=== PATIENT | female | born 1935 | race Caucasian/White ===

== ENCOUNTER 2017-03-24 10:20 | Emergency (ER) | payer OTHER ==
[2017-03-24 10:27] VITALS: BMI 23.7
--- NOTE | 2017-03-24 11:45 | PDOC ---
History of Present Illness - General Chief Complaint: Pain Stated Complaint: PAIN/SOB Time Seen by Provider: 03/24/17 11:06 History Source: Patient Exam Limitations: No Limitations - History of Present Illness Initial Comments: 82 yo F presents with R rib pain. She states she bent over to pick something up 2 days ago, developed sudden pain to the R lower rib margin. She has had difficulty taking a deep breath due to pain ever since. Denies cough, fever. Denies abd pain, N/V. Pain does not worsen with eating meals. No prior similar symptoms. Past History - Past Medical History Allergies/Adverse Reactions: Allergies Allergy/AdvReac Type Severity Reaction Status Date / Time No Known Allergies Allergy Verified 03/24/17 10:28 Home Medications: Ambulatory Orders Alprazolam [Xanax] 0.5 mg PO DAILY 02/12/17 Atorvastatin Calcium 10 mg PO DAILY 02/12/17 Diltiazem Cd [Cardizem Cd -] 300 mg PO DAILY 02/12/17 Losartan/Hydrochlorothiazide [Losartan-Hctz 100-25 mg Tab] 100 mg PO DAILY 02/12 Ranitidine [Zantac -] 300 mg PO ONCE 02/12/17 Warfarin Sodium [Coumadin] 2 mg PO DAILY 02/12/17 Albuterol Sulfate Inhaler - [Ventolin HFA Inhaler -] 1 - 2 inh PO QID #1 inhaler 03/24/17 Tramadol HCl 1 - 2 tab PO Q6H PRN #24 tablet MDD 8 tabs 03/24/17 Asthma: Yes COPD: No HTN: Yes - Suicide/Smoking/Psychosocial Hx Smoking History: Never smoked Hx Alcohol Use: No Drug/Substance Use Hx: No Substance Use Type: None Review of Systems - Review of Systems Able to Perform ROS?: Yes Comments:: GENERAL/CONSTITUTIONAL: No fever or chills. No weakness. HEAD, EYES, EARS, NOSE AND THROAT: No change in vision. No ear pain or discharge. No sore throat. CARDIOVASCULAR: No chest pain or shortness of breath. +R lower rib pain. RESPIRATORY: No cough, wheezing, or hemoptysis. GASTROINTESTINAL: No nausea, vomiting, diarrhea or constipation. GENITOURINARY: No dysuria, frequency, or change in urination. MUSCULOSKELETAL: No joint or muscle swelling or pain. No neck or back pain. SKIN: No rash NEUROLOGIC: No headache, vertigo, loss of consciousness, or change in strength/ sensation. ENDOCRINE: No increased thirst. No abnormal weight change. HEMATOLOGIC/LYMPHATIC: No anemia, easy bleeding, or history of blood clots. ALLERGIC/IMMUNOLOGIC: No hives or skin allergy. *Physical Exam - Vital Signs Last Vital Signs Temp Pulse Resp BP Pulse Ox 97.6 F 115 H 20 164/88 97 03/24/17 10:23 03/24/17 10:23 03/24/17 10:23 03/24/17 10:23 03/24/17 10:23 - Physical Exam Comments: GENERAL: Awake, alert, and fully oriented, in no acute distress HEAD: No signs of trauma EYES: PERRLA, EOMI, sclera anicteric, conjunctiva clear ENT: Auricles normal inspection, hearing grossly normal, nares patent, oropharynx clear without exudates. Moist mucosa NECK: Normal ROM, supple, no lymphadenopathy, JVD, or masses LUNGS: Breath sounds equal, clear to auscultation bilaterally. No wheezes, and no crackles. +Splinting. +R anterior inferior rib margin tenderness. HEART: Regular rate and rhythm, normal S1 and S2, no murmurs, rubs or gallops ABDOMEN: Soft, nontender, normoactive bowel sounds. No guarding, no rebound. No masses EXTREMITIES: Normal range of motion, no edema. No clubbing or cyanosis. No cords, erythema, or tenderness NEUROLOGICAL: Cranial nerves II through XII grossly intact. Normal speech, normal gait SKIN: Warm, Dry, normal turgor, no rashes or lesions noted. Medical Decision Making - Medical Decision Making XR read as negative, however, there appears to be a fracture on one of the views. Will treat for pain, DC home with outpatient f/u. *DC/Admit/Observation/Transfer Diagnosis at time of Disposition: Rib fracture Qualifiers: Encounter type: initial encounter Rib fracture type: single rib Fracture type: closed Laterality: right Qualified Code(s): S22.31XA - Fracture of one rib, right side, initial encounter for closed fracture - Discharge Dispostion Disposition: HOME Condition at time of disposition: Stable Admit: No - Prescriptions Prescriptions: Albuterol Sulfate Inhaler - [Ventolin HFA Inhaler -] 1 - 2 inh PO QID #1 inhaler Tramadol HCl 1 - 2 tab PO Q6H PRN #24 tablet MDD 8 tabs PRN Reason: Severe Pain - Referrals Referrals: Mehul Inman MD [Staff Physician] - - Patient Instructions Printed Discharge Instructions: DI for Rib Fracture Additional Instructions: Follow up in the internal medicine clinic for management of the coumadin. - Post Discharge Activity
[2017-03-24] MEDS ORDERED: traMADol HCL 50 MG TABLET PO ONE (11:50)
[2017-03-24] MEDS ORDERED: traMADol HCL 50 MG TABLET ONE (12:07)
[2017-03-24 12:54] LABS: INR 1.65 (0.82-1.09); PROTHROMBIN TIME (PATIENT) 18.7 SEC (9.98-11.88)
[2017-03-24 12:56] LABS: ACTIVATED PTT 41.6 SECONDS (26.9-34.4)
[2017-03-24] MEDS: ALBUTEROL SO4 2.5/IPRATROPIUM 0.5 INH SOL 3 ML VIAL.NEB. NEB SCH ×3 (13:15→13:45)
[2017-03-24 14:22] VITALS: BP 128/70; PULSE 68; TEMP 97.8
--- NOTE | 2017-03-29 13:54 | EKG ---
Test Reason : Blood Pressure : / mmHG Vent. Rate : 074 BPM Atrial Rate : 074 BPM P-R Int : 152 ms QRS Dur : 076 ms QT Int : 372 ms P-R-T Axes : 064 045 020 degrees QTc Int : 412 ms NORMAL SINUS RHYTHM NONSPECIFIC T WAVE ABNORMALITY ABNORMAL ECG Confirmed by ISRRAEL TORRES MD ([id number]) on 03/29/2017 1:53:41 PM Referred By: Confirmed By:ISRRAEL TORRES MD
== END 2017-03-24 14:22 | disposition home or self-care (01) ==
LOC: JER 10:20
DX: S22.31XA Fracture of one rib, right side, initial encounter for closed fracture (principal); X50.0XXA Overexertion from strenuous movement or load, initial encounter; Y93.89 Activity, other specified; Y92.89 Other specified places as the place of occurrence of the external cause; Y99.8 Other external cause status
CPT/HCPCS: 36415; 71020-TC; 71101-TC-RT; 85610; 85730; 93005; 93010; 99282-25

== ENCOUNTER 2017-08-24 10:17 | Emergency (ER) | payer OTHER ==
[2017-08-24 10:24] VITALS: BMI 24.7
--- NOTE | 2017-08-24 11:25 | PDOC ---
History of Present Illness <Epi Sarah - Last Filed: 08/24/17 18:23> - History of Present Illness Initial Comments: Patient is a 82F, with PMHx of asthma, HTN, HLD, GERD, asthma, Afib (on coumadin), who presents today for rib pain s/p unwitnessed slip and fall 3 days ago. Patient states 3 days ago she fell backwards, landing on her bottom. She initially felt some left shoulder left pain but otherwise was fine. Last night she began feeling left rib pain. It is worse when she is moving/twisting and improves with rest. Took Tylenol very early this morning with some improvement. She also notes some pain in her left foot and back. She also reports falling 1 week ago in her kitchen but is unable to recall why. She also reports broken rib a few months ago after a fall. She does not have a primary care doctor since she just returned from [place] a couple of months ago. She denies hitting her head, loc. She denies fever, diarrhea, hematochezia, dysuria, abdominal pain. She denies chest pain, dizziness, or headache before fall. Denies neck pain. 08/24/17 18:41 <Latisha Hammer - Last Filed: 08/24/17 18:47> - General Chief Complaint: Injury Stated Complaint: FELL CHEST PAIN Time Seen by Provider: 08/24/17 10:50 Past History - Past Medical History Asthma: Yes COPD: No HTN: Yes - Suicide/Smoking/Psychosocial Hx Smoking History: Never smoked Hx Alcohol Use: No Drug/Substance Use Hx: No Substance Use Type: None <Epi Sarah - Last Filed: 08/24/17 18:23> <Latisha Hammer - Last Filed: 08/24/17 18:47> - Past Medical History Allergies/Adverse Reactions: Allergies Allergy/AdvReac Type Severity Reaction Status Date / Time No Known Allergies Allergy Verified 08/24/17 10:22 Home Medications: Ambulatory Orders Alprazolam [Xanax] 0.5 mg PO DAILY 02/12/17 Atorvastatin Calcium 10 mg PO DAILY 02/12/17 Diltiazem Cd [Cardizem Cd -] 300 mg PO DAILY 02/12/17 Losartan/Hydrochlorothiazide [Losartan-Hctz 100-25 mg Tab] 100 mg PO DAILY 02/12 Ranitidine [Zantac -] 300 mg PO ONCE 02/12/17 Warfarin Sodium [Coumadin] 2 mg PO DAILY 02/12/17 Albuterol Sulfate Inhaler - [Ventolin HFA Inhaler -] 1 - 2 inh PO QID #1 inhaler 03/24/17 Tramadol HCl 1 - 2 tab PO Q6H PRN #24 tablet MDD 8 tabs 03/24/17 Nitrofurantoin Monohyd/M-Cryst [Macrobid -] 100 mg PO BID #14 capsule 08/24/17 Review of Systems - Review of Systems Comments:: 08/24/17 18:43 CONSTITUTIONAL: No reported: Fever, Chills, Diaphoresis, Generalized Weakness, Malaise, Loss of Appetite HEENT: No reported: Rhinorrhea, Nasal Congestion, Throat Pain, Throat Swelling, Difficulty Swallowing, Mouth Swelling, Ear Pain, Eye Pain, Visual Changes CARDIOVASCULAR: No reported: Chest Pain, Syncope, Palpitations, Irregular Heart Rate, Lightheadedness, Peripheral Edema RESPIRATORY: No reported: Cough, Shortness of Breath, SOB with Exertion, Orthopnea, Wheezing , Stridor, Hemoptysis GASTROINTESTINAL: No reported: Abdominal pain, Abdominal Distension, Nausea, Vomiting, Diarrhea, Constipation, Melena, Hematochezia GENITOURINARY: No reported: Dysuria, Frequency, Urgency, Hesitancy, Flank Pain, Genital Pain MUSCULOSKELETAL: Reported: left rib, shoulder, foot, and back pain. No reported: Neck Pain SKIN: Reported: left shoulder pain No reported: Rash, Itching, Pallor HEMATOLOGIC/IMMUNOLOGIC: No reported: Easy Bleeding, Easy Bruising, Lymphadenopathy, Frequent infections ENDOCRINE: No reported: Unexplained Weight Gain, Unexplained Weight Loss, Heat Intolerance , Cold Intolerance NEUROLOGIC: No reported: Headache, Focal Weakness, Paresthesias, Vertigo, Lightheadedness, Unsteady Gait, Seizure, Mental Status Changes, Incontinence PSYCHIATRIC: No reported: Anxiety, Depression " <Latisha Hammer - Last Filed: 08/24/17 18:47> *Physical Exam - Vital Signs Last Vital Signs Temp Pulse Resp BP Pulse Ox 98 F 73 18 170/75 98 08/24/17 10:18 08/24/17 10:18 08/24/17 10:18 08/24/17 10:18 08/24/17 10:18 <Tyrel,Epi - Last Filed: 08/24/17 18:23> - Vital Signs Last Vital Signs Temp Pulse Resp BP Pulse Ox 98 F 73 18 170/75 98 08/24/17 10:18 08/24/17 10:18 08/24/17 10:18 08/24/17 10:18 08/24/17 10:18 - Physical Exam Comments: 08/24/17 18:44 GENERAL: The patient is awake, alert, and fully oriented, Nontoxic - in no acute distress. HEAD: Normocephalic, atraumatic. EYES: Extraocular movements intact, Sclera anicteric, Conjunctiva clear. ENT: Normal voice, Moist mucous membranes. NECK: Normal range of motion, supple LUNGS: Breath sounds equal, clear to auscultation bilaterally. No wheezes, no rhonchi, no rales. HEART: Regular rate and rhythm, without murmur, rub or gallop. mild tenderness at the L chest wall, CHEST: Left lateral chest wall, reproduces her pain exactly. ABDOMEN: Soft, nontender, No guarding, no rebound.No CVA tenderness EXTREMITIES: Ecchymosis in the proximal L humerus, Normal range of motion of B/ L UE and LE at all joints. NEUROLOGICAL: No facial assymetry, Normal speech. PSYCH: Normal mood, normal affect. SKIN: Warm, Dry, normal turgor <Latisha Hammer - Last Filed: 08/24/17 18:47> Heart Score/ECG Review - ECG Impressions Comment:: 08/24/17 18:23 Twelve-lead EKG was performed and reviewed by me. There is normal sinus rhythm with a normal rate. Rate of 67 The axis is normal. The intervals are normal. There is normal R wave progression There are no ST or T wave abnormalities. Impression: Normal twelve-lead EKG <Epi Sarah - Last Filed: 08/24/17 18:23> - ECG Intrepretation Comment:: 08/24/17 11:57 Taken 11:51:04 Sinus rhythm with marked sinus arrhythmia Vent rate 67 bpm <Latisha Hammer - Last Filed: 08/24/17 18:47> ED Treatment Course - LABORATORY CBC & Chemistry Diagram: 08/24/17 11:45 08/24/17 11:45 - RADIOLOGY Radiology Studies Ordered: Category Date Time Status CHEST PA & LAT [RAD] Stat Radiology 08/24/17 11:21 Ordered FOOT-LEFT [RAD] Stat Radiology 08/24/17 11:21 Ordered HUMERUS-LEFT [RAD] Stat Radiology 08/24/17 11:21 Ordered RIBS-LEFT SIDE [RAD] Stat Radiology 08/24/17 11:21 Ordered <Epi Sarah - Last Filed: 08/24/17 18:23> - LABORATORY CBC & Chemistry Diagram: 08/24/17 11:45 08/24/17 11:45 - ADDITIONAL ORDERS Additional order review: 08/24/17 11:45 RBC 3.91 MCV 91.3 MCHC 34.1 RDW 14.1 MPV 8.0 Neutrophils % 53.3 Lymphocytes % 34.5 Monocytes % 9.5 Eosinophils % 2.1 Basophils % 0.6 <Latisha Hammer - Last Filed: 08/24/17 18:47> Medical Decision Making - Medical Decision Making 08/24/17 11:26 82y F hx of asthma, hypertension, hyperlipidemia, A. fib on Coumadin, GERD presenting with complaint of fall 3 days ago, patient states his mechanical fall she thinks she slipped coming in the bathroom landed on her behind and then on her back. Denies any LOC, head injury, states she felt well for the past few days until last night when she started having pain in her left back that is worse when movement and with coughing and deep breaths. The patient endorses mild pain in her left shoulder however is able to range it fully. The patient also endorsed following 1-2 weeks ago with pain in her 08/24/17 16:02 labs reviewed unremarkable xry neg for fx ua +nitrite positive will dc with pmd fu will start abx for uti I discussed the physical exam findings, ancillary test results and final diagnoses with the patient. I answered all of the patient's questions. The patient was satisfied with the care received and felt comfortable with the discharge plan and treatment plan. The patient will call their primary care physician within 24 hours to arrange follow-up and will return to the Emergency Department with any new, persistent or worsening symptoms. <Epi Sarah - Last Filed: 08/24/17 18:23> *DC/Admit/Observation/Transfer - Discharge Dispostion Decision to Admit order: No <Epi Sarah - Last Filed: 08/24/17 18:23> - Attestations Scribe Attestion: 08/24/17 18:47 Documentation prepared by Latisha Hammer, acting as medical research associate for Epi Sarah MD,. <Latisha Hammer - Last Filed: 08/24/17 18:47> Diagnosis at time of Disposition: Muscular chest pain UTI (urinary tract infection) Qualifiers: Urinary tract infection type: site unspecified Hematuria presence: without hematuria Qualified Code(s): N39.0 - Urinary tract infection, site not specified - Discharge Dispostion Disposition: HOME Condition at time of disposition: Improved - Prescriptions Prescriptions: Nitrofurantoin Monohyd/M-Cryst [Macrobid -] 100 mg PO BID #14 capsule - Referrals Referrals: Mehul Inman MD [Staff Physician] - - Patient Instructions Printed Discharge Instructions: DI for Urinary Tract Infection (UTI), How to Prevent Falls Additional Instructions: Return to the emergency department immediately with ANY new, persistent or worsening symptoms. Take the antibiotics as prescribed take tylenolf or your pain, it will get better over a few days. You MUST call and follow up with your doctor in 3-4 days for further evaluation of your symptoms. Results were discussed with you. Please make sure your doctor reviews the results of your emergency evaluation. Print Language: MALTESE
[2017-08-24 11:52] LABS: BASO % 0.6 % (0-2.0); EOS % 2.1 % (0-4.5); HEMATOCRIT 35.7 % (32.4-45.2); HEMOGLOBIN 12.2 GM/dL (10.7-15.3); LYMPH % 34.5 % (8-40); MCH 31.1 pg (25.7-33.7); MCHC 34.1 g/dl (32.0-36.0); MEAN CELL VOLUME 91.3 fl (80-96); MONO % 9.5 % (3.8-10.2); NEUT % 53.3 % (42.8-82.8); PLATELET COUNT 229 K/MM3 (134-434); RBC 3.91 M/mm3 (3.60-5.2); RDW 14.1 % (11.6-15.6)
[2017-08-24 12:05] LABS: INR 2.45 (0.82-1.09); PROTHROMBIN TIME (PATIENT) 27.7 SEC (9.7-13.0)
[2017-08-24] MEDS ORDERED: ACETAMINOPHEN 325 MG TABLET (FP) PO ONE (12:09)
[2017-08-24 12:16] LABS: ANION GAP 5 (8-16); BILIRUBIN,TOTAL 0.6 mg/dL (0.2-1.0); BLOOD UREA NITROGEN 19 mg/dL (7-18); CHLORIDE 102 mmol/L (98-107); CO2 31 mmol/L (21-32); CREATININE 0.9 mg/dL (0.55-1.02); GLUCOSE,RANDOM 82 mg/dL (74-106); POTASSIUM 4.1 mmol/L (3.5-5.1); SGOT/AST 19 U/L (15-37); SGPT/ALT 24 U/L (12-78); SODIUM 138 mmol/L (136-145); TOT PROT 6.9 g/dl (6.4-8.2)
[2017-08-24 12:17] LABS: ALK PHOS 100 U/L (45-117)
[2017-08-24] MEDS ORDERED: ACETAMINOPHEN 325 MG TABLET (FP) ONE (12:24)
[2017-08-24 14:23] LABS: URINE APPEARANCE CLEAR; URINE BILIRUBIN NEGATIVE (<2.0 mg/dL); URINE COLOR LTYELLOW; URINE GLUCOSE (UA) NEGATIVE (NEGATIVE); URINE KETONE NEGATIVE (NEGATIVE); URINE LEUK ESTERASE NEGATIVE (NEGATIVE); URINE NITRITE POSITIVE (NEGATIVE); URINE PROTEIN NEGATIVE (NEGATIVE); URINE UROBILINOGEN NEGATIVE mg/dL (0.2-1.0)
[2017-08-24 14:48] LABS: EPI CELLS RARE /HPF (FEW); URINE BACTERIA RARE /hpf (NONE SEEN)
[2017-08-24 16:24] VITALS: BP 142/79; PULSE 68; TEMP 98.5
--- NOTE | 2017-08-27 00:32 | EKG ---
Test Reason : Blood Pressure : / mmHG Vent. Rate : 067 BPM Atrial Rate : 067 BPM P-R Int : 156 ms QRS Dur : 070 ms QT Int : 392 ms P-R-T Axes : 053 046 029 degrees QTc Int : 414 ms SINUS RHYTHM WITH MARKED SINUS ARRHYTHMIA OTHERWISE NORMAL ECG WHEN COMPARED WITH ECG OF 24-MAR-2017 11:26, NO SIGNIFICANT CHANGE WAS FOUND Confirmed by ESTELITA CONNER MD ([id number]) on 08/27/2017 12:32:00 AM Referred By: Confirmed By:ESTELITA CONNER MD
== END 2017-08-24 16:15 | disposition home or self-care (01) ==
LOC: JER 10:17
DX: R07.89 Other chest pain (principal); N39.0 Urinary tract infection, site not specified; W01.0XXA Fall on same level from slipping, tripping and stumbling without subsequent striking against object, initial encounter; Z91.81 History of falling; Y93.89 Activity, other specified; Y92.030 Kitchen in apartment as the place of occurrence of the external cause; Y99.8 Other external cause status; I10 Essential (primary) hypertension; E78.5 Hyperlipidemia, unspecified; E78.00 Pure hypercholesterolemia, unspecified; K21.9 Gastro-esophageal reflux disease without esophagitis; Z87.09 Personal history of other diseases of the respiratory system; I48.91 Unspecified atrial fibrillation; Z79.01 Long term (current) use of anticoagulants
CPT/HCPCS: 36415; 71046-TC-FY; 71101-TC-FY; 73060-TC-LT-FY; 73630-TC-LT; 80053; 81003; 81015; 82550; 84484; 85025; 85610; 93005; 93010; 99283-25

== ENCOUNTER 2017-12-13 13:41 | Inpatient (IN) | payer OTHER ==
[2017-12-13] MEDS ORDERED: ACETAMINOPHEN 1000 MG/100 ML VIAL (NON FORMULARY) IVPB ONE (14:30)
[2017-12-13] MEDS ORDERED: ACETAMINOPHEN INJECTION 100 ML IVPB ONE (14:34)
--- NOTE | 2017-12-13 14:55 | PDOC ---
Attending Attestation - Resident Resident Name: Abner Blake - ED Attending Attestation I have performed the following: I have examined & evaluated the patient, The case was reviewed & discussed with the resident, I agree w/resident's findings & plan, Exceptions are as noted - HPI HPI: 12/13/17 14:51 82-year-old female with past medical history of asthma, hypertension, GERD, atrial fibrillation on Coumadin presents with mechanical fall. The patient had slipped and fell and landed on her right hip. She actually denies head trauma or head injury. No loss of consciousness. Patient reports significant amount of pain around the greater trochanter site. No numbness or weakness. Patient is unable to ambulate secondary to pain. - Physicial Exam PE: 12/13/17 14:55 GENERAL: Awake, alert, and fully oriented, in no acute distress HEAD: No signs of trauma EYES: PERRLA, EOMI, sclera anicteric, conjunctiva clear ENT: Auricles normal inspection, hearing grossly normal, nares patent, oropharynx clear without exudates. Moist mucosa NECK: Normal ROM, supple, ABDOMEN: Soft, mildly tender to palpation suprapubic. EXTREMITIES: Normal range of motion, no edema. No clubbing or cyanosis. No cords, erythema, or tenderness RLE: 2+ DP pulse. No obvious gross abnormalities. pelvis stable, however, TTP right lateral hip around greater trochanter. NEUROLOGICAL: Cranial nerves II through XII grossly intact. Normal speech SKIN: Warm, Dry, normal turgor, no rashes or lesions noted. - Medical Decision Making 12/13/17 15:00 Vital Signs Temp Pulse Resp BP Pulse Ox 97.9 F 82 17 150/76 99 12/13/17 13:51 12/13/17 13:51 12/13/17 13:51 12/13/17 13:51 12/13/17 13:51 82 year old female p/w R hip pain s/p mechanical fall. Pt absolutely denies head trauma. Will defer on head imaging. Pelvis and R hip xray to r/o fracture. If xray equivocal, pursue with CT pelvis with noncontrast Pain control. Pt also noted incidentally with suprapubic discomfort. R/o UTI. Pt denies trauma to the abdomen. 12/13/17 16:12 CBC, BMP 12/13/17 14:45 Urine Test Results Urine Color Ltyellow 12/13/17 15:00 Urine Appearance Clear 12/13/17 15:00 Urine pH 6.0 (5.0-8.0) 12/13/17 15:00 Ur Specific Revere 1.010 (1.001-1.035) 12/13/17 15:00 Urine Protein 1+ (NEGATIVE) H 12/13/17 15:00 Urine Glucose (UA) Negative (NEGATIVE) 12/13/17 15:00 Urine Ketones Negative (NEGATIVE) 12/13/17 15:00 Urine Blood 1+ (NEGATIVE) H 12/13/17 15:00 Urine Nitrite Positive (NEGATIVE) 12/13/17 15:00 Urine Bilirubin Negative (<2.0 mg/dL) 12/13/17 15:00 Ur Leukocyte Esterase Negative (NEGATIVE) 12/13/17 15:00 Ur Epithelial Cells Rare /HPF (FEW) 12/13/17 15:00 Urine Bacteria Rare /hpf (NONE SEEN) 12/13/17 15:00 Urine Mucus Rare 12/13/17 15:00 12/13/17 16:20 Ceftriaxone ordered for UTI. Given lower abd pain and WBC 20.7, will order CT abdomen and pelvis to r/o other acute abdominal pathology. Admit 12/13/17 16:23 Pelvis xray reviewed by me, pending official radiology read. Superior and inferior pubic rami fracture. 12/13/17 16:24 Consult ortho <Ananda Camarena - Last Filed: 12/13/17 16:24> - Medical Decision Making 12/13/17 19:29 discussed the case with DIANA who accepts the pt to admission <Stephanie Urbina - Last Filed: 12/13/17 19:29> Heart Score/ECG Review #1 ECG reviewed & interpreted by me at: 15:35 12/13/17 15:44 NSR 79, no std/gaby, normal axis, T wave flat aVL, III, avF, V3-V6 <Ananda Camarena - Last Filed: 12/13/17 16:24>
[2017-12-13 15:47] LABS: HEMATOCRIT 34.7 % (32.4-45.2); HEMOGLOBIN 11.7 GM/dL (10.7-15.3); MCH 30.9 pg (25.7-33.7); MCHC 33.7 g/dl (32.0-36.0); MEAN CELL VOLUME 91.5 fl (80-96); MEAN PLT VOLUME 8.7 fl (7.5-11.1); PLATELET COUNT 268 K/MM3 (134-434); RDW 14.2 % (11.6-15.6); WHITE BLOOD COUNT 20.7 K/mm3 (4.0-10.0)
[2017-12-13 15:59] LABS: URINE APPEARANCE CLEAR; URINE BILIRUBIN NEGATIVE (<2.0 mg/dL); URINE COLOR LTYELLOW; URINE GLUCOSE (UA) NEGATIVE (NEGATIVE); URINE KETONE NEGATIVE (NEGATIVE); URINE LEUK ESTERASE NEGATIVE (NEGATIVE); URINE NITRITE POSITIVE (NEGATIVE); URINE UROBILINOGEN NEGATIVE mg/dL (0.2-1.0)
[2017-12-13 16:02] LABS: INR 3.1 (0.83-1.09)
--- NOTE | 2017-12-13 16:03 | PDOC ---
History of Present Illness - General Chief Complaint: Injury Stated Complaint: FALL Time Seen by Provider: 12/13/17 13:51 - History of Present Illness Initial Comments: 12/13/17 16:43 Pt is an 83 y/o pleasant lady with a significant past medical history of asthma HTN, AFIB, GERD, and multiple falls presents to [facility] s/p falling on her right side at approximately noon today. Pt states she uses a walker for ambulation and was walking toward the library in her apartment building when she fell opening the door and landed on her right hip. Pt could not help herself up and needed her neighbor for assistance. Pt broke a rib on her right side in March (2016) and also fractured her right ankle 5 years ago. 12/13/17 16:52 Past History - Past Medical History Allergies/Adverse Reactions: Allergies Allergy/AdvReac Type Severity Reaction Status Date / Time No Known Allergies Allergy Verified 12/13/17 13:51 Home Medications: Ambulatory Orders Diltiazem Cd [Cardizem Cd -] 300 mg PO DAILY 02/12/17 Losartan/Hydrochlorothiazide [Losartan-Hctz 100-25 mg Tab] 100 mg PO DAILY 02/12 Ranitidine [Zantac -] 300 mg PO ONCE 02/12/17 Warfarin Sodium [Coumadin] 2 mg PO DAILY 02/12/17 Acetaminophen [Tylenol .Regular Strength -] 650 mg PO Q6H PRN tablet 12/16/17 Albuterol 2.5/Ipratropium 0.5 [Duoneb -] 1 amp NEB RQID amp 12/16/17 Alprazolam [Xanax] 0.25 mg PO Q8H PRN tablet MDD 3 12/16/17 Cefuroxime Axetil [Ceftin -] 500 mg PO BID tablet 12/16/17 Polyethylene Glycol 3350 [Miralax 119 gm Btl -] 17 gm PO PRN bottle 12/16/17 Warfarin Na [Coumadin -] 2 mg PO DAILY@1800 tablet 12/16/17 Asthma: Yes Cardiac Disorders: Yes (A-FIB) COPD: No HTN: Yes - Immunization History Immunization Up to Date: Yes - Suicide/Smoking/Psychosocial Hx Smoking History: Never smoked Have you smoked in the past 12 months: No Information on smoking cessation initiated: No Hx Alcohol Use: No Drug/Substance Use Hx: No Substance Use Type: None Review of Systems - Review of Systems Able to Perform ROS?: Yes Musculoskeletal: Yes: Joint Pain (Tenderness on R lateral hip around greater trochanter.) *Physical Exam - Vital Signs Last Vital Signs Temp Pulse Resp BP Pulse Ox 97.9 F 82 17 150/76 99 12/13/17 13:51 12/13/17 13:51 12/13/17 13:51 12/13/17 13:51 12/13/17 13:51 ED Treatment Course - LABORATORY CBC & Chemistry Diagram: 12/16/17 07:54 12/16/17 07:54 - ADDITIONAL ORDERS Additional order review: 12/13/17 14:45 RBC 3.80 MCV 91.5 MCHC 33.7 RDW 14.2 MPV 8.7 - RADIOLOGY Radiology Studies Ordered: Category Date Time Status CHEST X-RAY PORTABLE* [RAD] Stat Radiology 12/13/17 14:38 Taken FEMUR-RIGHT [RAD] Stat Radiology 12/13/17 14:33 Taken HIP & PELVIS-RIGHT [RAD] Stat Radiology 12/13/17 14:32 Taken - Medications Given in the ED: ED Medications Discontinued Medications Generic Name Dose Route Start Last Admin Trade Name Freq PRN Reason Stop Dose Admin Acetaminophen 1,000 mg 12/13/17 14:30 12/13/17 14:40 Ofirmev Injection - IVPB 12/13/17 14:31 1,000 mg ONCE ONE Administration Medical Decision Making - Medical Decision Making ER course was notable for: (1)CT head - no acute intracranial bleeding (2)CT abd/pelvis - airspace opacities in the left lower lobe and to a lesser extent right lower lobe suggestive of pneumonic infiltrates. 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 Comminuted fracture of the right superior pubic ramus, medially with mild displacement and a nondisplaced fracture of the inferior pubic ramus. There is significant stranding/edema in the right lower pelvis, seen along superior and inferior margin of the superior pubic ramus consistent with a hematoma. There is also asymmetric enlargement of the right obturator internus and externus suggestive of a hematoma. (3)WBC - 20.7; PT with INR 35; INR 3.10 (4)UA - Nitrite +, WBC 4, RBC 1 -pt admitted, ortho consulted. *DC/Admit/Observation/Transfer Diagnosis at time of Disposition: UTI (urinary tract infection) - Discharge Dispostion Condition at time of disposition: Stable - Referrals - Patient Instructions - Post Discharge Activity
[2017-12-13 16:05] LABS: URINE PROTEIN 1+ (NEGATIVE)
[2017-12-13 16:10] LABS: EPI CELLS RARE /HPF (FEW); URINE BACTERIA RARE /hpf (NONE SEEN); URINE MUCUS RARE
[2017-12-13 16:11] LABS: ANION GAP 13 MMOL/L (8-16); BLOOD UREA NITROGEN 22 mg/dL (7-18); CALCIUM 9.3 mg/dL (8.5-10.1); CHLORIDE 102 mmol/L (98-107); CO2 23 mmol/L (21-32); CREATININE 0.7 mg/dL (0.55-1.02); GLUCOSE,RANDOM 105 mg/dL (74-106); SGPT/ALT 34 U/L (12-78); SODIUM 138 mmol/L (136-145)
[2017-12-13] MEDS ORDERED: CEFTRIAXONE 1,000 MG in DEXTROSE 5%-WATER - 50 ML IVPB ONE (16:12)
[2017-12-13 16:13] LABS: ALBUMIN 3.9 g/dl (3.4-5.0); ALK PHOS 94 U/L (45-117); BILIRUBIN,TOTAL 0.5 mg/dL (0.2-1.0); TOT PROT 7.5 g/dl (6.4-8.2)
[2017-12-13 16:15] LABS: POTASSIUM 4.1 mmol/L (3.5-5.1); SGOT/AST 34 U/L (15-37)
[2017-12-13] MEDS ORDERED: CEFTRIAXONE 1 GM/50 ML BAG ONE (16:43)
[2017-12-13] MEDS ORDERED: SODIUM PHOSPHATE/NA BIPHOS 133 ML ENEMA PR ONE (17:35)
[2017-12-13] MEDS ORDERED: ALPRAZolam 0.25 MG TABLET ONE (17:41)
[2017-12-13] MEDS: ALPRAZolam 0.25 MG TABLET PO PRN (17:42)
[2017-12-13] MEDS ORDERED: POLYETHYLENE GLYCOL 3350 119 GM BTL PO SCH (17:45)
[2017-12-13] MEDS ORDERED: AZITHROMYCIN IVPB 500 MG in DEXTROSE 5%-WATER - 250 ML IVPB ONE (19:38)
[2017-12-13] MEDS ORDERED: AZITHROMYCIN IVPB 250 ML IVPB ONE (20:10)
--- NOTE | 2017-12-13 20:50 | HP ---
CHIEF COMPLAINT:right hip pain s/p fall PCP: HISTORY OF PRESENT ILLNESS: Patient is an 82 year old female with past medical history of asthma, HTN, Atrial fibrillation, GERD and multiple falls, was BIBA due to fall on her right hip at noon today. Patient normally uses a walker for ambulation. She was walking in her apartment building when she slipped and feel while opening the door and landed on her right hip. Patient could not help herself up and needed assistance from a neighbor to stand. She denied any loss of consciousness, confusion or head trauma. Patient just complains of pain of her right hip and right upper thigh, relieved by Tylenol IV given at the ED. Patient also reports urgency that started when she arrived at the ED but denies dysuria, frequency, nocturia. Patient lives with her who has dementia. ER course was notable for: (1)CT head - no acute intracranial bleeding (2)CT abd/pelvis - airspace opacities in the left lower lobe and to a lesser extent right lower lobe suggestive of pneumonic infiltrates. 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 Comminuted fracture of the right superior pubic ramus, medially with mild displacement and a nondisplaced fracture of the inferior pubic ramus. There is significant stranding/edema in the right lower pelvis, seen along superior and inferior margin of the superior pubic ramus consistent with a hematoma. There is also asymmetric enlargement of the right obturator internus and externus suggestive of a hematoma. (3)WBC - 20.7; PT with INR 35; INR 3.10 (4)UA - Nitrite +, WBC 4, RBC 1 Recent Travel:denies any recent travel PAST MEDICAL HISTORY: Asthma HTN Atrial Fibrillation GERD PAST SURGICAL HISTORY: Repair of fractured ankle (5 years ago) Social History: Smoking:nonsmoker Alcohol:denies EtOH use Drugs: denies illicit drug use Family History: Allergies No Known Allergies Allergy (Verified 12/13/17 13:51) HOME MEDICATIONS: Home Medications Medication Instructions Recorded Alprazolam [Xanax] 0.5 mg PO DAILY 02/12/17 Diltiazem Cd [Cardizem Cd -] 300 mg PO DAILY 02/12/17 Losartan/Hydrochlorothiazide 100 mg PO DAILY 02/12/17 [Losartan-Hctz 100-25 mg Tab] Ranitidine [Zantac -] 300 mg PO ONCE 02/12/17 Warfarin Sodium [Coumadin] 2 mg PO DAILY 02/12/17 REVIEW OF SYSTEMS CONSTITUTIONAL: Absent: fever, chills, diaphoresis, generalized weakness, malaise, loss of appetite, weight change HEENT: Absent: rhinorrhea, nasal congestion, throat pain, throat swelling, difficulty swallowing, mouth swelling, ear pain, eye pain, visual changes CARDIOVASCULAR: Absent: chest pain, syncope, palpitations, irregular heart rate, lightheadedness , peripheral edema RESPIRATORY: Absent: cough, shortness of breath, dyspnea with exertion, orthopnea, wheezing, stridor, hemoptysis GASTROINTESTINAL: Absent: abdominal pain, abdominal distension, nausea, vomiting, diarrhea, constipation, melena, hematochezia GENITOURINARY: urgency Absent: dysuria, frequency, hesitancy, hematuria, flank pain, genital pain MUSCULOSKELETAL: right hip pain Absent: myalgia, arthralgia, joint swelling, back pain, neck pain SKIN: Absent: rash, itching, pallor HEMATOLOGIC/IMMUNOLOGIC: Absent: easy bleeding, easy bruising, lymphadenopathy, frequent infections ENDOCRINE: Absent: unexplained weight gain, unexplained weight loss, heat intolerance, cold intolerance NEUROLOGIC: Absent: headache, focal weakness or paresthesias, dizziness, unsteady gait, seizure, mental status changes, bladder or bowel incontinence PSYCHIATRIC: Absent: anxiety, depression, suicidal or homicidal ideation, hallucinations. PHYSICAL EXAMINATION Vital Signs - 24 hr 12/13/17 12/13/17 12/13/17 13:51 17:16 19:10 Temperature 97.9 F 98.1 F Pulse Rate 82 Pulse Rate [ 69 76 Left] Respiratory 17 17 18 Rate Blood Pressure 150/76 Blood Pressure 154/69 150/73 [Left Arm] O2 Sat by Pulse 99 99 95 Oximetry (%) GENERAL: Awake, alert, and fully oriented, in no acute distress. HEAD: Normal with no signs of trauma. EYES: PERRLA, EOMI, sclera anicteric, conjunctiva clear. EARS, NOSE, THROAT: Ears normal, nares patent, oropharynx clear without exudates. Moist mucous membranes. NECK: Normal range of motion, supple without lymphadenopathy, JVD, or masses. LUNGS: Breath sounds equal, clear to auscultation bilaterally. HEART: Regular rate and rhythm, normal S1 and S2 without murmur, rub or gallop. ABDOMEN: Soft, nontender, not distended, normoactive bowel sounds. MUSCULOSKELETAL: Normal range of motion at all joints. No bony deformities or tenderness. No CVA tenderness. UPPER EXTREMITIES: 2+ pulses, warm, well-perfused. No cyanosis. No clubbing. No peripheral edema. LOWER EXTREMITIES: 2+ DP pulse. No obvious gross abnormalities. Tenderness on R lateral hip around greater trochanter. NEUROLOGICAL: Cranial nerves II-XII intact. Normal speech. Gait not observed. PSYCHIATRIC: Cooperative. Good eye contact. Appropriate mood and affect. SKIN: Warm, dry, normal turgor, no rashes or lesions noted. Laboratory Results - last 24 hr 12/13/17 12/13/17 12/13/17 14:45 14:45 14:45 WBC 20.7 H RBC 3.80 Hgb 11.7 Hct 34.7 MCV 91.5 MCH 30.9 MCHC 33.7 RDW 14.2 Plt Count 268 MPV 8.7 PT with INR 35.00 H INR 3.10 H Sodium 138 Potassium 4.1 Chloride 102 Carbon Dioxide 23 Anion Gap 13 BUN 22 H Creatinine 0.7 Creat Clearance w eGFR > 60 Random Glucose 105 Calcium 9.3 Total Bilirubin 0.5 AST 34 ALT 34 Alkaline Phosphatase 94 Total Protein 7.5 Albumin 3.9 Urine Color Urine Appearance Urine pH Ur Specific Wayne Urine Protein Urine Glucose (UA) Urine Ketones Urine Blood Urine Nitrite Urine Bilirubin Urine Urobilinogen Ur Leukocyte Esterase Urine WBC (Auto) Urine RBC (Auto) Ur Epithelial Cells Urine Bacteria Urine Mucus 12/13/17 15:00 WBC RBC Hgb Hct MCV MCH MCHC RDW Plt Count MPV PT with INR INR Sodium Potassium Chloride Carbon Dioxide Anion Gap BUN Creatinine Creat Clearance w eGFR Random Glucose Calcium Total Bilirubin AST ALT Alkaline Phosphatase Total Protein Albumin Urine Color Ltyellow Urine Appearance Clear Urine pH 6.0 Ur Specific Wayne 1.010 Urine Protein 1+ H Urine Glucose (UA) Negative Urine Ketones Negative Urine Blood 1+ H Urine Nitrite Positive Urine Bilirubin Negative Urine Urobilinogen Negative Ur Leukocyte Esterase Negative Urine WBC (Auto) 4 Urine RBC (Auto) 1 Ur Epithelial Cells Rare Urine Bacteria Rare Urine Mucus Rare Imaging CT head - no acute intracranial bleeding Xray of Right Femur - mid and distal right femur no fracture; blastic and lytic changes CT abd/pelvis - airspace opacities in the left lower lobe and to a lesser extent right lower lobe suggestive of pneumonic infiltrates. 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 Comminuted fracture of the right superior pubic ramus, medially with mild displacement and a nondisplaced fracture of the inferior pubic ramus. There is significant stranding/edema in the right lower pelvis, seen along superior and inferior margin of the superior pubic ramus consistent with a hematoma. There is also asymmetric enlargement of the right obturator internus and externus suggestive of a hematoma. ASSESSMENT/PLAN: Patient is an 82 year old female with past medical history of asthma, HTN, Atrial fibrillation, GERD and multiple falls, was BIBA due to fall on her right hip at noon today. #Right hip pain 2/2 to mechanical fall -CT abd/pelvis - Comminuted fracture of the right superior pubic ramus, medially with mild displacement and a nondisplaced fracture of the inferior pubic ramus. There is significant stranding/edema in the right lower pelvis, seen along superior and inferior margin of the superior pubic ramus consistent with a hematoma. There is also asymmetric enlargement of the right obturator internus and externus suggestive of a hematoma. -Hgb 11.7, Hct 34.7 -Serial CBC q4h x3 -Type and screen stat. -Ortho consulted. -Morphine Sr 15mg PO given once -Tylenol 650mg q6h PRN for pain #Atrial Fibrillation on coumadin -PT with INR 35; INR 3.10 -Patient on 2mg coumadin at home daily -Will hold coumadin for now -Cardio consulted. #Leukocytosis -WBC 20.7 -UA - Nitrite +, WBC 4, RBC 1 -likely 2/2 to UTI vs pneumonia vs reactive -CT abd/pelvis - airspace opacities in the left lower lobe and to a lesser extent right lower lobe suggestive of pneumonic infiltrates. -CT of chest ordered. -Ceftriaxone 1gm daily x 3 days. #Hypertension -Continue Cardizem 300mg for now -Losartan/HCTZ held -Switch to Losartan 100mg daily #Asthma -continue Albuterol inhaler PRN #GERD -continue Ranitidine 300mg #FEN -IV NS (0.9%) at 75 ml/hr -electrolytes wnl, routine bmp monitoring -sodium controlled diet #Prophylaxis -hold coumadin for now -SCDs, TEDs on both legs #Disposition -admit to tele -Patient lives alone with her who has advanced dementia. Concern that no one will take care of if she's going to be discharged to the residential for rehab. Visit type - Emergency Visit Emergency Visit: Yes ED Registration Date: 12/13/17 Care time: The patient presented to the Emergency Department on the above date and was hospitalized for further evaluation of their emergent condition. - New Patient This patient is new to me today: Yes Date on this admission: 12/14/17 - Critical Care Critical Care patient: No Hospitalist Screening - Colonoscopy Questionnaire Colonoscopy Questionnaire: Colonoscopy Questionnaire - Patient: 50 - 75 years old and never had a screening colonoscopy: Unknown History of colon or rectal polyps, or CA: Unknown History of IBD, Crohn's disease or UC: Unknown History of abdominal radiation therapy as a child: Unknown - Relative: 1 with colon or rectal CA, or polyps at age 60 or younger: Unknown Colon or rectal CA diagnosed at age 45 or younger: Unknown Multiple relatives with colon or rectal CA: Unknown - Outcome: Screening Result: Negative Screen
[2017-12-13] MEDS ORDERED: SODIUM CHLORIDE 1,000 ML IV SCH (21:30)
[2017-12-13] MEDS: RANITIDINE HCL 150 MG TABLET (FP) PO SCH (21:30)
[2017-12-13] MEDS ORDERED: morphine SO4 SUSTAINED ACTING 15 MG TABLET.SA PO ONE (21:44)
[2017-12-13] MEDS ORDERED: RANITIDINE HCL 150 MG TABLET (FP) ONE (22:01)
[2017-12-13] MEDS ORDERED: morphine SO4 SUSTAINED ACTING 15 MG TABLET.SA ONE (22:01)
[2017-12-13 23:52] LABS: BASO % 0.5 % (0-2.0); EOS % 0.4 % (0-4.5); HEMATOCRIT 32.4 % (32.4-45.2); HEMOGLOBIN 11.1 GM/dL (10.7-15.3); LYMPH % 12.8 % (8-40); MCH 30.9 pg (25.7-33.7); MCHC 34.3 g/dl (32.0-36.0); MEAN CELL VOLUME 90.2 fl (80-96); MEAN PLT VOLUME 7.5 fl (7.5-11.1); MONO % 5.8 % (3.8-10.2); NEUT % 80.5 % (42.8-82.8); PLATELET COUNT 240 K/MM3 (134-434); RDW 14.1 % (11.6-15.6); WHITE BLOOD COUNT 13.6 K/mm3 (4.0-10.0)
--- NOTE | 2017-12-14 05:09 | PN ---
Teaching Attending Note Name of Resident: Lalita Bermudez ATTENDING PHYSICIAN STATEMENT I saw and evaluated the patient. I reviewed the resident's note and discussed the case with the resident. I agree with the resident's findings and plan as documented. SUBJECTIVE: OBJECTIVE: ASSESSMENT AND PLAN: patient is admitted for hip fracture s/p fall will d/c HCTZ trend the hb for the hematoma c/w cardizem consult cardiology patient requires social services director for a home health aide
[2017-12-14 07:33] VITALS: BMI 26.6
--- NOTE | 2017-12-14 08:07 | CON.CARD ---
Cardiology Consult (text) - Consultation Consultation Note: Cardiology Consult for [facility] Dictated IMP: Fall, pubic ramus fractures PNA on CT UTI PAF on warfarin with supratherapeutic INR REC: 1. Rx UTI and possible PNA as per PMD 2. Hold coumadin today- goal would be 2-3 for PAF. Resume coumadin when INR b/t 2-3 if H/H stable and no surgery planned. If surgery is planned, will need to hold and allow INR to drift below 1.5 There are currently no absolute cardiac contraindications to surgery if deemed necessary, when INR allows. Will follow
[2017-12-14 08:18] LABS: ANION GAP 9 MMOL/L (8-16); BLOOD UREA NITROGEN 20 mg/dL (7-18); CALCIUM 8.4 mg/dL (8.5-10.1); CHLORIDE 103 mmol/L (98-107); CO2 26 mmol/L (21-32); CREATININE 0.6 mg/dL (0.55-1.02); GLUCOSE,RANDOM 114 mg/dL (74-106); MAGNESIUM 1.6 mg/dL (1.8-2.4); PHOSPHOROUS 3.2 mg/dL (2.5-4.9); POTASSIUM 3.5 mmol/L (3.5-5.1); SODIUM 138 mmol/L (136-145)
--- NOTE | 2017-12-14 09:14 | CONS ---
DATE OF CONSULTATION: 12/14/[address] Anglin. REQUESTING PHYSICIAN: Shamika Melgar MD REASON FOR CONSULTATION: Paroxysmal atrial fibrillation. HISTORY OF PRESENT ILLNESS: This is an 82-year-old female with past medical history of paroxysmal atrial fibrillation on Coumadin, asthma, hypertension, GERD, who sustained a mechanical fall in [facility] resulting in a pubic ramus fracture. She denied antecedent chest pain, shortness of breath, palpitations, or loss of consciousness. Hip and pelvis x-rays upon admission demonstrated an acute right superior and inferior pubic ramus fracture. In addition, she underwent a CT scan of the abdomen and the pelvis, which showed airspace opacities in the left lower lobe, left and right renal artery aneurysm, small calcified splenic artery aneurysm; comminuted fracture of the right superior ramus and a nondisplaced fracture of the inferior pubic ramus. Stranding and edema in the right lower pelvis seen along the superior and inferior margin of the superior pubic ramus consistent with hematoma; asymmetric enlargement of the right obturator internus and externus suggestive of a hematoma. PAST MEDICAL HISTORY: Includes paroxysmal atrial fibrillation on warfarin, GERD/gastritis, chronic hypertension, and anxiety. ALLERGIES: She has no known drug allergies. MEDICATIONS: Her home medications include Coumadin 2 mg p.o. daily, ranitidine 300 mg daily, Hyzaar 100/25 mg daily, Cardizem CD 300 mg daily, and Xanax 0.5 mg p.o. p.r.n. FAMILY HISTORY: Noncontributory. SOCIAL HISTORY: is ill with dementia. She denies smoking, alcohol, or drugs. PHYSICAL EXAMINATION: Vital signs: Afebrile, temperature 99.1, blood pressure 142/74, O2 saturation 97 on room air. HEENT: Anicteric. Neck: No bruits. Heart: S1, S2, regular, no murmurs. There is no murmur of aortic stenosis. Chest: Clear bilaterally. Abdomen: Soft. Extremities: No pitting edema. DIAGNOSTIC DATA: Her ECG showed normal sinus rhythm at 79 beats per minute with baseline artifact. LABORATORY DATA: White count 13.6, hematocrit 32.4, platelets 240, INR 3.1. Sodium 138, potassium 4.1, BUN 22, creatinine 0.7. LFTs were normal. Her urinalysis was remarkable for 1+ blood, positive nitrites, 4 white cells. IMPRESSION: 1. Fall, mechanical, resulting in pubic ramus fracture. 2. Pneumonia on CT scan. 3. Possible urinary tract infection. 4. Paroxysmal atrial fibrillation, on warfarin with supratherapeutic international normalized ratio. RECOMMENDATIONS: 1. Treatment of UTI and possible pneumonia as per PMD. 2. Hold Coumadin today - Goal would be 2-3 for paroxysmal atrial fibrillation. Resume Coumadin when the INR is between 2 and 3 if the hemoglobin and hematocrit are stable and no surgeries planned. If surgery is planned, will need to hold Coumadin and allow the INR to drift to below 1.5 or to a level deemed appropriate by orthopedics. Currently, there are no absolute cardiac contraindications to surgery if deemed necessary when the INR allows. She is euvolemic with no signs or symptoms of acute coronary syndrome, no history of aortic stenosis. Will follow. Dr. Torres dictating for Dr. Anglin. ISRRAEL TORRES M.D. [id number]
[2017-12-14 09:30] LABS: HEMATOCRIT 29.3 % (32.4-45.2); MCHC 34.2 g/dl (32.0-36.0); MEAN CELL VOLUME 90.8 fl (80-96); MEAN PLT VOLUME 8.1 fl (7.5-11.1); PLATELET COUNT 215 K/MM3 (134-434); RBC 3.23 M/mm3 (3.60-5.2); RDW 13.9 % (11.6-15.6); WHITE BLOOD COUNT 11.2 K/mm3 (4.0-10.0)
--- NOTE | 2017-12-14 10:04 | PN ---
Progress Note, Physician History of Present Illness: Patient is an 82 year old female with past medical history of asthma, HTN, Atrial fibrillation, GERD and multiple falls, was BIBA due to fall on her right hip - Current Medication List Current Medications: Active Medications Acetaminophen (Tylenol -) 650 mg PO Q6H PRN PRN Reason: PAIN LEVEL 1 - 3 Alprazolam (Xanax -) 0.25 mg PO Q8H PRN PRN Reason: ANXIETY Last Admin: 12/13/17 17:42 Dose: 0.25 mg Alprazolam (Xanax -) 0.5 mg PO DAILY [facility] Diltiazem HCl (Cardizem Cd -) 300 mg PO DAILY [facility] Ceftriaxone Sodium 1 gm/ (Dextrose) 50 mls @ 100 mls/hr IVPB DAILY [facility] Stop: 12/17/17 09:59 Sodium Chloride (Normal Saline -) 1,000 mls @ 75 mls/hr IV ASDIR [facility] Last Admin: 12/13/17 21:35 Dose: 75 mls/hr Losartan Potassium (Cozaar -) 100 mg PO DAILY [facility] Polyethylene Glycol (Miralax (For Daily Use) -) 17 gm PO PRN [facility] Ranitidine HCl (Zantac -) 300 mg PO ONCE [facility] Last Admin: 12/13/17 21:30 Dose: 300 mg - Objective Vital Signs: Vital Signs Temperature 98.1 F 12/14/17 09:59 Pulse Rate 81 12/14/17 09:59 Respiratory Rate 20 12/14/17 09:59 Blood Pressure 152/61 12/14/17 09:59 O2 Sat by Pulse Oximetry (%) 97 12/14/17 07:37 Cardiovascular: Yes: S1, S2 Respiratory: Yes: Regular, CTA Bilaterally Gastrointestinal: Yes: Normal Bowel Sounds, Soft Edema: No Labs: CBC, BMP 12/14/17 07:30 12/14/17 07:30 INR, PTT INR 3.10 (0.83-1.09) H 12/13/17 14:45 Problem List - Problems (1) Pelvic fracture Assessment/Plan: Xray of Right Femur - mid and distal right femur no fracture; blastic and lytic changes -CT abd/pelvis - Comminuted fracture of the right superior pubic ramus, medially with mild displacement and a nondisplaced fracture of the inferior pubic ramus. There is significant stranding/edema in the right lower pelvis, seen along superior and inferior margin of the superior pubic ramus consistent with a hematoma. There is also asymmetric enlargement of the right obturator internus and externus suggestive of a hematoma. -Hgb 11.7, Hct 34.7 -Serial CBC -Type and screen stat. -Ortho consulted. -Morphine Sr 15mg PO given once -Tylenol 650mg q6h PRN for pain Code(s): S32.9XXA - FRACTURE OF UNSP PARTS OF LUMBOSACRAL SPINE AND PELVIS, INIT (2) Pneumonia Assessment/Plan: airspace opacities in the left lower lobe and to a lesser extent right lower lobe suggestive of pneumonic infiltrates. 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 -CT of chest ordered. -Ceftriaxone 1gm daily Code(s): D72.829 - ELEVATED WHITE BLOOD CELL COUNT, UNSPECIFIED (4) Fall Assessment/Plan: CT head - no acute intracranial bleeding Code(s): W19.XXXA - UNSPECIFIED FALL, INITIAL ENCOUNTER (5) Atrial fibrillation Assessment/Plan: -PT with INR 35; INR 3.10 -Patient on 2mg coumadin at home daily -Will hold coumadin for now -Cardio consulted. Code(s): I48.91 - UNSPECIFIED ATRIAL FIBRILLATION (6) HTN (hypertension) Assessment/Plan: -Continue Cardizem 300mg for now -Losartan/HCTZ held -Switch to Losartan 100mg daily -dc IV NS (0.9%) at 75 ml/hr -electrolytes wnl, routine bmp monitoring -sodium controlled diet Code(s): I10 - ESSENTIAL (PRIMARY) HYPERTENSION
[2017-12-14] MEDS ORDERED: PT OWN MED DRAWER 7, Y5N ONE (10:09)
[2017-12-14] MEDS: LOSARTAN POTASSIUM 50 MG TABLET (FP) PO SCH (10:13)
[2017-12-14] MEDS: ALPRAZolam 0.25 MG TABLET PO SCH (10:14)
[2017-12-14] MEDS ORDERED: cefTRIAXone SODIUM 1 GM VIAL ONE (10:28)
[2017-12-14] MEDS ORDERED: DEXTROSE 5%-WATER - 50 ML IVPB ONE (10:28)
[2017-12-14] MEDS: CEFTRIAXONE 1 GM in DEXTROSE 5%-WATER - 50 ML IVPB SCH (10:32)
--- NOTE | 2017-12-14 17:15 | CON.ORTH ---
Consult Reason for Consultation:: pelvic fx - Alcohol/Substance Use Hx Alcohol Use: No - Smoking History Smoking history: Never smoked Have you smoked in the past 12 months: No Home Medications - Allergies Allergies/Adverse Reactions: Allergies Allergy/AdvReac Type Severity Reaction Status Date / Time No Known Allergies Allergy Verified 12/13/17 13:51 - Home Medications Home Medications: Ambulatory Orders Alprazolam [Xanax] 0.5 mg PO DAILY 02/12/17 Diltiazem Cd [Cardizem Cd -] 300 mg PO DAILY 02/12/17 Losartan/Hydrochlorothiazide [Losartan-Hctz 100-25 mg Tab] 100 mg PO DAILY 02/12 Ranitidine [Zantac -] 300 mg PO ONCE 02/12/17 Warfarin Sodium [Coumadin] 2 mg PO DAILY 02/12/17 Physical Exam for Ortho Vital Signs: Vital Signs Temperature 97.9 F 12/14/17 14:00 Pulse Rate 83 12/14/17 14:00 Respiratory Rate 18 12/14/17 14:00 Blood Pressure 139/65 12/14/17 14:00 O2 Sat by Pulse Oximetry (%) 97 12/14/17 07:37 Labs: CBC, BMP 12/14/17 07:30 12/14/17 07:30 INR, PTT INR 3.10 (0.83-1.09) H 12/13/17 14:45 - Lower Extremity Hip: Yes: Right, Decreased ROM, Pain, Swelling, Other (nvi) Imaging - Results X-ray: Report Reviewed, Image Reviewed Cat Scan: Report Reviewed, Image Reviewed Assessment/Plan 82 year old female with past medical history of asthma, HTN, Atrial fibrillation , GERD and multiple falls, was BIBA due to fall on her right hip at noon today. Patient normally uses a walker for ambulation. She was walking in her apartment building when she slipped and feel while opening the door and landed on her right hip. Patient could not help herself up and needed assistance from a neighbor to stand. a/p right superior and inferior pubic rami fx PT eval wbat pain control dvt ppx ok to d/c from ortho pov d/w Dr. Barahona
[2017-12-14] MEDS: ACETAMINOPHEN 325 MG TABLET (FP) PO PRN (19:48)
[2017-12-14] MEDS ORDERED: ALBUTEROL SO4 0.083% IH SOL 2.5 MG/3 ML VIAL.NEB. NEB ONE (20:12)
[2017-12-14] MEDS: RANITIDINE HCL 150 MG TABLET (FP) PO SCH (22:31)
[2017-12-15 08:00] LABS: BASO % 0.7 % (0-2.0); EOS % 1.4 % (0-4.5); HEMATOCRIT 29.9 % (32.4-45.2); LYMPH % 19.3 % (8-40); MCH 30.5 pg (25.7-33.7); MCHC 33.5 g/dl (32.0-36.0); MEAN PLT VOLUME 7.5 fl (7.5-11.1); MONO % 9.7 % (3.8-10.2); NEUT % 68.9 % (42.8-82.8); PLATELET COUNT 199 K/MM3 (134-434); RBC 3.28 M/mm3 (3.60-5.2)
[2017-12-15 08:41] LABS: ALBUMIN 3.2 g/dl (3.4-5.0); ALK PHOS 70 U/L (45-117); ANION GAP 10 MMOL/L (8-16); BILIRUBIN,TOTAL 0.7 mg/dL (0.2-1.0); BLOOD UREA NITROGEN 16 mg/dL (7-18); CALCIUM 8.6 mg/dL (8.5-10.1); CHLORIDE 103 mmol/L (98-107); CO2 25 mmol/L (21-32); CREATININE 0.6 mg/dL (0.55-1.02); GLUCOSE,RANDOM 102 mg/dL (74-106); POTASSIUM 3.9 mmol/L (3.5-5.1); SGOT/AST 20 U/L (15-37); SGPT/ALT 21 U/L (12-78); SODIUM 138 mmol/L (136-145); TOT PROT 6.2 g/dl (6.4-8.2)
[2017-12-15] MEDS: ACETAMINOPHEN 325 MG TABLET (FP) PO PRN ×3 (08:45→22:42)
[2017-12-15 09:03] LABS: INR 2.3 (0.83-1.09)
[2017-12-15] MEDS ORDERED: PT OWN MED DRAWER 7, Y5N ONE (09:21)
[2017-12-15] MEDS ORDERED: DEXTROSE 5%-WATER - 50 ML IVPB ONE (09:22)
[2017-12-15] MEDS ORDERED: cefTRIAXone SODIUM 1 GM VIAL ONE (09:22)
[2017-12-15] MEDS: LOSARTAN POTASSIUM 50 MG TABLET (FP) PO SCH (09:30)
[2017-12-15] MEDS: ALPRAZolam 0.25 MG TABLET PO SCH (09:31)
[2017-12-15] MEDS: CEFTRIAXONE 1 GM in DEXTROSE 5%-WATER - 50 ML IVPB SCH (09:32)
--- NOTE | 2017-12-15 10:28 | PN ---
Progress Note, Physician Chief Complaint: no new complaints Ortho note reviewed No surgery required. - Current Medication List Current Medications: Active Medications Acetaminophen (Tylenol -) 650 mg PO Q6H PRN PRN Reason: PAIN LEVEL 1 - 3 Last Admin: 12/15/17 08:45 Dose: 650 mg Alprazolam (Xanax -) 0.25 mg PO Q8H PRN PRN Reason: ANXIETY Last Admin: 12/13/17 17:42 Dose: 0.25 mg Alprazolam (Xanax -) 0.5 mg PO DAILY [facility] Last Admin: 12/15/17 09:31 Dose: 0.5 mg Diltiazem HCl (Cardizem Cd -) 300 mg PO DAILY [facility] Last Admin: 12/15/17 09:33 Dose: 300 mg Ceftriaxone Sodium 1 gm/ (Dextrose) 50 mls @ 100 mls/hr IVPB DAILY [facility] Stop: 12/17/17 09:59 Last Admin: 12/15/17 09:32 Dose: 100 mls/hr Losartan Potassium (Cozaar -) 100 mg PO DAILY [facility] Last Admin: 12/15/17 09:30 Dose: 100 mg Polyethylene Glycol (Miralax (For Daily Use) -) 17 gm PO PRN [facility] Last Admin: 12/15/17 06:45 Dose: 17 gm Ranitidine HCl (Zantac -) 300 mg PO ONCE [facility] Last Admin: 12/14/17 22:31 Dose: 300 mg - Objective Vital Signs: Vital Signs Temperature 98.9 F 12/15/17 05:55 Pulse Rate 85 12/15/17 05:55 Respiratory Rate 18 12/15/17 05:55 Blood Pressure 122/58 12/15/17 05:55 O2 Sat by Pulse Oximetry (%) 90 L 12/14/17 21:00 Constitutional: Yes: Calm Cardiovascular: Yes: Pulse Irregular Respiratory: Yes: Rhonchi Gastrointestinal: Yes: Soft Edema: No Neurological: Yes: Alert Labs: CBC, BMP 12/15/17 06:10 12/15/17 06:10 INR, PTT INR 2.30 (0.83-1.09) H 12/15/17 08:18 Assessment/Plan IMP: Fall, pubic ramus fractures PNA on CT UTI PAF on warfarin with supratherapeutic INR REC: 1. Rx UTI and possible PNA as per PMD 2. Resume Coumadin for goal INR 2-3
--- NOTE | 2017-12-15 14:45 | PN ---
Progress Note, Physician - Current Medication List Current Medications: Active Medications Acetaminophen (Tylenol -) 650 mg PO Q6H PRN PRN Reason: PAIN LEVEL 1 - 3 Last Admin: 12/15/17 08:45 Dose: 650 mg Alprazolam (Xanax -) 0.25 mg PO Q8H PRN PRN Reason: ANXIETY Last Admin: 12/13/17 17:42 Dose: 0.25 mg Alprazolam (Xanax -) 0.5 mg PO DAILY [facility] Last Admin: 12/15/17 09:31 Dose: 0.5 mg Diltiazem HCl (Cardizem Cd -) 300 mg PO DAILY [facility] Last Admin: 12/15/17 09:33 Dose: 300 mg Ceftriaxone Sodium 1 gm/ (Dextrose) 50 mls @ 100 mls/hr IVPB DAILY [facility] Stop: 12/17/17 09:59 Last Admin: 12/15/17 09:32 Dose: 100 mls/hr Losartan Potassium (Cozaar -) 100 mg PO DAILY [facility] Last Admin: 12/15/17 09:30 Dose: 100 mg Polyethylene Glycol (Miralax (For Daily Use) -) 17 gm PO PRN [facility] Last Admin: 12/15/17 06:45 Dose: 17 gm Ranitidine HCl (Zantac -) 300 mg PO ONCE [facility] Last Admin: 12/14/17 22:31 Dose: 300 mg Warfarin Sodium (Coumadin -) 2 mg PO DAILY@1800 [facility] - Objective Vital Signs: Vital Signs Temperature 98.8 F 12/15/17 10:00 Pulse Rate 87 12/15/17 10:00 Respiratory Rate 18 12/15/17 10:00 Blood Pressure 134/65 12/15/17 10:00 O2 Sat by Pulse Oximetry (%) 95 12/15/17 09:00 Cardiovascular: Yes: Pulse Irregular, S1, S2 Respiratory: Yes: Rhonchi, Wheezes Gastrointestinal: Yes: Normal Bowel Sounds, Soft Labs: CBC, BMP 12/15/17 06:10 12/15/17 06:10 INR, PTT INR 2.30 (0.83-1.09) H 12/15/17 08:18 Problem List - Problems (1) Pelvic fracture Assessment/Plan: Xray of Right Femur - mid and distal right femur no fracture; blastic and lytic changes -CT abd/pelvis - Comminuted fracture of the right superior pubic ramus, medially with mild displacement and a nondisplaced fracture of the inferior pubic ramus. There is significant stranding/edema in the right lower pelvis, seen along superior and inferior margin of the superior pubic ramus consistent with a hematoma. There is also asymmetric enlargement of the right obturator internus and externus suggestive of a hematoma. -Hgb 11.7, Hct 34.7 -Serial CBC -Type and screen stat. -Ortho consulted. -Morphine Sr 15mg PO given once -Tylenol 650mg q6h PRN for pain Code(s): S32.9XXA - FRACTURE OF UNSP PARTS OF LUMBOSACRAL SPINE AND PELVIS, INIT (2) Pneumonia Assessment/Plan: airspace opacities in the left lower lobe and to a lesser extent right lower lobe suggestive of pneumonic infiltrates. 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 -CT of chest ordered. -Ceftriaxone 1gm daily Code(s): D72.829 - ELEVATED WHITE BLOOD CELL COUNT, UNSPECIFIED (4) Fall Assessment/Plan: CT head - no acute intracranial bleeding Code(s): W19.XXXA - UNSPECIFIED FALL, INITIAL ENCOUNTER (5) Atrial fibrillation Assessment/Plan: -PT with INR 35; INR 3.10 -Patient on 2mg coumadin at home daily -Will hold coumadin for now -Cardio consulted. Code(s): I48.91 - UNSPECIFIED ATRIAL FIBRILLATION (6) HTN (hypertension) Assessment/Plan: -Continue Cardizem 300mg for now -Losartan/HCTZ held -Switch to Losartan 100mg daily -dc IV NS (0.9%) at 75 ml/hr -electrolytes wnl, routine bmp monitoring -sodium controlled diet Code(s): I10 - ESSENTIAL (PRIMARY) HYPERTENSION (7) UTI (urinary tract infection) Assessment/Plan: Microbiology 12/13/17 15:00 Urine Culture - Preliminary Urine - Urine Clean Catch Non Lactose Fermenting Gnb IV ABX ID Code(s): N39.0 - URINARY TRACT INFECTION, SITE NOT SPECIFIED
[2017-12-15] MEDS: ALBUTEROL SO4 2.5/IPRATROPIUM 0.5 INH SOL 3 ML VIAL.NEB. NEB SCH ×2 (15:36→20:06)
[2017-12-15] MEDS: WARFARIN NA 2 MG TABLET (UD) PO SCH (18:01)
[2017-12-15] MEDS: ALPRAZolam 0.25 MG TABLET PO PRN (21:27)
[2017-12-16] MEDS: ALBUTEROL SO4 2.5/IPRATROPIUM 0.5 INH SOL 3 ML VIAL.NEB. NEB SCH ×4 (07:25→21:21)
[2017-12-16] MEDS: ACETAMINOPHEN 325 MG TABLET (FP) PO PRN ×2 (07:55→14:02)
[2017-12-16 08:39] LABS: BASO % 0.4 % (0-2.0); EOS % 2.7 % (0-4.5); HEMATOCRIT 29.3 % (32.4-45.2); HEMOGLOBIN 9.7 GM/dL (10.7-15.3); LYMPH % 32.7 % (8-40); MCH 30.4 pg (25.7-33.7); MCHC 33.2 g/dl (32.0-36.0); MEAN CELL VOLUME 91.4 fl (80-96); MEAN PLT VOLUME 7.8 fl (7.5-11.1); MONO % 9.5 % (3.8-10.2); NEUT % 54.7 % (42.8-82.8); PLATELET COUNT 222 K/MM3 (134-434); RDW 13.9 % (11.6-15.6); WHITE BLOOD COUNT 15.1 K/mm3 (4.0-10.0)
[2017-12-16 08:58] LABS: INR 1.94 (0.83-1.09); PROTHROMBIN TIME (PATIENT) 21.9 SEC (9.7-13.0)
[2017-12-16 09:04] LABS: ALBUMIN 3.2 g/dl (3.4-5.0); ANION GAP 10 MMOL/L (8-16); BILIRUBIN,TOTAL 0.7 mg/dL (0.2-1.0); BLOOD UREA NITROGEN 16 mg/dL (7-18); CALCIUM 8.3 mg/dL (8.5-10.1); CHLORIDE 99 mmol/L (98-107); CO2 28 mmol/L (21-32); CREATININE 0.8 mg/dL (0.55-1.02); GLUCOSE,RANDOM 100 mg/dL (74-106); POTASSIUM 3.2 mmol/L (3.5-5.1); SGOT/AST 19 U/L (15-37); SGPT/ALT 20 U/L (12-78); SODIUM 137 mmol/L (136-145); TOT PROT 6.6 g/dl (6.4-8.2)
[2017-12-16 09:05] LABS: ALK PHOS 78 U/L (45-117)
--- NOTE | 2017-12-16 09:08 | PN ---
Progress Note, Physician History of Present Illness: Pt is an 83 y/o pleasant lady with a significant past medical history of asthma HTN, AFIB, GERD, and multiple falls presents to [facility] s/p falling on her right side at approximately noon today. Pt states she uses a walker for ambulation and was walking toward the library in her apartment building when she fell opening the door and landed on her right hip. Pt could not help herself up and needed her neighbor for assistance. Pt broke a rib on her right side in March (2016) and also fractured her right ankle 5 years ago. - Current Medication List Current Medications: Active Medications Acetaminophen (Tylenol -) 650 mg PO Q6H PRN PRN Reason: PAIN LEVEL 1 - 3 Last Admin: 12/16/17 07:55 Dose: 650 mg Albuterol/Ipratropium (Duoneb -) 1 amp NEB RQID [facility] Last Admin: 12/16/17 07:25 Dose: 1 amp Alprazolam (Xanax -) 0.25 mg PO Q8H PRN PRN Reason: ANXIETY Last Admin: 12/15/17 21:27 Dose: 0.25 mg Alprazolam (Xanax -) 0.5 mg PO DAILY [facility] Last Admin: 12/15/17 09:31 Dose: 0.5 mg Diltiazem HCl (Cardizem Cd -) 300 mg PO DAILY [facility] Last Admin: 12/15/17 09:33 Dose: 300 mg Ceftriaxone Sodium 1 gm/ (Dextrose) 50 mls @ 100 mls/hr IVPB DAILY [facility] Stop: 12/17/17 09:59 Last Admin: 12/15/17 09:32 Dose: 100 mls/hr Losartan Potassium (Cozaar -) 100 mg PO DAILY [facility] Last Admin: 12/15/17 09:30 Dose: 100 mg Polyethylene Glycol (Miralax (For Daily Use) -) 17 gm PO PRN [facility] Last Admin: 12/15/17 06:45 Dose: 17 gm Warfarin Sodium (Coumadin -) 2 mg PO DAILY@1800 [facility] Last Admin: 12/15/17 18:01 Dose: 2 mg - Objective Vital Signs: Vital Signs Temperature 98.0 F 12/16/17 08:40 Pulse Rate 101 H 12/16/17 08:40 Respiratory Rate 20 12/16/17 08:40 Blood Pressure 152/74 12/16/17 08:40 O2 Sat by Pulse Oximetry (%) 95 12/15/17 20:00 Eyes: Yes: WNL, Conjunctiva Clear, EOM Intact HENT: Yes: WNL, Atraumatic, Normocephalic Neck: Yes: WNL, Supple, Trachea Midline Cardiovascular: Yes: Pulse Irregular, S1, S2 Respiratory: Yes: WNL, Regular, CTA Bilaterally Gastrointestinal: Yes: WNL, Normal Bowel Sounds Genitourinary: Yes: WNL Musculoskeletal: Yes: WNL Extremities: Yes: WNL Edema: No Integumentary: Yes: WNL Neurological: Yes: WNL, Alert, Oriented ...Motor Strength: WNL Psychiatric: Yes: WNL Labs: CBC, BMP 12/16/17 07:54 INR, PTT INR 1.94 (0.83-1.09) H 12/16/17 07:54 Assessment/Plan IMP: Fall, pubic ramus fractures PNA on CT UTI PAF on warfarin with supratherapeutic INR REC: 1. Rx UTI and possible PNA as per PMD 2. Resume Coumadin for goal INR 2-3
[2017-12-16] MEDS ORDERED: DEXTROSE 5%-WATER - 50 ML IVPB ONE (09:19)
[2017-12-16] MEDS ORDERED: cefTRIAXone SODIUM 1 GM VIAL ONE (09:19)
[2017-12-16] MEDS: CEFTRIAXONE 1 GM in DEXTROSE 5%-WATER - 50 ML IVPB SCH (09:56)
[2017-12-16] MEDS: ALPRAZolam 0.25 MG TABLET PO SCH (09:57)
[2017-12-16] MEDS: LOSARTAN POTASSIUM 50 MG TABLET (FP) PO SCH (09:57)
--- NOTE | 2017-12-16 10:28 | PN ---
Progress Note (short form) - Note Progress Note: ID consult dictated imp/reccd 82 year old female admitted with pelvic fracture s/p fall no fevers no cough found to have LLL infiltrate on ct scan no recent hospitalizations no recent antiibotics agree with ceftriaxone for CAP day #4 ceftriaxone check urinary antigens s/p pelvic fracture with pelvic hematoma afib per pmd/cardiology Problem List - Problems (1) Pelvic fracture Code(s): S32.9XXA - FRACTURE OF UNSP PARTS OF LUMBOSACRAL SPINE AND PELVIS, INIT (2) Pneumonia Code(s): J18.9 - PNEUMONIA, UNSPECIFIED ORGANISM (3) Atrial fibrillation Code(s): I48.91 - UNSPECIFIED ATRIAL FIBRILLATION
--- NOTE | 2017-12-16 11:10 | PN ---
Progress Note (short form) - Note Progress Note: Ortho Pt seen and examined s/p pelvic fx Selected Entries 12/16/17 08:40 Temperature 98.0 F Pulse Rate 101 H Respiratory 20 Rate Blood Pressure 152/74 decr pain, incr rom nvi a/p PT wbat pain control dvt ppx d/c planning d/w Dr. Barahona
--- NOTE | 2017-12-16 11:14 | EKG ---
Test Reason : Blood Pressure : / mmHG Vent. Rate : 079 BPM Atrial Rate : 079 BPM P-R Int : 166 ms QRS Dur : 066 ms QT Int : 482 ms P-R-T Axes : 060 029 023 degrees QTc Int : 552 ms NORMAL SINUS RHYTHM WHEN COMPARED WITH ECG OF 24-AUG-2017 11:51, T WAVE VARIATION Confirmed by ESTELITA CONNER MD ([id number]) on 12/16/2017 11:14:36 AM Referred By: Confirmed By:ESTELITA CONNER MD
--- NOTE | 2017-12-16 12:02 | CON.PULM ---
Consult Consult Specialty:: PULMONARY Referred by:: Dr. Bear Reason for Consultation:: pneumonia - History of Present Illness Chief Complaint: s/p fall History of Present Illness: 82yo female with h/o HTN, asthma, atrial fibrillation, GERD who was admitted s/ p fall found to have a pubic ramus fracture. Also on imaging noted to have left lower lobe infiltrate, started on antibiotics for pneumonia. She denies shortness of breath, cough or wheezing. She has had asthma since childhood, has been hospitalized previously. States she always wheezes on exam even when feeling well. She is a never smoker. - History Source History Provided By: Patient, Medical Record Limitations to Obtaining History: No Limitations - Past Medical History Cardio/Vascular: Yes: AFIB, HTN Pulmonary: Yes: Asthma - Alcohol/Substance Use Hx Alcohol Use: No - Smoking History Smoking history: Never smoked Have you smoked in the past 12 months: No Home Medications - Allergies Allergies/Adverse Reactions: Allergies Allergy/AdvReac Type Severity Reaction Status Date / Time No Known Allergies Allergy Verified 12/13/17 13:51 - Home Medications Home Medications: Ambulatory Orders Alprazolam [Xanax] 0.5 mg PO DAILY 02/12/17 Diltiazem Cd [Cardizem Cd -] 300 mg PO DAILY 02/12/17 Losartan/Hydrochlorothiazide [Losartan-Hctz 100-25 mg Tab] 100 mg PO DAILY 02/12 Ranitidine [Zantac -] 300 mg PO ONCE 02/12/17 Warfarin Sodium [Coumadin] 2 mg PO DAILY 02/12/17 Review of Systems - Review of Systems Constitutional: denies: Chills, Fever Eyes: denies: Recent Change in Vision HENT: denies: Nasal Congestion, Throat Pain Neck: denies: Stiffness, Tenderness Cardiovascular: denies: Chest Pain, Edema, Shortness of Breath Respiratory: denies: Cough, Hemoptysis, SOB, Wheezing Gastrointestinal: denies: Abdominal Pain, Nausea, Vomiting Genitourinary: denies: Dysuria, Hematuria Musculoskeletal: reports: Extremity Pain Neurological: denies: Dizziness, Headache Endocrine: denies: Unexplained Weight Loss Physical Exam Vital Sings: Vital Signs Temperature 98.0 F 12/16/17 08:40 Pulse Rate 101 H 12/16/17 08:40 Respiratory Rate 20 12/16/17 08:40 Blood Pressure 152/74 12/16/17 08:40 O2 Sat by Pulse Oximetry (%) 95 12/16/17 09:00 Constitutional: Yes: Calm Eyes: Yes: Conjunctiva Clear, EOM Intact HENT: Yes: Atraumatic, Normocephalic Neck: Yes: Supple, Trachea Midline Cardiovascular: Yes: Pulse Irregular Respiratory: Yes: Wheezes (scattered) ...Clubbing: No Gastrointestinal: Yes: Normal Bowel Sounds, Soft. No: Tenderness Edema: No Neurological: Yes: Alert, Oriented Labs: CBC, BMP 12/16/17 07:54 12/16/17 07:54 Imaging - Results Chest X-ray: Report Reviewed, Image Reviewed Cat Scan: Report Reviewed, Image Reviewed (LLL infiltrate) Problem List - Problems (1) Fall Code(s): W19.XXXA - UNSPECIFIED FALL, INITIAL ENCOUNTER (2) Pelvic fracture Code(s): S32.9XXA - FRACTURE OF UNSP PARTS OF LUMBOSACRAL SPINE AND PELVIS, INIT (3) Asthma Code(s): J45.909 - UNSPECIFIED ASTHMA, UNCOMPLICATED (4) Pneumonia Code(s): J18.9 - PNEUMONIA, UNSPECIFIED ORGANISM (5) Atrial fibrillation Code(s): I48.91 - UNSPECIFIED ATRIAL FIBRILLATION Assessment/Plan s/p Fall Pubic Ramus Fracture Asthma Pneumonia Atrial Fibrillation GERD - complete antibiotics - inhaled bronchodilators - will start symbicort - rate control - continue anticoagulation - outpt PFTs Thank you for this consult Jani Recinos MD
--- NOTE | 2017-12-16 12:08 | DS ---
Physical Examination Vital Signs: Vital Signs Temperature 98.0 F 12/16/17 08:40 Pulse Rate 101 H 12/16/17 08:40 Respiratory Rate 20 12/16/17 08:40 Blood Pressure 152/74 12/16/17 08:40 O2 Sat by Pulse Oximetry (%) 95 12/16/17 09:00 Findings/Remarks: Patient is an 82 year old female with past medical history of asthma, HTN, Atrial fibrillation, GERD and multiple falls, was BIBA due to fall on her right hip at noon today. Patient normally uses a walker for ambulation. She was walking in her apartment building when she slipped and feel while opening the door and landed on her right hip. Patient could not help herself up and needed assistance from a neighbor to stand. She denied any loss of consciousness, confusion or head trauma. Patient just complains of pain of her right hip and right upper thigh, relieved by Tylenol IV given at the ED. Patient also reports urgency that started when she arrived at the ED but denies dysuria, frequency, nocturia. Patient lives with her who has dementia. ER course was notable for: (1)CT head - no acute intracranial bleeding (2)CT abd/pelvis - airspace opacities in the left lower lobe and to a lesser extent right lower lobe suggestive of pneumonic infiltrates. 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 Comminuted fracture of the right superior pubic ramus, medially with mild displacement and a nondisplaced fracture of the inferior pubic ramus. There is significant stranding/edema in the right lower pelvis, seen along superior and inferior margin of the superior pubic ramus consistent with a hematoma. There is also asymmetric enlargement of the right obturator internus and externus suggestive of a hematoma. (3)WBC - 20.7; PT with INR 35; INR 3.10 (4)UA - Nitrite +, WBC 4, RBC 1 Constitutional: Yes: Well Nourished, No Distress, Calm Cardiovascular: Yes: Pulse Irregular Respiratory: Yes: Regular Gastrointestinal: Yes: Normal Bowel Sounds, Soft Musculoskeletal: Yes: Muscle Weakness Neurological: Yes: Alert, Pre-Existing Deficit Psychiatric: Yes: Alert Labs: CBC, BMP 12/16/17 07:54 12/16/17 07:54 Discharge Summary Reason For Visit: UTI, FRACTURE OF PUBIC RAMUS Current Active Problems Atrial fibrillation (Acute) Fall (Acute) HTN (hypertension) (Acute) Leukocytosis (Acute) Pelvic fracture (Acute) Pneumonia (Acute) UTI (urinary tract infection) (Acute) Hospital Course: Microbiology 12/13/17 15:00 Urine - Urine Clean Catch Urine Culture - Final Escherichia Coli Condition: Stable - Instructions Diet, Activity, Other Instructions: Ceftin 500 mg po BID x 7 days Acetaminophen 650 mg po Q6H PRN for pain 1-5 Tramadol 50 mg po Q6H PRN for pain 6-10 Monitor weekly INR, therapeutic goal 2-3 Referrals: Robbin Noel MD [Primary Care Provider] - Disposition: RESIDENTIAL FACILITY - Home Medications Comprehensive Discharge Medication List: Ambulatory Orders Diltiazem Cd [Cardizem Cd -] 300 mg PO DAILY 02/12/17 Losartan/Hydrochlorothiazide [Losartan-Hctz 100-25 mg Tab] 100 mg PO DAILY 02/12 Ranitidine [Zantac -] 300 mg PO ONCE 02/12/17 Warfarin Sodium [Coumadin] 2 mg PO DAILY 02/12/17 Acetaminophen [Tylenol .Regular Strength -] 650 mg PO Q6H PRN tablet 12/16/17 Albuterol 2.5/Ipratropium 0.5 [Duoneb -] 1 amp NEB RQID amp 12/16/17 Alprazolam [Xanax] 0.25 mg PO Q8H PRN tablet MDD 3 12/16/17 Cefuroxime Axetil [Ceftin -] 500 mg PO BID tablet 12/16/17 Polyethylene Glycol 3350 [Miralax 119 gm Btl -] 17 gm PO PRN bottle 12/16/17 Warfarin Na [Coumadin -] 2 mg PO DAILY@1800 tablet 12/16/17
--- NOTE | 2017-12-16 12:28 | CONS ---
DATE OF CONSULTATION: DATE OF DICTATION: 12/16/2017 INFECTIOUS DISEASE CONSULTATION REQUESTED BY: Mihaela Baca MD This is an 82-year-old woman. She tripped at home when she was opening the door her walker got in the way. She fell on her right side. She fractured her pelvis. In the emergency room, she had a CAT scan of her abdomen and pelvis done that showed a right superior and inferior pubic ramus fracture with hematoma. She was noted to have a left lower lobe infiltrate for which a dedicated CT of the chest was recommended. She had that which revealed a left lower lobe infiltrate and left lingular infiltrate. She is now on day 4 of ceftriaxone, and I am asked to see her. She denies any cough. She says she has chronic asthma and always has a mild cough. She has no fevers or chills. No recent antibiotics. No recent hospital admission. Her has suffered from dementia, and she takes care of him at home. She ambulates with a walker. There is no history of any loss of consciousness or syncope at the time of the fall. PAST MEDICAL HISTORY: Notable for history of hypertension, asthma, atrial fibrillation, GERD. She has had a prior right rib fracture, and she has had a prior right ankle fracture. FAMILY HISTORY: Noncontributory. SOCIAL HISTORY: She is originally from [place]. She has been hospitalized there multiple times for asthma. She is a nonsmoker. There is no history of alcohol or illicit drug use. She lives with her who suffers from dementia. She ambulates with a walker. ALLERGIES: She has no known drug allergies. MEDICATIONS: At home include Xanax, Cardizem, losartan, Zantac, and warfarin. REVIEW OF SYSTEMS: She has not had any nausea or vomiting. She has had no fever. She has had no diarrhea or dysuria. She has had no chills or cough. PHYSICAL EXAMINATION: General: She is an elderly woman in no acute distress. Vital Signs: Temperature is 98, pulse of 101, blood pressure 152/74, respiratory rate is 20. She is saturating 95% on room air. HEENT: She is normocephalic. Her eyes are anicteric. Her neck is supple. Lungs: Diminished breath sounds at the bases. Heart: Regular rate and rhythm. Abdomen: Soft, nontender. Extremities: Without edema. LABORATORY: Notable for a white count of 15, hemoglobin 9.7, platelets are 222. INR on admission was 3.1, today is 1.94. BUN 16 and creatinine 0.8. Normal LFTs. Urinalysis has 4 white cells with negative leukocytes. A urine culture was sent which grew E. coli. IMAGING STUDIES: Are as previously reported. IN SUMMARY: This is an 82-year-old woman admitted for pelvic fracture status post fall. She was incidentally noted to have a leukocytosis, and a left lower lobe infiltrate. Thirdly, she has a history of atrial fibrillation, and lastly, she has asymptomatic bacteriuria with a negative UA. No urinary complaints. RECOMMENDATIONS: I would suggest we continue the ceftriaxone. I think a component of her leukocytosis may be due to the acute pelvic fracture and hematoma. She clinically appears well. If she continues to improve, could consider switching to orals in the morning. Would check a legionella and pneumococcal urinary antigen for completeness. Do not think there is a point in blood cultures at this time as she is on day 4 of antibiotics. Further recommendations to follow. Sly [id number]
--- NOTE | 2017-12-16 18:46 | PN ---
Progress Note, Physician Chief Complaint: S/P fall Pubis ramus fracture History of Present Illness: NAD is worried about taking care of her with dementia at home, no social support, has niece who needs to work and is unable to provide care. - Current Medication List Current Medications: Active Medications Acetaminophen (Tylenol -) 650 mg PO Q6H PRN PRN Reason: PAIN LEVEL 1 - 3 Last Admin: 12/16/17 14:02 Dose: 650 mg Albuterol/Ipratropium (Duoneb -) 1 amp NEB RQID [facility] Last Admin: 12/16/17 16:07 Dose: 1 amp Alprazolam (Xanax -) 0.25 mg PO Q8H PRN PRN Reason: ANXIETY Last Admin: 12/15/17 21:27 Dose: 0.25 mg Alprazolam (Xanax -) 0.5 mg PO DAILY [facility] Last Admin: 12/16/17 09:57 Dose: 0.5 mg Cefuroxime Axetil (Ceftin -) 500 mg PO BID [facility] Diltiazem HCl (Cardizem Cd -) 300 mg PO DAILY [facility] Last Admin: 12/16/17 09:57 Dose: 300 mg Losartan Potassium (Cozaar -) 100 mg PO DAILY [facility] Last Admin: 12/16/17 09:57 Dose: 100 mg Polyethylene Glycol (Miralax (For Daily Use) -) 17 gm PO PRN [facility] Last Admin: 12/15/17 06:45 Dose: 17 gm Warfarin Sodium (Coumadin -) 2 mg PO DAILY@1800 [facility] Last Admin: 12/15/17 18:01 Dose: 2 mg - Objective Vital Signs: Vital Signs Temperature 98.0 F 12/16/17 08:40 Pulse Rate 101 H 12/16/17 08:40 Respiratory Rate 20 12/16/17 08:40 Blood Pressure 152/74 12/16/17 08:40 O2 Sat by Pulse Oximetry (%) 95 12/16/17 09:00 Constitutional: Yes: Well Nourished, No Distress, Calm Cardiovascular: Yes: Regular Rate and Rhythm Respiratory: Yes: Regular Gastrointestinal: Yes: Normal Bowel Sounds, Soft Musculoskeletal: Yes: Other (Right sided hip pain) Edema: No Peripheral Pulses WNL: Yes Neurological: Yes: Alert, Oriented Psychiatric: Yes: Alert, Oriented Labs: CBC, BMP 12/16/17 07:54 12/16/17 07:54 INR, PTT INR 1.94 (0.83-1.09) H 12/16/17 07:54 Problem List - Problems (1) Pubic ramus fracture Assessment/Plan: -Seen by orthopedic -No surgical intervention indicated -Physical therapy -Pain management -SNF Code(s): S32.599A - OTH FRACTURE OF UNSP PUBIS, INIT ENCNTR FOR CLOSED FRACTURE (2) Atrial fibrillation Assessment/Plan: -warfarin restarted yesterday -INR therapeutic -INR goal 2-3 Code(s): I48.91 - UNSPECIFIED ATRIAL FIBRILLATION (3) Fall Assessment/Plan: -Physical therapy -SNF Code(s): W19.XXXA - UNSPECIFIED FALL, INITIAL ENCOUNTER (4) HTN (hypertension) Assessment/Plan: -On cozaar -BP slightly elevated likely 2/2 to pain Code(s): I10 - ESSENTIAL (PRIMARY) HYPERTENSION (5) UTI (urinary tract infection) Assessment/Plan: Microbiology 12/13/17 15:00 Urine Culture - Final Urine - Urine Clean Catch Escherichia Coli -On Ceftin 500 mg po BID x 7 days Code(s): N39.0 - URINARY TRACT INFECTION, SITE NOT SPECIFIED Assessment/Plan see problem list
[2017-12-16] MEDS: WARFARIN NA 2 MG TABLET (UD) PO SCH (18:49)
[2017-12-16] MEDS ORDERED: MORPHINE SULFATE 2 MG/ML VIAL IVPUSH PRN (18:57)
[2017-12-16] MEDS ORDERED: LIDOCAINE 5% TOPICAL PATCH TP SCH (19:15)
[2017-12-16] MEDS ORDERED: PT OWN MED DRAWER 7, Y5N ONE (20:55)
[2017-12-16] MEDS: ALPRAZolam 0.25 MG TABLET PO PRN (21:08)
[2017-12-16] MEDS: ACETAMINOPHEN 1000 MG/100 ML VIAL (NON FORMULARY) IVPB PRN (21:08)
[2017-12-16] MEDS: LIDOCAINE 5% TOPICAL PATCH TP SCH (21:37)
[2017-12-16] MEDS: CEFUROXIME AXETIL 500 MG TABLET PO SCH (21:37)
[2017-12-17 07:25] LABS: BASO % 0.5 % (0-2.0); EOS % 5.8 % (0-4.5); HEMATOCRIT 27.9 % (32.4-45.2); HEMOGLOBIN 9.3 GM/dL (10.7-15.3); LYMPH % 19.4 % (8-40); MCH 30.4 pg (25.7-33.7); MCHC 33.3 g/dl (32.0-36.0); MEAN CELL VOLUME 91.4 fl (80-96); MEAN PLT VOLUME 7.8 fl (7.5-11.1); MONO % 11.4 % (3.8-10.2); NEUT % 62.9 % (42.8-82.8); PLATELET COUNT 224 K/MM3 (134-434); RBC 3.06 M/mm3 (3.60-5.2); RDW 14.1 % (11.6-15.6); WHITE BLOOD COUNT 9.6 K/mm3 (4.0-10.0)
[2017-12-17 07:39] LABS: INR 2.09 (0.83-1.09); PROTHROMBIN TIME (PATIENT) 23.6 SEC (9.7-13.0)
[2017-12-17 07:54] LABS: CHLORIDE 103 mmol/L (98-107); POTASSIUM 4.1 mmol/L (3.5-5.1); SODIUM 140 mmol/L (136-145)
[2017-12-17 08:10] LABS: ALBUMIN 2.9 g/dl (3.4-5.0); ALK PHOS 71 U/L (45-117); ANION GAP 9 MMOL/L (8-16); BILIRUBIN,TOTAL 0.6 mg/dL (0.2-1.0); BLOOD UREA NITROGEN 13 mg/dL (7-18); CALCIUM 8.6 mg/dL (8.5-10.1); CO2 28 mmol/L (21-32); CREATININE 0.6 mg/dL (0.55-1.02); GLUCOSE,RANDOM 91 mg/dL (74-106); SGOT/AST 14 U/L (15-37); SGPT/ALT 20 U/L (12-78); TOT PROT 5.8 g/dl (6.4-8.2)
[2017-12-17] MEDS: ALPRAZolam 0.25 MG TABLET PO SCH (08:59)
[2017-12-17] MEDS: LOSARTAN POTASSIUM 50 MG TABLET (FP) PO SCH (08:59)
[2017-12-17] MEDS: CEFUROXIME AXETIL 500 MG TABLET PO SCH ×2 (09:00→21:46)
[2017-12-17] MEDS: LIDOCAINE PATCH REMOVAL MC SCH (09:01)
[2017-12-17] MEDS: ACETAMINOPHEN 1000 MG/100 ML VIAL (NON FORMULARY) IVPB PRN ×2 (09:03→17:17)
[2017-12-17] MEDS: ALBUTEROL SO4 2.5/IPRATROPIUM 0.5 INH SOL 3 ML VIAL.NEB. NEB SCH ×4 (09:30→21:38)
--- NOTE | 2017-12-17 10:35 | PN ---
Progress Note, Physician Chief Complaint: S/P fall Pubis ramus fracture History of Present Illness: NAD is worried about taking care of her with dementia at home, no social support, has niece who needs to work and is unable to provide care. - Current Medication List Current Medications: Active Medications Acetaminophen (Ofirmev Injection -) 1,000 mg IVPB Q6H PRN PRN Reason: PAIN LEVEL 4 - 6 Last Admin: 12/17/17 09:03 Dose: 1,000 mg Albuterol/Ipratropium (Duoneb -) 1 amp NEB RQID [facility] Last Admin: 12/17/17 09:30 Dose: 1 amp Alprazolam (Xanax -) 0.25 mg PO Q8H PRN PRN Reason: ANXIETY Last Admin: 12/16/17 21:08 Dose: 0.25 mg Alprazolam (Xanax -) 0.5 mg PO DAILY [facility] Last Admin: 12/17/17 08:59 Dose: 0.5 mg Cefuroxime Axetil (Ceftin -) 500 mg PO BID [facility] Last Admin: 12/17/17 09:00 Dose: 500 mg Diltiazem HCl (Cardizem Cd -) 300 mg PO DAILY [facility] Last Admin: 12/17/17 09:00 Dose: 300 mg Lidocaine (Lidoderm Patch -) 1 patch TP HS [facility] Last Admin: 12/16/17 21:37 Dose: 1 patch Losartan Potassium (Cozaar -) 100 mg PO DAILY [facility] Last Admin: 12/17/17 08:59 Dose: 100 mg Miscellaneous (Lidoderm Patch Removal) 1 each MC DAILY@1000 [facility] Last Admin: 12/17/17 09:01 Dose: 1 each Morphine Sulfate (Morphine Sulfate) 0.5 mg IVPUSH Q6H PRN PRN Reason: PAIN LEVEL 7 - 10 Polyethylene Glycol (Miralax (For Daily Use) -) 17 gm PO PRN [facility] Last Admin: 12/15/17 06:45 Dose: 17 gm Warfarin Sodium (Coumadin -) 2 mg PO DAILY@1800 [facility] Last Admin: 12/16/17 18:49 Dose: 2 mg - Objective Vital Signs: Vital Signs Temperature 97.8 F 12/17/17 06:00 Pulse Rate 84 12/17/17 06:00 Respiratory Rate 20 12/17/17 06:00 Blood Pressure 146/66 12/17/17 06:00 O2 Sat by Pulse Oximetry (%) 95 12/16/17 21:00 Constitutional: Yes: Well Nourished, No Distress, Calm Cardiovascular: Yes: Regular Rate and Rhythm Respiratory: Yes: Regular Gastrointestinal: Yes: Normal Bowel Sounds, Soft Musculoskeletal: Yes: Muscle Weakness, Other (Right hip pain) Edema: No Peripheral Pulses WNL: Yes Neurological: Yes: Alert, Oriented Psychiatric: Yes: Alert, Oriented Labs: CBC, BMP 12/17/17 07:00 12/17/17 07:00 INR, PTT INR 2.09 (0.83-1.09) H 12/17/17 07:00 Problem List - Problems (1) Pubic ramus fracture Assessment/Plan: -Seen by orthopedic -No surgical intervention indicated -Physical therapy -Pain management -SNF Code(s): S32.599A - OTH FRACTURE OF UNSP PUBIS, INIT ENCNTR FOR CLOSED FRACTURE (2) Atrial fibrillation Assessment/Plan: -warfarin restarted yesterday -INR therapeutic -INR goal 2-3 Code(s): I48.91 - UNSPECIFIED ATRIAL FIBRILLATION (3) Fall Assessment/Plan: -Physical therapy -SNF Code(s): W19.XXXA - UNSPECIFIED FALL, INITIAL ENCOUNTER (4) HTN (hypertension) Assessment/Plan: -On cozaar -BP slightly elevated likely 2/2 to pain Code(s): I10 - ESSENTIAL (PRIMARY) HYPERTENSION (5) UTI (urinary tract infection) Assessment/Plan: Microbiology 12/13/17 15:00 Urine Culture - Final Urine - Urine Clean Catch Escherichia Coli -On Ceftin 500 mg po BID x 7 days Code(s): N39.0 - URINARY TRACT INFECTION, SITE NOT SPECIFIED Assessment/Plan see problem list
--- NOTE | 2017-12-17 11:37 | PN ---
Progress Note (short form) - Note Progress Note: PULMONARY Denies shortness of breath, cough or wheezing. Pain better today. No fevers or chills. Vital Signs Period Temp Pulse Resp BP Sys/Boss Pulse Ox Last 24 Hr 97.8 F-98.4 F 80-84 20-20 146-148/66-70 95 Gen: NAD at rest Heart: RRR Lung: decreased breath sounds at the bases Abd: soft, nontender Ext: no edema CBC, BMP 12/17/17 07:00 12/17/17 07:00 Active Medications Acetaminophen (Ofirmev Injection -) 1,000 mg IVPB Q6H PRN PRN Reason: PAIN LEVEL 4 - 6 Last Admin: 12/17/17 09:03 Dose: 1,000 mg Albuterol/Ipratropium (Duoneb -) 1 amp NEB RQID [facility] Last Admin: 12/17/17 09:30 Dose: 1 amp Alprazolam (Xanax -) 0.25 mg PO Q8H PRN PRN Reason: ANXIETY Last Admin: 12/16/17 21:08 Dose: 0.25 mg Alprazolam (Xanax -) 0.5 mg PO DAILY [facility] Last Admin: 12/17/17 08:59 Dose: 0.5 mg Cefuroxime Axetil (Ceftin -) 500 mg PO BID [facility] Last Admin: 12/17/17 09:00 Dose: 500 mg Diltiazem HCl (Cardizem Cd -) 300 mg PO DAILY [facility] Last Admin: 12/17/17 09:00 Dose: 300 mg Lidocaine (Lidoderm Patch -) 1 patch TP HS [facility] Last Admin: 12/16/17 21:37 Dose: 1 patch Losartan Potassium (Cozaar -) 100 mg PO DAILY [facility] Last Admin: 12/17/17 08:59 Dose: 100 mg Miscellaneous (Lidoderm Patch Removal) 1 each MC DAILY@1000 [facility] Last Admin: 12/17/17 09:01 Dose: 1 each Morphine Sulfate (Morphine Sulfate) 0.5 mg IVPUSH Q6H PRN PRN Reason: PAIN LEVEL 7 - 10 Polyethylene Glycol (Miralax (For Daily Use) -) 17 gm PO PRN [facility] Last Admin: 12/15/17 06:45 Dose: 17 gm Warfarin Sodium (Coumadin -) 2 mg PO DAILY@1800 [facility] Last Admin: 12/16/17 18:49 Dose: 2 mg A/P s/p Fall Pubic Ramus Fracture Asthma Pneumonia Atrial Fibrillation GERD - complete antibiotics - inhaled bronchodilators - rate control - continue anticoagulation - outpt PFTs - rehab/PT Problem List - Problems (1) Fall Code(s): W19.XXXA - UNSPECIFIED FALL, INITIAL ENCOUNTER (2) Pelvic fracture Code(s): S32.9XXA - FRACTURE OF UNSP PARTS OF LUMBOSACRAL SPINE AND PELVIS, INIT (3) Asthma Code(s): J45.909 - UNSPECIFIED ASTHMA, UNCOMPLICATED (4) Pneumonia Code(s): J18.9 - PNEUMONIA, UNSPECIFIED ORGANISM (5) Atrial fibrillation Code(s): I48.91 - UNSPECIFIED ATRIAL FIBRILLATION
--- NOTE | 2017-12-17 12:32 | PN ---
Progress Note (short form) - Note Progress Note: Ortho Pt seen and examined s/p pelvic fx Selected Entries 12/17/17 06:00 Temperature 97.8 F Pulse Rate 84 Respiratory 20 Rate Blood Pressure 146/66 decr pain, incr rom nvi a/p PT wbat pain control dvt ppx d/c planning d/w Dr. Barahona
[2017-12-17] MEDS: ARTIFICIAL TEARS (POLYVINYL ALCOHOL) OPTH DROPS OU SCH ×3 (15:15→21:46)
[2017-12-17] MEDS: WARFARIN NA 2 MG TABLET (UD) PO SCH (17:18)
--- NOTE | 2017-12-17 18:34 | PN ---
Progress Note, Physician Chief Complaint: Pt alert; no chest pain or dyspnea.; c/o right leg pain "below the hip to the knee". History of Present Illness: 82-year-old female with past medical history of asthma, hypertension, GERD, atrial fibrillation on Coumadin presents with mechanical fall. The patient had slipped and fell and landed on her right hip. She denies head trauma. No loss of consciousness. Patient reports significant amount of pain around the greater trochanter site. No numbness or weakness. Patient is unable to ambulate secondary to pain. - Current Medication List Current Medications: Active Medications Acetaminophen (Ofirmev Injection -) 1,000 mg IVPB Q6H PRN PRN Reason: PAIN LEVEL 4 - 6 Last Admin: 12/17/17 17:17 Dose: 1,000 mg Albuterol/Ipratropium (Duoneb -) 1 amp NEB RQID [facility] Last Admin: 12/17/17 15:51 Dose: 1 amp Alprazolam (Xanax -) 0.25 mg PO Q8H PRN PRN Reason: ANXIETY Last Admin: 12/16/17 21:08 Dose: 0.25 mg Alprazolam (Xanax -) 0.5 mg PO DAILY [facility] Last Admin: 12/17/17 08:59 Dose: 0.5 mg Artificial Tears (Artificial Tears) 1 drop OU QID [facility] Last Admin: 12/17/17 17:18 Dose: 1 drop Cefuroxime Axetil (Ceftin -) 500 mg PO BID [facility] Last Admin: 12/17/17 09:00 Dose: 500 mg Diltiazem HCl (Cardizem Cd -) 300 mg PO DAILY [facility] Last Admin: 12/17/17 09:00 Dose: 300 mg Lidocaine (Lidoderm Patch -) 1 patch TP HS [facility] Last Admin: 12/16/17 21:37 Dose: 1 patch Losartan Potassium (Cozaar -) 100 mg PO DAILY [facility] Last Admin: 12/17/17 08:59 Dose: 100 mg Miscellaneous (Lidoderm Patch Removal) 1 each MC DAILY@1000 [facility] Last Admin: 12/17/17 09:01 Dose: 1 each Morphine Sulfate (Morphine Sulfate) 0.5 mg IVPUSH Q6H PRN PRN Reason: PAIN LEVEL 7 - 10 Polyethylene Glycol (Miralax (For Daily Use) -) 17 gm PO PRN [facility] Last Admin: 12/15/17 06:45 Dose: 17 gm Warfarin Sodium (Coumadin -) 2 mg PO DAILY@1800 [facility] Last Admin: 12/17/17 17:18 Dose: 2 mg - Objective Vital Signs: Vital Signs Temperature 98.9 F 12/17/17 14:25 Pulse Rate 91 H 12/17/17 14:25 Respiratory Rate 20 12/17/17 09:00 Blood Pressure 132/51 12/17/17 14:25 O2 Sat by Pulse Oximetry (%) 95 12/17/17 09:00 Constitutional: Yes: Anxious Labs: CBC, BMP 12/17/17 07:00 12/17/17 07:00 INR, PTT INR 2.09 (0.83-1.09) H 12/17/17 07:00 Problem List - Problems (1) Asthma Code(s): J45.909 - UNSPECIFIED ASTHMA, UNCOMPLICATED (2) Atrial fibrillation Assessment/Plan: On diltiazem CD for HR control. On warfarin ; keep INR 2-3 (presently 2.09). Code(s): I48.91 - UNSPECIFIED ATRIAL FIBRILLATION (3) Fall Assessment/Plan: mechanical fall--> right hip fracture; no surgery planned. Pain management. Code(s): W19.XXXA - UNSPECIFIED FALL, INITIAL ENCOUNTER (4) HTN (hypertension) Code(s): I10 - ESSENTIAL (PRIMARY) HYPERTENSION (5) Pubic ramus fracture Assessment/Plan: Pain management (on IV tylenol; wants an ice pack; refuses opiates "because my son of an overdose; also, my husban is demented, and I have to stay alert for him" ( is at bedside). Code(s): S32.599A - OTH FRACTURE OF UNSP PUBIS, INIT ENCNTR FOR CLOSED FRACTURE (6) Bronchitis Code(s): J40 - BRONCHITIS, NOT SPECIFIED ACUTE OR CHRONIC (7) UTI (urinary tract infection) Code(s): N39.0 - URINARY TRACT INFECTION, SITE NOT SPECIFIED Qualifiers: Urinary tract infection type: site unspecified Hematuria presence: without hematuria Qualified Code(s): N39.0 - Urinary tract infection, site not specified (8) Hypokalemia Assessment/Plan: repleted K; f/u all electrolytes (Mg was low earlier). Code(s): E87.6 - HYPOKALEMIA
[2017-12-17 21:01] LABS: MAGNESIUM 1.7 mg/dL (1.8-2.4)
[2017-12-17] MEDS ORDERED: PT OWN MED DRAWER 7, Y5N ONE (21:33)
[2017-12-17] MEDS: RANITIDINE HCL 150 MG TABLET (FP) PO SCH (21:45)
[2017-12-17] MEDS: LIDOCAINE 5% TOPICAL PATCH TP SCH (21:46)
[2017-12-18] MEDS: ALBUTEROL SO4 2.5/IPRATROPIUM 0.5 INH SOL 3 ML VIAL.NEB. NEB SCH ×4 (07:52→21:52)
[2017-12-18] MEDS: ARTIFICIAL TEARS (POLYVINYL ALCOHOL) OPTH DROPS OU SCH ×4 (09:43→21:53)
[2017-12-18] MEDS: ALPRAZolam 0.25 MG TABLET PO SCH (09:44)
[2017-12-18] MEDS: RANITIDINE HCL 150 MG TABLET (FP) PO SCH ×2 (09:44→21:53)
[2017-12-18] MEDS: LOSARTAN POTASSIUM 50 MG TABLET (FP) PO SCH (09:44)
[2017-12-18] MEDS: LIDOCAINE PATCH REMOVAL MC SCH (09:45)
[2017-12-18] MEDS: CEFUROXIME AXETIL 500 MG TABLET PO SCH ×2 (09:45→21:54)
[2017-12-18] MEDS: ACETAMINOPHEN 1000 MG/100 ML VIAL (NON FORMULARY) IVPB PRN (09:56)
--- NOTE | 2017-12-18 13:18 | PN ---
Progress Note, Physician History of Present Illness: Pt is an 83 y/o pleasant lady with a significant past medical history of asthma HTN, AFIB, GERD, and multiple falls presents to [facility] s/p falling on her right side at approximately noon today. Pt states she uses a walker for ambulation and was walking toward the library in her apartment building when she fell opening the door and landed on her right hip. Pt could not help herself up and needed her neighbor for assistance. Pt broke a rib on her right side in March (2016) and also fractured her right ankle 5 years ago. - Current Medication List Current Medications: Active Medications Albuterol/Ipratropium (Duoneb -) 1 amp NEB RQID [facility] Last Admin: 12/18/17 07:52 Dose: 1 amp Alprazolam (Xanax -) 0.25 mg PO Q8H PRN PRN Reason: ANXIETY Last Admin: 12/16/17 21:08 Dose: 0.25 mg Alprazolam (Xanax -) 0.5 mg PO DAILY [facility] Last Admin: 12/18/17 09:44 Dose: 0.5 mg Artificial Tears (Artificial Tears) 1 drop OU QID [facility] Last Admin: 12/18/17 13:17 Dose: 1 drop Cefuroxime Axetil (Ceftin -) 500 mg PO BID [facility] Last Admin: 12/18/17 09:45 Dose: 500 mg Diltiazem HCl (Cardizem Cd -) 300 mg PO DAILY [facility] Last Admin: 12/18/17 09:45 Dose: 300 mg Lidocaine (Lidoderm Patch -) 1 patch TP HS [facility] Last Admin: 12/17/17 21:46 Dose: 1 patch Losartan Potassium (Cozaar -) 100 mg PO DAILY [facility] Last Admin: 12/18/17 09:44 Dose: 100 mg Miscellaneous (Lidoderm Patch Removal) 1 each MC DAILY@1000 [facility] Last Admin: 12/18/17 09:45 Dose: 1 each Morphine Sulfate (Morphine Sulfate) 0.5 mg IVPUSH Q6H PRN PRN Reason: PAIN LEVEL 7 - 10 Polyethylene Glycol (Miralax (For Daily Use) -) 17 gm PO PRN [facility] Last Admin: 12/15/17 06:45 Dose: 17 gm Ranitidine HCl (Zantac -) 150 mg PO BID [facility] Last Admin: 12/18/17 09:44 Dose: 150 mg Warfarin Sodium (Coumadin -) 2 mg PO DAILY@1800 [facility] Last Admin: 12/17/17 17:18 Dose: 2 mg - Objective Vital Signs: Vital Signs Temperature 98.0 F 12/18/17 10:00 Pulse Rate 108 H 12/18/17 10:00 Respiratory Rate 12/18/17 10:00 Blood Pressure 129/65 12/18/17 10:00 O2 Sat by Pulse Oximetry (%) 94 L 12/18/17 09:00 Eyes: Yes: WNL, Conjunctiva Clear, EOM Intact HENT: Yes: WNL, Atraumatic, Normocephalic Neck: Yes: WNL, Supple, Trachea Midline Cardiovascular: Yes: WNL, Regular Rate and Rhythm Respiratory: Yes: WNL, Regular, CTA Bilaterally Gastrointestinal: Yes: WNL, Normal Bowel Sounds Genitourinary: Yes: WNL Musculoskeletal: Yes: WNL Extremities: Yes: WNL Edema: No Integumentary: Yes: WNL Neurological: Yes: WNL, Alert, Oriented ...Motor Strength: WNL Psychiatric: Yes: WNL Labs: CBC, BMP 12/17/17 07:00 12/17/17 07:00 INR, PTT INR 2.09 (0.83-1.09) H 12/17/17 07:00 Assessment/Plan - Problems (1) Asthma Code(s): J45.909 - UNSPECIFIED ASTHMA, UNCOMPLICATED (2) Atrial fibrillation Assessment/Plan: On diltiazem CD for HR control. On warfarin ; keep INR 2-3 (presently 2.09). Code(s): I48.91 - UNSPECIFIED ATRIAL FIBRILLATION (3) Fall Assessment/Plan: mechanical fall--> right hip fracture; no surgery planned. Pain management. Code(s): W19.XXXA - UNSPECIFIED FALL, INITIAL ENCOUNTER (4) HTN (hypertension) Code(s): I10 - ESSENTIAL (PRIMARY) HYPERTENSION (5) Pubic ramus fracture Assessment/Plan: Pain management (on IV tylenol; wants an ice pack; refuses opiates "because my son of an overdose; also, my husban is demented, and I have to stay alert for him" ( is at bedside). Code(s): S32.599A - OTH FRACTURE OF UNSP PUBIS, INIT ENCNTR FOR CLOSED FRACTURE (6) Bronchitis Code(s): J40 - BRONCHITIS, NOT SPECIFIED ACUTE OR CHRONIC (7) UTI (urinary tract infection) Code(s): N39.0 - URINARY TRACT INFECTION, SITE NOT SPECIFIED Qualifiers: Urinary tract infection type: site unspecified Hematuria presence: without hematuria Qualified Code(s): N39.0 - Urinary tract infection, site not specified (8) Hypokalemia Assessment/Plan: repleted K; f/u all electrolytes (Mg was low earlier). Code(s): E87.6 - HYPOKALEMIA
--- NOTE | 2017-12-18 14:13 | PN ---
Progress Note, Physician Chief Complaint: S/P fall Pubis ramus fracture History of Present Illness: NAD is worried about taking care of her with dementia at home, no social support, has niece who needs to work and is unable to provide care. - Current Medication List Current Medications: Active Medications Albuterol/Ipratropium (Duoneb -) 1 amp NEB RQID [facility] Last Admin: 12/18/17 07:52 Dose: 1 amp Alprazolam (Xanax -) 0.25 mg PO Q8H PRN PRN Reason: ANXIETY Last Admin: 12/16/17 21:08 Dose: 0.25 mg Alprazolam (Xanax -) 0.5 mg PO DAILY [facility] Last Admin: 12/18/17 09:44 Dose: 0.5 mg Artificial Tears (Artificial Tears) 1 drop OU QID [facility] Last Admin: 12/18/17 13:17 Dose: 1 drop Cefuroxime Axetil (Ceftin -) 500 mg PO BID [facility] Last Admin: 12/18/17 09:45 Dose: 500 mg Diltiazem HCl (Cardizem Cd -) 300 mg PO DAILY [facility] Last Admin: 12/18/17 09:45 Dose: 300 mg Lidocaine (Lidoderm Patch -) 1 patch TP HS [facility] Last Admin: 12/17/17 21:46 Dose: 1 patch Losartan Potassium (Cozaar -) 100 mg PO DAILY [facility] Last Admin: 12/18/17 09:44 Dose: 100 mg Miscellaneous (Lidoderm Patch Removal) 1 each MC DAILY@1000 [facility] Last Admin: 12/18/17 09:45 Dose: 1 each Morphine Sulfate (Morphine Sulfate) 0.5 mg IVPUSH Q6H PRN PRN Reason: PAIN LEVEL 7 - 10 Oxycodone HCl (Roxicodone -) 5 mg PO Q6H PRN PRN Reason: PAIN LEVEL 6-10 Polyethylene Glycol (Miralax (For Daily Use) -) 17 gm PO PRN [facility] Last Admin: 12/15/17 06:45 Dose: 17 gm Ranitidine HCl (Zantac -) 150 mg PO BID [facility] Last Admin: 12/18/17 09:44 Dose: 150 mg Warfarin Sodium (Coumadin -) 2 mg PO DAILY@1800 [facility] Last Admin: 12/17/17 17:18 Dose: 2 mg - Objective Vital Signs: Vital Signs Temperature 98.0 F 12/18/17 10:00 Pulse Rate 108 H 12/18/17 10:00 Respiratory Rate 18 12/18/17 10:00 Blood Pressure 129/65 12/18/17 10:00 O2 Sat by Pulse Oximetry (%) 94 L 12/18/17 09:00 Constitutional: Yes: Well Nourished, No Distress, Calm Cardiovascular: Yes: Regular Rate and Rhythm Respiratory: Yes: Regular Gastrointestinal: Yes: Normal Bowel Sounds, Soft Musculoskeletal: Yes: Muscle Pain (right hip) Neurological: Yes: Alert, Oriented Psychiatric: Yes: Alert, Oriented Labs: CBC, BMP 12/17/17 07:00 12/17/17 07:00 INR, PTT INR 2.09 (0.83-1.09) H 12/17/17 07:00 Problem List - Problems (1) Pubic ramus fracture Assessment/Plan: -Seen by orthopedic -No surgical intervention indicated -Physical therapy -Pain management -SNF Code(s): S32.599A - OTH FRACTURE OF UNSP PUBIS, INIT ENCNTR FOR CLOSED FRACTURE (2) Atrial fibrillation Assessment/Plan: -warfarin restarted yesterday -INR therapeutic -INR goal 2-3 Code(s): I48.91 - UNSPECIFIED ATRIAL FIBRILLATION (3) Fall Assessment/Plan: -Physical therapy -SNF Code(s): W19.XXXA - UNSPECIFIED FALL, INITIAL ENCOUNTER (4) HTN (hypertension) Assessment/Plan: -On cozaar -BP slightly elevated likely 2/2 to pain Code(s): I10 - ESSENTIAL (PRIMARY) HYPERTENSION (5) UTI (urinary tract infection) Assessment/Plan: Microbiology 12/13/17 15:00 Urine Culture - Final Urine - Urine Clean Catch Escherichia Coli -On Ceftin 500 mg po BID x 7 days Code(s): N39.0 - URINARY TRACT INFECTION, SITE NOT SPECIFIED Assessment/Plan see problem list Awaiting discharge to SNF
--- NOTE | 2017-12-18 14:44 | ECHO ---
Name: MELISSA TO Exam:Adult Echocardiogram Study Date: 12/18/2017 10:29 AM Age: 82 yrs Reason For Study: ATRIAL FIBRILLATION Height: 64 in Weight: 140 lb BSA: 1.7 m2 MMode/2D Measurements & Calculations IVSd: 0.74 cm Ao root diam: 2.2 cm LVIDd: 4.4 cm LA dimension: 3.6 cm LVIDs: 2.8 cm LVPWd: 0.90 cm EDV(Teich): 89.3 ml TAPSE: 2.0 cm ESV(Teich): 29.5 ml RV S Shari: 12.3 cm/sec Doppler Measurements & Calculations MV E max shari: 50.0 cm/sec Ao V2 max: 173.7 cm/sec MV A max shari: 82.7 cm/sec Ao max P.1 mmHg MV E/A: 0.60 LV V1 max P.8 mmHg MR max shari: 404.8 cm/sec LV V1 max: 120.3 cm/sec MR max P.6 mmHg TR max shari: 260.3 cm/sec Med Peak E' Shari: 6.9 cm/sec TR max P.2 mmHg Med E/e': 7.3 Lat Peak E' Shari: 6.9 cm/sec Lat E/e': 7.3 Procedure A two-dimensional transthoracic echocardiogram with color flow and Doppler was performed. Left Ventricle The left ventricular size, thickness and function are normal. The left ventricular ejection fraction is normal. E/A reversal consistent with but not diagnostic of poor LV compliance. The left ventricular w all motion is normal. Right Ventricle The right ventricle is normal in size and function. Atria Normal left and right atrial size and function. Mitral Valve There is mild mitral valve thickening. There is no mitral valve stenosis. There is trace to mild mitr al regurgitation. Tricuspid Valve There is mild tricuspid valve thickening. There is no tricuspid stenosis. There is moderate tricuspid regurgitation. Right ventricular systolic pressure is elevated at 40-50mmHg. Aortic Valve The aortic valve is not well visualized. No hemodynamically significant valvular aortic stenosis. No aortic regurgitation is present. Pulmonic Valve The pulmonic valve is not well visualized. Great Vessels The aortic root is normal size. Pericardium/Pleura There is no pericardial effusion. Interpretation Summary The left ventricular size, thickness and function are normal The left ventricular ejection fraction is normal. The left ventricular wall motion is normal. Right ventricular systolic pressure is elevated at 40-50mmHg. There is moderate tricuspid regurgitation. E/A reversal consistent with but not diagnostic of poor LV compliance There is trace to mild mitral regurgitation. MD Regulo Squires 12/18/2017 02:43 PM
[2017-12-18 16:29] LABS: BASO % 0.3 % (0-2.0); EOS % 3.9 % (0-4.5); HEMATOCRIT 26.6 % (32.4-45.2); LYMPH % 24.8 % (8-40); MCH 30.9 pg (25.7-33.7); MCHC 33.7 g/dl (32.0-36.0); MEAN CELL VOLUME 91.7 fl (80-96); MEAN PLT VOLUME 7.7 fl (7.5-11.1); PLATELET COUNT 305 K/MM3 (134-434); RDW 14.2 % (11.6-15.6); WHITE BLOOD COUNT 13.5 K/mm3 (4.0-10.0)
[2017-12-18 16:45] LABS: INR 1.96 (0.83-1.09); PROTHROMBIN TIME (PATIENT) 22.1 SEC (9.7-13.0)
[2017-12-18 17:10] LABS: ALBUMIN 3.1 g/dl (3.4-5.0); ALK PHOS 86 U/L (45-117); ANION GAP 8 MMOL/L (8-16); BILIRUBIN,TOTAL 0.6 mg/dL (0.2-1.0); BLOOD UREA NITROGEN 17 mg/dL (7-18); CALCIUM 8.6 mg/dL (8.5-10.1); CHLORIDE 102 mmol/L (98-107); CO2 27 mmol/L (21-32); CREATININE 0.7 mg/dL (0.55-1.02); GLUCOSE,RANDOM 119 mg/dL (74-106); POTASSIUM 4.4 mmol/L (3.5-5.1); SGOT/AST 21 U/L (15-37); SGPT/ALT 22 U/L (12-78); SODIUM 137 mmol/L (136-145); TOT PROT 6.3 g/dl (6.4-8.2)
[2017-12-18] MEDS: oxyCODONE HCL 5 MG TABLET PO PRN (17:46)
[2017-12-18] MEDS: WARFARIN NA 2 MG TABLET (UD) PO SCH (17:47)
[2017-12-18] MEDS ORDERED: PT OWN MED DRAWER 7, Y5N ONE (21:01)
[2017-12-18] MEDS: LIDOCAINE 5% TOPICAL PATCH TP SCH (21:54)
[2017-12-19] MEDS: ALBUTEROL SO4 2.5/IPRATROPIUM 0.5 INH SOL 3 ML VIAL.NEB. NEB SCH ×3 (08:17→15:50)
[2017-12-19] MEDS: ALPRAZolam 0.25 MG TABLET PO SCH (09:46)
[2017-12-19] MEDS: LOSARTAN POTASSIUM 50 MG TABLET (FP) PO SCH (09:46)
[2017-12-19] MEDS: oxyCODONE HCL 5 MG TABLET PO PRN (09:46)
[2017-12-19] MEDS: RANITIDINE HCL 150 MG TABLET (FP) PO SCH (09:46)
[2017-12-19] MEDS: CEFUROXIME AXETIL 500 MG TABLET PO SCH (09:47)
[2017-12-19] MEDS: ARTIFICIAL TEARS (POLYVINYL ALCOHOL) OPTH DROPS OU SCH ×3 (09:48→17:18)
[2017-12-19] MEDS: LIDOCAINE PATCH REMOVAL MC SCH (09:49)
--- NOTE | 2017-12-19 09:54 | PN ---
Progress Note (short form) - Note Progress Note: Ortho Pt seen and examined s/p pelvic fx- feeling better Selected Entries 12/18/17 12/19/17 23:39 05:30 Temperature 98.9 F Pulse Rate 97 H Respiratory 19 Rate Blood Pressure 142/51 decr pain, incr rom nvi a/p PT wbat pain control dvt ppx d/c to snf d/w Dr. Barahona
[2017-12-19] MEDS ORDERED: ACETAMINOPHEN 325 MG TABLET (FP) PO PRN (10:38)
[2017-12-19] MEDS ORDERED: traMADol HCL 50 MG TABLET PO PRN (10:38)
--- NOTE | 2017-12-19 10:42 | PN ---
Progress Note, Physician Chief Complaint: S/P fall Pubis ramus fracture History of Present Illness: NAD is worried about taking care of her with dementia at home, no social support, has niece who needs to work and is unable to provide care. awaiting discharge to SNF - Current Medication List Current Medications: Active Medications Acetaminophen (Tylenol -) 650 mg PO Q4H PRN PRN Reason: PAIN LEVEL 1-5 Albuterol/Ipratropium (Duoneb -) 1 amp NEB RQID [facility] Last Admin: 12/19/17 08:17 Dose: 1 amp Alprazolam (Xanax -) 0.25 mg PO Q8H PRN PRN Reason: ANXIETY Last Admin: 12/16/17 21:08 Dose: 0.25 mg Alprazolam (Xanax -) 0.5 mg PO DAILY [facility] Last Admin: 12/19/17 09:46 Dose: 0.5 mg Artificial Tears (Artificial Tears) 1 drop OU QID [facility] Last Admin: 12/19/17 09:48 Dose: 1 drop Cefuroxime Axetil (Ceftin -) 500 mg PO BID [facility] Last Admin: 12/19/17 09:47 Dose: 500 mg Diltiazem HCl (Cardizem Cd -) 300 mg PO DAILY [facility] Last Admin: 12/19/17 09:45 Dose: 300 mg Lidocaine (Lidoderm Patch -) 1 patch TP HS [facility] Last Admin: 12/18/17 21:54 Dose: 1 patch Losartan Potassium (Cozaar -) 100 mg PO DAILY [facility] Last Admin: 12/19/17 09:46 Dose: 100 mg Miscellaneous (Lidoderm Patch Removal) 1 each MC DAILY@1000 [facility] Last Admin: 12/19/17 09:49 Dose: 1 each Polyethylene Glycol (Miralax (For Daily Use) -) 17 gm PO PRN [facility] Last Admin: 12/15/17 06:45 Dose: 17 gm Ranitidine HCl (Zantac -) 150 mg PO BID [facility] Last Admin: 12/19/17 09:46 Dose: 150 mg Tramadol HCl (Ultram -) 50 mg PO Q6H PRN PRN Reason: PAIN LEVEL 6-10 Warfarin Sodium (Coumadin -) 2 mg PO DAILY@1800 [facility] Last Admin: 12/18/17 17:47 Dose: 2 mg - Objective Vital Signs: Vital Signs Temperature 98.9 F 12/19/17 05:30 Pulse Rate 97 H 12/19/17 05:30 Respiratory Rate 19 12/18/17 23:39 Blood Pressure 142/51 12/19/17 05:30 O2 Sat by Pulse Oximetry (%) 94 L 12/18/17 21:00 Constitutional: Yes: Well Nourished, No Distress, Calm Cardiovascular: Yes: Regular Rate and Rhythm Respiratory: Yes: Regular Musculoskeletal: Yes: Other (right hip pain) Neurological: Yes: Alert, Oriented Psychiatric: Yes: Alert, Oriented Labs: CBC, BMP 12/18/17 15:40 12/18/17 15:40 INR, PTT INR 1.96 (0.83-1.09) H 12/18/17 15:40 Problem List - Problems (1) Pubic ramus fracture Assessment/Plan: -Seen by orthopedic -No surgical intervention indicated -Physical therapy -Pain management -SNF Code(s): S32.599A - OTH FRACTURE OF UNSP PUBIS, INIT ENCNTR FOR CLOSED FRACTURE (2) Atrial fibrillation Assessment/Plan: -warfarin -INR sub therapeutic, give warfarin 4 mg today -INR goal 2-3 Code(s): I48.91 - UNSPECIFIED ATRIAL FIBRILLATION (3) Fall Assessment/Plan: -Physical therapy -SNF Code(s): W19.XXXA - UNSPECIFIED FALL, INITIAL ENCOUNTER (4) HTN (hypertension) Assessment/Plan: -On cozaar -BP slightly elevated likely 2/2 to pain Code(s): I10 - ESSENTIAL (PRIMARY) HYPERTENSION (5) UTI (urinary tract infection) Assessment/Plan: Microbiology 12/13/17 15:00 Urine Culture - Final Urine - Urine Clean Catch Escherichia Coli -On Ceftin 500 mg po BID x 7 days Code(s): N39.0 - URINARY TRACT INFECTION, SITE NOT SPECIFIED Assessment/Plan see problem list Awaiting discharge to SNF
--- NOTE | 2017-12-19 10:52 | PN ---
Progress Note, Physician Chief Complaint: Pt alert and oriented; walked "4 steps"; has little pain in the right leg at night, after pain med, but more in the day. History of Present Illness: 82-year-old female with past medical history of asthma, hypertension, GERD, atrial fibrillation on Coumadin presents with mechanical fall. The patient had slipped and fell and landed on her right hip. She denies head trauma. No loss of consciousness. Patient reports significant amount of pain around the greater trochanter site. No numbness or weakness. Patient is unable to ambulate secondary to pain. - Current Medication List Current Medications: Active Medications Acetaminophen (Tylenol -) 650 mg PO Q4H PRN PRN Reason: PAIN LEVEL 1-5 Albuterol/Ipratropium (Duoneb -) 1 amp NEB RQID [facility] Last Admin: 12/19/17 08:17 Dose: 1 amp Alprazolam (Xanax -) 0.25 mg PO Q8H PRN PRN Reason: ANXIETY Last Admin: 12/16/17 21:08 Dose: 0.25 mg Alprazolam (Xanax -) 0.5 mg PO DAILY [facility] Last Admin: 12/19/17 09:46 Dose: 0.5 mg Artificial Tears (Artificial Tears) 1 drop OU QID [facility] Last Admin: 12/19/17 09:48 Dose: 1 drop Cefuroxime Axetil (Ceftin -) 500 mg PO BID [facility] Last Admin: 12/19/17 09:47 Dose: 500 mg Diltiazem HCl (Cardizem Cd -) 300 mg PO DAILY [facility] Last Admin: 12/19/17 09:45 Dose: 300 mg Lidocaine (Lidoderm Patch -) 1 patch TP HS [facility] Last Admin: 12/18/17 21:54 Dose: 1 patch Losartan Potassium (Cozaar -) 100 mg PO DAILY [facility] Last Admin: 12/19/17 09:46 Dose: 100 mg Miscellaneous (Lidoderm Patch Removal) 1 each MC DAILY@1000 [facility] Last Admin: 12/19/17 09:49 Dose: 1 each Polyethylene Glycol (Miralax (For Daily Use) -) 17 gm PO PRN [facility] Last Admin: 12/15/17 06:45 Dose: 17 gm Ranitidine HCl (Zantac -) 150 mg PO BID [facility] Last Admin: 12/19/17 09:46 Dose: 150 mg Tramadol HCl (Ultram -) 50 mg PO Q6H PRN PRN Reason: PAIN LEVEL 6-10 Warfarin Sodium (Coumadin -) 4 mg PO DAILY@1800 [facility] Warfarin Sodium (Coumadin -) 2 mg PO DAILY@1800 [facility] - Objective Vital Signs: Vital Signs Temperature 98.9 F 12/19/17 05:30 Pulse Rate 97 H 12/19/17 05:30 Respiratory Rate 19 12/18/17 23:39 Blood Pressure 142/51 12/19/17 05:30 O2 Sat by Pulse Oximetry (%) 94 L 12/18/17 21:00 Labs: CBC, BMP 12/18/17 15:40 12/18/17 15:40 INR, PTT INR 1.96 (0.83-1.09) H 12/18/17 15:40 Problem List - Problems (1) Asthma Code(s): J45.909 - UNSPECIFIED ASTHMA, UNCOMPLICATED (2) Atrial fibrillation Assessment/Plan: On diltiazem CD for HR control. On warfarin ; keep INR 2-3 (presently 2.09-->1.96). Code(s): I48.91 - UNSPECIFIED ATRIAL FIBRILLATION (3) Fall Assessment/Plan: mechanical fall--> right hip fracture; no surgery planned. Pain management. Physical rehabilitation. Code(s): W19.XXXA - UNSPECIFIED FALL, INITIAL ENCOUNTER (4) HTN (hypertension) Code(s): I10 - ESSENTIAL (PRIMARY) HYPERTENSION (5) Pubic ramus fracture Assessment/Plan: Pain management (on IV tylenol; wants an ice pack; refuses opiates "because my son of an overdose; also, my husban is demented, and I have to stay alert for him" ( is at bedside). Code(s): S32.599A - OTH FRACTURE OF UNSP PUBIS, INIT ENCNTR FOR CLOSED FRACTURE (6) Bronchitis Code(s): J40 - BRONCHITIS, NOT SPECIFIED ACUTE OR CHRONIC (7) UTI (urinary tract infection) Code(s): N39.0 - URINARY TRACT INFECTION, SITE NOT SPECIFIED Qualifiers: Urinary tract infection type: site unspecified Hematuria presence: without hematuria Qualified Code(s): N39.0 - Urinary tract infection, site not specified (8) Hypokalemia Assessment/Plan: repleted K; f/u all electrolytes (Mg was low earlier). F/u Mg level (was low 2 days ago). Code(s): E87.6 - HYPOKALEMIA
--- NOTE | 2017-12-19 11:26 | PN ---
Progress Note (short form) - Note Progress Note: PULMONARY Denies shortness of breath, cough or wheezing. Pain better today. Vital Signs Period Temp Pulse Resp BP Sys/Boss Pulse Ox Last 24 Hr 98.7 F-98.9 F 87-100 18-19 106-160/51-78 94 Gen: NAD at rest Heart: RRR Lung: decreased breath sounds at the bases Abd: soft, nontender Ext: no edema CBC, BMP 12/18/17 15:40 12/18/17 15:40 Active Medications Acetaminophen (Tylenol -) 650 mg PO Q4H PRN PRN Reason: PAIN LEVEL 1-5 Albuterol/Ipratropium (Duoneb -) 1 amp NEB RQID [facility] Last Admin: 12/19/17 08:17 Dose: 1 amp Alprazolam (Xanax -) 0.25 mg PO Q8H PRN PRN Reason: ANXIETY Last Admin: 12/16/17 21:08 Dose: 0.25 mg Alprazolam (Xanax -) 0.5 mg PO DAILY [facility] Last Admin: 12/19/17 09:46 Dose: 0.5 mg Artificial Tears (Artificial Tears) 1 drop OU QID [facility] Last Admin: 12/19/17 09:48 Dose: 1 drop Cefuroxime Axetil (Ceftin -) 500 mg PO BID [facility] Last Admin: 12/19/17 09:47 Dose: 500 mg Diltiazem HCl (Cardizem Cd -) 300 mg PO DAILY [facility] Last Admin: 12/19/17 09:45 Dose: 300 mg Lidocaine (Lidoderm Patch -) 1 patch TP HS [facility] Last Admin: 12/18/17 21:54 Dose: 1 patch Losartan Potassium (Cozaar -) 100 mg PO DAILY [facility] Last Admin: 12/19/17 09:46 Dose: 100 mg Miscellaneous (Lidoderm Patch Removal) 1 each MC DAILY@1000 [facility] Last Admin: 12/19/17 09:49 Dose: 1 each Polyethylene Glycol (Miralax (For Daily Use) -) 17 gm PO PRN [facility] Last Admin: 12/15/17 06:45 Dose: 17 gm Ranitidine HCl (Zantac -) 150 mg PO BID [facility] Last Admin: 12/19/17 09:46 Dose: 150 mg Tramadol HCl (Ultram -) 50 mg PO Q6H PRN PRN Reason: PAIN LEVEL 6-10 Warfarin Sodium (Coumadin -) 4 mg PO We@1800 [facility] Warfarin Sodium (Coumadin -) 2 mg PO [id number] [facility] A/P s/p Fall Pubic Ramus Fracture Asthma Pneumonia Atrial Fibrillation GERD - complete antibiotics - inhaled bronchodilators - rate control - continue anticoagulation - outpt PFTs - rehab/PT - d/c planning Problem List - Problems (1) Fall Code(s): W19.XXXA - UNSPECIFIED FALL, INITIAL ENCOUNTER (2) Pelvic fracture Code(s): S32.9XXA - FRACTURE OF UNSP PARTS OF LUMBOSACRAL SPINE AND PELVIS, INIT (3) Asthma Code(s): J45.909 - UNSPECIFIED ASTHMA, UNCOMPLICATED (4) Pneumonia Code(s): J18.9 - PNEUMONIA, UNSPECIFIED ORGANISM (5) Atrial fibrillation Code(s): I48.91 - UNSPECIFIED ATRIAL FIBRILLATION
[2017-12-19] MEDS ORDERED: WARFARIN NA 2 MG TABLET (UD) PO SCH (18:00)
[2017-12-19 20:03] VITALS: BP 161/75; PULSE 101; TEMP 99.3
[2017-12-25] MEDS ORDERED: WARFARIN NA 2 MG TABLET (UD) PO SCH (18:00)
== END 2017-12-19 19:54 | DRG 535 ==
LOC: JER 13:41 → JERBED 19:26 → J6S 12-14 06:13
PROVIDERS: ADMIT Internal Medicine; ATTEND Family Medicine
DX: S32.511A Fracture of superior rim of right pubis, initial encounter for closed fracture (principal); J18.9 Pneumonia, unspecified organism; N39.0 Urinary tract infection, site not specified; J45.909 Unspecified asthma, uncomplicated; I10 Essential (primary) hypertension; K21.9 Gastro-esophageal reflux disease without esophagitis; I48.91 Unspecified atrial fibrillation; D72.829 Elevated white blood cell count, unspecified; S30.0XXA Contusion of lower back and pelvis, initial encounter; I72.2 Aneurysm of renal artery; I72.8 Aneurysm of other specified arteries; E87.6 Hypokalemia; B96.20 Unspecified Escherichia coli [E. coli] as the cause of diseases classified elsewhere; J40 Bronchitis, not specified as acute or chronic; W01.0XXA Fall on same level from slipping, tripping and stumbling without subsequent striking against object, initial encounter; Y92.098 Other place in other non-institutional residence as the place of occurrence of the external cause; Z79.01 Long term (current) use of anticoagulants
CPT/HCPCS: 36415; 71045-TC-FY; 71250-TC; 73523-TC-FY; 73552-TC-RT-FY; 74176-TC; 80048; 80053; 81003; 81015; 83735; 84100; 84443; 85025; 85027; 85610; 86850; 86900; 86901; 87086; 87186; 87899; 93005; 93010; 93306-TC; 94640; 97116-GP; 97162-GP; 99285-25; J0131; J7030; J7620

== ENCOUNTER 2018-07-09 03:56 | Inpatient (IN) | payer OTHER ==
--- NOTE | 2018-07-09 04:28 | PDOC ---
Attending Attestation - HPI HPI: 07/09/18 04:58 The patient is a 83 year old female, with a significant past medical history of asthma, HTN, AFIB, GERD, and multiple falls, who presents to the emergency department with, 7 days of diffuse body aches, cough, fever (Tmax 103F), and abdominal pain. Patient is up to date on influenza and pneumococcal vaccinations. She denies recent dysuria, frequency, urgency or hematuria. She denies recent chest pain or shortness of breath. Allergies: NKDA Primary Care Physician: Dr. Noel - Physicial Exam PE: 07/09/18 04:58 Agree with resident exam. <Price Hernandez - Last Filed: 07/09/18 04:58> - Resident Resident Name: Duane Adams - ED Attending Attestation I have performed the following: I have examined & evaluated the patient, The case was reviewed & discussed with the resident, I agree w/resident's findings & plan - Medical Decision Making 07/09/18 06:05 83-year-old female with cough abdominal pain and fever for evaluation Chest x-ray shows no focal infiltrate Labs are significant for elevated white blood cell count, viral swabs are negative On exam patient has point tenderness to the lower abdomen Plan for CT scan of the abdomen and pelvis to rule out diverticulitis versus colitis Case signed out to day shift pending results <Shonda Oliva - Last Filed: 07/09/18 06:06> Attestations - Attestations 07/09/18 04:58 Documentation prepared by Price Hernandez, acting as medical coding specialist for Shonda Oliva DO. <Price Hernandez - Last Filed: 07/09/18 04:58>
--- NOTE | 2018-07-09 04:30 | PDOC ---
History of Present Illness - General Chief Complaint: Nausea/Vomiting Stated Complaint: N/V/D Time Seen by Provider: 07/09/18 04:26 - History of Present Illness Initial Comments: 07/09/18 04:30 82 year old female with past medical history of asthma, HTN, Atrial fibrillation, GERD and multiple falls, who presents to the emergency department with, 7 days of diffuse body aches, cough, fever (Tmax 103F), and abdominal pain. Patient is up to date on influenza and pneumococcal vaccinations. She denies recent dysuria, frequency, urgency or hematuria. She denies recent chest pain or shortness of breath. Allergies: [facility] Primary Care Physician: Dr. Noel Past History - Past Medical History Allergies/Adverse Reactions: Allergies Allergy/AdvReac Type Severity Reaction Status Date / Time No Known Allergies Allergy Verified 07/09/18 04:34 Home Medications: Ambulatory Orders Diltiazem Cd [Cardizem Cd -] 300 mg PO DAILY 02/12/17 Losartan/Hydrochlorothiazide [Losartan-Hctz 100-25 mg Tab] 100 mg PO DAILY 02/12 Ranitidine [Zantac -] 300 mg PO ONCE 02/12/17 Warfarin Sodium [Coumadin] 2 mg PO DAILY 02/12/17 Acetaminophen [Tylenol .Regular Strength -] 650 mg PO Q6H PRN tablet 12/16/17 Albuterol 2.5/Ipratropium 0.5 [Duoneb -] 1 amp NEB RQID amp 12/16/17 Alprazolam [Xanax] 0.25 mg PO Q8H PRN tablet MDD 3 12/16/17 Cefuroxime Axetil [Ceftin -] 500 mg PO BID tablet 12/16/17 Polyethylene Glycol 3350 [Miralax 119 gm Btl -] 17 gm PO PRN bottle 12/16/17 Warfarin Na [Coumadin -] 2 mg PO DAILY@1800 tablet 12/16/17 Asthma: Yes Cardiac Disorders: Yes (A-FIB) COPD: No HTN: Yes - Immunization History Immunization Up to Date: Yes - Suicide/Smoking/Psychosocial Hx Smoking History: Never smoked Have you smoked in the past 12 months: No Hx Alcohol Use: No Drug/Substance Use Hx: No Substance Use Type: None Review of Systems - Review of Systems Able to Perform ROS?: Yes Is the patient limited Kinyarwanda proficient: No Constitutional: Yes: Fever HEENTM: No: Symptoms Reported Respiratory: Yes: Cough Cardiac (ROS): No: Symptoms Reported ABD/GI: Yes: See HPI : No: Symptoms Reported Musculoskeletal: No: Symptoms Reported Integumentary: No: Symptoms Reported All Other Systems: Reviewed and Negative *Physical Exam - Vital Signs Last Vital Signs Temp Pulse Resp BP Pulse Ox 102.3 F H 91 H 18 143/60 92 L 07/09/18 04:28 07/09/18 04:28 07/09/18 04:28 07/09/18 04:28 07/09/18 04:28 - Physical Exam General Appearance: Yes: Nourished, Appropriately Dressed, Mild Distress. No: Apparent Distress HEENT: positive: EOMI, DAFNE, Normal ENT Inspection Respiratory/Chest: positive: Decreased Breath Sounds, Rales. negative: Chest Tender Cardiovascular: positive: Regular Rhythm, Regular Rate, S1, S2 Gastrointestinal/Abdominal: positive: Normal Bowel Sounds, Tender (LRQ) Extremity: positive: Normal Capillary Refill, Normal Inspection, Normal Range of Motion Integumentary: positive: Normal Color, Dry, Warm ED Treatment Course - LABORATORY CBC & Chemistry Diagram: 07/09/18 04:50 07/09/18 04:50 Medical Decision Making - Medical Decision Making 07/09/18 06:11 83f with cough abdominal pain and fever for evaluation Chest x-ray shows no focal infiltrate Elevated WBC, Flu and strep swabs are negative On exam patient has point tenderness to the lower abdomen Plan for CT scan of the abdomen and pelvis to rule out diverticulitis versus colitis Case signed out to day shift pending results Admission to hospitalist 07/09/18 07:03 Patient signed out to Dr. Ballesteros *DC/Admit/Observation/Transfer Diagnosis at time of Disposition: Fever - Discharge Dispostion Condition at time of disposition: Fair - Referrals Referrals: Robbin Noel MD [Primary Care Provider] - - Patient Instructions - Post Discharge Activity
[2018-07-09] MEDS ORDERED: ACETAMINOPHEN 1000 MG/100 ML VIAL (NON FORMULARY) IVPB ONE (04:36)
[2018-07-09] MEDS ORDERED: ACETAMINOPHEN INJECTION 100 ML IVPB ONE (04:38)
[2018-07-09 05:05] LABS: VENOUS PC02 41.9 mmHg (41-51); VENOUS PH 7.43 (7.31-7.41)
[2018-07-09 05:09] LABS: BASO % 0.3 % (0-2.0); HEMATOCRIT 37.1 % (32.4-45.2); HEMOGLOBIN 12.9 GM/dL (10.7-15.3); LYMPH % 5.6 % (8-40); MCH 31.6 pg (25.7-33.7); MCHC 34.8 g/dl (32.0-36.0); MEAN CELL VOLUME 90.6 fl (80-96); MEAN PLT VOLUME 8.1 fl (7.5-11.1); NEUT % 84.1 % (42.8-82.8); PLATELET COUNT 171 K/MM3 (134-434); RBC 4.09 M/mm3 (3.60-5.2); RDW 12.7 % (11.6-15.6); WHITE BLOOD COUNT 7.5 K/mm3 (4.0-10.0)
[2018-07-09 05:30] LABS: ALBUMIN 3.6 g/dl (3.4-5.0); ALK PHOS 84 U/L (45-117); ANION GAP 9 MMOL/L (8-16); BILIRUBIN,TOTAL 0.3 mg/dL (0.2-1); BLOOD UREA NITROGEN 21 mg/dL (7-18); CALCIUM 8.7 mg/dL (8.5-10.1); CHLORIDE 93 mmol/L (98-107); CO2 28 mmol/L (21-32); CREATININE 0.9 mg/dL (0.55-1.3); GLUCOSE,RANDOM 152 mg/dL (74-106); SGOT/AST 34 U/L (15-37); SGPT/ALT 31 U/L (13-61); SODIUM 130 mmol/L (136-145); TOT PROT 6.8 g/dl (6.4-8.2)
[2018-07-09 05:45] LABS: INR 0.98 (0.83-1.09); PROTHROMBIN TIME (PATIENT) 11.6 SEC (9.7-13.0)
[2018-07-09 05:47] LABS: ACTIVATED PTT 32.8 SECONDS (25.2-36.5)
[2018-07-09] MEDS ORDERED: SODIUM CHLORIDE 500 ML IV STA (05:48)
[2018-07-09] MEDS: KCL 10 MEQ IVPB 10 MEQ/100 ML INFUS.BAG IVPB SCH ×2 (06:30→07:49)
--- NOTE | 2018-07-09 07:05 | PDOC ---
*Physical Exam - Vital Signs Last Vital Signs Temp Pulse Resp BP Pulse Ox 100.2 F H 86 18 143/60 97 07/09/18 06:45 07/09/18 06:45 07/09/18 04:28 07/09/18 04:28 07/09/18 04:39 - Physical Exam General Appearance: No: Apparent Distress HEENT: positive: Normal Voice Neck: positive: Supple Respiratory/Chest: positive: Other (Wet sounding cough). negative: Respiratory Distress, Accessory Muscle Use Cardiovascular: positive: Irregularly Irregular Gastrointestinal/Abdominal: positive: Tender (Diffuse tenderness without rebound or guarding.), Flat, Soft Musculoskeletal: negative: CVA Tenderness (R), CVA Tenderness (L) Integumentary: positive: Normal Color, Dry ED Treatment Course - LABORATORY CBC & Chemistry Diagram: 07/09/18 04:50 07/09/18 04:50 - ADDITIONAL ORDERS Additional order review: Laboratory Results 07/09/18 07/09/18 07/09/18 04:50 04:50 04:50 PT with INR 11.60 INR 0.98 PTT (Actin FS) 32.8 VBG pH 7.43 H POC VBG pCO2 41.9 POC VBG pO2 33.0 VBG HCO3 27.5 VBG O2 Sat (Bigg) 59.7 L VBG Base Excess 3.4 H Sodium Potassium Chloride Carbon Dioxide Anion Gap BUN Creatinine Creat Clearance w eGFR Random Glucose Lactic Acid 1.4 Calcium Total Bilirubin AST ALT Alkaline Phosphatase Troponin I Total Protein Albumin 07/09/18 07/09/18 04:50 04:50 PT with INR INR PTT (Actin FS) VBG pH POC VBG pCO2 POC VBG pO2 VBG HCO3 VBG O2 Sat (Bigg) VBG Base Excess Sodium 130 L Potassium 3.0 L Chloride 93 L Carbon Dioxide 28 Anion Gap 9 BUN 21 H Creatinine 0.9 Creat Clearance w eGFR 59.51 Random Glucose 152 H Lactic Acid Calcium 8.7 Total Bilirubin 0.3 AST 34 ALT 31 Alkaline Phosphatase 84 Troponin I 0.03 Total Protein 6.8 Albumin 3.6 07/09/18 04:50 RBC 4.09 MCV 90.6 MCHC 34.8 RDW 12.7 D MPV 8.1 Neutrophils % 84.1 H D Lymphocytes % 5.6 L D Monocytes % 10.0 Eosinophils % 0.0 D Basophils % 0.3 - RADIOLOGY Radiograph Interpretation: Non-Con Abdominal/Pelvis CT: Emanuel Nava MD wrote on Jul 09, 2018 at 07:26 AM: Referring Physician: LOREE JOHANSEN Patient Name: MELISSA TO THIS IS A PRELIMINARY REPORT FROM IMAGING RESIDENT PHYSICIAN DATE OF SERVICE: 2018-07-09 06:50:01 IMAGES: [id number] EXAM: CT abdomen and pelvis without contrast HISTORY: Abdominal pain COMPARISON: None. FINDINGS: No bowel obstruction or inflammation. Scattered colon diverticula. Negative for diverticulitis or colitis No urinary tract obstruction. Tiny nonobstructing left renal stone. 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 Normal liver. No obvious gallbladder abnormalities. Normal spleen. Normal pancreas. Normal adrenal glands. No peritoneal air or free fluid. 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 Scoliosis. Trace left pleural effusion. Very mild infiltrate left lung base. Impression: No acute intra-abdominal abnormalities. Multiple chronic changes as noted above. Trace left pleural effusion. Very mild infiltrate left lung base. One or more of the following dose reduction techniques were used: automated exposure control, adjustment of the mA and/or kV according to patient size, use of iterative reconstructive technique. THIS DOCUMENT HAS BEEN ELECTRONICALLY SIGNED Emanuel Nava MD 07/09/2018 07:26 EST - Medications Given in the ED: ED Medications Discontinued Medications Generic Name Dose Route Start Last Admin Trade Name Antonioq PRN Reason Stop Dose Admin Acetaminophen 1,000 mg 07/09/18 04:36 07/09/18 05:05 Ofirmev Injection - IVPB 07/09/18 04:37 1,000 mg ONCE ONE Administration Sodium Chloride 500 mls @ 500 mls/hr 07/09/18 05:48 07/09/18 06:05 Normal Saline - IV 07/09/18 06:47 500 mls/hr ASDIR STA Administration Medical Decision Making - Medical Decision Making 07/09/18 07:04 Received sign out from resident Dr. Adams. In short, pt is a 83 y /o female presenting with fever, cough, and diffuse abdominal pain. Will f/u of CT scan. Anticipate admission. UA results likely contaminated with large number of epithelial cells. Ordered straight cath with repeat UA and culture. Ordered Kdor and Magnesium to replenish. CT of abdomen and pelvis remarkable for left lower lobe pneumonia. No acute intra abdominal process. Ordered Ceftriaxone and Azithromycin for CAP. 07/09/18 08:[address] Baca. Verbally appraised of the pts HPI, ED course, and current plan of management. Requested Dr. Ramirez be consulted. Will admit the pt to med/surg on inpatient status. Page sent to Dr. Ramirez. Awaiting call back. *DC/Admit/Observation/Transfer Diagnosis at time of Disposition: Hyponatremia, Hypokalemia, Hypomagnesemia, Subtherapeutic international normalized ratio (INR) Fever Qualifiers: Fever type: unspecified Qualified Code(s): R50.9 - Fever, unspecified Left lower lobe pneumonia Qualifiers: Pneumonia type: due to unspecified organism Qualified Code(s): J18.1 - Lobar pneumonia, unspecified organism - Discharge Dispostion Condition at time of disposition: Fair Decision to Admit order: Yes - Referrals - Patient Instructions - Post Discharge Activity
[2018-07-09] MEDS ORDERED: POTASSIUM CHLORIDE TABS 20 MEQ TABLET.ER (FP) PO ONE ×2 (07:33→07:48)
[2018-07-09 07:41] LABS: PH,URINE 6.5 (5.0-8.0); URINE APPEARANCE Clear; URINE BILIRUBIN Negative (NEGATIVE); URINE COLOR Yellow; URINE GLUCOSE (UA) Negative (NEGATIVE); URINE KETONE Negative (NEGATIVE); URINE LEUK ESTERASE Trace (NEGATIVE); URINE NITRITE Negative (NEGATIVE); URINE PROTEIN 3+ (NEGATIVE); URINE UROBILINOGEN 0.2 mg/dL (0.2-1.0)
[2018-07-09 07:43] LABS: EPI CELLS 12.8 /HPF (0-5); URINE BACTERIA 7301.8 /hpf (NEGATIVE); URINE CASTS 15 /hpf (0-8); URINE RBC 4 /hpf (0-4); URINE WBC 13 /hpf (0-5)
[2018-07-09] MEDS ORDERED: KCL 10 MEQ IVPB 10 MEQ/100 ML INFUS.BAG IVPB ONE (07:48)
[2018-07-09 07:49] LABS: MAGNESIUM 1.5 mg/dL (1.8-2.4); PHOSPHOROUS 2.8 mg/dL (2.5-4.9)
[2018-07-09] MEDS ORDERED: MAGNESIUM SULF 50% (8.12 MEQ/2 ML-1 GM VIAL) IVPB ONE ×2 (07:51→07:53)
[2018-07-09] MEDS ORDERED: CEFTRIAXONE 1 GM in DEXTROSE 5%-WATER - 100 ML IVPB ONE (08:02)
[2018-07-09] MEDS ORDERED: AZITHROMYCIN IVPB 500 MG in DEXTROSE 5%-WATER - 250 ML IVPB ONE (08:03)
[2018-07-09] MEDS ORDERED: WARFARIN NA 2 MG TABLET (UD) PO ONE (08:14)
[2018-07-09] MEDS ORDERED: ENOXAPARIN NA (PORCINE) 60 MG/0.6 ML DISP.SYRIN SQ SCH (08:15)
[2018-07-09] MEDS ORDERED: ENOXAPARIN NA (PORCINE) 60 MG/0.6 ML DISP.SYRIN SQ ONE (08:19)
[2018-07-09] MEDS ORDERED: AZITHROMYCIN IVPB 500 MG/250 ML BAG IVPB ONE (08:20)
[2018-07-09] MEDS ORDERED: CEFTRIAXONE 1 GM/50 ML BAG ONE (08:20)
[2018-07-09] MEDS ORDERED: RIVAROXABAN 15 MG TABLET PO ONE (08:33)
[2018-07-09 08:37] LABS: EPI CELLS 1.2 /HPF (0-5); URINE APPEARANCE CLEAR; URINE BACTERIA 5677.6 /hpf (NEGATIVE); URINE BILIRUBIN NEGATIVE (NEGATIVE); URINE CASTS 5 /hpf (0-8); URINE COLOR YELLOW; URINE GLUCOSE (UA) NEGATIVE (NEGATIVE); URINE KETONE NEGATIVE (NEGATIVE); URINE LEUK ESTERASE NEGATIVE (NEGATIVE); URINE NITRITE NEGATIVE (NEGATIVE); URINE PROTEIN 3+ (NEGATIVE); URINE RBC 1 /hpf (0-4); URINE UROBILINOGEN 0.2 mg/dL (0.2-1.0); URINE WBC 1 /hpf (0-5)
[2018-07-09] MEDS ORDERED: ACETAMINOPHEN 1000 MG/100 ML VIAL (NON FORMULARY) IVPB PRN (10:07)
[2018-07-09] MEDS ORDERED: ONDANSETRON *ODT* 4 MG TABLET SL PRN (10:07)
--- NOTE | 2018-07-09 10:09 | HP ---
Admitting History and Physical - Primary Care Physician PCP: Mihaela Baca - Admission Chief Complaint: SEPSIS/ABD PAIN/COUGH/FEVER History of Present Illness: 82 year old female with past medical history of asthma, HTN, Atrial fibrillation , GERD and multiple falls, who presents to the emergency department with, 7 days of diffuse body aches, cough, fever (Tmax 103F), and abdominal pain. Patient is up to date on influenza and pneumococcal vaccinations. She denies recent dysuria, frequency, urgency or hematuria. She denies recent chest pain or shortness of breath. History Source: Medical Record Limitations to Obtaining History: Poor Historian - Past Medical History Cardiovascular: Yes: AFIB, HTN Pulmonary: Yes: Asthma - Smoking History Smoking history: Never smoked Have you smoked in the past 12 months: No - Alcohol/Substance Use Hx Alcohol Use: No Home Medications - Allergies Allergies/Adverse Reactions: Allergies Allergy/AdvReac Type Severity Reaction Status Date / Time No Known Allergies Allergy Verified 07/09/18 08:33 - Home Medications Home Medications: Ambulatory Orders Alprazolam 0.25 mg PO DAILY 07/09/18 Diltiazem Cd [Cardizem Cd -] 300 mg PO DAILY 07/09/18 Losartan/Hydrochlorothiazide [Losartan-Hctz 100-25 mg Tab] 1 each PO DAILY 07/09 Ranitidine HCl 300 mg PO DAILY 07/09/18 Rivaroxaban [Xarelto] 15 mg PO DAILY 07/09/18 Review of Systems - Review of Systems Constitutional: reports: Fever, Weakness Eyes: reports: No Symptoms HENT: reports: No Symptoms Neck: reports: No Symptoms Cardiovascular: reports: Other Respiratory: reports: Cough Gastrointestinal: reports: Abdominal Pain Genitourinary: reports: No Symptoms Musculoskeletal: reports: Muscle Pain Integumentary: reports: No Symptoms Neurological: reports: No Symptoms Endocrine: reports: No Symptoms Hematology/Lymphatic: reports: No Symptoms Psychiatric: reports: No Symptoms Physical Examination Vital Signs: Vital Signs Temperature 98.2 F 07/09/18 08:49 Pulse Rate 78 07/09/18 08:49 Respiratory Rate 20 07/09/18 08:49 Blood Pressure 132/61 07/09/18 08:49 O2 Sat by Pulse Oximetry (%) 94 L 07/09/18 08:49 Constitutional: Yes: Mild Distress Eyes: Yes: WNL HENT: Yes: WNL Neck: Yes: WNL Cardiovascular: Yes: Pulse Irregular Respiratory: Yes: Cough, On Nasal O2 Gastrointestinal: Yes: Soft, Tenderness Renal/: Yes: WNL Musculoskeletal: Yes: Muscle Weakness Extremities: Yes: WNL Edema: No Integumentary: Yes: WNL Wound/Incision: Yes: Clean/Dry Neurological: Yes: Other Psychiatric: Yes: Other Labs: CBC, BMP 07/09/18 04:50 07/09/18 04:50 Imaging - Results Cat Scan: Pending Problem List - Problems (1) Fever Code(s): R50.9 - FEVER, UNSPECIFIED Qualifiers: Fever type: unspecified Qualified Code(s): R50.9 - Fever, unspecified (2) Hypokalemia Code(s): E87.6 - HYPOKALEMIA (3) Hypomagnesemia Code(s): E83.42 - HYPOMAGNESEMIA (4) Hyponatremia Code(s): E87.1 - HYPO-OSMOLALITY AND HYPONATREMIA (5) Left lower lobe pneumonia Code(s): J18.1 - LOBAR PNEUMONIA, UNSPECIFIED ORGANISM Qualifiers: Pneumonia type: due to unspecified organism Qualified Code(s): J18.1 - Lobar pneumonia, unspecified organism (6) Asthma Code(s): J45.909 - UNSPECIFIED ASTHMA, UNCOMPLICATED (7) Atrial fibrillation Code(s): I48.91 - UNSPECIFIED ATRIAL FIBRILLATION Assessment/Plan INFECTIOUS DISEASE CONSULT AND WORKUP CHECK BLOOD AND URINE CULTURES CORRECT ELECTROLYTE IMBALANCE WITH IV POTASSIUM/MAGNESIUM/NORMAL SALINE START CLEAR DIET FOR NOW PULMONARY EVAL CT CHEST PENDING. IV ABX NEBS 02 SUPPORT OOB TO CHAIR WITH ASSIST PT EVAL HOLD XARELTO UNTIL BLEED RULED OUT
[2018-07-09] MEDS: SODIUM CHLORIDE 1,000 ML IV SCH (10:44)
--- NOTE | 2018-07-09 10:47 | CON.ID ---
Consult Consult Specialty:: infectious diseases Referred by:: Reason for Consultation:: pneumonia,weakness,sob,fever - History of Present Illness Chief Complaint: sob,fever,nausea,vomiting,dirrhoea History of Present Illness: 83 year old female, with a significant past medical history of asthma, HTN, AFIB , GERD, and multiple falls, who is admited with, 7 days of diffuse body aches , cough, fever (Tmax 103F), and abdominal pain. Patient is up to date on influenza and pneumococcal vaccinations. She denies recent dysuria, frequency, urgency or hematuria. She denies recent chest pain or shortness of breath. according tot he patient she has not beein improving at all and is becoming more weaker she also mentions that she has been having breathing difficulty - History Source History Provided By: Patient Limitations to Obtaining History: No Limitations - Past Medical History Cardio/Vascular: Yes: AFIB, HTN Pulmonary: Yes: Asthma - Alcohol/Substance Use Hx Alcohol Use: No - Smoking History Smoking history: Never smoked Have you smoked in the past 12 months: No Home Medications - Allergies Allergies/Adverse Reactions: Allergies Allergy/AdvReac Type Severity Reaction Status Date / Time No Known Allergies Allergy Verified 07/09/18 08:33 - Home Medications Home Medications: Ambulatory Orders Diltiazem Cd [Cardizem Cd -] 300 mg PO DAILY 07/09/18 Losartan/Hydrochlorothiazide [Losartan-Hctz 100-25 mg Tab] 1 each PO DAILY 07/09 RX: Alprazolam 0.25 mg PO DAILY 07/09/18 RX: Ranitidine HCl 300 mg PO DAILY 07/09/18 Rivaroxaban [Xarelto] 15 mg PO DAILY 07/09/18 Levothyroxine [Synthroid -] 50 mcg PO DAILY 28 Days #30 tablet 07/11/18 Sulfamethoxazole/Trimethoprim [Bactrim Ds -] 1 tab PO BID #10 tablet 07/11/18 Review of Systems - Review of Systems Constitutional: reports: Fever, Weakness. denies: Chills Eyes: reports: No Symptoms HENT: reports: No Symptoms Neck: reports: No Symptoms Cardiovascular: reports: No Symptoms Respiratory: reports: Cough, SOB, SOB on Exertion, Wheezing Gastrointestinal: reports: No Symptoms Genitourinary: reports: No Symptoms Musculoskeletal: reports: No Symptoms Integumentary: reports: No Symptoms Neurological: reports: No Symptoms Endocrine: reports: No Symptoms Hematology/Lymphatic: reports: No Symptoms Psychiatric: reports: No Symptoms Physical Exam Vital Signs: Vital Signs Temperature 98.2 F 07/09/18 08:49 Pulse Rate 78 07/09/18 08:49 Respiratory Rate 20 07/09/18 08:49 Blood Pressure 132/61 07/09/18 08:49 O2 Sat by Pulse Oximetry (%) 94 L 07/09/18 08:49 Constitutional: Yes: Calm, Anxious, Mild Distress Eyes: Yes: Conjunctiva Clear HENT: Yes: Atraumatic, Normocephalic Neck: Yes: Supple, Trachea Midline Cardiovascular: Yes: Regular Rate and Rhythm Respiratory: Yes: Cough, On Nasal O2, Poor Air Entry (bases), Rhonchi, SOB on Exertion Gastrointestinal: Yes: Normal Bowel Sounds, Soft Musculoskeletal: Yes: WNL Extremities: Yes: WNL Neurological: Yes: Alert, Oriented Psychiatric: Yes: Alert, Oriented Labs: CBC, BMP 07/09/18 04:50 07/09/18 04:50 Imaging - Results Chest X-ray: Report Reviewed, Image Reviewed Cat Scan: Report Reviewed, Image Reviewed Assessment/Plan Problem List - Problems (1) Fever Code(s): R50.9 - FEVER, UNSPECIFIED Qualifiers: Fever type: unspecified Qualified Code(s): R50.9 - Fever, unspecified (2) Hypokalemia Code(s): E87.6 - HYPOKALEMIA (3) Hypomagnesemia Code(s): E83.42 - HYPOMAGNESEMIA (4) Hyponatremia Code(s): E87.1 - HYPO-OSMOLALITY AND HYPONATREMIA (5) Left lower lobe pneumonia Code(s): J18.1 - LOBAR PNEUMONIA, UNSPECIFIED ORGANISM Qualifiers: Pneumonia type: due to unspecified organism Qualified Code(s): J18.1 - Lobar pneumonia, unspecified organism (6) Asthma Code(s): J45.909 - UNSPECIFIED ASTHMA, UNCOMPLICATED (7) Atrial fibrillation Code(s): I48.91 - UNSPECIFIED ATRIAL FIBRILLATION plan will start patient on zosyn await for all cx report incentive roxy rest as per the team
[2018-07-09] MEDS: PANTOPRAZOLE SODIUM 40 MG VIAL IVPUSH SCH (10:59)
[2018-07-09 12:44] VITALS: BMI 24.5
--- NOTE | 2018-07-09 15:10 | PN ---
Progress Note (short form) - Note Progress Note: PULMONARY CONSULTATION DICTATED 07/09/18 IMP FEVER ? VIRAL SYNDROME R/O PNEUMONIA ? BRONCHITIS ASTHMA/BRONCHITIS HYPONATREMIA HYPOKALEMIA AFIB ABD PAIN,N/V HTN GERD PLAN ABX PER ID CULTURES MEDROL X 24H INHALED BRONCHODILATORS CHEST CT IVF INFLUENZA SCREEN MONITOR KIYA MURCIA Problem List - Problems (1) Fever Code(s): R50.9 - FEVER, UNSPECIFIED Qualifiers: Fever type: unspecified Qualified Code(s): R50.9 - Fever, unspecified (2) Hypokalemia Code(s): E87.6 - HYPOKALEMIA (3) Hypomagnesemia Code(s): E83.42 - HYPOMAGNESEMIA (4) Hyponatremia Code(s): E87.1 - HYPO-OSMOLALITY AND HYPONATREMIA (5) Asthma Code(s): J45.909 - UNSPECIFIED ASTHMA, UNCOMPLICATED (6) Atrial fibrillation Code(s): I48.91 - UNSPECIFIED ATRIAL FIBRILLATION (7) Bronchitis Code(s): J40 - BRONCHITIS, NOT SPECIFIED ACUTE OR CHRONIC (8) HTN (hypertension) Code(s): I10 - ESSENTIAL (PRIMARY) HYPERTENSION
--- NOTE | 2018-07-09 15:16 | EKG ---
Test Reason : Blood Pressure : / mmHG Vent. Rate : 106 BPM Atrial Rate : 119 BPM P-R Int : 000 ms QRS Dur : 066 ms QT Int : 324 ms P-R-T Axes : 000 057 236 degrees QTc Int : 430 ms ABNORMAL ECG WHEN COMPARED WITH ECG OF 13-DEC-2017 15:33, ATRIAL FIBRILLATION HAS REPLACED SINUS RHYTHM INVERTED T WAVES HAVE REPLACED NONSPECIFIC T WAVE ABNORMALITY IN INFERIOR LEADS INVERTED T WAVES HAVE REPLACED NONSPECIFIC T WAVE ABNORMALITY IN ANTEROLATERAL LEADS QT HAS SHORTENED Confirmed by SUZE THORNTON, TANYA ([id number]) on 07/09/2018 3:15:53 PM Referred By: Confirmed By:TANYA ARCINIEGA MD
[2018-07-09] MEDS ORDERED: ALBUTEROL SO4 0.083% IH SOL 2.5 MG/3 ML VIAL.NEB. NEB PRN (15:22)
--- NOTE | 2018-07-09 15:54 | CONS ---
DATE OF CONSULTATION: 07/09/2018 PULMONARY CONSULTATION REFERRING PHYSICIAN: Mihaela Baca MD Patient is an 83-year-old female with a past medical history of chronic asthma of approximately 40 years, hypertension, atrial fibrillation, GERD, history of multiple falls admitted to [facility] with complaint of a 7- day history of generalized weakness, cough, chest congestion, fever to 103, abdominal pain, nausea, and vomiting. Patient denied any hemoptysis, denied any chest pains, or palpitations. She presented to the emergency room with the above. In the ER , she underwent a CT of the abdomen and pelvis that revealed no evidence of acute intraabdominal pathology, revealed chronic changes at the bases, small bilateral pleural effusions. She was admitted to the floor and started on IV fluids and antibiotic therapy. Of note, is the sodium was 130. She was noted to be hyponatremic, hypomagnesemic, as well as hypokalemic. Patient was started on iv fluid. Lactate level upon admission was within normal limits. Patient denies any recent travel. She denies any history of pneumonia respiratory failure in the past requiring ventilatory support. She did have a flu shot this year. PAST MEDICAL HISTORY: Again includes atrial fibrillation, hypertension, GERD, asthma. REVIEW OF SYSTEMS: Positive for cough. Positive for chest congestion. Positive sputum. No hemoptysis. No shortness of breath. Positive bronchospasm. Positive wheezing. No chest pain. No palpitation. Positive abdominal discomfort. Positive nausea and vomiting. Positive fever. CURRENT MEDICATIONS: Include Zofran, OFIRMEV, normal saline, and Protonix. PHYSICAL EXAMINATION: General: Patient is an elderly female, well-developed, well-nourished, awake, alert, mildly ill-appearing, in no acute distress. Vital Signs: She is currently afebrile. T-max is 102.4, blood pressure 131/68, respiratory rate is 18, and O2 saturation is 93% on 2 L nasal cannula. HEENT: Exam is normocephalic, atraumatic. Neck: Supple. Heart: Regular, S1, S2. Chest: Bilateral rhonchi and wheezes. Abdomen: Soft. Bowel sounds positive. Extremities: No cyanosis. Edema. LABORATORIES: Serum sodium is 130, potassium 3.0, BUN 21, creatinine 0.9. CRP is 0.5. WBC is 7.5, hemoglobin 12.9, hematocrit 37.1, with a platelet count 171, 000, there are 81 polys and 5 lymphs and 10 monos. ESR is 47. Venous blood gas 7.43 , PCO2 of 41, PO2 of 33, and a saturation of 59. IMPRESSION: 1. Fever, cough, chest congestion, nausea, and vomiting; viral syndrome; possible influenza. 2. Possible pneumonia versus acute bronchitis. 3. History of asthma/bronchitis. 4. Hyponatremia. 5. Hypokalemia. 6. Atrial fibrillation. 7. Abdominal pain with nausea and vomiting. 8. Subtherapeutic INR. 9. Hypertension. 10. Gastroesophageal reflux disease. PLAN: Antibiotics. Obtain cultures. Inhaled bronchodilators. Obtain chest x- ray. IV fluids. Influenza screen. Replete electrolytes. Monitor electrolytes. Antitussives. If no improvement, short-course of Medrol x24 hours. BREANA MURCIA M.D. [id number] MTDD
[2018-07-09] MEDS: methylPREDNISolone NA SUCC 40 MG/1 ML VIAL IVPUSH SCH ×2 (16:54→18:57)
[2018-07-09] MEDS: ALBUTEROL SO4 2.5/IPRATROPIUM 0.5 INH SOL 3 ML VIAL.NEB. NEB SCH (20:50)
[2018-07-10] MEDS: methylPREDNISolone NA SUCC 40 MG/1 ML VIAL IVPUSH SCH ×3 (02:35→17:20)
[2018-07-10] MEDS: SODIUM CHLORIDE 1,000 ML IV SCH ×2 (02:38→14:23)
[2018-07-10 07:21] LABS: HEMATOCRIT 39.5 % (32.4-45.2); HEMOGLOBIN 13.6 GM/dL (10.7-15.3); MCH 31.4 pg (25.7-33.7); MCHC 34.4 g/dl (32.0-36.0); MEAN CELL VOLUME 91.5 fl (80-96); MEAN PLT VOLUME 8.6 fl (7.5-11.1); PLATELET COUNT 183 K/MM3 (134-434); RBC 4.32 M/mm3 (3.60-5.2); RDW 13.1 % (11.6-15.6); WHITE BLOOD COUNT 9.9 K/mm3 (4.0-10.0)
[2018-07-10] MEDS: ALBUTEROL SO4 2.5/IPRATROPIUM 0.5 INH SOL 3 ML VIAL.NEB. NEB SCH ×3 (07:35→19:25)
[2018-07-10 07:49] LABS: ALBUMIN 3.2 g/dl (3.4-5.0); ALK PHOS 80 U/L (45-117); ANION GAP 10 MMOL/L (8-16); BILIRUBIN,TOTAL 0.3 mg/dL (0.2-1); BLOOD UREA NITROGEN 12 mg/dL (7-18); CALCIUM 8.6 mg/dL (8.5-10.1); CHLORIDE 98 mmol/L (98-107); CHOLESTEROL 194 mg/dL (50-200); CO2 25 mmol/L (21-32); CREATININE 0.8 mg/dL (0.55-1.3); GLUCOSE,RANDOM 145 mg/dL (74-106); HDL CHOLESTEROL 71 mg/dL (40-60); POTASSIUM 3.6 mmol/L (3.5-5.1); SGOT/AST 27 U/L (15-37); SGPT/ALT 28 U/L (13-61); SODIUM 133 mmol/L (136-145); TOT PROT 6.6 g/dl (6.4-8.2); TRIGLYCERIDES 133 mg/dL (0-150)
--- NOTE | 2018-07-10 09:34 | PN ---
Progress Note, Physician Chief Complaint: Hyponatremia Pneumonia History of Present Illness: Previous notes and events reviewed awake and alert NAD complain of diarrhea sts experiencing SOB with exertion denies chest pain - Current Medication List Current Medications: Active Medications Acetaminophen (Ofirmev Injection -) 1,000 mg IVPB Q6H PRN PRN Reason: FEVER Last Admin: 07/09/18 16:53 Dose: 1,000 mg Albuterol Sulfate (Ventolin 0.083% Nebulizer Soln -) 1 amp NEB Q4H PRN PRN Reason: SHORT OF BREATH/WHEEZING Albuterol/Ipratropium (Duoneb -) 1 amp NEB RTID [facility] Last Admin: 07/09/18 20:50 Dose: 1 amp Diltiazem HCl (Cardizem Cd -) 360 mg PO DAILY ON LICENSE OF [facility] Sodium Chloride (Normal Saline -) 1,000 mls @ 83 mls/hr IV ASDIR ON LICENSE OF [facility] Last Admin: 07/10/18 02:38 Dose: 83 mls/hr Ceftriaxone Sodium 1 gm/ (Dextrose) 50 mls @ 100 mls/hr IVPB DAILY ON LICENSE OF [facility]; Protocol Losartan Potassium (Cozaar -) 50 mg PO DAILY ON LICENSE OF [facility] Methylprednisolone Sodium Succinate (Solu-Medrol -) 40 mg IVPUSH Q8H-IV ON LICENSE OF [facility] Last Admin: 07/10/18 02:35 Dose: 40 mg Ondansetron HCl (Zofran Odt -) 4 mg SL Q6H PRN PRN Reason: NAUSEA AND/OR VOMITING Last Admin: 07/09/18 21:54 Dose: 4 mg Pantoprazole Sodium (Protonix Iv) 40 mg IVPUSH DAILY ON LICENSE OF [facility] Last Admin: 07/09/18 10:59 Dose: 40 mg Rivaroxaban (Xarelto) 15 mg PO DAILY@1800 ON LICENSE OF [facility] - Objective Vital Signs: Vital Signs Temperature 97.9 F 07/10/18 06:00 Pulse Rate 79 07/10/18 06:00 Respiratory Rate 20 07/10/18 06:00 Blood Pressure 157/81 07/10/18 06:00 O2 Sat by Pulse Oximetry (%) 96 07/09/18 21:00 Constitutional: Yes: No Distress, Calm Eyes: Yes: Conjunctiva Clear HENT: Yes: Atraumatic Neck: Yes: Supple Cardiovascular: Yes: Regular Rate and Rhythm Respiratory: Yes: On Nasal O2, Rhonchi, Wheezes Gastrointestinal: Yes: Normal Bowel Sounds, Soft Genitourinary: Yes: Incontinence Musculoskeletal: Yes: Muscle Weakness Extremities: Yes: WNL Neurological: Yes: Alert Psychiatric: Yes: Alert Labs: CBC, BMP 07/10/18 06:00 07/10/18 06:00 INR, PTT INR 0.98 (0.83-1.09) 07/09/18 04:50 Microbiology 07/09/18 08:09 Urine - Urine - Catheterized Urine Culture - Preliminary Non Lactose Fermenting Gnb 07/09/18 06:10 Urine - Urine - Catheterized Urine Culture - Preliminary Non Lactose Fermenting Gnb Lactose Fermenting Neg Bacilli 07/09/18 04:38 Blood - Peripheral Venous Blood Culture - Preliminary NO GROWTH OBTAINED AFTER 24 HOURS, INCUBATION TO CONTINUE FOR 4 DAYS. 07/09/18 04:50 Blood - Peripheral Venous Blood Culture - Preliminary NO GROWTH OBTAINED AFTER 24 HOURS, INCUBATION TO CONTINUE FOR 4 DAYS. 07/09/18 12:30 Stool Clostridioides difficile Antigen - Final 07/09/18 12:30 Stool Clostridioides difficile Toxin Assay - Final - ....Imaging Chest X-ray: Report Reviewed Cat Scan: Report Reviewed Problem List - Problems (1) Fever Assessment/Plan: -afebrile -tylenol PRN for temp >100F Code(s): R50.9 - FEVER, UNSPECIFIED Qualifiers: Fever type: unspecified Qualified Code(s): R50.9 - Fever, unspecified (2) Hypokalemia Assessment/Plan: -K 3.6 -monitor electrolytes daily -repelete as needed Code(s): E87.6 - HYPOKALEMIA (3) Hyponatremia Assessment/Plan: -improving -Na 133 -monitor electrolytes daily Code(s): E87.1 - HYPO-OSMOLALITY AND HYPONATREMIA (4) Left lower lobe pneumonia Assessment/Plan: -pulm on board -O2 via NC -keep SpO2 >90% -bronchodillators -methylprednisone IV -IV ceftriaxone -Abd/Pelvic CT scan shows trace bilateral pleural effusion and chronic lung changes Code(s): J18.1 - LOBAR PNEUMONIA, UNSPECIFIED ORGANISM Qualifiers: Pneumonia type: due to unspecified organism Qualified Code(s): J18.1 - Lobar pneumonia, unspecified organism (5) Atrial fibrillation Assessment/Plan: -continue with xarelto and cardizem Code(s): I48.91 - UNSPECIFIED ATRIAL FIBRILLATION (6) HTN (hypertension) Assessment/Plan: -continue with losartan Code(s): I10 - ESSENTIAL (PRIMARY) HYPERTENSION (7) UTI (urinary tract infection) Assessment/Plan: -UC positive for lactose fermenting neg bacilli -UA 3+ protein, 1+ blood -continue ceftriaxone IV -ID on board Code(s): N39.0 - URINARY TRACT INFECTION, SITE NOT SPECIFIED Qualifiers: Urinary tract infection type: site unspecified Hematuria presence: without hematuria Qualified Code(s): N39.0 - Urinary tract infection, site not specified (8) Diarrhea Assessment/Plan: -c-diff negative -clear liquid diet -stool culture ordered Code(s): R19.7 - DIARRHEA, UNSPECIFIED Assessment/Plan see problem list dvt ppx
--- NOTE | 2018-07-10 09:37 | PN ---
Progress Note (short form) - Note Progress Note: Awake and alert. NAD on NC O2. Still with congested cough. No hemoptysis. Intake & Output 07/07/18 07/08/18 07/09/18 07/10/18 23:59 23:59 23:59 23:59 Intake Total 1296 581 Balance 1296 581 Weight 134 lb 3 oz Last Vital Signs Temp Pulse Resp BP Pulse Ox 97.9 F 79 20 157/81 96 07/10/18 06:00 07/10/18 06:00 07/10/18 06:00 07/10/18 06:00 07/09/18 21:00 Active Medications Acetaminophen (Ofirmev Injection -) 1,000 mg IVPB Q6H PRN PRN Reason: FEVER Last Admin: 07/09/18 16:53 Dose: 1,000 mg Albuterol Sulfate (Ventolin 0.083% Nebulizer Soln -) 1 amp NEB Q4H PRN PRN Reason: SHORT OF BREATH/WHEEZING Albuterol/Ipratropium (Duoneb -) 1 amp NEB RTID [facility] Last Admin: 07/09/18 20:50 Dose: 1 amp Diltiazem HCl (Cardizem Cd -) 360 mg PO DAILY [facility] Sodium Chloride (Normal Saline -) 1,000 mls @ 83 mls/hr IV ASDIR [facility] Last Admin: 07/10/18 02:38 Dose: 83 mls/hr Ceftriaxone Sodium 1 gm/ (Dextrose) 50 mls @ 100 mls/hr IVPB DAILY [facility]; Protocol Losartan Potassium (Cozaar -) 50 mg PO DAILY [facility] Methylprednisolone Sodium Succinate (Solu-Medrol -) 40 mg IVPUSH Q8H-IV [facility] Last Admin: 07/10/18 02:35 Dose: 40 mg Ondansetron HCl (Zofran Odt -) 4 mg SL Q6H PRN PRN Reason: NAUSEA AND/OR VOMITING Last Admin: 07/09/18 21:54 Dose: 4 mg Pantoprazole Sodium (Protonix Iv) 40 mg IVPUSH DAILY [facility] Last Admin: 07/09/18 10:59 Dose: 40 mg Rivaroxaban (Xarelto) 15 mg PO DAILY@1800 [facility] Constitutional: Yes: Awake and alert, No Distress Eyes: Yes: Conjunctiva Clear HENT: Yes: Atraumatic Neck: Yes: Supple Cardiovascular: Yes: Regular Rate and Rhythm Respiratory: Yes: On Nasal O2, Bilateral Rhonchi and expiratory Wheezes Gastrointestinal: Yes: Normal Bowel Sounds, Soft Genitourinary: Yes: Incontinence Musculoskeletal: Yes: Muscle Weakness Extremities: Yes: WNL Neurological: Yes: Alert Psychiatric: Yes: Alert Labs: Laboratory Results - last 24 hr 07/09/18 07/09/18 07/09/18 04:50 04:50 10:02 WBC RBC Hgb Hct MCV MCH MCHC RDW Plt Count MPV ESR Sodium 130 L Potassium 3.0 L Chloride 93 L Carbon Dioxide 28 Anion Gap 9 BUN 21 H Creatinine 0.9 Creat Clearance w eGFR 59.51 Random Glucose 152 H Hemoglobin A1c % 5.5 Lactic Acid 1.2 Calcium 8.7 Phosphorus 2.8 Magnesium 1.5 L Total Bilirubin 0.3 AST 34 ALT 31 Alkaline Phosphatase 84 C-Reactive Protein 0.5 H Total Protein 6.8 Albumin 3.6 Triglycerides Cholesterol Total LDL Cholesterol HDL Cholesterol Influenza A (Rapid) Influenza B (Rapid) 07/09/18 07/09/18 07/10/18 10:25 17:00 06:00 WBC 9.9 RBC 4.32 Hgb 13.6 Hct 39.5 MCV 91.5 MCH 31.4 MCHC 34.4 RDW 13.1 Plt Count 183 MPV 8.6 ESR 47 H Sodium Potassium Chloride Carbon Dioxide Anion Gap BUN Creatinine Creat Clearance w eGFR Random Glucose Hemoglobin A1c % Lactic Acid Calcium Phosphorus Magnesium Total Bilirubin AST ALT Alkaline Phosphatase C-Reactive Protein Total Protein Albumin Triglycerides Cholesterol Total LDL Cholesterol HDL Cholesterol Influenza A (Rapid) Negative Influenza B (Rapid) Negative 07/10/18 06:00 WBC RBC Hgb Hct MCV MCH MCHC RDW Plt Count MPV ESR Sodium 133 L Potassium 3.6 Chloride 98 Carbon Dioxide 25 Anion Gap 10 BUN 12 Creatinine 0.8 Creat Clearance w eGFR 68.17 Random Glucose 145 H Hemoglobin A1c % Lactic Acid Calcium 8.6 Phosphorus Magnesium Total Bilirubin 0.3 AST 27 ALT 28 Alkaline Phosphatase 80 C-Reactive Protein Total Protein 6.6 Albumin 3.2 L Triglycerides 133 Cholesterol 194 Total LDL Cholesterol 94 HDL Cholesterol 71 H Influenza A (Rapid) Influenza B (Rapid) Problem List - Problems (1) Fever Code(s): R50.9 - FEVER, UNSPECIFIED Qualifiers: Fever type: unspecified Qualified Code(s): R50.9 - Fever, unspecified (2) Hypokalemia Code(s): E87.6 - HYPOKALEMIA (3) Hypomagnesemia Code(s): E83.42 - HYPOMAGNESEMIA (4) Hyponatremia Code(s): E87.1 - HYPO-OSMOLALITY AND HYPONATREMIA (5) Asthma Code(s): J45.909 - UNSPECIFIED ASTHMA, UNCOMPLICATED (6) Atrial fibrillation Code(s): I48.91 - UNSPECIFIED ATRIAL FIBRILLATION (7) Bronchitis Code(s): J40 - BRONCHITIS, NOT SPECIFIED ACUTE OR CHRONIC (8) HTN (hypertension) Code(s): I10 - ESSENTIAL (PRIMARY) HYPERTENSION IMP FEVER ? VIRAL SYNDROME R/O PNEUMONIA ? BRONCHITIS ASTHMA/BRONCHITIS HYPONATREMIA HYPOKALEMIA AFIB ABD PAIN,N/V HTN GERD PLAN ABX PER ID CULTURES SHORT COURSE OF MEDROL INHALED BRONCHODILATORS CHEST CT O2 NEEDED TO MAINTAIN SATURATION DR CASTRO
[2018-07-10] MEDS ORDERED: DEXTROSE 5%-WATER - 50 ML IVPB ONE (09:56)
[2018-07-10] MEDS ORDERED: cefTRIAXone SODIUM 1 GM VIAL ONE (09:56)
[2018-07-10] MEDS: LOSARTAN POTASSIUM 50 MG TABLET (FP) PO SCH (10:02)
[2018-07-10] MEDS: PANTOPRAZOLE SODIUM 40 MG VIAL IVPUSH SCH (10:03)
[2018-07-10] MEDS: CEFTRIAXONE 1 GM in DEXTROSE 5%-WATER - 50 ML IVPB SCH (10:03)
--- NOTE | 2018-07-10 15:53 | PN ---
Progress Note, Physician History of Present Illness: patient starting to feel better looks comfortable still with resp issues patients cx results noted - Current Medication List Current Medications: Active Medications Acetaminophen (Ofirmev Injection -) 1,000 mg IVPB Q6H PRN PRN Reason: FEVER Last Admin: 07/09/18 16:53 Dose: 1,000 mg Albuterol Sulfate (Ventolin 0.083% Nebulizer Soln -) 1 amp NEB Q4H PRN PRN Reason: SHORT OF BREATH/WHEEZING Albuterol/Ipratropium (Duoneb -) 1 amp NEB RTID [facility] Last Admin: 07/10/18 14:10 Dose: 1 amp Diltiazem HCl (Cardizem Cd -) 360 mg PO DAILY [facility] Last Admin: 07/10/18 10:02 Dose: 360 mg Sodium Chloride (Normal Saline -) 1,000 mls @ 83 mls/hr IV ASDIR [facility] Last Admin: 07/10/18 14:23 Dose: 83 mls/hr Ceftriaxone Sodium 1 gm/ (Dextrose) 50 mls @ 100 mls/hr IVPB DAILY [facility]; Protocol Last Admin: 07/10/18 10:03 Dose: 100 mls/hr Losartan Potassium (Cozaar -) 50 mg PO DAILY [facility] Last Admin: 07/10/18 10:02 Dose: 50 mg Methylprednisolone Sodium Succinate (Solu-Medrol -) 40 mg IVPUSH Q8H-IV [facility] Last Admin: 07/10/18 10:03 Dose: 40 mg Ondansetron HCl (Zofran Odt -) 4 mg SL Q6H PRN PRN Reason: NAUSEA AND/OR VOMITING Last Admin: 07/09/18 21:54 Dose: 4 mg Pantoprazole Sodium (Protonix Iv) 40 mg IVPUSH DAILY [facility] Last Admin: 07/10/18 10:03 Dose: 40 mg Rivaroxaban (Xarelto) 15 mg PO DAILY@1800 [facility] - Objective Vital Signs: Vital Signs Temperature 97.5 F L 07/10/18 15:16 Pulse Rate 94 H 07/10/18 15:16 Respiratory Rate 18 07/10/18 15:16 Blood Pressure 143/90 07/10/18 15:16 O2 Sat by Pulse Oximetry (%) 94 L 07/10/18 09:00 Constitutional: Yes: No Distress, Calm Cardiovascular: Yes: Regular Rate and Rhythm Respiratory: Yes: Regular, On Nasal O2, Poor Air Entry Gastrointestinal: Yes: Normal Bowel Sounds, Soft Musculoskeletal: Yes: WNL Extremities: Yes: WNL Neurological: Yes: Alert, Oriented Psychiatric: Yes: Alert, Oriented Labs: CBC, BMP 07/10/18 06:00 07/10/18 06:00 INR, PTT INR 0.98 (0.83-1.09) 07/09/18 04:50 Assessment/Plan Problem List - Problems (1) Fever Code(s): R50.9 - FEVER, UNSPECIFIED Qualifiers: Fever type: unspecified Qualified Code(s): R50.9 - Fever, unspecified (2) Hypokalemia Code(s): E87.6 - HYPOKALEMIA (3) Hypomagnesemia Code(s): E83.42 - HYPOMAGNESEMIA (4) Hyponatremia Code(s): E87.1 - HYPO-OSMOLALITY AND HYPONATREMIA (5) Left lower lobe pneumonia Code(s): J18.1 - LOBAR PNEUMONIA, UNSPECIFIED ORGANISM Qualifiers: Pneumonia type: due to unspecified organism Qualified Code(s): J18.1 - Lobar pneumonia, unspecified organism (6) Asthma Code(s): J45.909 - UNSPECIFIED ASTHMA, UNCOMPLICATED (7) Atrial fibrillation Code(s): I48.91 - UNSPECIFIED ATRIAL FIBRILLATION all cx results noted awaiting identification of the organism plan will continue ceftriaxone for now once we have final identification might have to change patient stable no new issue
[2018-07-10] MEDS: RIVAROXABAN 15 MG TABLET PO SCH (17:21)
[2018-07-11] MEDS ORDERED: ALPRAZolam 0.25 MG TABLET PO ONE (00:12)
[2018-07-11] MEDS: methylPREDNISolone NA SUCC 40 MG/1 ML VIAL IVPUSH SCH ×3 (02:04→22:24)
[2018-07-11] MEDS: ALBUTEROL SO4 2.5/IPRATROPIUM 0.5 INH SOL 3 ML VIAL.NEB. NEB SCH ×3 (07:35→20:00)
[2018-07-11 08:09] LABS: HEMATOCRIT 35.2 % (32.4-45.2); HEMOGLOBIN 11.9 GM/dL (10.7-15.3); MCH 30.7 pg (25.7-33.7); MCHC 33.8 g/dl (32.0-36.0); MEAN PLT VOLUME 8.8 fl (7.5-11.1); PLATELET COUNT 174 K/MM3 (134-434); RBC 3.87 M/mm3 (3.60-5.2); RDW 12.9 % (11.6-15.6)
[2018-07-11 08:16] LABS: ALBUMIN 2.9 g/dl (3.4-5.0); ALK PHOS 66 U/L (45-117); ANION GAP 6 MMOL/L (8-16); BILIRUBIN,TOTAL 0.1 mg/dL (0.2-1); BLOOD UREA NITROGEN 11 mg/dL (7-18); CALCIUM 8.3 mg/dL (8.5-10.1); CHLORIDE 102 mmol/L (98-107); CO2 28 mmol/L (21-32); CREATININE 0.6 mg/dL (0.55-1.3); GLUCOSE,RANDOM 138 mg/dL (74-106); SGOT/AST 22 U/L (15-37); SGPT/ALT 23 U/L (13-61); SODIUM 136 mmol/L (136-145); TOT PROT 5.8 g/dl (6.4-8.2)
[2018-07-11] MEDS ORDERED: DEXTROSE 5%-WATER - 50 ML IVPB ONE (10:31)
[2018-07-11] MEDS ORDERED: cefTRIAXone SODIUM 1 GM VIAL ONE (10:31)
[2018-07-11] MEDS: CEFTRIAXONE 1 GM in DEXTROSE 5%-WATER - 50 ML IVPB SCH (10:36)
[2018-07-11] MEDS: PANTOPRAZOLE SODIUM 40 MG VIAL IVPUSH SCH (10:37)
[2018-07-11] MEDS: LOSARTAN POTASSIUM 50 MG TABLET (FP) PO SCH (10:38)
[2018-07-11] MEDS: SODIUM CHLORIDE 1,000 ML IV SCH ×2 (10:38→18:21)
--- NOTE | 2018-07-11 11:56 | DS ---
Physical Examination Vital Signs: Vital Signs Temperature 98 F 07/11/18 10:00 Pulse Rate 77 07/11/18 10:00 Respiratory Rate 18 07/11/18 10:00 Blood Pressure 146/73 07/11/18 10:00 O2 Sat by Pulse Oximetry (%) 98 07/11/18 09:00 Constitutional: Yes: Calm Cardiovascular: Yes: Regular Rate and Rhythm, S1, S2 Respiratory: Yes: CTA Bilaterally Gastrointestinal: Yes: Normal Bowel Sounds, Soft Neurological: Yes: Alert, Oriented Labs: CBC, BMP 07/11/18 06:30 07/11/18 06:30 Discharge Summary Reason For Visit: SUB INR HPONATREMIA PNEMONIA LEFT LOWER Current Active Problems Diarrhea (Acute) Fever (Acute) Hypokalemia (Acute) Hypomagnesemia (Acute) Hyponatremia (Acute) Left lower lobe pneumonia (Acute) Subtherapeutic international normalized ratio (INR) (Acute) Hospital Course: Primary Care Physician PCP: Mihaela Baca - Admission Chief Complaint: SEPSIS/ABD PAIN/COUGH/FEVER History of Present Illness: 82 year old female with past medical history of asthma, HTN, Atrial fibrillation , GERD and multiple falls, who presents to the emergency department with, 7 days of diffuse body aches, cough, fever (Tmax 103F), and abdominal pain. Patient is up to date on influenza and pneumococcal vaccinations. She denies recent dysuria, frequency, urgency or hematuria. She denies recent chest pain or shortness of breath. patient admitted to the hospital for vrial bronchitis/pna medrol, iv abx now has urine cultures Microbiology 07/09/18 08:09 Urine - Urine - Catheterized Urine Culture - Final Morganella Morganii 07/09/18 06:10 Urine - Urine - Catheterized Urine Culture - Preliminary Morganella Morganii Lactose Fermenting Neg Bacilli ct scan of the abdomen and pelvis done no acute pathology in abdomen and pelvis. Condition: Fair - Instructions Referrals: Robbin Noel MD [Primary Care Provider] - Disposition: HOME - Home Medications Comprehensive Discharge Medication List: Ambulatory Orders Alprazolam 0.25 mg PO DAILY 07/09/18 Diltiazem Cd [Cardizem Cd -] 300 mg PO DAILY 07/09/18 Losartan/Hydrochlorothiazide [Losartan-Hctz 100-25 mg Tab] 1 each PO DAILY 07/09 Ranitidine HCl 300 mg PO DAILY 07/09/18 Rivaroxaban [Xarelto] 15 mg PO DAILY 07/09/18
--- NOTE | 2018-07-11 14:18 | PN ---
Progress Note, Physician History of Present Illness: patient doing well stable still on o2 no complaints - Current Medication List Current Medications: Active Medications Acetaminophen (Ofirmev Injection -) 1,000 mg IVPB Q6H PRN PRN Reason: FEVER Last Admin: 07/09/18 16:53 Dose: 1,000 mg Albuterol Sulfate (Ventolin 0.083% Nebulizer Soln -) 1 amp NEB Q4H PRN PRN Reason: SHORT OF BREATH/WHEEZING Albuterol/Ipratropium (Duoneb -) 1 amp NEB RTID [facility] Last Admin: 07/11/18 07:35 Dose: Not Given Alprazolam (Xanax -) 0.25 mg PO HS PRN PRN Reason: ANXIETY Diltiazem HCl (Cardizem Cd -) 360 mg PO DAILY [facility] Last Admin: 07/11/18 10:37 Dose: 360 mg Sodium Chloride (Normal Saline -) 1,000 mls @ 83 mls/hr IV ASDIR [facility] Last Admin: 07/11/18 10:38 Dose: Not Given Ceftriaxone Sodium 1 gm/ (Dextrose) 50 mls @ 100 mls/hr IVPB DAILY [facility]; Protocol Last Admin: 07/11/18 10:36 Dose: 100 mls/hr Losartan Potassium (Cozaar -) 50 mg PO DAILY [facility] Last Admin: 07/11/18 10:38 Dose: 50 mg Methylprednisolone Sodium Succinate (Solu-Medrol -) 40 mg IVPUSH BID [facility] Ondansetron HCl (Zofran Odt -) 4 mg SL Q6H PRN PRN Reason: NAUSEA AND/OR VOMITING Last Admin: 07/09/18 21:54 Dose: 4 mg Pantoprazole Sodium (Protonix Iv) 40 mg IVPUSH DAILY [facility] Last Admin: 07/11/18 10:37 Dose: 40 mg Rivaroxaban (Xarelto) 15 mg PO DAILY@1800 [facility] Last Admin: 07/10/18 17:21 Dose: 15 mg - Objective Vital Signs: Vital Signs Temperature 98 F 07/11/18 10:00 Pulse Rate 77 07/11/18 10:00 Respiratory Rate 18 07/11/18 10:00 Blood Pressure 146/73 07/11/18 10:00 O2 Sat by Pulse Oximetry (%) 98 07/11/18 09:00 Constitutional: Yes: No Distress, Calm Cardiovascular: Yes: Regular Rate and Rhythm Respiratory: Yes: Regular, CTA Bilaterally Gastrointestinal: Yes: Normal Bowel Sounds, Soft Musculoskeletal: Yes: WNL Extremities: Yes: WNL Neurological: Yes: Alert, Oriented Labs: CBC, BMP 07/11/18 06:30 07/11/18 06:30 INR, PTT INR 0.98 (0.83-1.09) 07/09/18 04:50 Assessment/Plan Problem List - Problems (1) Fever Code(s): R50.9 - FEVER, UNSPECIFIED Qualifiers: Fever type: unspecified Qualified Code(s): R50.9 - Fever, unspecified (2) Hypokalemia Code(s): E87.6 - HYPOKALEMIA (3) Hypomagnesemia Code(s): E83.42 - HYPOMAGNESEMIA (4) Hyponatremia Code(s): E87.1 - HYPO-OSMOLALITY AND HYPONATREMIA (5) Left lower lobe pneumonia Code(s): J18.1 - LOBAR PNEUMONIA, UNSPECIFIED ORGANISM Qualifiers: Pneumonia type: due to unspecified organism Qualified Code(s): J18.1 - Lobar pneumonia, unspecified organism (6) Asthma Code(s): J45.909 - UNSPECIFIED ASTHMA, UNCOMPLICATED (7) Atrial fibrillation Code(s): I48.91 - UNSPECIFIED ATRIAL FIBRILLATION uti plan patient if going home can be send on bactrim ds po bid for another 5 days watch for any issues rest as per the team
--- NOTE | 2018-07-11 15:12 | PN ---
Progress Note, Physician History of Present Illness: PULMONARY ALERT,LESS CONGESTED,+ COUGH - Current Medication List Current Medications: Active Medications Acetaminophen (Ofirmev Injection -) 1,000 mg IVPB Q6H PRN PRN Reason: FEVER Last Admin: 07/09/18 16:53 Dose: 1,000 mg Albuterol Sulfate (Ventolin 0.083% Nebulizer Soln -) 1 amp NEB Q4H PRN PRN Reason: SHORT OF BREATH/WHEEZING Albuterol/Ipratropium (Duoneb -) 1 amp NEB RTID [facility] Last Admin: 07/11/18 11:55 Dose: 1 amp Alprazolam (Xanax -) 0.25 mg PO HS PRN PRN Reason: ANXIETY Diltiazem HCl (Cardizem Cd -) 360 mg PO DAILY [facility] Last Admin: 07/11/18 10:37 Dose: 360 mg Sodium Chloride (Normal Saline -) 1,000 mls @ 83 mls/hr IV ASDIR [facility] Last Admin: 07/11/18 10:38 Dose: Not Given Ceftriaxone Sodium 1 gm/ (Dextrose) 50 mls @ 100 mls/hr IVPB DAILY [facility]; Protocol Last Admin: 07/11/18 10:36 Dose: 100 mls/hr Losartan Potassium (Cozaar -) 50 mg PO DAILY [facility] Last Admin: 07/11/18 10:38 Dose: 50 mg Methylprednisolone Sodium Succinate (Solu-Medrol -) 40 mg IVPUSH BID [facility] Ondansetron HCl (Zofran Odt -) 4 mg SL Q6H PRN PRN Reason: NAUSEA AND/OR VOMITING Last Admin: 07/09/18 21:54 Dose: 4 mg Pantoprazole Sodium (Protonix Iv) 40 mg IVPUSH DAILY [facility] Last Admin: 07/11/18 10:37 Dose: 40 mg Rivaroxaban (Xarelto) 15 mg PO DAILY@1800 [facility] Last Admin: 07/10/18 17:21 Dose: 15 mg - Objective Vital Signs: Vital Signs Temperature 98.4 F 07/11/18 15:00 Pulse Rate 76 07/11/18 15:00 Respiratory Rate 18 07/11/18 15:00 Blood Pressure 140/66 07/11/18 15:00 O2 Sat by Pulse Oximetry (%) 98 07/11/18 09:00 Constitutional: Yes: Well Nourished, Calm Eyes: Yes: WNL HENT: Yes: WNL Neck: Yes: WNL Cardiovascular: Yes: Regular Rate and Rhythm, S1, S2 Respiratory: Yes: Rhonchi (SCATTERED MAURILIO RHONCHI) Gastrointestinal: Yes: Normal Bowel Sounds, Soft Extremities: Yes: WNL Edema: No Labs: CBC, BMP 07/11/18 06:30 07/11/18 06:30 INR, PTT INR 0.98 (0.83-1.09) 07/09/18 04:50 Problem List - Problems (1) Fever Code(s): R50.9 - FEVER, UNSPECIFIED Qualifiers: Fever type: unspecified Qualified Code(s): R50.9 - Fever, unspecified (2) Hypokalemia Code(s): E87.6 - HYPOKALEMIA (3) Hypomagnesemia Code(s): E83.42 - HYPOMAGNESEMIA (4) Hyponatremia Code(s): E87.1 - HYPO-OSMOLALITY AND HYPONATREMIA (5) Asthma Code(s): J45.909 - UNSPECIFIED ASTHMA, UNCOMPLICATED (6) Atrial fibrillation Code(s): I48.91 - UNSPECIFIED ATRIAL FIBRILLATION (7) Bronchitis Code(s): J40 - BRONCHITIS, NOT SPECIFIED ACUTE OR CHRONIC (8) HTN (hypertension) Code(s): I10 - ESSENTIAL (PRIMARY) HYPERTENSION Assessment/Plan IMP FEVER ? VIRAL SYNDROME RESOLVED R/O PNEUMONIA ? BRONCHITIS IMPROVING ASTHMA/BRONCHITIS HYPONATREMIA HYPOKALEMIA AFIB ABD PAIN,N/V RESOLVED HTN GERD PLAN ABX PER ID MEDROL INHALED BRONCHODILATORS CHEST CT MONITOR KIYA MURCIA Problem List - Problems (1) Fever Code(s): R50.9 - FEVER, UNSPECIFIED Qualifiers: Fever type: unspecified Qualified Code(s): R50.9 - Fever, unspecified (2) Hypokalemia Code(s): E87.6 - HYPOKALEMIA (3) Hypomagnesemia Code(s): E83.42 - HYPOMAGNESEMIA (4) Hyponatremia Code(s): E87.1 - HYPO-OSMOLALITY AND HYPONATREMIA (5) Asthma Code(s): J45.909 - UNSPECIFIED ASTHMA, UNCOMPLICATED (6) Atrial fibrillation Code(s): I48.91 - UNSPECIFIED ATRIAL FIBRILLATION (7) Bronchitis Code(s): J40 - BRONCHITIS, NOT SPECIFIED ACUTE OR CHRONIC (8) HTN (hypertension) Code(s): I10 - ESSENTIAL (PRIMARY) HYPERTENSION
[2018-07-11] MEDS ORDERED: PT OWN MED DRAWER 7, Y5N ONE (17:46)
[2018-07-11] MEDS: RIVAROXABAN 15 MG TABLET PO SCH (18:19)
[2018-07-11] MEDS: ALPRAZolam 0.25 MG TABLET PO PRN (22:24)
[2018-07-12] MEDS: ALBUTEROL SO4 2.5/IPRATROPIUM 0.5 INH SOL 3 ML VIAL.NEB. NEB SCH ×2 (08:50→19:27)
[2018-07-12] MEDS ORDERED: DEXTROSE 5%-WATER - 50 ML IVPB ONE (10:12)
[2018-07-12] MEDS ORDERED: cefTRIAXone SODIUM 1 GM VIAL ONE (10:12)
[2018-07-12] MEDS: PANTOPRAZOLE SODIUM 40 MG VIAL IVPUSH SCH (10:25)
[2018-07-12] MEDS: methylPREDNISolone NA SUCC 40 MG/1 ML VIAL IVPUSH SCH ×2 (10:27→22:31)
[2018-07-12] MEDS: CEFTRIAXONE 1 GM in DEXTROSE 5%-WATER - 50 ML IVPB SCH (10:29)
[2018-07-12] MEDS: SODIUM CHLORIDE 1,000 ML IV SCH ×2 (10:30→20:12)
[2018-07-12] MEDS: LOSARTAN POTASSIUM 50 MG TABLET (FP) PO SCH (10:31)
--- NOTE | 2018-07-12 12:34 | PN ---
Progress Note, Physician History of Present Illness: doing well still with bronchial breathing but better eating well - Current Medication List Current Medications: Active Medications Acetaminophen (Ofirmev Injection -) 1,000 mg IVPB Q6H PRN PRN Reason: FEVER Last Admin: 07/09/18 16:53 Dose: 1,000 mg Albuterol Sulfate (Ventolin 0.083% Nebulizer Soln -) 1 amp NEB Q4H PRN PRN Reason: SHORT OF BREATH/WHEEZING Albuterol/Ipratropium (Duoneb -) 1 amp NEB RTID [facility] Last Admin: 07/12/18 08:50 Dose: 1 amp Alprazolam (Xanax -) 0.25 mg PO HS PRN PRN Reason: ANXIETY Last Admin: 07/11/18 22:24 Dose: 0.25 mg Diltiazem HCl (Cardizem Cd -) 360 mg PO DAILY [facility] Last Admin: 07/12/18 10:24 Dose: 360 mg Sodium Chloride (Normal Saline -) 1,000 mls @ 83 mls/hr IV ASDIR [facility] Last Admin: 07/12/18 10:30 Dose: Not Given Ceftriaxone Sodium 1 gm/ (Dextrose) 50 mls @ 100 mls/hr IVPB DAILY [facility]; Protocol Last Admin: 07/12/18 10:29 Dose: 100 mls/hr Losartan Potassium (Cozaar -) 50 mg PO DAILY [facility] Last Admin: 07/12/18 10:31 Dose: 50 mg Methylprednisolone Sodium Succinate (Solu-Medrol -) 40 mg IVPUSH BID [facility] Last Admin: 07/12/18 10:27 Dose: 40 mg Ondansetron HCl (Zofran Odt -) 4 mg SL Q6H PRN PRN Reason: NAUSEA AND/OR VOMITING Last Admin: 07/09/18 21:54 Dose: 4 mg Pantoprazole Sodium (Protonix Iv) 40 mg IVPUSH DAILY [facility] Last Admin: 07/12/18 10:25 Dose: 40 mg Rivaroxaban (Xarelto) 15 mg PO DAILY@1800 [facility] Last Admin: 07/11/18 18:19 Dose: 15 mg - Objective Vital Signs: Vital Signs Temperature 98.5 F 07/12/18 05:55 Pulse Rate 74 07/12/18 05:55 Respiratory Rate 18 07/12/18 05:55 Blood Pressure 141/86 07/12/18 05:55 O2 Sat by Pulse Oximetry (%) 97 07/11/18 21:00 Constitutional: Yes: No Distress, Calm Cardiovascular: Yes: Regular Rate and Rhythm Respiratory: Yes: Regular, Rhonchi, Other Gastrointestinal: Yes: Normal Bowel Sounds, Soft Musculoskeletal: Yes: WNL Extremities: Yes: WNL Neurological: Yes: Alert, Oriented Psychiatric: Yes: Alert, Oriented Labs: CBC, BMP 07/11/18 06:30 07/11/18 06:30 INR, PTT INR 0.98 (0.83-1.09) 07/09/18 04:50 Assessment/Plan Problem List - Problems (1) Fever Code(s): R50.9 - FEVER, UNSPECIFIED Qualifiers: Fever type: unspecified Qualified Code(s): R50.9 - Fever, unspecified (2) Hypokalemia Code(s): E87.6 - HYPOKALEMIA (3) Hypomagnesemia Code(s): E83.42 - HYPOMAGNESEMIA (4) Hyponatremia Code(s): E87.1 - HYPO-OSMOLALITY AND HYPONATREMIA (5) Left lower lobe pneumonia Code(s): J18.1 - LOBAR PNEUMONIA, UNSPECIFIED ORGANISM Qualifiers: Pneumonia type: due to unspecified organism Qualified Code(s): J18.1 - Lobar pneumonia, unspecified organism (6) Asthma Code(s): J45.909 - UNSPECIFIED ASTHMA, UNCOMPLICATED (7) Atrial fibrillation Code(s): I48.91 - UNSPECIFIED ATRIAL FIBRILLATION plan continue iv abx if patient going home can be switched to oral as discussed with the primary team yesterday incentive roxy rest as per the team
--- NOTE | 2018-07-12 14:34 | PN ---
Progress Note, Physician - Current Medication List Current Medications: Active Medications Acetaminophen (Ofirmev Injection -) 1,000 mg IVPB Q6H PRN PRN Reason: FEVER Last Admin: 07/09/18 16:53 Dose: 1,000 mg Albuterol Sulfate (Ventolin 0.083% Nebulizer Soln -) 1 amp NEB Q4H PRN PRN Reason: SHORT OF BREATH/WHEEZING Albuterol/Ipratropium (Duoneb -) 1 amp NEB RTID [facility] Last Admin: 07/12/18 08:50 Dose: 1 amp Alprazolam (Xanax -) 0.25 mg PO HS PRN PRN Reason: ANXIETY Last Admin: 07/11/18 22:24 Dose: 0.25 mg Diltiazem HCl (Cardizem Cd -) 360 mg PO DAILY [facility] Last Admin: 07/12/18 10:24 Dose: 360 mg Sodium Chloride (Normal Saline -) 1,000 mls @ 83 mls/hr IV ASDIR [facility] Last Admin: 07/12/18 10:30 Dose: Not Given Ceftriaxone Sodium 1 gm/ (Dextrose) 50 mls @ 100 mls/hr IVPB DAILY [facility]; Protocol Last Admin: 07/12/18 10:29 Dose: 100 mls/hr Losartan Potassium (Cozaar -) 50 mg PO DAILY [facility] Last Admin: 07/12/18 10:31 Dose: 50 mg Methylprednisolone Sodium Succinate (Solu-Medrol -) 40 mg IVPUSH BID [facility] Last Admin: 07/12/18 10:27 Dose: 40 mg Ondansetron HCl (Zofran Odt -) 4 mg SL Q6H PRN PRN Reason: NAUSEA AND/OR VOMITING Last Admin: 07/09/18 21:54 Dose: 4 mg Pantoprazole Sodium (Protonix Iv) 40 mg IVPUSH DAILY [facility] Last Admin: 07/12/18 10:25 Dose: 40 mg Rivaroxaban (Xarelto) 15 mg PO DAILY@1800 [facility] Last Admin: 07/11/18 18:19 Dose: 15 mg - Objective Vital Signs: Vital Signs Temperature 98.3 F 07/12/18 10:00 Pulse Rate 80 07/12/18 10:00 Respiratory Rate 22 H 07/12/18 10:00 Blood Pressure 177/65 H 07/12/18 10:00 O2 Sat by Pulse Oximetry (%) 93 L 04/06/19 09:00 Cardiovascular: Yes: S1, S2 Respiratory: Yes: Rhonchi Gastrointestinal: Yes: Normal Bowel Sounds, Soft Labs: CBC, BMP 07/11/18 06:30 07/11/18 06:30 INR, PTT INR 0.98 (0.83-1.09) 07/09/18 04:50 Problem List - Problems (1) UTI (urinary tract infection) Assessment/Plan: -afebrile -tylenol PRN for temp >100F -UC positive for lactose fermenting neg bacilli Microbiology 07/09/18 06:10 Urine - Urine - Catheterized Urine Culture - Final Morganella Morganii Klebsiella Pneumoniae 07/09/18 04:38 Blood - Peripheral Venous Blood Culture - Preliminary NO GROWTH OBTAINED AFTER 72 HOURS, INCUBATION TO CONTINUE FOR 2 DAYS. 07/09/18 04:50 Blood - Peripheral Venous Blood Culture - Preliminary NO GROWTH OBTAINED AFTER 72 HOURS, INCUBATION TO CONTINUE FOR 2 DAYS. 07/09/18 05:50 Throat Throat Culture - Final 07/09/18 08:09 Urine - Urine - Catheterized Urine Culture - Final Morganella Morganii 07/09/18 12:30 Stool Clostridioides difficile Antigen - Final 07/09/18 12:30 Stool Clostridioides difficile Toxin Assay - Final -UA 3+ protein, 1+ blood -continue ceftriaxone IV -ID on board Code(s): N39.0 - URINARY TRACT INFECTION, SITE NOT SPECIFIED Qualifiers: Urinary tract infection type: site unspecified Hematuria presence: without hematuria Qualified Code(s): N39.0 - Urinary tract infection, site not specified (2) HTN (hypertension) Assessment/Plan: -continue with losartan Code(s): I10 - ESSENTIAL (PRIMARY) HYPERTENSION (3) Pneumonia Assessment/Plan: -pulm on board -O2 via NC -keep SpO2 >90% -bronchodillators -methylprednisone IV -IV ceftriaxone -Abd/Pelvic CT scan shows trace bilateral pleural effusion and chronic lung changes -ct chest Code(s): J18.9 - PNEUMONIA, UNSPECIFIED ORGANISM (4) Weakness Assessment/Plan: pt Code(s): R53.1 - WEAKNESS (5) Diarrhea Assessment/Plan: -c-diff negative -Tolerating diet Code(s): R19.7 - DIARRHEA, UNSPECIFIED (6) Atrial fibrillation Assessment/Plan: -continue with xarelto and cardizem Code(s): I48.91 - UNSPECIFIED ATRIAL FIBRILLATION
--- NOTE | 2018-07-12 14:45 | PN ---
Progress Note, Physician History of Present Illness: PULMONARY ALERT,STILL CONGESTED,+ COUGH - Current Medication List Current Medications: Active Medications Acetaminophen (Ofirmev Injection -) 1,000 mg IVPB Q6H PRN PRN Reason: FEVER Last Admin: 07/09/18 16:53 Dose: 1,000 mg Albuterol Sulfate (Ventolin 0.083% Nebulizer Soln -) 1 amp NEB Q4H PRN PRN Reason: SHORT OF BREATH/WHEEZING Albuterol/Ipratropium (Duoneb -) 1 amp NEB RTID [facility] Last Admin: 07/12/18 08:50 Dose: 1 amp Alprazolam (Xanax -) 0.25 mg PO HS PRN PRN Reason: ANXIETY Last Admin: 07/11/18 22:24 Dose: 0.25 mg Diltiazem HCl (Cardizem Cd -) 360 mg PO DAILY [facility] Last Admin: 07/12/18 10:24 Dose: 360 mg Sodium Chloride (Normal Saline -) 1,000 mls @ 83 mls/hr IV ASDIR [facility] Last Admin: 07/12/18 10:30 Dose: Not Given Ceftriaxone Sodium 1 gm/ (Dextrose) 50 mls @ 100 mls/hr IVPB DAILY [facility]; Protocol Last Admin: 07/12/18 10:29 Dose: 100 mls/hr Losartan Potassium (Cozaar -) 50 mg PO DAILY [facility] Last Admin: 07/12/18 10:31 Dose: 50 mg Methylprednisolone Sodium Succinate (Solu-Medrol -) 40 mg IVPUSH BID [facility] Last Admin: 07/12/18 10:27 Dose: 40 mg Ondansetron HCl (Zofran Odt -) 4 mg SL Q6H PRN PRN Reason: NAUSEA AND/OR VOMITING Last Admin: 07/09/18 21:54 Dose: 4 mg Pantoprazole Sodium (Protonix Iv) 40 mg IVPUSH DAILY [facility] Last Admin: 07/12/18 10:25 Dose: 40 mg Rivaroxaban (Xarelto) 15 mg PO DAILY@1800 [facility] Last Admin: 07/11/18 18:19 Dose: 15 mg - Objective Vital Signs: Vital Signs Temperature 98.3 F 07/12/18 10:00 Pulse Rate 80 07/12/18 10:00 Respiratory Rate 22 H 07/12/18 10:00 Blood Pressure 177/65 H 07/12/18 10:00 O2 Sat by Pulse Oximetry (%) 93 L 07/12/18 09:00 Constitutional: Yes: Well Nourished, Calm Eyes: Yes: WNL HENT: Yes: WNL Neck: Yes: WNL Cardiovascular: Yes: Pulse Irregular, S1, S2 Respiratory: Yes: Rhonchi (BILATERAL RHONCHI) Gastrointestinal: Yes: Normal Bowel Sounds, Soft Extremities: Yes: WNL Edema: Yes Labs: CBC, BMP Problem List - Problems (1) Fever Code(s): R50.9 - FEVER, UNSPECIFIED Qualifiers: Fever type: unspecified Qualified Code(s): R50.9 - Fever, unspecified (2) Hypokalemia Code(s): E87.6 - HYPOKALEMIA (3) Hypomagnesemia Code(s): E83.42 - HYPOMAGNESEMIA (4) Hyponatremia Code(s): E87.1 - HYPO-OSMOLALITY AND HYPONATREMIA (5) Asthma Code(s): J45.909 - UNSPECIFIED ASTHMA, UNCOMPLICATED (6) Atrial fibrillation Code(s): I48.91 - UNSPECIFIED ATRIAL FIBRILLATION (7) Bronchitis Code(s): J40 - BRONCHITIS, NOT SPECIFIED ACUTE OR CHRONIC (8) HTN (hypertension) Code(s): I10 - ESSENTIAL (PRIMARY) HYPERTENSION Assessment/Plan IMP FEVER ? VIRAL SYNDROME RESOLVED R/O PNEUMONIA ? BRONCHITIS IMPROVING ASTHMA/BRONCHITIS HYPONATREMIA HYPOKALEMIA AFIB ABD PAIN,N/V RESOLVED HTN GERD PLAN ABX PER ID MEDROL SAME DOSE INHALED BRONCHODILATORS MONITOR KIYA MURCIA Problem List - Problems (1) Fever Code(s): R50.9 - FEVER, UNSPECIFIED Qualifiers: Fever type: unspecified Qualified Code(s): R50.9 - Fever, unspecified (2) Hypokalemia Code(s): E87.6 - HYPOKALEMIA (3) Hypomagnesemia Code(s): E83.42 - HYPOMAGNESEMIA (4) Hyponatremia Code(s): E87.1 - HYPO-OSMOLALITY AND HYPONATREMIA (5) Asthma Code(s): J45.909 - UNSPECIFIED ASTHMA, UNCOMPLICATED (6) Atrial fibrillation Code(s): I48.91 - UNSPECIFIED ATRIAL FIBRILLATION (7) Bronchitis Code(s): J40 - BRONCHITIS, NOT SPECIFIED ACUTE OR CHRONIC (8) HTN (hypertension) Code(s): I10 - ESSENTIAL (PRIMARY) HYPERTENSION
[2018-07-12] MEDS: RIVAROXABAN 15 MG TABLET PO SCH (17:04)
[2018-07-12] MEDS: ALPRAZolam 0.25 MG TABLET PO PRN (22:32)
[2018-07-13] MEDS: ALBUTEROL SO4 2.5/IPRATROPIUM 0.5 INH SOL 3 ML VIAL.NEB. NEB SCH ×3 (07:38→19:56)
[2018-07-13 08:08] LABS: BASO % 0.1 % (0-2.0); HEMATOCRIT 34.1 % (32.4-45.2); HEMOGLOBIN 11.7 GM/dL (10.7-15.3); LYMPH % 8.1 % (8-40); MCH 31.1 pg (25.7-33.7); MCHC 34.4 g/dl (32.0-36.0); MEAN CELL VOLUME 90.5 fl (80-96); MEAN PLT VOLUME 8.4 fl (7.5-11.1); MONO % 3.7 % (3.8-10.2); NEUT % 88.1 % (42.8-82.8); PLATELET COUNT 239 K/MM3 (134-434); RBC 3.77 M/mm3 (3.60-5.2); RDW 13.1 % (11.6-15.6); WHITE BLOOD COUNT 10.6 K/mm3 (4.0-10.0)
[2018-07-13 08:31] LABS: ALBUMIN 2.7 g/dl (3.4-5.0); ALK PHOS 67 U/L (45-117); ANION GAP 9 MMOL/L (8-16); BILIRUBIN,TOTAL 0.6 mg/dL (0.2-1); BLOOD UREA NITROGEN 17 mg/dL (7-18); CALCIUM 8.2 mg/dL (8.5-10.1); CHLORIDE 104 mmol/L (98-107); CO2 24 mmol/L (21-32); CREATININE 0.7 mg/dL (0.55-1.3); GLUCOSE,RANDOM 144 mg/dL (74-106); POTASSIUM 3.8 mmol/L (3.5-5.1); SGOT/AST 15 U/L (15-37); SGPT/ALT 25 U/L (13-61); SODIUM 137 mmol/L (136-145); TOT PROT 5.6 g/dl (6.4-8.2)
[2018-07-13] MEDS ORDERED: DEXTROSE 5%-WATER - 50 ML IVPB ONE (09:00)
[2018-07-13] MEDS ORDERED: cefTRIAXone SODIUM 1 GM VIAL ONE (09:00)
[2018-07-13] MEDS: PANTOPRAZOLE SODIUM 40 MG VIAL IVPUSH SCH (09:34)
[2018-07-13] MEDS: methylPREDNISolone NA SUCC 40 MG/1 ML VIAL IVPUSH SCH ×2 (09:34→21:32)
[2018-07-13] MEDS: CEFTRIAXONE 1 GM in DEXTROSE 5%-WATER - 50 ML IVPB SCH (09:34)
[2018-07-13] MEDS: LOSARTAN POTASSIUM 50 MG TABLET (FP) PO SCH (09:34)
[2018-07-13 10:57] LABS: ANISOCYTOSIS 0; HELMET CELLS 0; HOWELL-JOLLY BODIES 0; MACROCYTOSIS 0; OVALOCYTE 0; PLATELET ESTIMATE NORMAL; ROULEAU 0; SICKELED CELLS 0; TARGET CELLS 0; TEAR DROP CELLS 0; TOXIC GRANULATION 0
--- NOTE | 2018-07-13 12:24 | PN ---
Progress Note, Physician Chief Complaint: AWAKE ALERT EATING LUNCH STILL WITH DYSPNEA ON 02NC - Current Medication List Current Medications: Active Medications Acetaminophen (Ofirmev Injection -) 1,000 mg IVPB Q6H PRN PRN Reason: FEVER Last Admin: 07/09/18 16:53 Dose: 1,000 mg Albuterol Sulfate (Ventolin 0.083% Nebulizer Soln -) 1 amp NEB Q4H PRN PRN Reason: SHORT OF BREATH/WHEEZING Albuterol/Ipratropium (Duoneb -) 1 amp NEB RTID [facility] Last Admin: 07/13/18 07:38 Dose: 1 amp Alprazolam (Xanax -) 0.25 mg PO HS PRN PRN Reason: ANXIETY Last Admin: 07/12/18 22:32 Dose: 0.25 mg Diltiazem HCl (Cardizem Cd -) 360 mg PO DAILY [facility] Last Admin: 07/13/18 09:34 Dose: 360 mg Sodium Chloride (Normal Saline -) 1,000 mls @ 83 mls/hr IV ASDIR [facility] Last Admin: 07/12/18 20:12 Dose: 83 mls/hr Ceftriaxone Sodium 1 gm/ (Dextrose) 50 mls @ 100 mls/hr IVPB DAILY [facility]; Protocol Last Admin: 07/13/18 09:34 Dose: 100 mls/hr Losartan Potassium (Cozaar -) 50 mg PO DAILY [facility] Last Admin: 07/13/18 09:34 Dose: 50 mg Methylprednisolone Sodium Succinate (Solu-Medrol -) 40 mg IVPUSH BID [facility] Last Admin: 07/13/18 09:34 Dose: 40 mg Ondansetron HCl (Zofran Odt -) 4 mg SL Q6H PRN PRN Reason: NAUSEA AND/OR VOMITING Last Admin: 07/09/18 21:54 Dose: 4 mg Pantoprazole Sodium (Protonix Iv) 40 mg IVPUSH DAILY [facility] Last Admin: 07/13/18 09:34 Dose: 40 mg Rivaroxaban (Xarelto) 15 mg PO DAILY@1800 [facility] Last Admin: 07/12/18 17:04 Dose: 15 mg - Objective Vital Signs: Vital Signs Temperature 97.8 F 07/13/18 09:30 Pulse Rate 96 H 07/13/18 09:30 Respiratory Rate 20 07/13/18 09:30 Blood Pressure 150/63 07/13/18 09:30 O2 Sat by Pulse Oximetry (%) 96 07/13/18 09:00 Constitutional: Yes: Mild Distress Eyes: Yes: WNL HENT: Yes: WNL Neck: Yes: WNL Cardiovascular: Yes: Regular Rate and Rhythm Respiratory: Yes: Cough, On Nasal O2 Gastrointestinal: Yes: WNL Genitourinary: Yes: WNL Musculoskeletal: Yes: Muscle Weakness Extremities: Yes: WNL Edema: No Peripheral Pulses WNL: Yes Integumentary: Yes: WNL Wound/Incision: Yes: Steri Strips Neurological: Yes: WNL ...Motor Strength: WNL Psychiatric: Yes: WNL Labs: CBC, BMP 07/13/18 06:10 07/13/18 06:10 INR, PTT INR 0.98 (0.83-1.09) 07/09/18 04:50 Problem List - Problems (1) Fever Code(s): R50.9 - FEVER, UNSPECIFIED Qualifiers: Fever type: unspecified Qualified Code(s): R50.9 - Fever, unspecified (2) Hypokalemia Code(s): E87.6 - HYPOKALEMIA (3) Hypomagnesemia Code(s): E83.42 - HYPOMAGNESEMIA (4) Hyponatremia Code(s): E87.1 - HYPO-OSMOLALITY AND HYPONATREMIA (5) Left lower lobe pneumonia Code(s): J18.1 - LOBAR PNEUMONIA, UNSPECIFIED ORGANISM Qualifiers: Pneumonia type: due to unspecified organism Qualified Code(s): J18.1 - Lobar pneumonia, unspecified organism (6) Asthma Code(s): J45.909 - UNSPECIFIED ASTHMA, UNCOMPLICATED (7) Atrial fibrillation Code(s): I48.91 - UNSPECIFIED ATRIAL FIBRILLATION Assessment/Plan INFECTIOUS DISEASE CONSULT AND WORKUP CHECK BLOOD AND URINE CULTURES CORRECT ELECTROLYTE IMBALANCE WITH IV POTASSIUM/MAGNESIUM/NORMAL SALINE TOLERATING DIET PO PULMONARY EVAL CT CHEST REVIEWED PNA IV ABX NEBS 02 SUPPORT STEROID TAPER INCENTIVE SPIROMETER OOB TO CHAIR WITH ASSIST PT EVAL
--- NOTE | 2018-07-13 12:34 | PN ---
Progress Note, Physician History of Present Illness: doing well breathing better - Current Medication List Current Medications: Active Medications Acetaminophen (Ofirmev Injection -) 1,000 mg IVPB Q6H PRN PRN Reason: FEVER Last Admin: 07/09/18 16:53 Dose: 1,000 mg Albuterol Sulfate (Ventolin 0.083% Nebulizer Soln -) 1 amp NEB Q4H PRN PRN Reason: SHORT OF BREATH/WHEEZING Albuterol/Ipratropium (Duoneb -) 1 amp NEB RTID [facility] Last Admin: 07/13/18 07:38 Dose: 1 amp Alprazolam (Xanax -) 0.25 mg PO HS PRN PRN Reason: ANXIETY Last Admin: 07/12/18 22:32 Dose: 0.25 mg Diltiazem HCl (Cardizem Cd -) 360 mg PO DAILY [facility] Last Admin: 07/13/18 09:34 Dose: 360 mg Sodium Chloride (Normal Saline -) 1,000 mls @ 83 mls/hr IV ASDIR [facility] Last Admin: 07/12/18 20:12 Dose: 83 mls/hr Ceftriaxone Sodium 1 gm/ (Dextrose) 50 mls @ 100 mls/hr IVPB DAILY [facility]; Protocol Last Admin: 07/13/18 09:34 Dose: 100 mls/hr Losartan Potassium (Cozaar -) 50 mg PO DAILY [facility] Last Admin: 07/13/18 09:34 Dose: 50 mg Methylprednisolone Sodium Succinate (Solu-Medrol -) 40 mg IVPUSH BID [facility] Last Admin: 07/13/18 09:34 Dose: 40 mg Ondansetron HCl (Zofran Odt -) 4 mg SL Q6H PRN PRN Reason: NAUSEA AND/OR VOMITING Last Admin: 07/09/18 21:54 Dose: 4 mg Pantoprazole Sodium (Protonix Iv) 40 mg IVPUSH DAILY [facility] Last Admin: 07/13/18 09:34 Dose: 40 mg Rivaroxaban (Xarelto) 15 mg PO DAILY@1800 [facility] Last Admin: 07/12/18 17:04 Dose: 15 mg - Objective Vital Signs: Vital Signs Temperature 97.8 F 07/13/18 09:30 Pulse Rate 96 H 07/13/18 09:30 Respiratory Rate 20 07/13/18 09:30 Blood Pressure 150/63 07/13/18 09:30 O2 Sat by Pulse Oximetry (%) 96 07/13/18 09:00 Constitutional: Yes: No Distress, Calm Cardiovascular: Yes: Regular Rate and Rhythm Respiratory: Yes: Regular, Poor Air Entry (bases) Gastrointestinal: Yes: Normal Bowel Sounds, Soft Musculoskeletal: Yes: WNL Extremities: Yes: WNL Neurological: Yes: Alert, Oriented Labs: CBC, BMP 07/13/18 06:10 07/13/18 06:10 INR, PTT INR 0.98 (0.83-1.09) 07/09/18 04:50 Assessment/Plan Problem List - Problems (1) Fever Code(s): R50.9 - FEVER, UNSPECIFIED Qualifiers: Fever type: unspecified Qualified Code(s): R50.9 - Fever, unspecified (2) Hypokalemia Code(s): E87.6 - HYPOKALEMIA (3) Hypomagnesemia Code(s): E83.42 - HYPOMAGNESEMIA (4) Hyponatremia Code(s): E87.1 - HYPO-OSMOLALITY AND HYPONATREMIA (5) Left lower lobe pneumonia Code(s): J18.1 - LOBAR PNEUMONIA, UNSPECIFIED ORGANISM Qualifiers: Pneumonia type: due to unspecified organism Qualified Code(s): J18.1 - Lobar pneumonia, unspecified organism (6) Asthma Code(s): J45.909 - UNSPECIFIED ASTHMA, UNCOMPLICATED (7) Atrial fibrillation Code(s): I48.91 - UNSPECIFIED ATRIAL FIBRILLATION plan continue iv abx incentive roxy rest as per the team patient doing well
--- NOTE | 2018-07-13 14:06 | PN ---
Progress Note, Physician History of Present Illness: pulmonary alert,less congested +cough - Current Medication List Current Medications: Active Medications Acetaminophen (Ofirmev Injection -) 1,000 mg IVPB Q6H PRN PRN Reason: FEVER Last Admin: 07/09/18 16:53 Dose: 1,000 mg Albuterol Sulfate (Ventolin 0.083% Nebulizer Soln -) 1 amp NEB Q4H PRN PRN Reason: SHORT OF BREATH/WHEEZING Albuterol/Ipratropium (Duoneb -) 1 amp NEB RTID [facility] Last Admin: 07/13/18 07:38 Dose: 1 amp Alprazolam (Xanax -) 0.25 mg PO HS PRN PRN Reason: ANXIETY Last Admin: 07/12/18 22:32 Dose: 0.25 mg Diltiazem HCl (Cardizem Cd -) 360 mg PO DAILY [facility] Last Admin: 07/13/18 09:34 Dose: 360 mg Sodium Chloride (Normal Saline -) 1,000 mls @ 83 mls/hr IV ASDIR [facility] Last Admin: 07/12/18 20:12 Dose: 83 mls/hr Ceftriaxone Sodium 1 gm/ (Dextrose) 50 mls @ 100 mls/hr IVPB DAILY [facility]; Protocol Last Admin: 07/13/18 09:34 Dose: 100 mls/hr Losartan Potassium (Cozaar -) 50 mg PO DAILY [facility] Last Admin: 07/13/18 09:34 Dose: 50 mg Methylprednisolone Sodium Succinate (Solu-Medrol -) 40 mg IVPUSH BID [facility] Last Admin: 07/13/18 09:34 Dose: 40 mg Ondansetron HCl (Zofran Odt -) 4 mg SL Q6H PRN PRN Reason: NAUSEA AND/OR VOMITING Last Admin: 07/09/18 21:54 Dose: 4 mg Pantoprazole Sodium (Protonix Iv) 40 mg IVPUSH DAILY [facility] Last Admin: 07/13/18 09:34 Dose: 40 mg Rivaroxaban (Xarelto) 15 mg PO DAILY@1800 [facility] Last Admin: 07/12/18 17:04 Dose: 15 mg - Objective Vital Signs: Vital Signs Temperature 98.2 F 07/13/18 13:44 Pulse Rate 103 H 07/13/18 13:44 Respiratory Rate 20 07/13/18 13:44 Blood Pressure 159/68 07/13/18 13:44 O2 Sat by Pulse Oximetry (%) 96 07/13/18 09:00 Constitutional: Yes: Well Nourished, Calm Eyes: Yes: WNL HENT: Yes: WNL Neck: Yes: WNL Cardiovascular: Yes: Pulse Irregular, S1, S2 Respiratory: Yes: Rhonchi (scattered niurka wheezes and rhonchi), Wheezes Gastrointestinal: Yes: Normal Bowel Sounds, Soft Extremities: Yes: WNL Edema: No Labs: CBC, BMP 07/13/18 06:10 07/13/18 06:10 INR, PTT INR 0.98 (0.83-1.09) 07/09/18 04:50 Problem List - Problems (1) Fever Code(s): R50.9 - FEVER, UNSPECIFIED Qualifiers: Fever type: unspecified Qualified Code(s): R50.9 - Fever, unspecified (2) Hypokalemia Code(s): E87.6 - HYPOKALEMIA (3) Hypomagnesemia Code(s): E83.42 - HYPOMAGNESEMIA (4) Hyponatremia Code(s): E87.1 - HYPO-OSMOLALITY AND HYPONATREMIA (5) Asthma Code(s): J45.909 - UNSPECIFIED ASTHMA, UNCOMPLICATED (6) Atrial fibrillation Code(s): I48.91 - UNSPECIFIED ATRIAL FIBRILLATION (7) Bronchitis Code(s): J40 - BRONCHITIS, NOT SPECIFIED ACUTE OR CHRONIC (8) HTN (hypertension) Code(s): I10 - ESSENTIAL (PRIMARY) HYPERTENSION Assessment/Plan IMP FEVER ? VIRAL SYNDROME RESOLVED R/O PNEUMONIA ? BRONCHITIS IMPROVING ASTHMA/BRONCHITIS slowly improving HYPONATREMIA HYPOKALEMIA AFIB ABD PAIN,N/V RESOLVED HTN GERD PLAN ABX PER ID MEDROL same dose INHALED BRONCHODILATORS MONITOR KIYA MURCIA Problem List - Problems (1) Fever Code(s): R50.9 - FEVER, UNSPECIFIED Qualifiers: Fever type: unspecified Qualified Code(s): R50.9 - Fever, unspecified (2) Hypokalemia Code(s): E87.6 - HYPOKALEMIA (3) Hypomagnesemia Code(s): E83.42 - HYPOMAGNESEMIA (4) Hyponatremia Code(s): E87.1 - HYPO-OSMOLALITY AND HYPONATREMIA (5) Asthma Code(s): J45.909 - UNSPECIFIED ASTHMA, UNCOMPLICATED (6) Atrial fibrillation Code(s): I48.91 - UNSPECIFIED ATRIAL FIBRILLATION (7) Bronchitis Code(s): J40 - BRONCHITIS, NOT SPECIFIED ACUTE OR CHRONIC (8) HTN (hypertension) Code(s): I10 - ESSENTIAL (PRIMARY) HYPERTENSION
[2018-07-13] MEDS: RIVAROXABAN 15 MG TABLET PO SCH (17:12)
[2018-07-13] MEDS: SODIUM CHLORIDE 1,000 ML IV SCH (17:13)
[2018-07-13] MEDS: ALPRAZolam 0.25 MG TABLET PO PRN (21:32)
[2018-07-14] MEDS: ALBUTEROL SO4 2.5/IPRATROPIUM 0.5 INH SOL 3 ML VIAL.NEB. NEB SCH ×3 (08:07→21:06)
[2018-07-14] MEDS ORDERED: DEXTROSE 5%-WATER - 50 ML IVPB ONE (09:00)
[2018-07-14] MEDS ORDERED: cefTRIAXone SODIUM 1 GM VIAL ONE (09:00)
[2018-07-14] MEDS: LOSARTAN POTASSIUM 50 MG TABLET (FP) PO SCH (09:30)
[2018-07-14] MEDS: methylPREDNISolone NA SUCC 40 MG/1 ML VIAL IVPUSH SCH ×2 (09:30→21:44)
[2018-07-14] MEDS: PANTOPRAZOLE SODIUM 40 MG VIAL IVPUSH SCH (09:31)
[2018-07-14] MEDS: CEFTRIAXONE 1 GM in DEXTROSE 5%-WATER - 50 ML IVPB SCH (09:32)
--- NOTE | 2018-07-14 10:51 | PN ---
Progress Note (short form) - Note Progress Note: PULMONARY States breathing is improving. +nonproductive cough and chronic wheezing. No fevers. Vital Signs Period Temp Pulse Resp BP Sys/Boss Pulse Ox Last 24 Hr 97.7 F-98.2 F 77-104 18-20 150-159/68-91 93 Gen: NAD in chair Heart: RRR Lung: scattered rhonchi, wheezes Abd: soft, nontender Ext: no edema CBC, BMP 07/13/18 06:10 07/13/18 06:10 Active Medications Acetaminophen (Ofirmev Injection -) 1,000 mg IVPB Q6H PRN PRN Reason: FEVER Last Admin: 07/09/18 16:53 Dose: 1,000 mg Albuterol Sulfate (Ventolin 0.083% Nebulizer Soln -) 1 amp NEB Q4H PRN PRN Reason: SHORT OF BREATH/WHEEZING Albuterol/Ipratropium (Duoneb -) 1 amp NEB RTID [facility] Last Admin: 07/14/18 08:07 Dose: 1 amp Alprazolam (Xanax -) 0.25 mg PO HS PRN PRN Reason: ANXIETY Last Admin: 07/13/18 21:32 Dose: 0.25 mg Diltiazem HCl (Cardizem Cd -) 360 mg PO DAILY [facility] Last Admin: 07/14/18 09:31 Dose: 360 mg Sodium Chloride (Normal Saline -) 1,000 mls @ 83 mls/hr IV ASDIR [facility] Last Admin: 07/13/18 17:13 Dose: Not Given Ceftriaxone Sodium 1 gm/ (Dextrose) 50 mls @ 100 mls/hr IVPB DAILY [facility]; Protocol Last Admin: 07/14/18 09:32 Dose: 100 mls/hr Losartan Potassium (Cozaar -) 50 mg PO DAILY [facility] Last Admin: 07/14/18 09:30 Dose: 50 mg Methylprednisolone Sodium Succinate (Solu-Medrol -) 40 mg IVPUSH BID [facility] Last Admin: 07/14/18 09:30 Dose: 40 mg Ondansetron HCl (Zofran Odt -) 4 mg SL Q6H PRN PRN Reason: NAUSEA AND/OR VOMITING Last Admin: 07/09/18 21:54 Dose: 4 mg Pantoprazole Sodium (Protonix Iv) 40 mg IVPUSH DAILY [facility] Last Admin: 07/14/18 09:31 Dose: 40 mg Rivaroxaban (Xarelto) 15 mg PO DAILY@1800 [facility] Last Admin: 07/13/18 17:12 Dose: 15 mg A/P Acute Asthma Exacerbation Acute Bronchitis r/o Pneumonia Atrial Fibrillation HTN GERD - continue medrol - can likely change steroids to PO prednisone 40mg daily in AM if continues to improve - inhaled bronchodilators - ambulate - rate control - continue anticoagulation
--- NOTE | 2018-07-14 12:18 | PN ---
Progress Note, Physician History of Present Illness: doing well no complaints no cough breathing well - Current Medication List Current Medications: Active Medications Acetaminophen (Ofirmev Injection -) 1,000 mg IVPB Q6H PRN PRN Reason: FEVER Last Admin: 07/09/18 16:53 Dose: 1,000 mg Albuterol Sulfate (Ventolin 0.083% Nebulizer Soln -) 1 amp NEB Q4H PRN PRN Reason: SHORT OF BREATH/WHEEZING Albuterol/Ipratropium (Duoneb -) 1 amp NEB RTID [facility] Last Admin: 07/14/18 08:07 Dose: 1 amp Alprazolam (Xanax -) 0.25 mg PO HS PRN PRN Reason: ANXIETY Last Admin: 07/13/18 21:32 Dose: 0.25 mg Diltiazem HCl (Cardizem Cd -) 360 mg PO DAILY [facility] Last Admin: 07/14/18 09:31 Dose: 360 mg Sodium Chloride (Normal Saline -) 1,000 mls @ 83 mls/hr IV ASDIR [facility] Last Admin: 07/13/18 17:13 Dose: Not Given Ceftriaxone Sodium 1 gm/ (Dextrose) 50 mls @ 100 mls/hr IVPB DAILY [facility]; Protocol Last Admin: 07/14/18 09:32 Dose: 100 mls/hr Losartan Potassium (Cozaar -) 50 mg PO DAILY [facility] Last Admin: 07/14/18 09:30 Dose: 50 mg Methylprednisolone Sodium Succinate (Solu-Medrol -) 40 mg IVPUSH BID [facility] Last Admin: 07/14/18 09:30 Dose: 40 mg Ondansetron HCl (Zofran Odt -) 4 mg SL Q6H PRN PRN Reason: NAUSEA AND/OR VOMITING Last Admin: 07/09/18 21:54 Dose: 4 mg Pantoprazole Sodium (Protonix Iv) 40 mg IVPUSH DAILY [facility] Last Admin: 07/14/18 09:31 Dose: 40 mg Rivaroxaban (Xarelto) 15 mg PO DAILY@1800 [facility] Last Admin: 07/13/18 17:12 Dose: 15 mg - Objective Vital Signs: Vital Signs Temperature 97.8 F 07/14/18 10:00 Pulse Rate 83 07/14/18 10:00 Respiratory Rate 20 07/14/18 10:00 Blood Pressure 157/89 07/14/18 10:00 O2 Sat by Pulse Oximetry (%) 94 L 07/14/18 09:00 Constitutional: Yes: No Distress, Calm Cardiovascular: Yes: Regular Rate and Rhythm Respiratory: Yes: Regular, On Nasal O2, Poor Air Entry Gastrointestinal: Yes: Normal Bowel Sounds, Soft Musculoskeletal: Yes: WNL Extremities: Yes: WNL Neurological: Yes: Alert, Oriented Psychiatric: Yes: Alert, Oriented Labs: CBC, BMP 07/13/18 06:10 07/13/18 06:10 INR, PTT INR 0.98 (0.83-1.09) 07/09/18 04:50 Assessment/Plan Problem List - Problems (1) Fever Code(s): R50.9 - FEVER, UNSPECIFIED Qualifiers: Fever type: unspecified Qualified Code(s): R50.9 - Fever, unspecified (2) Hypokalemia Code(s): E87.6 - HYPOKALEMIA (3) Hypomagnesemia Code(s): E83.42 - HYPOMAGNESEMIA (4) Hyponatremia Code(s): E87.1 - HYPO-OSMOLALITY AND HYPONATREMIA (5) Left lower lobe pneumonia Code(s): J18.1 - LOBAR PNEUMONIA, UNSPECIFIED ORGANISM Qualifiers: Pneumonia type: due to unspecified organism Qualified Code(s): J18.1 - Lobar pneumonia, unspecified organism (6) Asthma Code(s): J45.909 - UNSPECIFIED ASTHMA, UNCOMPLICATED (7) Atrial fibrillation Code(s): I48.91 - UNSPECIFIED ATRIAL FIBRILLATION plan continue iv abx incentive roxy rest as per the team patient doing well abx can be stopped after tomorrows afternoon dose
--- NOTE | 2018-07-14 13:11 | PN ---
Progress Note, Physician Chief Complaint: patient seen and examined sitting in chair feeling better - Current Medication List Current Medications: Active Medications Acetaminophen (Ofirmev Injection -) 1,000 mg IVPB Q6H PRN PRN Reason: FEVER Last Admin: 07/09/18 16:53 Dose: 1,000 mg Albuterol Sulfate (Ventolin 0.083% Nebulizer Soln -) 1 amp NEB Q4H PRN PRN Reason: SHORT OF BREATH/WHEEZING Albuterol/Ipratropium (Duoneb -) 1 amp NEB RTID [facility] Last Admin: 07/14/18 08:07 Dose: 1 amp Alprazolam (Xanax -) 0.25 mg PO HS PRN PRN Reason: ANXIETY Last Admin: 07/13/18 21:32 Dose: 0.25 mg Diltiazem HCl (Cardizem Cd -) 360 mg PO DAILY [facility] Last Admin: 07/14/18 09:31 Dose: 360 mg Sodium Chloride (Normal Saline -) 1,000 mls @ 83 mls/hr IV ASDIR [facility] Last Admin: 07/13/18 17:13 Dose: Not Given Ceftriaxone Sodium 1 gm/ (Dextrose) 50 mls @ 100 mls/hr IVPB DAILY [facility]; Protocol Last Admin: 07/14/18 09:32 Dose: 100 mls/hr Losartan Potassium (Cozaar -) 50 mg PO DAILY [facility] Last Admin: 07/14/18 09:30 Dose: 50 mg Methylprednisolone Sodium Succinate (Solu-Medrol -) 40 mg IVPUSH BID [facility] Last Admin: 07/14/18 09:30 Dose: 40 mg Ondansetron HCl (Zofran Odt -) 4 mg SL Q6H PRN PRN Reason: NAUSEA AND/OR VOMITING Last Admin: 07/09/18 21:54 Dose: 4 mg Pantoprazole Sodium (Protonix Iv) 40 mg IVPUSH DAILY [facility] Last Admin: 07/14/18 09:31 Dose: 40 mg Rivaroxaban (Xarelto) 15 mg PO DAILY@1800 [facility] Last Admin: 07/13/18 17:12 Dose: 15 mg - Objective Vital Signs: Vital Signs Temperature 97.8 F 07/14/18 10:00 Pulse Rate 83 07/14/18 10:00 Respiratory Rate 20 07/14/18 10:00 Blood Pressure 157/89 07/14/18 10:00 O2 Sat by Pulse Oximetry (%) 94 L 07/14/18 09:00 Constitutional: Yes: Calm Cardiovascular: Yes: Regular Rate and Rhythm, S1, S2 Respiratory: Yes: CTA Bilaterally, Diminished (at bases), On Nasal O2 Gastrointestinal: Yes: Normal Bowel Sounds, Soft Edema: No Neurological: Yes: Alert Labs: CBC, BMP 07/13/18 06:10 07/13/18 06:10 INR, PTT INR 0.98 (0.83-1.09) 07/09/18 04:50 Problem List - Problems (1) Hyponatremia Assessment/Plan: resolved Code(s): E87.1 - HYPO-OSMOLALITY AND HYPONATREMIA (2) Left lower lobe pneumonia Assessment/Plan: rocephin Code(s): J18.1 - LOBAR PNEUMONIA, UNSPECIFIED ORGANISM Qualifiers: Pneumonia type: due to unspecified organism Qualified Code(s): J18.1 - Lobar pneumonia, unspecified organism (3) Asthma Assessment/Plan: prednisone in AM Code(s): J45.909 - UNSPECIFIED ASTHMA, UNCOMPLICATED (4) Atrial fibrillation Assessment/Plan: cardizem and xarelto Code(s): I48.91 - UNSPECIFIED ATRIAL FIBRILLATION
[2018-07-14] MEDS: SODIUM CHLORIDE 1,000 ML IV SCH (13:46)
[2018-07-14 15:03] LABS: BASO % 0.3 % (0-2.0); HEMOGLOBIN 12.4 GM/dL (10.7-15.3); LYMPH % 6.3 % (8-40); MCH 30.4 pg (25.7-33.7); MCHC 33.5 g/dl (32.0-36.0); MEAN CELL VOLUME 90.9 fl (80-96); MEAN PLT VOLUME 8.1 fl (7.5-11.1); MONO % 4.5 % (3.8-10.2); NEUT % 88.9 % (42.8-82.8); PLATELET COUNT 327 K/MM3 (134-434); RBC 4.07 M/mm3 (3.60-5.2); WHITE BLOOD COUNT 16.1 K/mm3 (4.0-10.0)
[2018-07-14 15:28] LABS: ALBUMIN 2.8 g/dl (3.4-5.0); ALK PHOS 76 U/L (45-117); ANION GAP 10 MMOL/L (8-16); BILIRUBIN,TOTAL 0.3 mg/dL (0.2-1); BLOOD UREA NITROGEN 16 mg/dL (7-18); CALCIUM 8.2 mg/dL (8.5-10.1); CHLORIDE 102 mmol/L (98-107); CO2 25 mmol/L (21-32); CREATININE 0.7 mg/dL (0.55-1.3); GLUCOSE,RANDOM 180 mg/dL (74-106); POTASSIUM 3.4 mmol/L (3.5-5.1); SGOT/AST 20 U/L (15-37); SGPT/ALT 32 U/L (13-61); SODIUM 137 mmol/L (136-145); TOT PROT 5.7 g/dl (6.4-8.2)
[2018-07-14 15:43] LABS: ANISOCYTOSIS 0; HELMET CELLS 0; HOWELL-JOLLY BODIES 0; MACROCYTOSIS 0; OVALOCYTE 0; PLATELET ESTIMATE NORMAL; ROULEAU 0; SICKELED CELLS 0; TARGET CELLS 0; TEAR DROP CELLS 0; TOXIC GRANULATION 0
[2018-07-14] MEDS ORDERED: POTASSIUM CHLORIDE TABS 20 MEQ TABLET.ER (FP) PO ONE (16:26)
[2018-07-14 17:00] LABS: MAGNESIUM 1.6 mg/dL (1.8-2.4)
[2018-07-14] MEDS: RIVAROXABAN 15 MG TABLET PO SCH (17:00)
[2018-07-14] MEDS: ALPRAZolam 0.25 MG TABLET PO PRN (21:44)
[2018-07-15 07:27] LABS: BASO % 0.4 % (0-2.0); HEMATOCRIT 34.7 % (32.4-45.2); HEMOGLOBIN 11.9 GM/dL (10.7-15.3); LYMPH % 8.5 % (8-40); MCHC 34.2 g/dl (32.0-36.0); MEAN CELL VOLUME 90.6 fl (80-96); MEAN PLT VOLUME 8.3 fl (7.5-11.1); MONO % 2.9 % (3.8-10.2); NEUT % 88.2 % (42.8-82.8); PLATELET COUNT 307 K/MM3 (134-434); RBC 3.83 M/mm3 (3.60-5.2); WHITE BLOOD COUNT 14.4 K/mm3 (4.0-10.0)
[2018-07-15 07:57] LABS: ALBUMIN 2.5 g/dl (3.4-5.0); ALK PHOS 65 U/L (45-117); ANION GAP 6 MMOL/L (8-16); BILIRUBIN,TOTAL 0.2 mg/dL (0.2-1); BLOOD UREA NITROGEN 17 mg/dL (7-18); CALCIUM 8.1 mg/dL (8.5-10.1); CHLORIDE 103 mmol/L (98-107); CO2 27 mmol/L (21-32); CREATININE 0.7 mg/dL (0.55-1.3); GLUCOSE,RANDOM 164 mg/dL (74-106); MAGNESIUM 1.5 mg/dL (1.8-2.4); POTASSIUM 3.9 mmol/L (3.5-5.1); SGOT/AST 11 U/L (15-37); SGPT/ALT 28 U/L (13-61); SODIUM 136 mmol/L (136-145); TOT PROT 5.2 g/dl (6.4-8.2)
[2018-07-15] MEDS: ALBUTEROL SO4 2.5/IPRATROPIUM 0.5 INH SOL 3 ML VIAL.NEB. NEB SCH ×2 (08:25→14:55)
[2018-07-15] MEDS ORDERED: DEXTROSE 5%-WATER - 50 ML IVPB ONE (08:57)
[2018-07-15] MEDS ORDERED: cefTRIAXone SODIUM 1 GM VIAL ONE (08:57)
[2018-07-15] MEDS: PANTOPRAZOLE SODIUM 40 MG VIAL IVPUSH SCH (09:50)
[2018-07-15] MEDS: LOSARTAN POTASSIUM 50 MG TABLET (FP) PO SCH (09:52)
[2018-07-15] MEDS: methylPREDNISolone NA SUCC 40 MG/1 ML VIAL IVPUSH SCH (09:52)
[2018-07-15] MEDS: CEFTRIAXONE 1 GM in DEXTROSE 5%-WATER - 50 ML IVPB SCH (09:53)
--- NOTE | 2018-07-15 10:20 | PN ---
Progress Note (short form) - Note Progress Note: PULMONARY States breathing continues to improve. Has been ambulating in hallways without difficulty. +nonproductive cough and chronic wheezing. No fevers. Vital Signs Period Temp Pulse Resp BP Sys/Boss Pulse Ox Last 24 Hr 97.9 F-98.3 F 73-96 18-20 129-162/65-84 96 Gen: NAD in chair Heart: RRR Lung: scattered wheezes Abd: soft, nontender Ext: no edema CBC, BMP 07/15/18 07:01 07/15/18 07:01 Active Medications Acetaminophen (Ofirmev Injection -) 1,000 mg IVPB Q6H PRN PRN Reason: FEVER Last Admin: 07/09/18 16:53 Dose: 1,000 mg Albuterol Sulfate (Ventolin 0.083% Nebulizer Soln -) 1 amp NEB Q4H PRN PRN Reason: SHORT OF BREATH/WHEEZING Albuterol/Ipratropium (Duoneb -) 1 amp NEB RTID [facility] Last Admin: 07/15/18 08:25 Dose: 1 amp Alprazolam (Xanax -) 0.25 mg PO HS PRN PRN Reason: ANXIETY Last Admin: 07/14/18 21:44 Dose: 0.25 mg Diltiazem HCl (Cardizem Cd -) 360 mg PO DAILY [facility] Last Admin: 07/15/18 09:51 Dose: 360 mg Sodium Chloride (Normal Saline -) 1,000 mls @ 83 mls/hr IV ASDIR [facility] Last Admin: 07/14/18 13:46 Dose: 83 mls/hr Ceftriaxone Sodium 1 gm/ (Dextrose) 50 mls @ 100 mls/hr IVPB DAILY [facility]; Protocol Last Admin: 07/15/18 09:53 Dose: 100 mls/hr Losartan Potassium (Cozaar -) 50 mg PO DAILY [facility] Last Admin: 07/15/18 09:52 Dose: 50 mg Methylprednisolone Sodium Succinate (Solu-Medrol -) 40 mg IVPUSH BID [facility] Last Admin: 07/15/18 09:52 Dose: 40 mg Ondansetron HCl (Zofran Odt -) 4 mg SL Q6H PRN PRN Reason: NAUSEA AND/OR VOMITING Last Admin: 07/09/18 21:54 Dose: 4 mg Pantoprazole Sodium (Protonix Iv) 40 mg IVPUSH DAILY [facility] Last Admin: 07/15/18 09:50 Dose: 40 mg Rivaroxaban (Xarelto) 15 mg PO DAILY@1800 [facility] Last Admin: 07/14/18 17:00 Dose: 15 mg A/P Acute Asthma Exacerbation Acute Bronchitis r/o Pneumonia Atrial Fibrillation HTN GERD - will change steroids to PO prednisone 40mg daily, can taper as outpt - complete antibiotics per ID - inhaled bronchodilators - ambulate - rate control - continue anticoagulation - can be discharged from pulmonary standpoint
--- NOTE | 2018-07-15 12:34 | PN ---
Progress Note, Physician History of Present Illness: patient doing well no new issues - Current Medication List Current Medications: Active Medications Acetaminophen (Ofirmev Injection -) 1,000 mg IVPB Q6H PRN PRN Reason: FEVER Last Admin: 07/09/18 16:53 Dose: 1,000 mg Albuterol Sulfate (Ventolin 0.083% Nebulizer Soln -) 1 amp NEB Q4H PRN PRN Reason: SHORT OF BREATH/WHEEZING Albuterol/Ipratropium (Duoneb -) 1 amp NEB RTID [facility] Last Admin: 07/15/18 08:25 Dose: 1 amp Alprazolam (Xanax -) 0.25 mg PO HS PRN PRN Reason: ANXIETY Last Admin: 07/14/18 21:44 Dose: 0.25 mg Diltiazem HCl (Cardizem Cd -) 360 mg PO DAILY [facility] Last Admin: 07/15/18 09:51 Dose: 360 mg Sodium Chloride (Normal Saline -) 1,000 mls @ 83 mls/hr IV ASDIR [facility] Last Admin: 07/14/18 13:46 Dose: 83 mls/hr Ceftriaxone Sodium 1 gm/ (Dextrose) 50 mls @ 100 mls/hr IVPB DAILY [facility]; Protocol Last Admin: 07/15/18 09:53 Dose: 100 mls/hr Losartan Potassium (Cozaar -) 50 mg PO DAILY [facility] Last Admin: 07/15/18 09:52 Dose: 50 mg Methylprednisolone Sodium Succinate (Solu-Medrol -) 40 mg IVPUSH BID [facility] Last Admin: 07/15/18 09:52 Dose: 40 mg Ondansetron HCl (Zofran Odt -) 4 mg SL Q6H PRN PRN Reason: NAUSEA AND/OR VOMITING Last Admin: 07/09/18 21:54 Dose: 4 mg Pantoprazole Sodium (Protonix Iv) 40 mg IVPUSH DAILY [facility] Last Admin: 07/15/18 09:50 Dose: 40 mg Rivaroxaban (Xarelto) 15 mg PO DAILY@1800 [facility] Last Admin: 07/14/18 17:00 Dose: 15 mg - Objective Vital Signs: Vital Signs Temperature 98.7 F 07/15/18 10:00 Pulse Rate 76 07/15/18 10:00 Respiratory Rate 20 07/15/18 10:00 Blood Pressure 136/68 07/15/18 10:00 O2 Sat by Pulse Oximetry (%) 96 07/14/18 21:00 Constitutional: Yes: No Distress, Calm Cardiovascular: Yes: S1, S2 Respiratory: Yes: Regular, CTA Bilaterally Gastrointestinal: Yes: Normal Bowel Sounds, Soft Musculoskeletal: Yes: WNL Extremities: Yes: WNL Neurological: Yes: Alert, Oriented Psychiatric: Yes: Alert, Oriented Labs: CBC, BMP 07/15/18 07:01 07/15/18 07:01 INR, PTT INR 0.98 (0.83-1.09) 07/09/18 04:50 Assessment/Plan Problem List - Problems (1) Fever Code(s): R50.9 - FEVER, UNSPECIFIED Qualifiers: Fever type: unspecified Qualified Code(s): R50.9 - Fever, unspecified (2) Hypokalemia Code(s): E87.6 - HYPOKALEMIA (3) Hypomagnesemia Code(s): E83.42 - HYPOMAGNESEMIA (4) Hyponatremia Code(s): E87.1 - HYPO-OSMOLALITY AND HYPONATREMIA (5) Left lower lobe pneumonia Code(s): J18.1 - LOBAR PNEUMONIA, UNSPECIFIED ORGANISM Qualifiers: Pneumonia type: due to unspecified organism Qualified Code(s): J18.1 - Lobar pneumonia, unspecified organism (6) Asthma Code(s): J45.909 - UNSPECIFIED ASTHMA, UNCOMPLICATED (7) Atrial fibrillation Code(s): I48.91 - UNSPECIFIED ATRIAL FIBRILLATION plan finish abx course incentive roxy rest as per the team
[2018-07-15 13:39] LABS: ANISOCYTOSIS 1+; MACROCYTOSIS 0; PLATELET ESTIMATE NORMAL; TEAR DROP CELLS 1+
[2018-07-15] MEDS ORDERED: MAGNESIUM SULF 50% (8.12 MEQ/2 ML-1 GM VIAL) IVPB ONE (16:00)
--- NOTE | 2018-07-15 16:00 | DS ---
Physical Examination Vital Signs: Vital Signs Temperature 98.7 F 07/15/18 10:00 Pulse Rate 76 07/15/18 10:00 Respiratory Rate 20 07/15/18 10:00 Blood Pressure 136/68 07/15/18 10:00 O2 Sat by Pulse Oximetry (%) 99 07/15/18 09:00 Findings/Remarks: feeling better denies chest pain or sob Constitutional: Yes: No Distress Eyes: Yes: WNL HENT: Yes: WNL Neck: Yes: WNL Cardiovascular: Yes: Pulse Irregular Respiratory: Yes: Regular Gastrointestinal: Yes: WNL Renal/: Yes: WNL Musculoskeletal: Yes: WNL Extremities: Yes: WNL Edema: No Peripheral Pulses WNL: Yes Integumentary: Yes: WNL Wound/Incision: Yes: Clean/Dry Neurological: Yes: WNL ...Motor Strength: WNL Psychiatric: Yes: WNL Labs: CBC, BMP 07/15/18 07:01 07/15/18 07:01 Discharge Summary Reason For Visit: SUB INR HPONATREMIA PNEMONIA LEFT LOWER Current Active Problems Diarrhea (Acute) Fever (Acute) Hypokalemia (Acute) Hypomagnesemia (Acute) Hyponatremia (Acute) Left lower lobe pneumonia (Acute) Subtherapeutic international normalized ratio (INR) (Acute) Weakness (Acute) Procedures: Principal: CT SCAN Hospital Course: ADMITTED FOR ACUTE EXACERBATION HYPERACTIVE AIRWAY, RESPIRATORY DISTRESS, TREATED WITH IV ABX AND IV STEROIDS WITH 02 SUPPORT. PATIENT IS FEELING BETTER WILL NEED OUTPATIENT FOLLOW UP Condition: Improved - Instructions Diet, Activity, Other Instructions: bactirm DS 1 tab po bid for 5day FU with PMD to [facility] TSH in 3 weeks synthroid 50mcg po daily prednisone taper Referrals: Robbin Noel MD [Primary Care Provider] - Disposition: VNS/HOME HEALTH CARE - Home Medications Comprehensive Discharge Medication List: Ambulatory Orders Alprazolam 0.25 mg PO DAILY 07/09/18 Losartan/Hydrochlorothiazide [Losartan-Hctz 100-25 mg Tab] 1 each PO DAILY 07/09 Ranitidine HCl 300 mg PO DAILY 07/09/18 Rivaroxaban [Xarelto] 15 mg PO DAILY 07/09/18 Levothyroxine [Synthroid -] 50 mcg PO DAILY 28 Days #30 tablet 07/11/18 Sulfamethoxazole/Trimethoprim [Bactrim Ds -] 1 tab PO BID #10 tablet 07/11/18 Albuterol 2.5/Ipratropium 0.5 [Duoneb -] 1 amp NEB RTID #90 amp 07/15/18 Alprazolam [Xanax] 0.25 mg PO HS PRN tablet MDD 1 07/15/18 Diltiazem Cd [Cardizem Cd -] 360 mg PO DAILY #30 cap.cd.24h 07/15/18 Ondansetron [Zofran Odt -] 4 mg SL Q6H PRN #30 tab.rapdis 07/15/18 Prednisone [Deltasone] See Taper PO DAILY #30 tablet 07/15/18 Rivaroxaban [Xarelto] 15 mg PO DAILY@1800 tablet 07/15/18
[2018-07-15] MEDS: SODIUM CHLORIDE 1,000 ML IV SCH (16:17)
[2018-07-15] MEDS: RIVAROXABAN 15 MG TABLET PO SCH (17:16)
[2018-07-15 19:39] VITALS: BP 146/68; PULSE 84; TEMP 98.4
== END 2018-07-15 19:41 | disposition home health service (06) | DRG 194 ==
LOC: JER 03:56 → JERBED 08:18 → J7W 09:34
PROVIDERS: ADMIT Family Medicine; ATTEND Family Medicine
DX: J18.1 Lobar pneumonia, unspecified organism (principal); E87.1 Hypo-osmolality and hyponatremia; J45.901 Unspecified asthma with (acute) exacerbation; N39.0 Urinary tract infection, site not specified; E87.6 Hypokalemia; E83.42 Hypomagnesemia; I48.91 Unspecified atrial fibrillation; K21.9 Gastro-esophageal reflux disease without esophagitis; R53.1 Weakness; R19.7 Diarrhea, unspecified; J20.9 Acute bronchitis, unspecified; Z91.81 History of falling
CPT/HCPCS: 36415; 71045-TC-FY; 71250-TC; 74176-TC; 80053; 80061; 81003; 82803; 83036; 83605; 83721; 83735; 84100; 84484; 85025; 85027; 85610; 85651; 85730; 86140; 87040; 87045; 87046; 87070; 87086; 87186; 87324; 87449; 87804; 87880; 93005; 93010; 94640; 97116-GP; 97161-GP; 99285-25; J0131; J7030; Q0162

== ENCOUNTER 2018-07-17 23:42 | Inpatient (IN) | payer OTHER ==
--- NOTE | 2018-07-18 00:09 | PDOC ---
Attending Attestation - HPI HPI: The patient is an 83 year old female, with a significant past medical history of asthma, HTN, AFIB, GERD, and multiple falls, who presents to the emergency department today complaining of constipation for two days, and rectal bleeding for one day. Patient notes she began to strain when trying to pass stool last night. Upon finally passing stool earlier today, patient endorses intermittent gross bright red blood staining the bowl. Patient reports associated dizziness, that is exacerbated with walking. Patients medications were recently changed from Coumadin to Eliquis, and her prior CT showed diverticular disease. The patient denies chest pain, shortness of breath, headache. Denies fever, chills, nausea, vomit. Denies dysuria, frequency, urgency and hematuria. Allergies: NKA Past surgical history: Social history: No reported PCP: Dr. Robibn Noel 07/18/18 00:54 - Physicial Exam PE: GENERAL: +Pale-appearing. Awake, alert, and fully oriented, in no acute distress HEAD: No signs of trauma EYES: PERRLA, EOMI, sclera anicteric, conjunctiva clear ENT: Auricles normal inspection, hearing grossly normal, nares patent, oropharynx clear without exudates. Moist mucosa NECK: Normal ROM, supple, no lymphadenopathy, JVD, or masses LUNGS: Breath sounds equal, clear to auscultation bilaterally. No wheezes, and no crackles HEART: +Irregularly irregular. +Tachycardic. Normal S1 and S2, no murmurs, rubs or gallops ABDOMEN: Soft, nontender, normoactive bowel sounds. No guarding, no rebound. No masses EXTREMITIES: Normal range of motion, no edema. No clubbing or cyanosis. No cords, erythema, or tenderness NEUROLOGICAL: Cranial nerves II through XII grossly intact. Normal speech, normal gait SKIN: Warm, Dry, normal turgor, no rashes or lesions noted. 07/18/18 00:54 - Medical Decision Making Documentation prepared by MARGARET Jennings, acting as medical diagnostic radiographer for Stephanie Urbina DO. 07/18/18 00:54 <Florina Spivey - Last Filed: 07/18/18 00:54> - Resident Resident Name: Jorge Alberto Freeman - ED Attending Attestation I have performed the following: I have examined & evaluated the patient, The case was reviewed & discussed with the resident, I agree w/resident's findings & plan, Exceptions are as noted - Medical Decision Making 07/18/18 00:09 I, Dr. Stephanie Urbina, DO, attest that this document has been prepared under my direction and personally reviewed by me in its entirety. I further attest, that it accurately reflects all work, treatment, procedures and medical decision -making performed by me. 07/18/18 00:50 a/p: 83yo female on elaquis for afib with brbpr today x 2 episodes and lightheadedness -diverticular disease seen on a prior ct, no abd pain -concern for LGIB from diverticular disease on elaquis -recently switched from coumadin to elaquis for afib -lightheaded after the second episode of brbpr, states she filled the toilet with blood -will send labs, h/h, type and screen -no active bleeding at this time -will monitor and reassess -pt will need obs for repeat h/h given anticoagulant use 07/18/18 01:20 wbc elevated, on steroids, no fevers or diarrhea, no urinary complaints, cough improving 07/18/18 01:21 hemoglobin stable, but pt on elaquis will monitor and reassess 07/18/18 01:[address] pt on obs for repeat h/h mildly elevated lactate, will give ivf hydraiton, no abd pain, low suspicion for ischemic bowel, no active bleeding and no pain <Stephanie Urbina - Last Filed: 07/18/18 01:24> Heart Score/ECG Review - ECG Intrepretation Comment:: 07/18/18 00:53 afib at 110, nl aix,s no acute st/t wave findings <Stephanie Urbina - Last Filed: 07/18/18 01:24>
--- NOTE | 2018-07-18 00:39 | PDOC ---
History of Present Illness - General Chief Complaint: Bleeding from Anus Stated Complaint: RECTAL BLEEDING Time Seen by Provider: 07/18/18 00:07 - History of Present Illness Initial Comments: 07/18/18 00:38 83 yo F with h/o GERD, diverticulosis, A-fib w/ RVR ( on Eliquis) who p/w rectal bleeding. Patient repprts acute onset of BRBPR beginning this AM, occurring intermittently through the day with BM attempts. Last BM this evening 1000 PM (07/18/18) with BRBPR, and absent clotting. Reports intermittent lightheadedness, with no identifiable triggers or alleviators. Denies h/o prior rectal bleeding. Denies h/o colonsocopy, endosocpy, or colon ca. Adherent with daily Eliquis 15 g QD. Recent [facility] admission for subtherapeutic INR, PNA, Sepsis , multiple electolyte derangements (07/09-07/15/18). On Bactrim BID left lobe PNA, and Prednisone taper. Patient denies HERNANDEZ, vision change, palpitations, cough, wheezing, orthopena, PND , leg swelling/pain, N/V, F,C, CP, SOB, urinary complaints, hematuria,abdominal pain, diarrhea, constipation, weakness, sensory changes. PMHx: as noted above. Denies h/o adbominal surgery. ROS: as noted SHx: Denies Etoh, IVDA, tobacco use Allergies: NKDA PMD: Not on staff Past History - Past Medical History Allergies/Adverse Reactions: Allergies Allergy/AdvReac Type Severity Reaction Status Date / Time No Known Allergies Allergy Verified 07/18/18 00:42 Home Medications: Ambulatory Orders Alprazolam 0.25 mg PO DAILY 07/09/18 Losartan/Hydrochlorothiazide [Losartan-Hctz 100-25 mg Tab] 1 each PO DAILY 07/09 Ranitidine HCl 300 mg PO DAILY 07/09/18 Rivaroxaban [Xarelto] 15 mg PO DAILY 07/09/18 Levothyroxine [Synthroid -] 50 mcg PO DAILY 28 Days #30 tablet 07/11/18 Sulfamethoxazole/Trimethoprim [Bactrim Ds -] 1 tab PO BID #10 tablet 07/11/18 Albuterol 2.5/Ipratropium 0.5 [Duoneb -] 1 amp NEB RTID #90 amp 07/15/18 Alprazolam [Xanax] 0.25 mg PO HS PRN tablet MDD 1 07/15/18 Diltiazem Cd [Cardizem Cd -] 360 mg PO DAILY #30 cap.cd.24h 07/15/18 Ondansetron [Zofran Odt -] 4 mg SL Q6H PRN #30 tab.rapdis 07/15/18 Prednisone [Deltasone] See Taper PO DAILY #30 tablet 07/15/18 Rivaroxaban [Xarelto] 15 mg PO DAILY@1800 tablet 07/15/18 Sulfamethoxazole/Trimethoprim [Bactrim Ds -] 1 tab PO BID #6 tablet 07/15/18 Asthma: Yes Cardiac Disorders: Yes (A-FIB) COPD: No HTN: Yes - Surgical History Orthopedic Surgery: Yes (RLE) - Immunization History Immunization Up to Date: Yes - Suicide/Smoking/Psychosocial Hx Smoking History: Never smoked Have you smoked in the past 12 months: No Information on smoking cessation initiated: No Hx Alcohol Use: No Drug/Substance Use Hx: No Substance Use Type: None Review of Systems - Review of Systems Comments:: 07/18/18 00:51 GENERAL/CONSTITUTIONAL: No fever or chills. No weakness. HEAD, EYES, EARS, NOSE AND THROAT: No change in vision. No ear pain or discharge. No sore throat. CARDIOVASCULAR: No chest pain or shortness of breath RESPIRATORY: No cough, wheezing, or hemoptysis. GASTROINTESTINAL: + Rectal bleed. No nausea, vomiting, diarrhea or constipation. GENITOURINARY: No dysuria, frequency, or change in urination. MUSCULOSKELETAL: No joint or muscle swelling or pain. No neck or back pain. SKIN: No rash NEUROLOGIC: + lightheadness. headache, vertigo, loss of consciousness, or change in strength/sensation. ENDOCRINE: No increased thirst. No abnormal weight change HEMATOLOGIC/LYMPHATIC: No anemia, easy bleeding, or history of blood clots. ALLERGIC/IMMUNOLOGIC: No hives or skin allergy. *Physical Exam - Vital Signs Last Vital Signs Temp Pulse Resp BP Pulse Ox 98.2 F 71 20 142/99 95 07/17/18 23:49 07/17/18 23:49 07/17/18 23:49 07/17/18 23:49 07/17/18 23:49 - Physical Exam Comments: 07/18/18 00:52 GENERAL: + Pale appearing. Awake, alert, and fully oriented, in no acute distress HEAD: No signs of trauma, normocephalic, atraumatic EYES: PERRLA, EOMI, sclera anicteric, conjunctiva clear ENT: Auricles normal inspection, hearing grossly normal, nares patent, oropharynx clear without exudates. Moist mucosa NECK: Normal ROM, supple, no lymphadenopathy, JVD, or masses LUNGS: No distress, speaks full sentences, clear to auscultation bilaterally HEART: Regular rate and rhythm, normal S1 and S2, no murmurs, rubs or gallops, peripheral pulses normal and equal bilaterally. ABDOMEN: Soft, nontender, normoactive bowel sounds. No guarding, no rebound. No masses RECTAl: Chaperoned by Mona Collazo. External superior rectal hemorrhoids, non thrombosed, with absent gross blood per rectum. + Brown stool, non compacted rectal vault. absent fissures, prolapse. EXTREMITIES : Normal inspection, Normal range of motion, no edema. No clubbing or cyanosis. NEUROLOGICAL: Cranial nerves II through XII grossly intact. Normal speech, normal gait, no focal sensorimotor deficits SKIN: Warm, Dry, nml turgor ED Treatment Course - LABORATORY CBC & Chemistry Diagram: 07/18/18 08:20 07/18/18 08:20 Medical Decision Making - Medical Decision Making 07/18/18 00:46 83 yo F with h/o GERD, diverticulosis, A-fib w/ RVR ( on Eliquis) who p/w rectal bleeding. Vitals wnl, AF, A&Ox3. Physical exam notable for external superior rectal hemorrhoids, non thrombosed, with absent gross blood per rectum. Abdominal exam benign. Patient pale appearing. R/o diverticular bleed. Will assess for acute/symptomatic blood loss anemia, need to transfuse. Will assess for VBI/TIA, cardiac dysarrythmias, hypoglycemia, electrolyte abnml, metabolic and toxic derangements, acid-base disturbances, infection. Given h/o subtherapeutic INR, and poor GI follow up, plan to admit. ED Course: EKG: A-fib w/ RVR, HR 113, absent KEL, STD. Similiar to interval EKG ( 07/25) 07/18/18 00:50 H/H: (): 13.1/38.4 07/18/18 00:59 FOBT: + 07/18/18 01:17 07/18/18 01:18 Laboratory Tests 07/18/18 07/18/18 07/18/18 00:09 00:09 00:11 WBC 18.2 H Hgb 13.1 Hct 38.4 Sodium 133 L Potassium 3.2 L Chloride 95 L Stool Occult Blood Positive 07/18/18 01:21 WBC: elevated on steroids 07/18/18 01:21 LA: 2.5 07/18/18 01:31 Admit to med/surg 07/18/18 02:00 Patient endorsed and admitted to Dr. huertas 07/19/18 02:16 *DC/Admit/Observation/Transfer Diagnosis at time of Disposition: Rectal bleed - Discharge Dispostion Condition at time of disposition: Stable Decision to Admit order: Yes - Referrals - Patient Instructions - Post Discharge Activity
[2018-07-18 00:42] LABS: BASO % 0.2 % (0-2.0); HEMATOCRIT 38.4 % (32.4-45.2); HEMOGLOBIN 13.1 GM/dL (10.7-15.3); LYMPH % 13.9 % (8-40); MCHC 34.2 g/dl (32.0-36.0); MEAN CELL VOLUME 90.7 fl (80-96); MEAN PLT VOLUME 7.2 fl (7.5-11.1); MONO % 9.8 % (3.8-10.2); NEUT % 76.1 % (42.8-82.8); PLATELET COUNT 410 K/MM3 (134-434); RBC 4.23 M/mm3 (3.60-5.2); RDW 12.8 % (11.6-15.6); WHITE BLOOD COUNT 18.2 K/mm3 (4.0-10.0)
[2018-07-18 01:03] LABS: INR 1.72 (0.83-1.09); PROTHROMBIN TIME (PATIENT) 20.4 SEC (9.7-13.0)
[2018-07-18 01:05] LABS: ACTIVATED PTT 29.7 SECONDS (25.2-36.5)
[2018-07-18 01:09] LABS: ALK PHOS 92 U/L (45-117); ANION GAP 8 MMOL/L (8-16); BILIRUBIN,TOTAL 0.5 mg/dL (0.2-1); BLOOD UREA NITROGEN 15 mg/dL (7-18); CALCIUM 8.7 mg/dL (8.5-10.1); CHLORIDE 95 mmol/L (98-107); CO2 29 mmol/L (21-32); CREATININE 0.8 mg/dL (0.55-1.3); GLUCOSE,RANDOM 147 mg/dL (74-106); POTASSIUM 3.2 mmol/L (3.5-5.1); SGOT/AST 19 U/L (15-37); SGPT/ALT 45 U/L (13-61); SODIUM 133 mmol/L (136-145)
[2018-07-18] MEDS ORDERED: SODIUM CHLORIDE 1,000 ML IV STA (01:21)
[2018-07-18] MEDS ORDERED: PANTOPRAZOLE SODIUM 40 MG VIAL IVPUSH ONE (01:59)
[2018-07-18] MEDS ORDERED: PANTOPRAZOLE SODIUM 40 MG/100 ML BAG IVPB ONE (02:17)
--- NOTE | 2018-07-18 03:03 | PN ---
Teaching Attending Note Name of Resident: Asael Keith ATTENDING PHYSICIAN STATEMENT I saw and evaluated the patient. I reviewed the resident's note and discussed the case with the resident. I agree with the resident's findings and plan as documented. SUBJECTIVE: Patient is an 83 year old woman with a PMH of asthma, HTN, Afib, GERD, and multiple falls, who presents to the ER complaining of constipation for two days , and rectal bleeding for one day. Patient notes she began to strain when trying to pass stool last night. Upon finally passing stool earlier today, patient endorses intermittent gross bright red blood staining the bowl. Patient reports associated dizziness, that is exacerbated with walking. Patients medications were recently changed from Coumadin to Eliquis, and her prior CT showed diverticular disease. The patient denies chest pain, shortness of breath , headache.Denies fever, chills, nausea, vomit. Denies dysuria, frequency, urgency and hematuria. Was recently hospitalized at [facility] from 07/09/18 to 07/15/18 for LLL pneumonia and discharged on Bactrim and steroids. OBJECTIVE: Alert Vital Signs Period Temp Pulse Resp BP Sys/Boss Pulse Ox Last 24 Hr 98.2 F 71 20 142/99 95 HEENT: No Jaundice, eye redness or discharge, PERRLA, EOMI. Normocephalic, atraumatic. External ears are normal and hearing is grossly intact. No nasal discharge. Neck: Supple, nontender. No palpable adenopathy or thyromegaly. No JVD Chest: Good effort. Clear to auscultation and percussion. Heart: Irregularly irregular. No S3, rub or murmur Abdomen: Not distended, soft, nontender and no HSM. No rebound or guarding. Normal bowel sounds. External hemorrhoids. Ext: Peripheral pulses intact. No leg edema. Skin: Warm and dry. No petechiae, rash or ecchymosis. Neuro: Alert. Oriented x3. CN 2-12 grossly intact. Sensation grossly intact in all four extremities and DTR are symmetric. Psych: Appropriate mood and affect. Good insight. Home Medications Medication Instructions Recorded Alprazolam 0.25 mg PO DAILY 07/09/18 Losartan/Hydrochlorothiazide 1 each PO DAILY 07/09/18 [Losartan-Hctz 100-25 mg Tab] Ranitidine HCl 300 mg PO DAILY 07/09/18 Rivaroxaban [Xarelto] 15 mg PO DAILY 07/09/18 Levothyroxine [Synthroid -] 50 mcg PO DAILY 28 Days #30 tablet 07/11/18 Sulfamethoxazole/Trimethoprim 1 tab PO BID #10 tablet 07/11/18 [Bactrim Ds -] Albuterol 2.5/Ipratropium 0.5 1 amp NEB RTID #90 amp 07/15/18 [Duoneb -] Alprazolam [Xanax] 0.25 mg PO HS PRN tablet MDD 1 07/15/18 Diltiazem Cd [Cardizem Cd -] 360 mg PO DAILY #30 cap.cd.24h 07/15/18 Ondansetron [Zofran Odt -] 4 mg SL Q6H PRN #30 tab.rapdis 07/15/18 Prednisone [Deltasone] See Taper PO DAILY #30 tablet 07/15/18 Rivaroxaban [Xarelto] 15 mg PO DAILY@1800 tablet 07/15/18 Sulfamethoxazole/Trimethoprim 1 tab PO BID #6 tablet 07/15/18 [Bactrim Ds -] Abnormal Lab Results 07/18/18 07/18/18 07/18/18 00:09 00:09 00:09 WBC 18.2 H MPV 7.2 L D Absolute Neuts (auto) 13.9 H PT with INR 20.40 H INR 1.72 H Sodium 133 L Potassium 3.2 L Chloride 95 L Random Glucose 147 H Lactic Acid Total Protein 6.0 L Albumin 3.0 L 07/18/18 00:09 WBC MPV Absolute Neuts (auto) PT with INR INR Sodium Potassium Chloride Random Glucose Lactic Acid 2.5 H* Total Protein Albumin ASSESSMENT AND PLAN: 1. Rectal Bleeding on Xarelto - Likely due to external hemorrhoids in the setting of constipation and straining during defecation. Stool occult blood was positive. Will treat with stool softner, protonix and topical agent for hemorrhoids. Keep her NPO for now and monitor HCT q [address] of abd/ pelvis without contrast from 07/09/18 didnot show any colonic or gastrointestinal abnormality. No indication for repeat CT abd/pelvis at this time. HCT is high, so will continue xarelto for now. If HCT drops, then will stop xarelto. Consult GI. Though leukocytosis may be due to steroids, associated lactic acidosis is concerning in view of recent sepsis due to LLL pneumonia. She is afebrile and not tachycardic. Will get urinalysis stat, continue the PO bactrim, IV fluids, repeat lactic acid level and consult ID. Hypokalemia may be due to HCTZ and bactrim. Check Mg+ and give PO KCL. EKG shows afib with RVR (110/min) and significant ST-T wave changes. Will treat with duoneb PRN for asthma. 2. Hypoalbuminemia - Possibly due to combined effects of malnutrition and inflammation associated with comorbid chronic conditions. Will ensure adequate dietary protein intake and also consult artist blacksmith. 3. Hypertension - Restart outpatient antihypertensive drugs and revise regimen to ensure smooth [id number] good BP control. Nonpharmacologic measures to control hypertension like weight loss, salt restriction and exercise discussed. 4. DVT prophylaxis - On Xarelto 5. Advance directives - Full code
--- NOTE | 2018-07-18 03:31 | HP ---
CHIEF COMPLAINT: BRBP PCP: Dr Noel HISTORY OF PRESENT ILLNESS: Pt is a 83 y/o lady with a significant past medical history of AFIB w/ RVR (on Xarelto), asthma HTN, GERD, and multiple falls who presented to [facility] c/o BRBPR since yesterday am. Pt endorses that she went to use the restroom this am and noticed bright red blood in the toilet bowl. Pt endorses when she used the restroom yesterday evening, she had to strain and has been experiencing constipation for approximately 2 days duration. Pt endorses lightheadedness. Denies chest pain or acute shortness of breath. Denies abdominal pain, nausea/ vomiting, or LOC. Furthermore, pt was admitted to our service from 07/09/18 to 07/15 for left lower lung pneumonia and discharged on TMP-SMX and steroids. Social Hx- Denies tobacco or alcohol use Surg Hx- denies NKDA ER course was notable for: (1) Stool Occult + (2) WBC >18K (3) Lactic Acid 2.5 HOME MEDICATIONS: Home Medications Medication Instructions Recorded Alprazolam 0.25 mg PO DAILY 07/09/18 Losartan/Hydrochlorothiazide 1 each PO DAILY 07/09/18 [Losartan-Hctz 100-25 mg Tab] Ranitidine HCl 300 mg PO DAILY 07/09/18 Rivaroxaban [Xarelto] 15 mg PO DAILY 07/09/18 Levothyroxine [Synthroid -] 50 mcg PO DAILY 28 Days #30 tablet 07/11/18 Sulfamethoxazole/Trimethoprim 1 tab PO BID #10 tablet 07/11/18 [Bactrim Ds -] Albuterol 2.5/Ipratropium 0.5 1 amp NEB RTID #90 amp 07/15/18 [Duoneb -] Alprazolam [Xanax] 0.25 mg PO HS PRN tablet MDD 1 07/15/18 Diltiazem Cd [Cardizem Cd -] 360 mg PO DAILY #30 cap.cd.24h 07/15/18 Ondansetron [Zofran Odt -] 4 mg SL Q6H PRN #30 tab.rapdis 07/15/18 Prednisone [Deltasone] See Taper PO DAILY #30 tablet 07/15/18 Rivaroxaban [Xarelto] 15 mg PO DAILY@1800 tablet 07/15/18 Sulfamethoxazole/Trimethoprim 1 tab PO BID #6 tablet 07/15/18 [Bactrim Ds -] REVIEW OF SYSTEMS CONSTITUTIONAL: Absent: fever, chills, diaphoresis, generalized weakness, malaise, loss of appetite, weight change HEENT: Absent: rhinorrhea, nasal congestion, throat pain, throat swelling, difficulty swallowing, mouth swelling, ear pain, eye pain, visual changes CARDIOVASCULAR: Absent: chest pain, syncope, palpitations, irregular heart rate, lightheadedness , peripheral edema RESPIRATORY: Absent: cough, shortness of breath, dyspnea with exertion, orthopnea, wheezing, stridor, hemoptysis GASTROINTESTINAL: PRESENT: hematochezia GENITOURINARY: Absent: dysuria, frequency, urgency, hesitancy, hematuria, flank pain, genital pain MUSCULOSKELETAL: Absent: myalgia, arthralgia, joint swelling, back pain, neck pain SKIN: Absent: rash, itching, pallor HEMATOLOGIC/IMMUNOLOGIC: Absent: easy bleeding, easy bruising, lymphadenopathy, frequent infections ENDOCRINE: Absent: unexplained weight gain, unexplained weight loss, heat intolerance, cold intolerance NEUROLOGIC: Absent: headache, focal weakness or paresthesias, dizziness, unsteady gait, seizure, mental status changes, bladder or bowel incontinence PSYCHIATRIC: Absent: anxiety, depression, suicidal or homicidal ideation, hallucinations. PHYSICAL EXAMINATION Vital Signs - 24 hr 07/17/18 23:49 Temperature 98.2 F Pulse Rate 71 Respiratory 20 Rate Blood Pressure 142/99 O2 Sat by Pulse 95 Oximetry (%) GENERAL:NAD AAOx3 HEAD: Normal with no signs of trauma. EYES: EOMI Sclera Clear EARS, NOSE, THROAT: MMM NECK: Supple LUNGS: CTAB HEART: Irregularly Irregular ABDOMEN: Nontender nondistended. No guarding or rigidity appreciated LOWER EXTREMITIES: No CCE NEUROLOGICAL: Cranial nerves II-XII intact. Normal speech. Normal gait. PSYCHIATRIC: Cooperative. Good eye contact. Appropriate mood and affect. SKIN: No rashes or lesions appreciated RECTAL: performed by ED resident Dr Freeman. " External superior rectal hemorrhoids, non thrombosed, with absent gross blood per rectum. + Brown stool, non compacted rectal vault. absent fissures, prolapse. " Laboratory Results - last 24 hr 07/18/18 07/18/18 07/18/18 00:07 00:09 00:09 WBC 18.2 H RBC 4.23 Hgb 13.1 Hct 38.4 MCV 90.7 MCH 31.0 MCHC 34.2 RDW 12.8 Plt Count 410 D MPV 7.2 L D Absolute Neuts (auto) 13.9 H Total Counted 100 Neutrophils % 76.1 Neutrophils % (Manual) 53.0 Band Neutrophils % 3.0 Lymphocytes % 13.9 D Lymphocytes % (Manual) 16.0 D Monocytes % 9.8 D Monocytes % (Manual) 8 D Eosinophils % 0.0 Basophils % 0.2 Nucleated RBC % 0 Hypersegmented Neuts 20 PT with INR 20.40 H INR 1.72 H PTT (Actin FS) 29.7 Sodium Potassium Chloride Carbon Dioxide Anion Gap BUN Creatinine Creat Clearance w eGFR Random Glucose Lactic Acid Calcium Total Bilirubin AST ALT Alkaline Phosphatase Total Protein Albumin Stool Occult Blood Blood Type O POSITIVE Antibody Screen Negative 07/18/18 07/18/18 07/18/18 00:09 00:09 00:11 WBC RBC Hgb Hct MCV MCH MCHC RDW Plt Count MPV Absolute Neuts (auto) Total Counted Neutrophils % Neutrophils % (Manual) Band Neutrophils % Lymphocytes % Lymphocytes % (Manual) Monocytes % Monocytes % (Manual) Eosinophils % Basophils % Nucleated RBC % Hypersegmented Neuts PT with INR INR PTT (Actin FS) Sodium 133 L Potassium 3.2 L Chloride 95 L Carbon Dioxide 29 Anion Gap 8 BUN 15 Creatinine 0.8 Creat Clearance w eGFR 68.17 Random Glucose 147 H Lactic Acid 2.5 H* Calcium 8.7 Total Bilirubin 0.5 AST 19 ALT 45 Alkaline Phosphatase 92 Total Protein 6.0 L Albumin 3.0 L Stool Occult Blood Positive Blood Type Antibody Screen ASSESSMENT/PLAN: Pt is a 83 y/o lady with a significant past medical history of AFIB w/ RVR (on Xarelto), asthma HTN, GERD, and multiple falls who presented to [facility] c/o BRBPR since yesterday am. Pt endorses that she went to use the restroom this am and noticed bright red blood in the toilet bowl. #BRBP 2/2 external hemorrhoids -Rectal Exam performed by ED resident revealed External hemorrhoids non thrombosed. -Stool occult +. H/H Stable----> 13.1/38.4 -Trend H/H Q6H -Protonix 40 mg Daily -Preparation H -Stool softeners -Will hold off on further abdominal imaging as source of bleed likely 2/2 hemorrhoids. Pt underwent CTAP 07/09/18 which did not reveal diverticulosis or significant GI pathology. -GI Consult #AFIB w/ RVR -c/w Xarelto 15 HS -Cardizem 360 mg Daily #HTN Losartan 100-25 Daily #Asthma Duoneb PRN #FEN LR@75cc/hr Monitor Electrolytes NPO #DVT ppx: Xarelto #Dispo: Tele Visit type - Emergency Visit Emergency Visit: Yes ED Registration Date: 07/18/18 Care time: The patient presented to the Emergency Department on the above date and was hospitalized for further evaluation of their emergent condition. - New Patient This patient is new to me today: Yes Date on this admission: 07/18/18 - Critical Care Critical Care patient: No
[2018-07-18] MEDS ORDERED: KCL 10 MEQ IVPB 10 MEQ/100 ML INFUS.BAG IVPB ONE ×2 (05:01→06:21)
[2018-07-18 05:05] LABS: PH,URINE 8.5 (5.0-8.0); URINE APPEARANCE Clear; URINE BILIRUBIN Negative (NEGATIVE); URINE COLOR Yellow; URINE GLUCOSE (UA) Negative (NEGATIVE); URINE KETONE Negative (NEGATIVE); URINE LEUK ESTERASE Negative (NEGATIVE); URINE NITRITE Negative (NEGATIVE); URINE PROTEIN 2+ (NEGATIVE); URINE UROBILINOGEN 0.2 mg/dL (0.2-1.0)
[2018-07-18] MEDS: KCL 10 MEQ IVPB 10 MEQ/100 ML INFUS.BAG IVPB SCH ×2 (05:10→06:30)
[2018-07-18 05:19] LABS: EPI CELLS RARE /HPF (0-5/HPF); URINE BACTERIA RARE /hpf (NEGATIVE)
[2018-07-18] MEDS: LACTATED RINGERS SOLUTION 1,000 ML/1,000 ML INFUS.BAG IV SCH ×2 (06:15→22:25)
[2018-07-18] MEDS: LEVOTHYROXINE NA 50 MCG TABLET (FP) PO SCH (06:20)
[2018-07-18] MEDS: ALBUTEROL SO4 2.5/IPRATROPIUM 0.5 INH SOL 3 ML VIAL.NEB. NEB SCH ×3 (08:05→20:56)
[2018-07-18] MEDS ORDERED: ALBUTEROL SO4 2.5/IPRATROPIUM 0.5 INH SOL 3 ML VIAL.NEB. NEB ONE ×2 (08:06→15:27)
[2018-07-18 08:38] LABS: BASO % 1.4 % (0-2.0); EOS % 0.1 % (0-4.5); HEMATOCRIT 40.6 % (32.4-45.2); HEMOGLOBIN 13.8 GM/dL (10.7-15.3); LYMPH % 21.4 % (8-40); MCH 31.1 pg (25.7-33.7); MCHC 33.9 g/dl (32.0-36.0); MEAN CELL VOLUME 91.8 fl (80-96); MEAN PLT VOLUME 7.2 fl (7.5-11.1); MONO % 8.4 % (3.8-10.2); NEUT % 68.7 % (42.8-82.8); PLATELET COUNT 430 K/MM3 (134-434); RBC 4.42 M/mm3 (3.60-5.2); WHITE BLOOD COUNT 28.4 K/mm3 (4.0-10.0)
[2018-07-18 09:36] LABS: INR 1.18 (0.83-1.09)
[2018-07-18 09:39] LABS: ACTIVATED PTT 27.4 SECONDS (25.2-36.5)
[2018-07-18] MEDS: SULFAMETHOXAZOLE/TRIMETHOPRIM 800MG/160MG D.S. TABLET PO SCH ×2 (10:00→22:25)
[2018-07-18] MEDS ORDERED: PANTOPRAZOLE SODIUM 40 MG VIAL IVPUSH SCH (10:00)
[2018-07-18] MEDS: LOSARTAN POTASSIUM 50 MG TABLET (FP) PO SCH (10:00)
[2018-07-18] MEDS ORDERED: PATIENT'S OWN MEDICATION (NON-FORMULARY) (Losartan/Hydrochlorothiazide [Losartan-Hctz 100- PO SCH (10:00)
[2018-07-18] MEDS: PHENYLEPHRINE HCL/COCOA BUTTER SUPPOSITORY RC SCH (10:15)
[2018-07-18] MEDS: HYDROCHLOROTHIAZIDE 25 MG TABLET (FP) PO SCH (10:15)
--- NOTE | 2018-07-18 10:22 | EKG ---
Test Reason : Blood Pressure : / mmHG Vent. Rate : 110 BPM Atrial Rate : 110 BPM P-R Int : 000 ms QRS Dur : 084 ms QT Int : 306 ms P-R-T Axes : 000 048 250 degrees QTc Int : 414 ms MULTIFOCAL ATRIAL TACHYCARDIA NONSPECIFIC ST AND T WAVE ABNORMALITY ABNORMAL ECG Confirmed by TANYA ARCINIEGA MD ([id number]) on 07/18/2018 10:22:09 AM Referred By: Confirmed By:TANYA ARCINIEGA MD
[2018-07-18 11:09] LABS: ANISOCYTOSIS 0; MACROCYTOSIS 0; PLATELET ESTIMATE NORMAL
[2018-07-18 11:24] LABS: ALBUMIN 3.1 g/dl (3.4-5.0); ALK PHOS 91 U/L (45-117); ANION GAP 9 MMOL/L (8-16); BILIRUBIN,TOTAL 0.6 mg/dL (0.2-1); BLOOD UREA NITROGEN 11 mg/dL (7-18); CALCIUM 8.8 mg/dL (8.5-10.1); CHLORIDE 96 mmol/L (98-107); CO2 29 mmol/L (21-32); CREATININE 0.9 mg/dL (0.55-1.3); GLUCOSE,RANDOM 98 mg/dL (74-106); MAGNESIUM 1.5 mg/dL (1.8-2.4); PHOSPHOROUS 2.3 mg/dL (2.5-4.9); POTASSIUM 3.8 mmol/L (3.5-5.1); SGOT/AST 21 U/L (15-37); SGPT/ALT 47 U/L (13-61); SODIUM 135 mmol/L (136-145); TOT PROT 6.2 g/dl (6.4-8.2)
--- NOTE | 2018-07-18 12:23 | CON.GI ---
Consult Consult Specialty:: GI Referred by:: Dr. Ray Reason for Consultation:: Rectal bleeding - History of Present Illness Chief Complaint: Rectal bleeding History of Present Illness: 83F admitted for evaluation of rectal bleeding. This occurred yesterday. She states that she had a strained bowel movement after multiple unsuccessful attempts of having a bowel movement, then had bright red rectal bleeding. She denies associated abdominal pain. She states that this happened in the past while having strained bowel movements. She believes that she had a colonoscopy years ago in [place] and was told she needed another one in 10 years. Her Hgb has remained unchanged. No bleeding since amdission. She denies diarrhea. She was recently discharged from [facility] 07/15. She was admitted at that time for exacerbation of active airway disease and treated with corticosteroids and Abx. She is continued on corticosteroids. She is maintained on Xarelto for A. Fib. She denies diaarrhea. There is no family history of colorectal cancer or other GI malignancy. She states that she wants to go home and does not want another colonoscopy. - History Source History Provided By: Patient, Medical Record Limitations to Obtaining History: No Limitations - Past Medical History Cardio/Vascular: Yes: AFIB, HTN Pulmonary: Yes: Asthma - Past Surgical History Additional Surgical History: Denies - Alcohol/Substance Use Hx Alcohol Use: No History of Substance Use: reports: None - Smoking History Smoking history: Never smoked Have you smoked in the past 12 months: No - Social History Usual Living Arrangement: With Spouse ADL: Independent Occupation: Retired: worked in [employer], [employer] Place of : Other ([place]) Came to [place]year[place] 1952 History of Recent Travel: No Home Medications - Allergies Allergies/Adverse Reactions: Allergies Allergy/AdvReac Type Severity Reaction Status Date / Time No Known Allergies Allergy Verified 07/18/18 00:42 - Home Medications Home Medications: Ambulatory Orders Alprazolam 0.25 mg PO DAILY 07/09/18 Losartan/Hydrochlorothiazide [Losartan-Hctz 100-25 mg Tab] 1 each PO DAILY 07/09 Ranitidine HCl 300 mg PO DAILY 07/09/18 Rivaroxaban [Xarelto] 15 mg PO DAILY 07/09/18 Levothyroxine [Synthroid -] 50 mcg PO DAILY 28 Days #30 tablet 07/11/18 Sulfamethoxazole/Trimethoprim [Bactrim Ds -] 1 tab PO BID #10 tablet 07/11/18 Albuterol 2.5/Ipratropium 0.5 [Duoneb -] 1 amp NEB RTID #90 amp 07/15/18 Alprazolam [Xanax] 0.25 mg PO HS PRN tablet MDD 1 07/15/18 Diltiazem Cd [Cardizem Cd -] 360 mg PO DAILY #30 cap.cd.24h 07/15/18 Ondansetron [Zofran Odt -] 4 mg SL Q6H PRN #30 tab.rapdis 07/15/18 Prednisone [Deltasone] See Taper PO DAILY #30 tablet 07/15/18 Rivaroxaban [Xarelto] 15 mg PO DAILY@1800 tablet 07/15/18 Sulfamethoxazole/Trimethoprim [Bactrim Ds -] 1 tab PO BID #6 tablet 07/15/18 Family Disease History - Family Disease History Other Family History: No family history of colorectal cancer or other GI malignancy Review of Systems - Review of Systems Cardiovascular: reports: Edema. denies: Chest Pain Respiratory: reports: Cough, SOB Gastrointestinal: reports: Constipation, Rectal Bleeding. denies: Abdominal Pain, Diarrhea, Melena, Nausea, Vomiting, Vomiting Blood Physical Exam-GI Vital Signs: Vital Signs Temperature 98.2 F 07/18/18 09:43 Pulse Rate 74 07/18/18 09:43 Respiratory Rate 20 07/18/18 09:43 Blood Pressure 145/82 07/18/18 09:43 O2 Sat by Pulse Oximetry (%) 96 07/18/18 09:43 Constitutional: Yes: Calm Eyes: No: Sclera Icterus Cardiovascular: Yes: Pulse Irregular (regular rate) Respiratory: Yes: Wheezes (Mild exp wheezing) Gastrointestinal Inspection: No: Distention, Scars ...Auscultate: Yes: Normoactive Bowel Sounds ...Palpate: Yes: Soft ...Percussion: No: Tympanitic ...Rectal Exam: Yes: Other (No external lesions, no masses, yellow stool in rectal vault, no blood) Edema: Yes Edema: LLE: Trace, RLE: Trace Neurological: Yes: Alert Labs: CBC, BMP 07/18/18 08:20 07/18/18 08:20 INR, PTT INR 1.18 (0.83-1.09) H 07/18/18 08:20 Hepatic Panel Total Bilirubin 0.6 mg/dL (0.2-1) 07/18/18 08:20 AST 21 U/L (15-37) 07/18/18 08:20 ALT 47 U/L (13-61) 07/18/18 08:20 Alkaline Phosphatase 91 U/L (45-117) 07/18/18 08:20 Albumin 3.1 g/dl (3.4-5.0) L 07/18/18 08:20 Problem List - Problems (1) Rectal bleed Assessment/Plan: Bright red by description, no associated pain (however currently on prednisone therapy). No overt bleeding. Patient does not want colonoscopy and wants to go home. I advised that she speak with Dr. ray when he sees her today. Marked leukocytosis. Has been on steroids. to exclude GI pathology that may be masked by steroid therapy other than hemorrhoidal bleeding, ordered CT scan of the abdomen and pelvis. Moitor H/H and for signs of overt GI bleed MiraLAX 17g once daily Consider ID evaluation Code(s): K62.5 - HEMORRHAGE OF ANUS AND RECTUM
[2018-07-18] MEDS: PANTOPRAZOLE SODIUM 40 MG VIAL IVPUSH SCH (14:00)
--- NOTE | 2018-07-18 15:58 | PN ---
Progress Note, Physician Chief Complaint: GI Hemorrhage R posterior base infiltrate History of Present Illness: Previous notes and events reviewed awake and alert awake and alert NAD sts only having minor rectal bleeding Leukocytosis WBC 28.4 - Current Medication List Current Medications: Active Medications Albuterol/Ipratropium (Duoneb -) 1 amp NEB RTID [facility] Last Admin: 07/18/18 14:00 Dose: 1 amp [place] Butter/Phenylephrine (Preparation H Suppository) 1 each RC DAILY [facility] Last Admin: 07/18/18 10:15 Dose: Not Given Diltiazem HCl (Cardizem Cd -) 360 mg PO DAILY [facility] Last Admin: 07/18/18 10:00 Dose: 360 mg Hydrochlorothiazide (Hctz -) 25 mg PO DAILY [facility] Last Admin: 07/18/18 10:15 Dose: 25 mg Lactated Ringer's (Lactated Ringers Solution) 1,000 ml in 1,000 mls @ 75 mls/ hr IV ASDIR [facility] Last Admin: 07/18/18 06:15 Dose: 75 mls/hr Levothyroxine Sodium (Synthroid -) 50 mcg PO DAILY@0700 [facility] Last Admin: 07/18/18 06:20 Dose: 50 mcg Losartan Potassium (Cozaar -) 100 mg PO DAILY [facility] Last Admin: 07/18/18 10:00 Dose: 100 mg Pantoprazole Sodium (Protonix Iv) 40 mg IVPUSH DAILY [facility] Last Admin: 07/18/18 14:00 Dose: 40 mg Rivaroxaban (Xarelto) 15 mg PO DAILY@1800 [facility] Trimethoprim/Sulfamethoxazole (Bactrim Ds -) 1 each PO BID [facility] Last Admin: 07/18/18 10:00 Dose: 1 each - Objective Vital Signs: Vital Signs Temperature 98.2 F 07/18/18 09:43 Pulse Rate 74 07/18/18 09:43 Respiratory Rate 20 07/18/18 09:43 Blood Pressure 145/82 07/18/18 09:43 O2 Sat by Pulse Oximetry (%) 96 07/18/18 09:43 Constitutional: Yes: No Distress, Calm Eyes: Yes: Conjunctiva Clear HENT: Yes: Atraumatic Cardiovascular: Yes: Regular Rate and Rhythm Respiratory: Yes: Wheezes Gastrointestinal: Yes: Normal Bowel Sounds, Soft Musculoskeletal: Yes: Muscle Weakness Extremities: Yes: WNL Edema: No Neurological: Yes: Alert, Oriented Psychiatric: Yes: Alert, Oriented Labs: CBC, BMP 07/18/18 08:20 07/18/18 08:20 INR, PTT INR 1.18 (0.83-1.09) H 07/18/18 08:20 - ....Imaging Cat Scan: Report Reviewed Problem List - Problems (1) Atrial fibrillation Assessment/Plan: -continue Xarelto and Cardizem Code(s): I48.91 - UNSPECIFIED ATRIAL FIBRILLATION (2) Right lower lobe pulmonary infiltrate Assessment/Plan: -ID consult pending -continue PO Bactrim -WBC 28. -pulm consult -bronchodilators -O2 via NC -keep SpO2 >90% Code(s): R91.8 - OTHER NONSPECIFIC ABNORMAL FINDING OF LUNG FIELD (3) HTN (hypertension) Assessment/Plan: -continue HCTZ and Cozaar -low Na diet Code(s): I10 - ESSENTIAL (PRIMARY) HYPERTENSION (4) Rectal bleed Assessment/Plan: -GI on board -continue pantoprazole IV -monitor Hg daily -current Hg 13.8 -CT scan results reviewed Code(s): K62.5 - HEMORRHAGE OF ANUS AND RECTUM Assessment/Plan see problem list dvt ppx
--- NOTE | 2018-07-18 16:27 | CON.ID ---
Consult - Past Medical History Cardio/Vascular: Yes: AFIB, HTN Pulmonary: Yes: Asthma - Past Surgical History Additional Surgical History: Denies - Alcohol/Substance Use Hx Alcohol Use: No History of Substance Use: reports: None - Smoking History Smoking history: Never smoked Have you smoked in the past 12 months: No - Social History Usual Living Arrangement: With Spouse ADL: Independent Occupation: Retired: worked in [employer] History of Recent Travel: No Home Medications - Allergies Allergies/Adverse Reactions: Allergies Allergy/AdvReac Type Severity Reaction Status Date / Time No Known Allergies Allergy Verified 07/18/18 00:42 - Home Medications Home Medications: Ambulatory Orders Alprazolam 0.25 mg PO DAILY 07/09/18 Losartan/Hydrochlorothiazide [Losartan-Hctz 100-25 mg Tab] 1 each PO DAILY 07/09 Ranitidine HCl 300 mg PO DAILY 07/09/18 Rivaroxaban [Xarelto] 15 mg PO DAILY 07/09/18 Levothyroxine [Synthroid -] 50 mcg PO DAILY 28 Days #30 tablet 07/11/18 Sulfamethoxazole/Trimethoprim [Bactrim Ds -] 1 tab PO BID #10 tablet 07/11/18 Albuterol 2.5/Ipratropium 0.5 [Duoneb -] 1 amp NEB RTID #90 amp 07/15/18 Alprazolam [Xanax] 0.25 mg PO HS PRN tablet MDD 1 07/15/18 Diltiazem Cd [Cardizem Cd -] 360 mg PO DAILY #30 cap.cd.24h 07/15/18 Ondansetron [Zofran Odt -] 4 mg SL Q6H PRN #30 tab.rapdis 07/15/18 Prednisone [Deltasone] See Taper PO DAILY #30 tablet 07/15/18 Rivaroxaban [Xarelto] 15 mg PO DAILY@1800 tablet 07/15/18 Sulfamethoxazole/Trimethoprim [Bactrim Ds -] 1 tab PO BID #6 tablet 07/15/18 Family Disease History - Family Disease History Other Family History: No family history of colorectal cancer or other GI malignancy Physical Exam Vital Signs: Vital Signs Temperature 98.2 F 07/18/18 09:43 Pulse Rate 74 07/18/18 09:43 Respiratory Rate 20 07/18/18 09:43 Blood Pressure 145/82 07/18/18 09:43 O2 Sat by Pulse Oximetry (%) 96 07/18/18 09:43 Labs: CBC, BMP 07/18/18 08:20 07/18/18 08:20
[2018-07-18] MEDS: RIVAROXABAN 15 MG TABLET PO SCH (18:05)
[2018-07-19 00:12] VITALS: BMI 25.5
[2018-07-19] MEDS: LACTATED RINGERS SOLUTION 1,000 ML/1,000 ML INFUS.BAG IV SCH (06:28)
[2018-07-19] MEDS: LEVOTHYROXINE NA 50 MCG TABLET (FP) PO SCH (06:37)
[2018-07-19 07:38] LABS: HEMATOCRIT 35.3 % (32.4-45.2); HEMOGLOBIN 12.2 GM/dL (10.7-15.3); MCH 31.1 pg (25.7-33.7); MCHC 34.5 g/dl (32.0-36.0); MEAN CELL VOLUME 90.1 fl (80-96); MEAN PLT VOLUME 7.2 fl (7.5-11.1); PLATELET COUNT 340 K/MM3 (134-434); RBC 3.92 M/mm3 (3.60-5.2); RDW 12.9 % (11.6-15.6); WHITE BLOOD COUNT 17.6 K/mm3 (4.0-10.0)
[2018-07-19 08:06] LABS: ALBUMIN 2.6 g/dl (3.4-5.0); ALK PHOS 74 U/L (45-117); ANION GAP 7 MMOL/L (8-16); BILIRUBIN,TOTAL 0.8 mg/dL (0.2-1); BLOOD UREA NITROGEN 11 mg/dL (7-18); CALCIUM 8.1 mg/dL (8.5-10.1); CHLORIDE 97 mmol/L (98-107); CO2 30 mmol/L (21-32); CREATININE 0.8 mg/dL (0.55-1.3); GLUCOSE,RANDOM 88 mg/dL (74-106); POTASSIUM 3.3 mmol/L (3.5-5.1); SGOT/AST 18 U/L (15-37); SGPT/ALT 36 U/L (13-61); SODIUM 135 mmol/L (136-145); TOT PROT 5.1 g/dl (6.4-8.2)
[2018-07-19] MEDS: ALBUTEROL SO4 2.5/IPRATROPIUM 0.5 INH SOL 3 ML VIAL.NEB. NEB SCH ×2 (08:54→14:00)
[2018-07-19] MEDS ORDERED: PT OWN MED DRAWER 7, Y5N ONE (11:20)
[2018-07-19] MEDS: SULFAMETHOXAZOLE/TRIMETHOPRIM 800MG/160MG D.S. TABLET PO SCH (11:22)
[2018-07-19] MEDS: HYDROCHLOROTHIAZIDE 25 MG TABLET (FP) PO SCH (11:22)
[2018-07-19] MEDS: LOSARTAN POTASSIUM 50 MG TABLET (FP) PO SCH (11:22)
[2018-07-19] MEDS: PHENYLEPHRINE HCL/COCOA BUTTER SUPPOSITORY RC SCH (11:26)
--- NOTE | 2018-07-19 12:09 | PN ---
Progress Note (short form) - Note Progress Note: No further bleeding. Pt crying, states she has not eaten in 3 days, wants to eat. To D/C IV and begin diet. No objection to discharge.
[2018-07-19] MEDS: PANTOPRAZOLE SODIUM 40 MG VIAL IVPUSH SCH (12:19)
[2018-07-19 14:34] VITALS: BP 113/66; PULSE 109; TEMP 98
--- NOTE | 2018-07-19 15:26 | DS ---
Physical Examination Vital Signs: Vital Signs Temperature 98 F 07/19/18 14:34 Pulse Rate 109 H 07/19/18 14:34 Respiratory Rate 18 07/19/18 14:34 Blood Pressure 113/66 07/19/18 14:34 O2 Sat by Pulse Oximetry (%) 95 07/19/18 09:00 Findings/Remarks: Pt is a 83 y/o lady with a significant past medical history of AFIB w/ RVR (on Xarelto), asthma HTN, GERD, and multiple falls who presented to [facility] [place] c/o BRB[place] since yesterday am. Pt endorses that she went to use the restroom this am and noticed bright red blood in the toilet bowl. Pt endorses when she used the restroom yesterday evening, she had to strain and has been experiencing constipation for approximately 2 days duration. Pt endorses lightheadedness. Denies chest pain or acute shortness of breath. Denies abdominal pain, nausea/ vomiting, or LOC. Furthermore, pt was admitted to our service from 07/09/18 to 07/15 for left lower lung pneumonia and discharged on TMP-SMX and steroids. Constitutional: Yes: Well Nourished, No Distress, Calm Cardiovascular: Yes: Regular Rate and Rhythm Respiratory: Yes: Regular Gastrointestinal: Yes: Normal Bowel Sounds, Soft Musculoskeletal: Yes: WNL Extremities: Yes: WNL Edema: No Peripheral Pulses WNL: Yes Neurological: Yes: Alert, Oriented Psychiatric: Yes: Alert, Oriented Labs: CBC, BMP 07/19/18 06:45 07/19/18 06:45 Discharge Summary Reason For Visit: RECTAL HEMORRHAGE Current Active Problems Right lower lobe pulmonary infiltrate (Acute) Hospital Course: Laboratory Last Values WBC 17.6 K/mm3 (4.0-10.0) H 07/19/18 06:45 RBC 3.92 M/mm3 (3.60-5.2) 07/19/18 06:45 Hgb 12.2 GM/dL (10.7-15.3) 07/19/18 06:45 Hct 35.3 % (32.4-45.2) 07/19/18 06:45 MCV 90.1 fl (80-96) 07/19/18 06:45 MCH 31.1 pg (25.7-33.7) 07/19/18 06:45 MCHC 34.5 g/dl (32.0-36.0) 07/19/18 06:45 RDW 12.9 % (11.6-15.6) 07/19/18 06:45 Plt Count 340 K/MM3 (134-434) D 07/19/18 06:45 MPV 7.2 fl (7.5-11.1) L 07/19/18 06:45 Absolute Neuts (auto) 19.5 K/mm3 (1.5-8.0) H 07/18/18 08:20 Total Counted 100 07/18/18 00:09 Neutrophils % 68.7 % (42.8-82.8) 07/18/18 08:20 Neutrophils % (Manual) 69.6 % (42.8-82.8) 07/18/18 08:20 Band Neutrophils % 1.8 % 07/18/18 08:20 Lymphocytes % 21.4 % (8-40) D 07/18/18 08:20 Lymphocytes % (Manual) 17.8 % (8-40) 07/18/18 08:20 Monocytes % 8.4 % (3.8-10.2) 07/18/18 08:20 Monocytes % (Manual) 5 % (3.8-10.2) 07/18/18 08:20 Eosinophils % 0.1 % (0-4.5) D 07/18/18 08:20 Eosinophils % (Manual) 0.9 % (0-4.5) D 07/18/18 08:20 Basophils % 1.4 % (0-2.0) D 07/18/18 08:20 Basophils % (Manual) 0.9 % (0-2.0) D 07/18/18 08:20 Myelocytes % (Man) 0 % (0-2) 07/18/18 08:20 Promyelocytes % (Man) 0 % (0-2) 07/18/18 08:20 Blast Cells % (Manual) 0 % (0-0) 07/18/18 08:20 Nucleated RBC % 0 % (0-0) 07/18/18 08:20 Metamyelocytes 0 % (0-2) D 07/18/18 08:20 Hypersegmented Neuts 20 07/18/18 00:09 Hypochromia 0 04/12/19 08:20 Platelet Estimate Normal 07/18/18 08:20 Polychromasia 0 07/18/18 08:20 Poikilocytosis 0 07/18/18 08:20 Anisocytosis 0 07/18/18 08:20 Microcytosis 0 07/18/18 08:20 Macrocytosis 0 07/18/18 08:20 PT with INR 14.00 SEC (9.7-13.0) H 07/18/18 08:20 INR 1.18 (0.83-1.09) H 07/18/18 08:20 PTT (Actin FS) 27.4 SECONDS (25.2-36.5) 07/18/18 08:20 Sodium 135 mmol/L (136-145) L 07/19/18 06:45 Potassium 3.3 mmol/L (3.5-5.1) L 07/19/18 06:45 Chloride 97 mmol/L (98-107) L 07/19/18 06:45 Carbon Dioxide 30 mmol/L (21-32) 07/19/18 06:45 Anion Gap 7 MMOL/L (8-16) L 07/19/18 06:45 BUN 11 mg/dL (7-18) 07/19/18 06:45 Creatinine 0.8 mg/dL (0.55-1.3) 07/19/18 06:45 Creat Clearance w eGFR 68.17 (>60) 07/19/18 06:45 Random Glucose 88 mg/dL (74-106) 07/19/18 06:45 Lactic Acid 1.8 mmol/L (0.4-2.0) 07/18/18 04:50 Calcium 8.1 mg/dL (8.5-10.1) L 07/19/18 06:45 Phosphorus 2.3 mg/dL (2.5-4.9) L 07/18/18 08:20 Magnesium 1.5 mg/dL (1.8-2.4) L 07/18/18 08:20 Total Bilirubin 0.8 mg/dL (0.2-1) 07/19/18 06:45 AST 18 U/L (15-37) 07/19/18 06:45 ALT 36 U/L (13-61) 07/19/18 06:45 Alkaline Phosphatase 74 U/L (45-117) 07/19/18 06:45 Total Protein 5.1 g/dl (6.4-8.2) L 07/19/18 06:45 Albumin 2.6 g/dl (3.4-5.0) L 07/19/18 06:45 Urine Color Yellow 07/18/18 04:50 Urine Appearance Clear 07/18/18 04:50 Urine pH 8.5 (5.0-8.0) H D 07/18/18 04:50 Ur Specific [place] 1.020 (1.010-1.035) 07/18/18 04:50 Urine Protein 2+ (NEGATIVE) H 07/18/18 04:50 Urine Glucose (UA) Negative (NEGATIVE) 07/18/18 04:50 Urine Ketones Negative (NEGATIVE) 07/18/18 04:50 Urine Blood 2+ (NEGATIVE) H 07/18/18 04:50 Urine Nitrite Negative (NEGATIVE) 07/18/18 04:50 Urine Bilirubin Negative (NEGATIVE) 07/18/18 04:50 Urine Urobilinogen 0.2 mg/dL (0.2-1.0) 07/18/18 04:50 Ur Leukocyte Esterase Negative (NEGATIVE) 07/18/18 04:50 Urine RBC (Auto) 10-15 /hpf (0-4) 07/18/18 04:50 U Epithel Cells (Auto) Rare /HPF (0-5/HPF) 07/18/18 04:50 Urine Bacteria (Auto) Rare /hpf (NEGATIVE) 07/18/18 04:50 Stool Occult Blood Positive (NEGATIVE) 07/18/18 00:11 Blood Type O POSITIVE 07/18/18 00:07 Antibody Screen Negative 07/18/18 00:07 Vital Signs Temp 98 F 07/19/18 14:34 Pulse 109 H 07/19/18 14:34 Resp 18 07/19/18 14:34 BP 113/66 07/19/18 14:34 Pulse Ox 95 07/19/18 09:00 Intake & Output 07/18/18 07/19/18 07/19/18 23:59 11:59 23:59 Intake Total 500 Balance 500 Weight 65.431 kg Intake: IV 500 LACTATED RINGERS SOLUTION 500 1,000 ml In 1,000 ml @ 75 mls/hr IV ASDIR BUFFY Rx #:[id number] Other: Voiding Method Toilet # Unmeasured Voids Void 2 3 Height 5 ft 3 in Body Mass Index (BMI) 25.5 Weight Measurement Method Standing Scale Condition: Stable - Instructions Disposition: HOME - Home Medications Comprehensive Discharge Medication List: Ambulatory Orders Alprazolam 0.25 mg PO DAILY 07/09/18 Losartan/Hydrochlorothiazide [Losartan-Hctz 100-25 mg Tab] 1 each PO DAILY 07/09 Ranitidine HCl 300 mg PO DAILY 07/09/18 Rivaroxaban [Xarelto] 15 mg PO DAILY 07/09/18 Levothyroxine [Synthroid -] 50 mcg PO DAILY 28 Days #30 tablet 07/11/18 Sulfamethoxazole/Trimethoprim [Bactrim DS -] 1 tab PO BID #10 tablet 07/11/18 Albuterol 2.5/Ipratropium 0.5 [Duoneb -] 1 amp NEB RTID #90 amp 07/15/18 Alprazolam [Xanax] 0.25 mg PO HS PRN tablet MDD 1 07/15/18 Diltiazem Cd [Cardizem Cd -] 360 mg PO DAILY #30 cap.cd.24h 07/15/18 Ondansetron [Zofran Odt -] 4 mg SL Q6H PRN #30 tab.rapdis 07/15/18 Prednisone [Deltasone] See Taper PO DAILY #30 tablet 07/15/18 Rivaroxaban [Xarelto] 15 mg PO DAILY@1800 tablet 07/15/18 Sulfamethoxazole/Trimethoprim [Bactrim DS -] 1 tab PO BID #6 tablet 07/15/18 Pantoprazole Sodium [Protonix -] 40 mg PO DAILY #30 tablet.ec 07/19/18 Phenylephrine HCl/[place] Butter [Preparation H Suppository] 1 each RC DAILY #30 supp.rect 07/19/18
[2018-07-19] MEDS: RIVAROXABAN 15 MG TABLET PO SCH (17:00)
== END 2018-07-19 17:41 | disposition home or self-care (01) | DRG 378 ==
LOC: JER 23:42 → SUPCPDRO 23:42 → JERBED 07-18 00:55 → OBSVTOIN 07-18 04:17 → J5S 07-18 18:38
PROVIDERS: ADMIT Internal Medicine; ATTEND Family Medicine
DX: K62.5 Hemorrhage of anus and rectum (principal); E87.2 Acidosis; E46 Unspecified protein-calorie malnutrition; E88.09 Other disorders of plasma-protein metabolism, not elsewhere classified; I48.91 Unspecified atrial fibrillation; I10 Essential (primary) hypertension; R91.8 Other nonspecific abnormal finding of lung field; D72.829 Elevated white blood cell count, unspecified; K21.9 Gastro-esophageal reflux disease without esophagitis
CPT/HCPCS: 36415; 71045-TC-FY; 74176-TC; 80053; 81003; 82272; 83605; 83735; 84100; 85025; 85027; 85610; 85730; 86850; 86900; 86901; 93005; 93010; 94640; 99284-25; G0378; J7030

== ENCOUNTER 2018-10-21 08:24 | Emergency (ER) | payer OTHER ==
[2018-10-21 08:29] VITALS: BMI 25.0
[2018-10-21] MEDS ORDERED: ALBUTEROL SO4 2.5/IPRATROPIUM 0.5 INH SOL 3 ML VIAL.NEB. NEB ONE ×2 (09:27→09:28)
--- NOTE | 2018-10-21 09:29 | PDOC ---
History of Present Illness - General Chief Complaint: Vomiting/Diarrhea Stated Complaint: VOMITING/DIARRHEA Time Seen by Provider: 10/21/18 09:27 History Source: Patient, Family Exam Limitations: No Limitations - History of Present Illness Initial Comments: 10/21/18 09:54 Pamela Armando is an 83F with PMH Afib on Xarelto, COPD, and HTN presenting with one day of LUQ pain. Patient reports having nausea/vomiting/diarrhea 2 days ago that has since resolved, no other household members sick, and no unusual foods eaten. Since yesterday, has had 10/10 pain in L upper abdomen near ribs, relieved with Tylenol, worse with movement. Concerned about rib fx given that she has a history of rib pain and fx related to coughing and vomiting. Denies abd pain or further abd symptoms at this time. Not having headache, chest pain, palpitations , SOB, cough, or any urinary sx. PSH pelvic fx 2/2 fall, not operated on. Past History - Past Medical History Allergies/Adverse Reactions: Allergies Allergy/AdvReac Type Severity Reaction Status Date / Time No Known Allergies Allergy Verified 10/21/18 08:25 Home Medications: Ambulatory Orders Alprazolam 0.25 mg PO BID 07/09/18 Losartan/Hydrochlorothiazide [Losartan-Hctz 100-25 mg Tab] 1 each PO DAILY 07/09 Rivaroxaban [Xarelto] 15 mg PO DAILY 07/09/18 Albuterol 2.5/Ipratropium 0.5 [Duoneb -] 1 amp NEB RTID #90 amp 07/15/18 Diltiazem Cd [Cardizem Cd -] 300 mg PO DAILY 10/21/18 Levothyroxine [Synthroid -] 25 mcg PO DAILY 10/21/18 Omeprazole 40 mg PO PRN PRN 10/21/18 Tramadol HCl 50 mg PO BID PRN #7 tablet MDD 2 tabs 10/21/18 Asthma: Yes Cardiac Disorders: Yes (A-FIB) COPD: No HTN: Yes - Surgical History Orthopedic Surgery: Yes (RLE) - Immunization History Immunization Up to Date: Yes - Suicide/Smoking/Psychosocial Hx Smoking History: Never smoked Have you smoked in the past 12 months: No Information on smoking cessation initiated: No Hx Alcohol Use: No Drug/Substance Use Hx: No Substance Use Type: None Review of Systems - Review of Systems Able to Perform ROS?: Yes Is the patient limited Macedonian proficient: No Constitutional: No: Chills, Fever, Weakness HEENTM: No: Blurred Vision, Tinnitus, Throat Pain Respiratory: No: Cough, Shortness of Breath, Wheezing, Hemoptysis Cardiac (ROS): No: Chest Pain, Edema, Irregular Heart Rate, Lightheadedness ABD/GI: Yes: Diarrhea (resolved now), Nausea (resolved now), Vomiting (resolved now). No: Abdominal Distended, Constipated : No: Burning, Dysuria, Discharge, Frequency, Flank Pain, Hematuria Musculoskeletal: No: Back Pain, Muscle Weakness Integumentary: Yes: Pruritus Neurological: No: Headache, Paresthesia *Physical Exam - Vital Signs Last Vital Signs Temp Pulse Resp BP Pulse Ox 98.5 F 89 16 180/70 H 96 10/21/18 08:25 10/21/18 08:25 10/21/18 08:25 10/21/18 08:25 10/21/18 09:01 - Physical Exam Comments: 10/21/18 09:36 Bilateral wheezing LUQ tenderness, no L CVA tenderness. General Appearance: Yes: Appropriately Dressed. No: Apparent Distress HEENT: positive: DAFNE, Normal Voice, Symmetrical, Hearing Grossly Normal. negative: Scleral Icterus (R), Scleral Icterus (L), Rhinorrhea Neck: positive: Supple. negative: Tender, Lymphadenopathy (R), Lymphadenopathy (L) Respiratory/Chest: positive: Wheezing. negative: Respiratory Distress, Accessory Muscle Use, Crackles, Rales, Rhonchi Cardiovascular: positive: Regular Rhythm, Regular Rate, Other (no murmurs, gallops, or rubs) Gastrointestinal/Abdominal: positive: Normal Bowel Sounds, Tender (tender to palpation L costal margin, no tenderness in any other region of abdomen, negative srivastava's sign, negative CVA tenderness, no organomegaly). negative: Organomegaly Musculoskeletal: positive: Normal Inspection Extremity: positive: Normal Capillary Refill, Normal Range of Motion. negative : Tender Integumentary: positive: Normal Color, Dry, Warm Neurologic: positive: Fully Oriented, Normal Mood/Affect, Normal Response ED Treatment Course - LABORATORY CBC & Chemistry Diagram: 10/21/18 09:53 10/21/18 09:53 Medical Decision Making - Medical Decision Making 10/21/18 10:03 Pamela Armando is an 83F with PMH Afib on Xarelto, COPD, and HTN presenting with one day of LUQ pain. Given patient history of N/V/D and LUQ pain, initial concern was for abdominal pathology such as pancreatitis vs. diverticulitis vs. renal calculus vs. pyelo. Patient's abd sx have completely resolved at this time, denies nausea or vomiting today, and has no urinary sx concerning for renal pathology. HAs cardiac history of afib, considered for atypical presentation cardiac disease. Etiology of her pain is more likely musculoskeletal 2/2 heavy accessory muscle use when vomiting vs. rib fx given her reported history of such. Will evaluate with CMP, CBC, ECG, UA, cardiac profile, lipase, and mag level. CXR ordered for concern L rib fx. 10/21/18 10:40 WBC 12.7, concern elevated for diverticulitis vs. pancreatitis. Pending labs and CXR. 10/21/18 10:43 CXR shows no signs of fx, some degerative changes with wedging. 10/21/18 12:00 Pt given 50mg tramadol for pain control, will-reevaluate and likely discharge home with pain medication. Elevated WBC consistent with previous labs at baseline. Concern for diverticulitis low given completely non-tender, no abd sx. Likely focal muscle strain 2/2 vomiting. 10/21/18 12:34 Pain improved on tramadol. Repeat SBP 189, but in pain and has not *DC/Admit/Observation/Transfer Diagnosis at time of Disposition: Muscle strain of chest wall - Discharge Dispostion Disposition: HOME Condition at time of disposition: Improved Decision to Admit order: No - Referrals Referrals: ON STAFF,NOT [Primary Care Provider] - - Patient Instructions Printed Discharge Instructions: DI for Muscle Strain Additional Instructions: Today you were evaluated for left rib pain. We were concerned about a rib fracture because you had a fit of vomiting and now have pain over your ribs, but there were no signs of a broken rib when we obtained a chest x-ray. Your laboratory results from your blood do not show any abnormalities. The cause of your chest pain is most likely a pulled muscle from vomiting, and will heal on its own in 3-7 days. We are giving you a prescription for a pain medication called tramadol, please take it as prescribed. If you have any worsening pain, shortness or breath, chest pain in a new location, nausea, more vomiting or any other abdominal pain, please return to an emergency room. Follow up with your normal doctor in the next few days. - Post Discharge Activity
[2018-10-21 10:21] LABS: BASO % 0.3 % (0-2.0); EOS % 1.7 % (0-4.5); HEMATOCRIT 33.6 % (32.4-45.2); HEMOGLOBIN 11.4 GM/dL (10.7-15.3); LYMPH % 26.2 % (8-40); MCH 31.6 pg (25.7-33.7); MCHC 33.9 g/dl (32.0-36.0); MEAN CELL VOLUME 93.2 fl (80-96); MONO % 6.3 % (3.8-10.2); NEUT % 65.5 % (42.8-82.8); PLATELET COUNT 234 K/MM3 (134-434); RBC 3.61 M/mm3 (3.60-5.2); RDW 13.6 % (11.6-15.6); WHITE BLOOD COUNT 12.7 K/mm3 (4.0-10.0)
[2018-10-21 10:52] LABS: ALBUMIN 3.7 g/dl (3.4-5.0); ALK PHOS 83 U/L (45-117); ANION GAP 5 MMOL/L (8-16); BILIRUBIN,TOTAL 0.4 mg/dL (0.2-1); BLOOD UREA NITROGEN 19.2 mg/dL (7-18); CHLORIDE 107 mmol/L (98-107); CO2 27 mmol/L (21-32); CREATININE 0.8 mg/dL (0.55-1.3); GLUCOSE,RANDOM 90 mg/dL (74-106); LIPASE 109 U/L (73-393); MAGNESIUM 1.5 mg/dL (1.8-2.4); POTASSIUM 3.8 mmol/L (3.5-5.1); SGOT/AST 11 U/L (15-37); SGPT/ALT 22 U/L (13-61); SODIUM 138 mmol/L (136-145); TOT PROT 6.3 g/dl (6.4-8.2)
[2018-10-21] MEDS ORDERED: traMADol HCL 50 MG TABLET PO ONE (11:36)
[2018-10-21] MEDS ORDERED: traMADol HCL 50 MG TABLET ONE (11:40)
--- NOTE | 2018-10-21 11:42 | PDOC ---
Attending Attestation - Resident Resident Name: Bay Lucas - ED Attending Attestation I have performed the following: I have examined & evaluated the patient, The case was reviewed & discussed with the resident, I agree w/resident's findings & plan - HPI HPI: 10/21/18 11:37 83-year-old female history of hypertension, COPD, atrial fibrillation presents with left lower rib pain status post episodes of vomiting/diarrhea 2 days ago. Patient had vomiting/diarrhea illness with about 2 episodes each 2 days ago, while vomiting/retching one time felt a sudden "pop" in her left lower anterior rib which has been persistent since then. Vomiting and diarrhea resolved, proceed presents for evaluation of her left rib pain. Worse with deep inspiration, worse with any positional changes, worse with palpation. Took Tylenol with minimal relief, denies any fever/chills/cough/shortness of breath, denies any abdominal pain/urinary symptoms. States clearly that this is not her diverticulitis pain. - Physicial Exam PE: 10/21/18 11:40 Vitals as noted, O2 sat normal Well-appearing lying in stretcher, uncomfortable with any positional change Heart is irregular with normal rate, lungs are clear No bruising or soft tissue swelling or rash, but there is focally/pinpoint reproducible tenderness over the anterior/distal aspect of the lower left floating rib, no crepitus. Abdomen is soft/nontender/nondistended. There is no guarding or rebound, bowel sounds are normal, no CVA tenderness - Medical Decision Making 10/21/18 11:40 83-year-old female with left rib strain while vomiting 2 days ago, reassuring exam without evidence of acute pulmonary or intraperitoneal process. Vital signs are normal. Labs are within normal limits including chemistries, white count 12.7 Chest x-ray shows no acute pathology other than expected slight atelectasis at the left base, likely from splinting secondary to pain Trial of tramadol, which the patient has tolerated in the past Discussed the importance of deep breathing/incentive spirometry Understands return criteria 10/21/18 12:38 feels better after tramadol, tolerated well. agrees with d/c plan Heart Score/ECG Review #1 ECG reviewed & interpreted by me at: 09:49 General ECG Interpretation: Sinus Rhythm (APCs noted), Normal Rate (83), Normal Intervals (qtc 411), No acute ischemic changes
[2018-10-21 12:36] VITALS: BP 189/74; PULSE 83; TEMP 98.2
--- NOTE | 2018-10-22 10:31 | EKG ---
Test Reason : Blood Pressure : / mmHG Vent. Rate : 083 BPM Atrial Rate : 083 BPM P-R Int : 152 ms QRS Dur : 078 ms QT Int : 350 ms P-R-T Axes : 076 034 026 degrees QTc Int : 411 ms SINUS RHYTHM WITH PREMATURE ATRIAL COMPLEXES NONSPECIFIC T WAVE ABNORMALITY ABNORMAL ECG WHEN COMPARED WITH ECG OF 18-JUL-2018 00:08, SINUS RHYTHM HAS REPLACED ATRIAL FIBRILLATION Confirmed by SUZE THORNTON, TANYA ([id number]) on 10/22/2018 10:30:38 AM Referred By: Confirmed By:TANYA ARCINIEGA MD
== END 2018-10-21 13:00 | disposition home or self-care (01) ==
LOC: JER 08:24
PROC: 3E0F7GC Introduction of Other Therapeutic Substance into Respiratory Tract, Via Natural or Artificial Opening (ICD-10-PCS; principal; 2018-10-21)
DX: S23.41XA Sprain of ribs, initial encounter (principal); X50.9XXA Other and unspecified overexertion or strenuous movements or postures, initial encounter; Y93.89 Activity, other specified; Y92.038 Other place in apartment as the place of occurrence of the external cause; Y99.8 Other external cause status; J44.9 Chronic obstructive pulmonary disease, unspecified; I10 Essential (primary) hypertension; I48.91 Unspecified atrial fibrillation; Z79.01 Long term (current) use of anticoagulants
CPT/HCPCS: 36415; 71046-TC-FY; 80053; 82550; 83605; 83690; 83735; 84484; 85025; 93005; 93010; 94640; 99283-25

== ENCOUNTER 2021-10-01 11:00 | Inpatient (IN) | payer OTHER ==
[2021-10-01 11:50] VITALS: BMI 23.9
[2021-10-01] MEDS ORDERED: methylPREDNISolone NA SUCC 125 MG/2 ML VIAL IVPB ONE (12:17)
[2021-10-01] MEDS ORDERED: ALBUTEROL SO4 2.5/IPRATROPIUM 0.5 INH SOL 3 ML VIAL.NEB. NEB ONE (12:25)
[2021-10-01] MEDS ORDERED: methylPREDNISolone NA SUCC 125 MG/2 ML VIAL ONE (12:26)
[2021-10-01] MEDS: ALBUTEROL SO4 2.5/IPRATROPIUM 0.5 INH SOL 3 ML VIAL.NEB. NEB SCH ×4 (12:45→13:15)
[2021-10-01 13:00] LABS: VENOUS BASE EXCESS 4.4 mmol/L (-2-2); VENOUS O2 SATURATION 51.8 % (70-80); VENOUS PCO2 56.4 mmHg (38-52); VENOUS PH 7.36 (7.310-7.410)
[2021-10-01 13:04] LABS: BASO % 0.5 % (0-2.0); EOS % 6.9 % (0-4.5); HEMATOCRIT 34.1 % (32.4-45.2); HEMOGLOBIN 11.5 GM/dL (10.7-15.3); LYMPH % 20.7 % (8-40); MCH 30.4 pg (25.7-33.7); MCHC 33.7 g/dl (32.0-36.0); MEAN CELL VOLUME 90.2 fl (80-96); MEAN PLT VOLUME 6.8 fl (7.5-11.1); NEUT % 65.9 % (42.8-82.8); PLATELET COUNT 434 10^3/uL (134-434); RBC 3.78 M/mm3 (3.60-5.2); WHITE BLOOD COUNT 17.4 K/mm3 (4.0-10.0)
[2021-10-01 13:43] LABS: ALBUMIN 2.9 g/dl (3.4-5.0); BILIRUBIN,TOTAL 0.2 mg/dL (0.2-1); BLOOD UREA NITROGEN 14.7 mg/dL (7-18); CALCIUM 8.7 mg/dL (8.5-10.1); CREATININE 0.9 mg/dL (0.55-1.3); MAGNESIUM 1.3 mg/dL (1.8-2.4); N-TERMINAL BNP 1248.4 pg/ml (5-450); TOT PROT 6.6 g/dl (6.4-8.2)
[2021-10-01 14:31] LABS: EPI CELLS 24 /uL (0-25.1); HYALINE CASTS 0 /uL (0-3.1); URINE APPEARANCE CLEAR; URINE BACTERIA 620 /uL (0-1359); URINE BILIRUBIN NEGATIVE (NEGATIVE); URINE COLOR YELLOW; URINE GLUCOSE (UA) NEGATIVE (NEGATIVE); URINE KETONE NEGATIVE (NEGATIVE); URINE LEUK ESTERASE NEGATIVE (NEGATIVE); URINE NITRITE NEGATIVE (NEGATIVE); URINE PROTEIN 4+ (NEGATIVE); URINE RBC 106 /uL (0-23.9); URINE UROBILINOGEN 0.2 mg/dL (0.2-1.0); URINE WBC 50 /uL (0-25.8)
[2021-10-01] MEDS ORDERED: LOSARTAN POTASSIUM 50 MG TABLET PO ONE (14:46)
[2021-10-01] MEDS ORDERED: AZITHROMYCIN IVPB 500 MG in DEXTROSE 5%-WATER - 250 ML IVPB ONE (14:51)
[2021-10-01] MEDS ORDERED: LOSARTAN POTASSIUM 50 MG TABLET ONE (14:51)
[2021-10-01] MEDS ORDERED: CEFTRIAXONE 1 GM in DEXTROSE 5%-WATER - 50 ML IVPB ONE (14:52)
[2021-10-01] MEDS ORDERED: CEFTRIAXONE 1 GM/50 ML BAG ONE (14:57)
[2021-10-01] MEDS ORDERED: AZITHROMYCIN IVPB 500 MG/250 ML BAG IVPB ONE (15:27)
[2021-10-01] MEDS ORDERED: ACETAMINOPHEN 325 MG TABLET (FP) ONE (20:59)
[2021-10-01] MEDS: ACETAMINOPHEN 325 MG TABLET (FP) PO PRN (21:03)
[2021-10-01] MEDS ORDERED: ALPRAZolam 0.25 MG TABLET PO ONE (21:10)
[2021-10-01] MEDS ORDERED: ALPRAZolam 0.25 MG TABLET ONE (21:14)
[2021-10-02] MEDS ORDERED: ACETAMINOPHEN 325 MG TABLET (FP) ONE ×3 (02:24→16:02)
[2021-10-02] MEDS: ACETAMINOPHEN 325 MG TABLET (FP) PO PRN ×3 (02:26→16:13)
[2021-10-02 08:12] LABS: HEMATOCRIT 31.9 % (32.4-45.2); HEMOGLOBIN 10.9 GM/dL (10.7-15.3); MCH 30.8 pg (25.7-33.7); MCHC 34.2 g/dl (32.0-36.0); MEAN PLT VOLUME 6.8 fl (7.5-11.1); PLATELET COUNT 425 10^3/uL (134-434); RBC 3.54 M/mm3 (3.60-5.2); RDW 14.4 % (11.6-15.6); WHITE BLOOD COUNT 12.5 K/mm3 (4.0-10.0)
[2021-10-02 08:31] LABS: CALCIUM 8.8 mg/dL (8.5-10.1)
[2021-10-02 08:32] LABS: BLOOD UREA NITROGEN 27.6 mg/dL (7-18)
[2021-10-02 08:35] LABS: CREATININE 1.3 mg/dL (0.55-1.3)
[2021-10-02] MEDS ORDERED: CEFTRIAXONE 1 GM/50 ML BAG ONE (09:05)
[2021-10-02] MEDS ORDERED: AZITHROMYCIN IVPB 500 MG/250 ML BAG IVPB ONE (09:05)
[2021-10-02] MEDS: CEFTRIAXONE 1 GM in DEXTROSE 5%-WATER - 50 ML IVPB SCH (09:11)
[2021-10-02] MEDS: AZITHROMYCIN IVPB 500 MG/250 ML BAG IVPB SCH (09:37)
[2021-10-02 11:19] LABS: MAGNESIUM 1.4 mg/dL (1.8-2.4)
[2021-10-02] MEDS ORDERED: ALBUTEROL SO4 2.5/IPRATROPIUM 0.5 INH SOL 3 ML VIAL.NEB. NEB ONE ×2 (11:37→15:27)
[2021-10-02] MEDS: ALBUTEROL SO4 2.5/IPRATROPIUM 0.5 INH SOL 3 ML VIAL.NEB. NEB SCH ×3 (12:05→20:00)
[2021-10-02] MEDS ORDERED: predniSONE 20 MG TABLET (UD) ONE (15:28)
[2021-10-02] MEDS: predniSONE 20 MG TABLET (UD) PO SCH (15:32)
[2021-10-02] MEDS ORDERED: ONDANSETRON 4 MG/2 ML VIAL IVPUSH PRN (16:20)
[2021-10-03] MEDS ORDERED: MAGNESIUM SULF 50% (8.12 MEQ/2 ML-1 GM VIAL) IVPB ONE (01:20)
[2021-10-03] MEDS: SERTRALINE HCL 25 MG TABLET (FP) PO SCH ×2 (02:02→21:10)
[2021-10-03] MEDS: LEVOTHYROXINE NA 25 MCG TABLET (FP) PO SCH (06:30)
[2021-10-03] MEDS: ALBUTEROL SO4 2.5/IPRATROPIUM 0.5 INH SOL 3 ML VIAL.NEB. NEB SCH ×4 (07:50→20:40)
[2021-10-03] MEDS ORDERED: cefTRIAXone SODIUM 1 GM VIAL ONE (09:36)
[2021-10-03] MEDS ORDERED: DEXTROSE 5%-WATER - 50 ML IVPB ONE (09:37)
[2021-10-03] MEDS: CEFTRIAXONE 1 GM in DEXTROSE 5%-WATER - 50 ML IVPB SCH (09:49)
[2021-10-03] MEDS: AZITHROMYCIN IVPB 500 MG/250 ML BAG IVPB SCH (09:49)
[2021-10-03] MEDS: PANTOPRAZOLE 20 MG TABLET PO SCH (09:49)
[2021-10-03] MEDS: predniSONE 20 MG TABLET (UD) PO SCH (09:49)
[2021-10-03] MEDS: LOSARTAN POTASSIUM 50 MG TABLET PO SCH (09:49)
[2021-10-03] MEDS: RIVAROXABAN 20 MG TABLET PO SCH (17:57)
[2021-10-03] MEDS: methylPREDNISolone NA SUCC 40 MG/1 ML VIAL IVPUSH SCH (17:57)
[2021-10-03] MEDS ORDERED: ALPRAZolam 0.25 MG TABLET PO ONE (20:36)
[2021-10-04] MEDS: methylPREDNISolone NA SUCC 40 MG/1 ML VIAL IVPUSH SCH ×3 (02:04→15:23)
[2021-10-04] MEDS: LEVOTHYROXINE NA 25 MCG TABLET (FP) PO SCH (06:18)
[2021-10-04] MEDS: ACETAMINOPHEN 325 MG TABLET (FP) PO PRN (06:21)
[2021-10-04] MEDS: ALBUTEROL SO4 2.5/IPRATROPIUM 0.5 INH SOL 3 ML VIAL.NEB. NEB SCH ×4 (08:31→20:20)
[2021-10-04] MEDS ORDERED: cefTRIAXone SODIUM 1 GM VIAL ONE (09:58)
[2021-10-04] MEDS ORDERED: DEXTROSE 5%-WATER - 50 ML IVPB ONE (09:59)
[2021-10-04] MEDS: AZITHROMYCIN IVPB 500 MG/250 ML BAG IVPB SCH (10:03)
[2021-10-04] MEDS: LOSARTAN POTASSIUM 50 MG TABLET PO SCH (10:03)
[2021-10-04] MEDS: PANTOPRAZOLE 20 MG TABLET PO SCH (10:03)
[2021-10-04] MEDS: CEFTRIAXONE 1 GM in DEXTROSE 5%-WATER - 50 ML IVPB SCH (10:04)
[2021-10-04] MEDS ORDERED: methylPREDNISolone NA SUCC 40 MG/1 ML VIAL IVPUSH SCH ×2 (13:30)
[2021-10-04] MEDS: RIVAROXABAN 20 MG TABLET PO SCH (17:52)
[2021-10-04] MEDS: SERTRALINE HCL 25 MG TABLET (FP) PO SCH (21:41)
[2021-10-04] MEDS: ALPRAZolam 0.25 MG TABLET PO SCH (21:41)
[2021-10-05] MEDS: methylPREDNISolone NA SUCC 40 MG/1 ML VIAL IVPUSH SCH (01:29)
[2021-10-05] MEDS: ACETAMINOPHEN 325 MG TABLET (FP) PO PRN ×2 (01:37→10:19)
[2021-10-05] MEDS: LEVOTHYROXINE NA 25 MCG TABLET (FP) PO SCH (06:12)
[2021-10-05] MEDS: ALBUTEROL SO4 2.5/IPRATROPIUM 0.5 INH SOL 3 ML VIAL.NEB. NEB SCH ×4 (07:52→20:10)
[2021-10-05 08:09] LABS: ALBUMIN 2.6 g/dl (3.4-5.0); CALCIUM 9.2 mg/dL (8.5-10.1)
[2021-10-05 08:10] LABS: BLOOD UREA NITROGEN 39.5 mg/dL (7-18)
[2021-10-05 08:12] LABS: CREATININE 1.3 mg/dL (0.55-1.3)
[2021-10-05 08:14] LABS: BILIRUBIN,TOTAL 0.2 mg/dL (0.2-1)
[2021-10-05 08:16] LABS: HEMATOCRIT 33.2 % (32.4-45.2); LYMPH % 8.6 % (8-40); MCH 30.2 pg (25.7-33.7); MCHC 33.2 g/dl (32.0-36.0); MEAN CELL VOLUME 90.9 fl (80-96); MEAN PLT VOLUME 7.6 fl (7.5-11.1); MONO % 2.1 % (3.8-10.2); NEUT % 89.3 % (42.8-82.8); PLATELET COUNT 426 10^3/uL (134-434); RBC 3.65 M/mm3 (3.60-5.2); RDW 14.8 % (11.6-15.6); WHITE BLOOD COUNT 16.1 K/mm3 (4.0-10.0)
[2021-10-05] MEDS ORDERED: cefTRIAXone SODIUM 1 GM VIAL ONE (09:24)
[2021-10-05] MEDS ORDERED: DEXTROSE 5%-WATER - 50 ML IVPB ONE (09:24)
[2021-10-05] MEDS: LOSARTAN POTASSIUM 50 MG TABLET PO SCH (09:59)
[2021-10-05] MEDS: PANTOPRAZOLE 20 MG TABLET PO SCH (09:59)
[2021-10-05] MEDS: ALPRAZolam 0.25 MG TABLET PO SCH ×2 (09:59→21:28)
[2021-10-05] MEDS: predniSONE 20 MG TABLET (UD) PO SCH ×2 (09:59→21:28)
[2021-10-05] MEDS: CEFTRIAXONE 1 GM in DEXTROSE 5%-WATER - 50 ML IVPB SCH (10:00)
[2021-10-05] MEDS: AZITHROMYCIN IVPB 500 MG/250 ML BAG IVPB SCH (10:01)
[2021-10-05] MEDS: RIVAROXABAN 20 MG TABLET PO SCH (18:22)
[2021-10-05] MEDS: SERTRALINE HCL 25 MG TABLET (FP) PO SCH (21:28)
[2021-10-06] MEDS: LEVOTHYROXINE NA 25 MCG TABLET (FP) PO SCH (06:15)
[2021-10-06] MEDS: ALBUTEROL SO4 2.5/IPRATROPIUM 0.5 INH SOL 3 ML VIAL.NEB. NEB SCH ×4 (08:37→20:10)
[2021-10-06] MEDS ORDERED: DEXTROSE 5%-WATER - 50 ML IVPB ONE (09:31)
[2021-10-06] MEDS ORDERED: cefTRIAXone SODIUM 1 GM VIAL ONE (09:31)
[2021-10-06] MEDS: CEFTRIAXONE 1 GM in DEXTROSE 5%-WATER - 50 ML IVPB SCH (09:34)
[2021-10-06] MEDS: PANTOPRAZOLE 20 MG TABLET PO SCH (09:36)
[2021-10-06] MEDS: LOSARTAN POTASSIUM 50 MG TABLET PO SCH (09:36)
[2021-10-06] MEDS: ALPRAZolam 0.25 MG TABLET PO SCH ×2 (09:36→21:27)
[2021-10-06] MEDS: predniSONE 20 MG TABLET (UD) PO SCH ×2 (09:36→21:27)
[2021-10-06] MEDS: AZITHROMYCIN IVPB 500 MG/250 ML BAG IVPB SCH (10:55)
[2021-10-06] MEDS ORDERED: SODIUM POLYSTYRENE SULFONATE 15 GM/60 ML BOTTLE PO ONE (12:24)
[2021-10-06] MEDS ORDERED: SODIUM CHLORIDE 0.45% 1,000 ML IV SCH (13:45)
[2021-10-06 14:37] LABS: CALCIUM 8.6 mg/dL (8.5-10.1)
[2021-10-06 14:38] LABS: BLOOD UREA NITROGEN 49.8 mg/dL (7-18); MAGNESIUM 1.9 mg/dL (1.8-2.4)
[2021-10-06 14:41] LABS: CREATININE 1.6 mg/dL (0.55-1.3)
[2021-10-06] MEDS: RIVAROXABAN 15 MG TABLET PO SCH (17:37)
[2021-10-06] MEDS: SERTRALINE HCL 25 MG TABLET (FP) PO SCH (21:27)
[2021-10-07] MEDS: LEVOTHYROXINE NA 25 MCG TABLET (FP) PO SCH (06:38)
[2021-10-07] MEDS: ALBUTEROL SO4 2.5/IPRATROPIUM 0.5 INH SOL 3 ML VIAL.NEB. NEB SCH (07:43)
[2021-10-07 08:27] LABS: ALBUMIN 2.2 g/dl (3.4-5.0); CALCIUM 8.2 mg/dL (8.5-10.1)
[2021-10-07 08:28] LABS: BLOOD UREA NITROGEN 43.2 mg/dL (7-18)
[2021-10-07 08:30] LABS: CREATININE 1.1 mg/dL (0.55-1.3)
[2021-10-07 08:32] LABS: BILIRUBIN,TOTAL 0.2 mg/dL (0.2-1)
[2021-10-07] MEDS ORDERED: cefTRIAXone SODIUM 1 GM VIAL ONE (09:00)
[2021-10-07] MEDS ORDERED: DEXTROSE 5%-WATER - 50 ML IVPB ONE (09:01)
[2021-10-07] MEDS: CEFTRIAXONE 1 GM in DEXTROSE 5%-WATER - 50 ML IVPB SCH (09:55)
[2021-10-07] MEDS: AZITHROMYCIN IVPB 500 MG/250 ML BAG IVPB SCH (09:57)
[2021-10-07] MEDS: ALPRAZolam 0.25 MG TABLET PO SCH ×2 (09:58→21:04)
[2021-10-07] MEDS: PANTOPRAZOLE 20 MG TABLET PO SCH (09:58)
[2021-10-07] MEDS: LOSARTAN POTASSIUM 50 MG TABLET PO SCH (09:58)
[2021-10-07] MEDS: predniSONE 20 MG TABLET (UD) PO SCH ×2 (09:58→21:04)
[2021-10-07] MEDS: ACETAMINOPHEN 325 MG TABLET (FP) PO PRN (16:19)
[2021-10-07] MEDS: RIVAROXABAN 15 MG TABLET PO SCH (17:52)
[2021-10-07] MEDS: SERTRALINE HCL 25 MG TABLET (FP) PO SCH (21:04)
[2021-10-08] MEDS: LEVOTHYROXINE NA 25 MCG TABLET (FP) PO SCH (06:08)
[2021-10-08] MEDS ORDERED: cefTRIAXone SODIUM 1 GM VIAL ONE (08:55)
[2021-10-08] MEDS ORDERED: DEXTROSE 5%-WATER - 50 ML IVPB ONE (08:55)
[2021-10-08 09:04] LABS: HEMATOCRIT 32.9 % (32.4-45.2); MCH 30.2 pg (25.7-33.7); MCHC 33.5 g/dl (32.0-36.0); MEAN CELL VOLUME 90.2 fl (80-96); MEAN PLT VOLUME 7.9 fl (7.5-11.1); PLATELET COUNT 377 10^3/uL (134-434); RBC 3.65 M/mm3 (3.60-5.2); RDW 14.6 % (11.6-15.6); WHITE BLOOD COUNT 19.2 K/mm3 (4.0-10.0)
[2021-10-08] MEDS: CEFTRIAXONE 1 GM in DEXTROSE 5%-WATER - 50 ML IVPB SCH (09:05)
[2021-10-08] MEDS: AZITHROMYCIN IVPB 500 MG/250 ML BAG IVPB SCH (09:05)
[2021-10-08] MEDS: predniSONE 20 MG TABLET (UD) PO SCH ×2 (09:06→21:07)
[2021-10-08] MEDS: PANTOPRAZOLE 20 MG TABLET PO SCH (09:06)
[2021-10-08] MEDS: ALPRAZolam 0.25 MG TABLET PO SCH ×2 (09:06→21:07)
[2021-10-08] MEDS: LOSARTAN POTASSIUM 50 MG TABLET PO SCH (09:06)
[2021-10-08 09:34] LABS: ANISOCYTOSIS 1+; MACROCYTOSIS 1+
[2021-10-08] MEDS ORDERED: SODIUM CHLORIDE 0.45% 1,000 ML IV SCH (10:00)
[2021-10-08 10:18] LABS: CALCIUM 8.5 mg/dL (8.5-10.1)
[2021-10-08 10:19] LABS: BLOOD UREA NITROGEN 40.7 mg/dL (7-18)
[2021-10-08] MEDS ORDERED: ALBUTEROL SO4 2.5/IPRATROPIUM 0.5 INH SOL 3 ML VIAL.NEB. NEB PRN (16:24)
[2021-10-08] MEDS: RIVAROXABAN 15 MG TABLET PO SCH (17:29)
[2021-10-08] MEDS: SODIUM CHLORIDE 1,000 ML IV SCH (17:29)
[2021-10-08] MEDS: ERTAPENEM SODIUM 1 GM in SODIUM CHLORIDE 50 ML IVPB SCH (18:46)
[2021-10-08] MEDS: SERTRALINE HCL 25 MG TABLET (FP) PO SCH (21:06)
[2021-10-08] MEDS: BUDESONIDE/FORMETEROL FUMARATE 160/4.5 mcg INHALER IH SCH (21:13)
[2021-10-09] MEDS: LEVOTHYROXINE NA 25 MCG TABLET (FP) PO SCH (06:26)
[2021-10-09 08:34] LABS: BASO % 0.1 % (0-2.0); HEMOGLOBIN 10.1 GM/dL (10.7-15.3); LYMPH % 10.9 % (8-40); MCH 30.5 pg (25.7-33.7); MCHC 33.7 g/dl (32.0-36.0); MEAN CELL VOLUME 90.4 fl (80-96); MEAN PLT VOLUME 7.8 fl (7.5-11.1); MONO % 2.8 % (3.8-10.2); NEUT % 86.2 % (42.8-82.8); PLATELET COUNT 346 10^3/uL (134-434); RBC 3.32 M/mm3 (3.60-5.2); RDW 14.4 % (11.6-15.6)
[2021-10-09 09:13] LABS: ALBUMIN 2.1 g/dl (3.4-5.0); CALCIUM 8.3 mg/dL (8.5-10.1)
[2021-10-09 09:18] LABS: BILIRUBIN,TOTAL 0.8 mg/dL (0.2-1); TOT PROT 4.8 g/dl (6.4-8.2)
[2021-10-09] MEDS: LOSARTAN POTASSIUM 50 MG TABLET PO SCH (10:25)
[2021-10-09] MEDS: predniSONE 20 MG TABLET (UD) PO SCH (10:26)
[2021-10-09] MEDS: ALPRAZolam 0.25 MG TABLET PO SCH ×2 (10:26→21:51)
[2021-10-09] MEDS: PANTOPRAZOLE 20 MG TABLET PO SCH (10:26)
[2021-10-09] MEDS: AZITHROMYCIN IVPB 500 MG/250 ML BAG IVPB SCH (10:28)
[2021-10-09] MEDS: BUDESONIDE/FORMETEROL FUMARATE 160/4.5 mcg INHALER IH SCH ×2 (10:36→21:59)
[2021-10-09] MEDS: ERTAPENEM SODIUM 1 GM in SODIUM CHLORIDE 50 ML IVPB SCH (12:42)
[2021-10-09] MEDS: RIVAROXABAN 15 MG TABLET PO SCH (18:37)
[2021-10-09] MEDS: SERTRALINE HCL 25 MG TABLET (FP) PO SCH (21:51)
[2021-10-09] MEDS: SODIUM CHLORIDE 1,000 ML IV SCH (21:51)
[2021-10-09] MEDS: predniSONE 5 MG TABLET (UD) PO SCH (21:51)
[2021-10-10] MEDS: LEVOTHYROXINE NA 25 MCG TABLET (FP) PO SCH (06:30)
[2021-10-10 08:13] LABS: HEMATOCRIT 32.3 % (32.4-45.2); MCH 30.7 pg (25.7-33.7); MCHC 34.1 g/dl (32.0-36.0); MEAN CELL VOLUME 90.2 fl (80-96); MEAN PLT VOLUME 7.6 fl (7.5-11.1); PLATELET COUNT 346 10^3/uL (134-434); RBC 3.59 M/mm3 (3.60-5.2); RDW 14.5 % (11.6-15.6); WHITE BLOOD COUNT 21.1 K/mm3 (4.0-10.0)
[2021-10-10 08:40] LABS: ALBUMIN 2.4 g/dl (3.4-5.0); CALCIUM 8.3 mg/dL (8.5-10.1)
[2021-10-10 08:41] LABS: BLOOD UREA NITROGEN 37.2 mg/dL (7-18)
[2021-10-10 08:44] LABS: CREATININE 0.9 mg/dL (0.55-1.3)
[2021-10-10 08:45] LABS: BILIRUBIN,TOTAL 0.2 mg/dL (0.2-1); TOT PROT 5.2 g/dl (6.4-8.2)
[2021-10-10 09:26] LABS: ANISOCYTOSIS 0; MACROCYTOSIS 0
[2021-10-10] MEDS: ALPRAZolam 0.25 MG TABLET PO SCH ×2 (11:52→21:38)
[2021-10-10] MEDS: LOSARTAN POTASSIUM 50 MG TABLET PO SCH (11:52)
[2021-10-10] MEDS: ERTAPENEM SODIUM 1 GM in SODIUM CHLORIDE 50 ML IVPB SCH (11:52)
[2021-10-10] MEDS: PANTOPRAZOLE 20 MG TABLET PO SCH (11:53)
[2021-10-10] MEDS: predniSONE 5 MG TABLET (UD) PO SCH ×3 (12:11→21:39)
[2021-10-10] MEDS: BUDESONIDE/FORMETEROL FUMARATE 160/4.5 mcg INHALER IH SCH ×2 (12:16→21:39)
[2021-10-10] MEDS: RIVAROXABAN 15 MG TABLET PO SCH (18:00)
[2021-10-10] MEDS: SERTRALINE HCL 25 MG TABLET (FP) PO SCH (21:38)
[2021-10-11] MEDS: LEVOTHYROXINE NA 25 MCG TABLET (FP) PO SCH (06:40)
[2021-10-11] MEDS: predniSONE 5 MG TABLET (UD) PO SCH ×2 (10:02→21:22)
[2021-10-11] MEDS: ERTAPENEM SODIUM 1 GM in SODIUM CHLORIDE 50 ML IVPB SCH (10:02)
[2021-10-11] MEDS: PANTOPRAZOLE 20 MG TABLET PO SCH (10:03)
[2021-10-11] MEDS: LOSARTAN POTASSIUM 50 MG TABLET PO SCH (10:03)
[2021-10-11] MEDS: ALPRAZolam 0.25 MG TABLET PO SCH ×2 (10:03→21:22)
[2021-10-11] MEDS: BUDESONIDE/FORMETEROL FUMARATE 160/4.5 mcg INHALER IH SCH ×2 (10:04→21:22)
[2021-10-11] MEDS: RIVAROXABAN 15 MG TABLET PO SCH (17:56)
[2021-10-11] MEDS: SERTRALINE HCL 25 MG TABLET (FP) PO SCH (21:22)
[2021-10-12] MEDS: LEVOTHYROXINE NA 25 MCG TABLET (FP) PO SCH (06:13)
[2021-10-12 08:11] LABS: BLOOD UREA NITROGEN 36.7 mg/dL (7-18); CALCIUM 8.5 mg/dL (8.5-10.1)
[2021-10-12 08:12] LABS: ALBUMIN 2.2 g/dl (3.4-5.0)
[2021-10-12 08:15] LABS: CREATININE 0.9 mg/dL (0.55-1.3)
[2021-10-12 08:16] LABS: TOT PROT 4.8 g/dl (6.4-8.2)
[2021-10-12 08:17] LABS: BILIRUBIN,TOTAL 0.3 mg/dL (0.2-1)
[2021-10-12 09:12] VITALS: BP 153/76; PULSE 74; TEMP 98
[2021-10-12] MEDS: predniSONE 5 MG TABLET (UD) PO SCH (10:00)
[2021-10-12] MEDS: PANTOPRAZOLE 20 MG TABLET PO SCH (10:00)
[2021-10-12] MEDS: ALPRAZolam 0.25 MG TABLET PO SCH (10:00)
[2021-10-12] MEDS: LOSARTAN POTASSIUM 50 MG TABLET PO SCH (10:00)
[2021-10-12] MEDS: BUDESONIDE/FORMETEROL FUMARATE 160/4.5 mcg INHALER IH SCH (10:01)
[2021-10-12] MEDS: ERTAPENEM SODIUM 1 GM in SODIUM CHLORIDE 50 ML IVPB SCH (10:01)
[2021-10-12 10:30] LABS: HEMATOCRIT 31.8 % (32.4-45.2); HEMOGLOBIN 10.5 GM/dL (10.7-15.3); MCH 30.1 pg (25.7-33.7); MEAN PLT VOLUME 8.1 fl (7.5-11.1); PLATELET COUNT 335 10^3/uL (134-434); RBC 3.49 M/mm3 (3.60-5.2); RDW 14.5 % (11.6-15.6); WHITE BLOOD COUNT 20.3 K/mm3 (4.0-10.0)
[2021-10-12 12:29] LABS: ANISOCYTOSIS 0; MACROCYTOSIS 0
== END 2021-10-12 15:00 | disposition home or self-care (01) | DRG 190 ==
LOC: JER 11:00 → JERBED 15:26 → J4S 10-03 00:10
PROVIDERS: ADMIT Internal Medicine; ATTEND Family Medicine
DX: J44.1 Chronic obstructive pulmonary disease with (acute) exacerbation (principal); J18.1 Lobar pneumonia, unspecified organism; J98.11 Atelectasis; N39.0 Urinary tract infection, site not specified; J96.11 Chronic respiratory failure with hypoxia; N17.9 Acute kidney failure, unspecified; I10 Essential (primary) hypertension; J44.0 Chronic obstructive pulmonary disease with (acute) lower respiratory infection; I48.91 Unspecified atrial fibrillation; Z79.01 Long term (current) use of anticoagulants; Z99.81 Dependence on supplemental oxygen; D72.829 Elevated white blood cell count, unspecified; E03.9 Hypothyroidism, unspecified; E87.5 Hyperkalemia; N28.1 Cyst of kidney, acquired; I12.9 Hypertensive chronic kidney disease with stage 1 through stage 4 chronic kidney disease, or unspecified chronic kidney disease; N18.9 Chronic kidney disease, unspecified
CPT/HCPCS: 0241U-QW; 36415; 71045-TC-FY; 71250-TC; 76775-TC; 80048; 80053; 81003; 82570; 82728; 82803; 83540; 83550; 83735; 83880; 84156; 84443; 84484; 85025; 85027; 87070; 87086; 87186; 87205; 87899; 93005; 93010; 94640; 97116-GP; 97162-GP; 99285-25

== ENCOUNTER 2021-12-02 17:12 | Inpatient (IN) | payer OTHER ==
[2021-12-02 18:15] VITALS: BMI 24.2
[2021-12-02] MEDS ORDERED: methylPREDNISolone NA SUCC 125 MG/2 ML VIAL IVPUSH ONE (18:54)
[2021-12-02] MEDS ORDERED: ALBUTEROL SO4 2.5/IPRATROPIUM 0.5 INH SOL 3 ML VIAL.NEB. NEB ONE (19:04)
[2021-12-02] MEDS ORDERED: methylPREDNISolone NA SUCC 125 MG/2 ML VIAL ONE (19:04)
[2021-12-02] MEDS: ALBUTEROL SO4 2.5/IPRATROPIUM 0.5 INH SOL 3 ML VIAL.NEB. NEB SCH ×3 (19:13→20:30)
[2021-12-02 19:27] LABS: VENOUS BASE EXCESS 2.6 mmol/L (-2-2); VENOUS O2 SATURATION 52.9 % (70-80); VENOUS PCO2 54.6 mmHg (38-52); VENOUS PH 7.348 (7.310-7.410)
[2021-12-02 19:28] LABS: BASO % 0.6 % (0-2.0); EOS % 14.5 % (0-4.5); HEMATOCRIT 32.6 % (32.4-45.2); HEMOGLOBIN 10.9 GM/dL (10.7-15.3); LYMPH % 26.5 % (8-40); MCHC 33.4 g/dl (32.0-36.0); MEAN CELL VOLUME 92.8 fl (80-96); MEAN PLT VOLUME 7.1 fl (7.5-11.1); MONO % 5.3 % (3.8-10.2); NEUT % 53.1 % (42.8-82.8); PLATELET COUNT 340 10^3/uL (134-434); RBC 3.52 M/mm3 (3.60-5.2); RDW 15.6 % (11.6-15.6); WHITE BLOOD COUNT 15.9 K/mm3 (4.0-10.0)
[2021-12-02 19:49] LABS: ALBUMIN 3.2 g/dl (3.4-5.0); BLOOD UREA NITROGEN 23.7 mg/dL (7-18)
[2021-12-02 19:52] LABS: CREATININE 1.4 mg/dL (0.55-1.3)
[2021-12-02 19:54] LABS: BILIRUBIN,TOTAL 0.2 mg/dL (0.2-1); TOT PROT 6.5 g/dl (6.4-8.2)
[2021-12-02 19:57] LABS: N-TERMINAL BNP 1099.2 pg/ml (5-450)
[2021-12-02] MEDS ORDERED: CEFTRIAXONE 1,000 MG in DEXTROSE 5%-WATER - 50 ML IVPB ONE (20:25)
[2021-12-02] MEDS ORDERED: AZITHROMYCIN IVPB 500 MG in DEXTROSE 5%-WATER - 250 ML IVPB ONE (20:25)
[2021-12-02] MEDS ORDERED: CEFTRIAXONE 1 GM/50 ML BAG ONE (21:27)
[2021-12-02] MEDS ORDERED: AZITHROMYCIN IVPB 500 MG/250 ML BAG IVPB ONE (21:27)
[2021-12-02 21:51] LABS: EPI CELLS 28 /uL (0-25.1); HYALINE CASTS 0 /uL (0-3.1); URINE APPEARANCE CLEAR; URINE BACTERIA >9,000 /uL (0-1359); URINE BILIRUBIN NEGATIVE (NEGATIVE); URINE COLOR YELLOW; URINE GLUCOSE (UA) NEGATIVE (NEGATIVE); URINE KETONE NEGATIVE (NEGATIVE); URINE LEUK ESTERASE TRACE (NEGATIVE); URINE NITRITE NEGATIVE (NEGATIVE); URINE PROTEIN 4+ (NEGATIVE); URINE RBC 24 /uL (0-23.9); URINE UROBILINOGEN 0.2 mg/dL (0.2-1.0); URINE WBC 50 /uL (0-25.8)
[2021-12-03] MEDS ORDERED: MELATONIN 5 MG TABLETS PO PRN (01:25)
[2021-12-03] MEDS ORDERED: ALPRAZolam 0.25 MG TABLET PO PRN (01:25)
[2021-12-03] MEDS ORDERED: methylPREDNISolone NA SUCC 40 MG/1 ML VIAL ONE ×4 (01:55→18:08)
[2021-12-03] MEDS: methylPREDNISolone NA SUCC 40 MG/1 ML VIAL IVPUSH SCH ×3 (02:17→19:51)
[2021-12-03] MEDS ORDERED: LEVOTHYROXINE NA 25 MCG TABLET (FP) ONE (06:27)
[2021-12-03] MEDS: LEVOTHYROXINE NA 25 MCG TABLET (FP) PO SCH (06:36)
[2021-12-03 07:47] LABS: BASO % 0.7 % (0-2.0); EOS % 0.1 % (0-4.5); HEMATOCRIT 35.5 % (32.4-45.2); HEMOGLOBIN 11.7 GM/dL (10.7-15.3); LYMPH % 15.4 % (8-40); MCH 30.6 pg (25.7-33.7); MEAN CELL VOLUME 92.9 fl (80-96); MEAN PLT VOLUME 7.9 fl (7.5-11.1); MONO % 0.6 % (3.8-10.2); NEUT % 83.2 % (42.8-82.8); PLATELET COUNT 348 10^3/uL (134-434); RBC 3.82 M/mm3 (3.60-5.2); RDW 15.4 % (11.6-15.6); WHITE BLOOD COUNT 9.2 K/mm3 (4.0-10.0)
[2021-12-03 08:05] LABS: CALCIUM 9.3 mg/dL (8.5-10.1)
[2021-12-03 08:07] LABS: BLOOD UREA NITROGEN 25.9 mg/dL (7-18)
[2021-12-03 08:09] LABS: CREATININE 1.1 mg/dL (0.55-1.3)
[2021-12-03] MEDS ORDERED: ALBUTEROL SO4 2.5/IPRATROPIUM 0.5 INH SOL 3 ML VIAL.NEB. NEB ONE ×3 (08:52→18:07)
[2021-12-03] MEDS ORDERED: LOSARTAN POTASSIUM 50 MG TABLET ONE (08:52)
[2021-12-03] MEDS ORDERED: PANTOPRAZOLE 20 MG TABLET PO ONE (08:52)
[2021-12-03] MEDS ORDERED: CHOLECALCIFEROL (VIT D3) 1,000 UNIT (25 MCG) TABLET ONE (08:53)
[2021-12-03] MEDS: ALBUTEROL SO4 2.5/IPRATROPIUM 0.5 INH SOL 3 ML VIAL.NEB. NEB SCH ×4 (09:00→23:25)
[2021-12-03] MEDS: CEFTRIAXONE 1 GM in DEXTROSE 5%-WATER - 50 ML IVPB SCH (10:45)
[2021-12-03] MEDS: LOSARTAN POTASSIUM 50 MG TABLET PO SCH (10:45)
[2021-12-03] MEDS: PANTOPRAZOLE 20 MG TABLET PO SCH (10:45)
[2021-12-03] MEDS: CHOLECALCIFEROL (VIT D3) 1,000 UNIT (25 MCG) TABLET PO SCH (10:45)
[2021-12-03] MEDS ORDERED: CEFTRIAXONE 1 GM/50 ML BAG ONE (11:00)
[2021-12-03] MEDS ORDERED: AZITHROMYCIN IVPB 500 MG/250 ML BAG IVPB ONE (11:01)
[2021-12-03] MEDS: AZITHROMYCIN IVPB 500 MG/250 ML BAG IVPB SCH (11:30)
[2021-12-03] MEDS: BUDESONIDE/FORMETEROL FUMARATE 160/4.5 mcg INHALER IH SCH ×2 (15:00→23:25)
[2021-12-03] MEDS ORDERED: RIVAROXABAN 15 MG TABLET PO SCH (18:00)
[2021-12-03] MEDS ORDERED: RIVAROXABAN 20 MG TABLET PO SCH (18:00)
[2021-12-03] MEDS ORDERED: SERTRALINE HCL 25 MG TABLET (FP) PO SCH (22:00)
[2021-12-03] MEDS ORDERED: SERTRALINE HCL 50 MG TABLET (FP) ONE (23:20)
[2021-12-03] MEDS ORDERED: MELATONIN 5 MG TABLETS ONE (23:21)
[2021-12-03] MEDS ORDERED: ALPRAZolam 0.25 MG TABLET ONE (23:22)
[2021-12-04] MEDS: methylPREDNISolone NA SUCC 40 MG/1 ML VIAL IVPUSH SCH ×3 (02:49→17:53)
[2021-12-04] MEDS ORDERED: methylPREDNISolone NA SUCC 40 MG/1 ML VIAL ONE ×3 (03:00→17:45)
[2021-12-04] MEDS: LEVOTHYROXINE NA 25 MCG TABLET (FP) PO SCH (07:45)
[2021-12-04] MEDS ORDERED: LEVOTHYROXINE NA 75 MCG TABLET (FP) ONE (07:52)
[2021-12-04] MEDS ORDERED: CHOLECALCIFEROL (VIT D3) 1,000 UNIT (25 MCG) TABLET ONE (08:12)
[2021-12-04] MEDS ORDERED: LOSARTAN POTASSIUM 50 MG TABLET ONE (08:12)
[2021-12-04] MEDS ORDERED: ALBUTEROL SO4 2.5/IPRATROPIUM 0.5 INH SOL 3 ML VIAL.NEB. NEB ONE ×2 (08:12→17:45)
[2021-12-04] MEDS ORDERED: AZITHROMYCIN IVPB 500 MG/250 ML BAG IVPB ONE (08:13)
[2021-12-04] MEDS ORDERED: CEFTRIAXONE 1 GM/50 ML BAG ONE (08:13)
[2021-12-04] MEDS: CHOLECALCIFEROL (VIT D3) 1,000 UNIT (25 MCG) TABLET PO SCH (10:00)
[2021-12-04] MEDS: LOSARTAN POTASSIUM 50 MG TABLET PO SCH (10:00)
[2021-12-04] MEDS: CEFTRIAXONE 1 GM in DEXTROSE 5%-WATER - 50 ML IVPB SCH (10:00)
[2021-12-04] MEDS: PANTOPRAZOLE 20 MG TABLET PO SCH (10:00)
[2021-12-04] MEDS: ALBUTEROL SO4 2.5/IPRATROPIUM 0.5 INH SOL 3 ML VIAL.NEB. NEB SCH ×3 (10:00→17:00)
[2021-12-04] MEDS ORDERED: PANTOPRAZOLE 20 MG TABLET PO ONE (10:12)
[2021-12-04] MEDS: AZITHROMYCIN IVPB 500 MG/250 ML BAG IVPB SCH (11:00)
[2021-12-04] MEDS: BUDESONIDE/FORMETEROL FUMARATE 160/4.5 mcg INHALER IH SCH ×2 (11:00→21:28)
[2021-12-04] MEDS: RIVAROXABAN 15 MG TABLET PO SCH (20:24)
[2021-12-04] MEDS: MELATONIN 5 MG TABLETS PO PRN (21:29)
[2021-12-04] MEDS: SERTRALINE HCL 25 MG TABLET (FP) PO SCH (21:29)
[2021-12-05] MEDS: methylPREDNISolone NA SUCC 40 MG/1 ML VIAL IVPUSH SCH ×3 (01:29→17:06)
[2021-12-05 07:39] LABS: HEMATOCRIT 30.4 % (32.4-45.2); HEMOGLOBIN 10.2 GM/dL (10.7-15.3); MCH 31.1 pg (25.7-33.7); MCHC 33.4 g/dl (32.0-36.0); MEAN PLT VOLUME 7.8 fl (7.5-11.1); PLATELET COUNT 340 10^3/uL (134-434); RBC 3.27 M/mm3 (3.60-5.2); RDW 15.6 % (11.6-15.6); WHITE BLOOD COUNT 14.7 K/mm3 (4.0-10.0)
[2021-12-05 08:08] LABS: CALCIUM 9.2 mg/dL (8.5-10.1)
[2021-12-05 08:09] LABS: ALBUMIN 2.7 g/dl (3.4-5.0); MAGNESIUM 1.9 mg/dL (1.8-2.4)
[2021-12-05] MEDS: ALBUTEROL SO4 2.5/IPRATROPIUM 0.5 INH SOL 3 ML VIAL.NEB. NEB SCH ×3 (08:10→19:52)
[2021-12-05 08:11] LABS: CREATININE 1.6 mg/dL (0.55-1.3); TOT PROT 5.7 g/dl (6.4-8.2)
[2021-12-05 08:13] LABS: BILIRUBIN,TOTAL 0.2 mg/dL (0.2-1)
[2021-12-05 08:17] LABS: BLOOD UREA NITROGEN 56.1 mg/dL (7-18)
[2021-12-05] MEDS: LOSARTAN POTASSIUM 50 MG TABLET PO SCH (10:10)
[2021-12-05] MEDS: PANTOPRAZOLE 20 MG TABLET PO SCH (10:11)
[2021-12-05] MEDS: CHOLECALCIFEROL (VIT D3) 1,000 UNIT (25 MCG) TABLET PO SCH (10:11)
[2021-12-05] MEDS: CEFTRIAXONE 1 GM in DEXTROSE 5%-WATER - 50 ML IVPB SCH (10:15)
[2021-12-05] MEDS: LEVOTHYROXINE NA 25 MCG TABLET (FP) PO SCH (10:16)
[2021-12-05] MEDS: AZITHROMYCIN IVPB 500 MG/250 ML BAG IVPB SCH (10:47)
[2021-12-05] MEDS: BUDESONIDE/FORMETEROL FUMARATE 160/4.5 mcg INHALER IH SCH ×2 (11:31→21:36)
[2021-12-05] MEDS ORDERED: SODIUM CHLORIDE 0.45% 1,000 ML IV SCH (12:00)
[2021-12-05] MEDS: LEVALBUTEROL HCL 0.31 MG/3 ML VIAL.NEB IH SCH ×2 (15:45→20:48)
[2021-12-05] MEDS: RIVAROXABAN 15 MG TABLET PO SCH (17:06)
[2021-12-05] MEDS: SERTRALINE HCL 25 MG TABLET (FP) PO SCH (21:37)
[2021-12-05] MEDS: MELATONIN 5 MG TABLETS PO PRN (21:37)
[2021-12-05] MEDS: ALPRAZolam 0.25 MG TABLET PO PRN (21:41)
[2021-12-05] MEDS ORDERED: MAGNESIUM OXIDE 400 MG TABLET (FP) PO SCH ×2 (22:00→23:30)
[2021-12-05] MEDS: DOCUSATE SODIUM 100 MG CAPSULE (FP) PO PRN (23:30)
[2021-12-06] MEDS: methylPREDNISolone NA SUCC 40 MG/1 ML VIAL IVPUSH SCH ×4 (02:26→21:32)
[2021-12-06] MEDS: LEVOTHYROXINE NA 25 MCG TABLET (FP) PO SCH (06:00)
[2021-12-06] MEDS: LEVALBUTEROL HCL 0.31 MG/3 ML VIAL.NEB IH SCH ×4 (07:35→20:20)
[2021-12-06] MEDS: CHOLECALCIFEROL (VIT D3) 1,000 UNIT (25 MCG) TABLET PO SCH (09:19)
[2021-12-06] MEDS: PANTOPRAZOLE 20 MG TABLET PO SCH (09:19)
[2021-12-06] MEDS: LOSARTAN POTASSIUM 50 MG TABLET PO SCH (09:20)
[2021-12-06] MEDS: CEFTRIAXONE 1 GM in DEXTROSE 5%-WATER - 50 ML IVPB SCH (09:20)
[2021-12-06 09:27] LABS: BASO % 0.2 % (0-2.0); HEMATOCRIT 32.1 % (32.4-45.2); LYMPH % 9.2 % (8-40); MCH 31.4 pg (25.7-33.7); MCHC 34.1 g/dl (32.0-36.0); MEAN CELL VOLUME 91.8 fl (80-96); MEAN PLT VOLUME 8.1 fl (7.5-11.1); MONO % 2.8 % (3.8-10.2); NEUT % 87.8 % (42.8-82.8); PLATELET COUNT 368 10^3/uL (134-434); RBC 3.49 M/mm3 (3.60-5.2); RDW 15.3 % (11.6-15.6); WHITE BLOOD COUNT 14.1 K/mm3 (4.0-10.0)
[2021-12-06] MEDS: BUDESONIDE/FORMETEROL FUMARATE 160/4.5 mcg INHALER IH SCH ×2 (09:42→21:38)
[2021-12-06] MEDS: TIOTROPIUM BROMIDE 2.5 MCG (SPIRIVA) RESPIMAT INHALER IH SCH (09:42)
[2021-12-06] MEDS: AZITHROMYCIN IVPB 500 MG/250 ML BAG IVPB SCH (09:42)
[2021-12-06 09:57] LABS: CALCIUM 8.8 mg/dL (8.5-10.1)
[2021-12-06 09:58] LABS: BLOOD UREA NITROGEN 55.6 mg/dL (7-18)
[2021-12-06 10:02] LABS: CREATININE 1.4 mg/dL (0.55-1.3); TOT PROT 6.2 g/dl (6.4-8.2)
[2021-12-06 10:03] LABS: BILIRUBIN,TOTAL 0.2 mg/dL (0.2-1)
[2021-12-06] MEDS: RIVAROXABAN 15 MG TABLET PO SCH (18:23)
[2021-12-06] MEDS: DOCUSATE SODIUM 100 MG CAPSULE (FP) PO PRN (21:38)
[2021-12-06] MEDS: SERTRALINE HCL 25 MG TABLET (FP) PO SCH (21:38)
[2021-12-06] MEDS: ALPRAZolam 0.25 MG TABLET PO PRN (21:39)
[2021-12-06] MEDS: MELATONIN 5 MG TABLETS PO PRN (21:39)
[2021-12-07] MEDS: methylPREDNISolone NA SUCC 40 MG/1 ML VIAL IVPUSH SCH ×4 (02:03→21:10)
[2021-12-07] MEDS: LEVOTHYROXINE NA 25 MCG TABLET (FP) PO SCH (06:40)
[2021-12-07] MEDS: LEVALBUTEROL HCL 0.31 MG/3 ML VIAL.NEB IH SCH ×4 (07:45→20:05)
[2021-12-07] MEDS: CHOLECALCIFEROL (VIT D3) 1,000 UNIT (25 MCG) TABLET PO SCH (09:35)
[2021-12-07] MEDS: LOSARTAN POTASSIUM 50 MG TABLET PO SCH (09:35)
[2021-12-07] MEDS: PANTOPRAZOLE 20 MG TABLET PO SCH (09:35)
[2021-12-07] MEDS: TIOTROPIUM BROMIDE 2.5 MCG (SPIRIVA) RESPIMAT INHALER IH SCH (09:36)
[2021-12-07] MEDS: CEFTRIAXONE 1 GM in DEXTROSE 5%-WATER - 50 ML IVPB SCH (09:36)
[2021-12-07] MEDS: BUDESONIDE/FORMETEROL FUMARATE 160/4.5 mcg INHALER IH SCH ×2 (09:37→21:10)
[2021-12-07] MEDS: AZITHROMYCIN IVPB 500 MG/250 ML BAG IVPB SCH (09:39)
[2021-12-07] MEDS: RIVAROXABAN 15 MG TABLET PO SCH (17:48)
[2021-12-07] MEDS: SERTRALINE HCL 25 MG TABLET (FP) PO SCH (21:10)
[2021-12-07] MEDS: ALPRAZolam 0.25 MG TABLET PO PRN (21:27)
[2021-12-08] MEDS: methylPREDNISolone NA SUCC 40 MG/1 ML VIAL IVPUSH SCH ×4 (03:25→21:45)
[2021-12-08] MEDS: LEVOTHYROXINE NA 25 MCG TABLET (FP) PO SCH (06:18)
[2021-12-08] MEDS: LEVALBUTEROL HCL 0.31 MG/3 ML VIAL.NEB IH SCH ×4 (07:40→20:33)
[2021-12-08 08:38] LABS: BLOOD UREA NITROGEN 50.4 mg/dL (7-18); CREATININE 1.3 mg/dL (0.55-1.3)
[2021-12-08 08:39] LABS: ALBUMIN 2.7 g/dl (3.4-5.0); BILIRUBIN,TOTAL 0.3 mg/dL (0.2-1); TOT PROT 5.4 g/dl (6.4-8.2)
[2021-12-08] MEDS: BUDESONIDE/FORMETEROL FUMARATE 160/4.5 mcg INHALER IH SCH ×2 (09:08→21:45)
[2021-12-08] MEDS: PANTOPRAZOLE 20 MG TABLET PO SCH (09:08)
[2021-12-08] MEDS: LOSARTAN POTASSIUM 50 MG TABLET PO SCH (09:08)
[2021-12-08] MEDS: CHOLECALCIFEROL (VIT D3) 1,000 UNIT (25 MCG) TABLET PO SCH (09:08)
[2021-12-08] MEDS: TIOTROPIUM BROMIDE 2.5 MCG (SPIRIVA) RESPIMAT INHALER IH SCH (09:09)
[2021-12-08] MEDS: CEFTRIAXONE 1 GM in DEXTROSE 5%-WATER - 50 ML IVPB SCH (09:09)
[2021-12-08] MEDS: RIVAROXABAN 15 MG TABLET PO SCH (17:16)
[2021-12-08] MEDS: ALPRAZolam 0.25 MG TABLET PO PRN (21:46)
[2021-12-08] MEDS: MELATONIN 5 MG TABLETS PO PRN (21:46)
[2021-12-08] MEDS: SERTRALINE HCL 25 MG TABLET (FP) PO SCH (21:46)
[2021-12-09] MEDS: methylPREDNISolone NA SUCC 40 MG/1 ML VIAL IVPUSH SCH ×4 (02:23→21:29)
[2021-12-09] MEDS: LEVOTHYROXINE NA 25 MCG TABLET (FP) PO SCH (06:19)
[2021-12-09] MEDS: LEVALBUTEROL HCL 0.31 MG/3 ML VIAL.NEB IH SCH ×4 (08:04→20:15)
[2021-12-09 08:57] LABS: ALBUMIN 2.6 g/dl (3.4-5.0); BLOOD UREA NITROGEN 55.2 mg/dL (7-18)
[2021-12-09 09:02] LABS: CREATININE 1.3 mg/dL (0.55-1.3)
[2021-12-09 09:03] LABS: BILIRUBIN,TOTAL 0.3 mg/dL (0.2-1); TOT PROT 5.2 g/dl (6.4-8.2)
[2021-12-09] MEDS: TIOTROPIUM BROMIDE 2.5 MCG (SPIRIVA) RESPIMAT INHALER IH SCH (10:07)
[2021-12-09] MEDS: LOSARTAN POTASSIUM 50 MG TABLET PO SCH (10:07)
[2021-12-09] MEDS: CEFUROXIME AXETIL 250 MG TABLET PO SCH ×2 (10:07→21:29)
[2021-12-09] MEDS: PANTOPRAZOLE 20 MG TABLET PO SCH (10:07)
[2021-12-09] MEDS: CHOLECALCIFEROL (VIT D3) 1,000 UNIT (25 MCG) TABLET PO SCH (10:13)
[2021-12-09] MEDS: BUDESONIDE/FORMETEROL FUMARATE 160/4.5 mcg INHALER IH SCH ×2 (10:13→21:34)
[2021-12-09] MEDS: RIVAROXABAN 15 MG TABLET PO SCH (18:48)
[2021-12-09] MEDS: SERTRALINE HCL 25 MG TABLET (FP) PO SCH (21:29)
[2021-12-09] MEDS: ALPRAZolam 0.25 MG TABLET PO PRN (21:29)
[2021-12-09] MEDS: MELATONIN 5 MG TABLETS PO PRN (21:29)
[2021-12-10] MEDS: methylPREDNISolone NA SUCC 40 MG/1 ML VIAL IVPUSH SCH ×4 (02:34→22:10)
[2021-12-10] MEDS: LEVOTHYROXINE NA 25 MCG TABLET (FP) PO SCH (06:06)
[2021-12-10] MEDS: LEVALBUTEROL HCL 0.31 MG/3 ML VIAL.NEB IH SCH ×3 (08:13→20:21)
[2021-12-10] MEDS: PANTOPRAZOLE 20 MG TABLET PO SCH (09:27)
[2021-12-10] MEDS: TIOTROPIUM BROMIDE 2.5 MCG (SPIRIVA) RESPIMAT INHALER IH SCH (09:27)
[2021-12-10] MEDS: DOCUSATE SODIUM 100 MG CAPSULE (FP) PO PRN ×2 (09:27→22:11)
[2021-12-10] MEDS: BUDESONIDE/FORMETEROL FUMARATE 160/4.5 mcg INHALER IH SCH ×2 (09:27→22:21)
[2021-12-10] MEDS: CHOLECALCIFEROL (VIT D3) 1,000 UNIT (25 MCG) TABLET PO SCH (09:27)
[2021-12-10] MEDS: LOSARTAN POTASSIUM 50 MG TABLET PO SCH (09:27)
[2021-12-10] MEDS: CEFUROXIME AXETIL 250 MG TABLET PO SCH ×2 (09:27→22:11)
[2021-12-10 10:16] LABS: BASO % 0.1 % (0-2.0); HEMATOCRIT 31.1 % (32.4-45.2); HEMOGLOBIN 10.3 GM/dL (10.7-15.3); LYMPH % 8.3 % (8-40); MCH 30.5 pg (25.7-33.7); MCHC 33.1 g/dl (32.0-36.0); MEAN CELL VOLUME 92.1 fl (80-96); MEAN PLT VOLUME 8.1 fl (7.5-11.1); MONO % 3.2 % (3.8-10.2); NEUT % 88.4 % (42.8-82.8); PLATELET COUNT 363 10^3/uL (134-434); RBC 3.37 M/mm3 (3.60-5.2); RDW 15.2 % (11.6-15.6); WHITE BLOOD COUNT 17.3 K/mm3 (4.0-10.0)
[2021-12-10 10:29] LABS: ALBUMIN 2.4 g/dl (3.4-5.0); BLOOD UREA NITROGEN 51.9 mg/dL (7-18); CALCIUM 8.5 mg/dL (8.5-10.1)
[2021-12-10 10:32] LABS: CREATININE 1.2 mg/dL (0.55-1.3)
[2021-12-10 10:34] LABS: BILIRUBIN,TOTAL 0.6 mg/dL (0.2-1); TOT PROT 4.9 g/dl (6.4-8.2)
[2021-12-10] MEDS: RIVAROXABAN 15 MG TABLET PO SCH (17:08)
[2021-12-10] MEDS: SERTRALINE HCL 25 MG TABLET (FP) PO SCH (22:11)
[2021-12-10] MEDS: MELATONIN 5 MG TABLETS PO PRN (22:11)
[2021-12-10] MEDS: ALPRAZolam 0.25 MG TABLET PO PRN (22:11)
[2021-12-11] MEDS: methylPREDNISolone NA SUCC 40 MG/1 ML VIAL IVPUSH SCH ×3 (02:19→17:36)
[2021-12-11] MEDS: LEVOTHYROXINE NA 25 MCG TABLET (FP) PO SCH (06:22)
[2021-12-11] MEDS: LEVALBUTEROL HCL 0.31 MG/3 ML VIAL.NEB IH SCH ×4 (07:40→19:44)
[2021-12-11 07:53] LABS: BASO % 0.1 % (0-2.0); HEMATOCRIT 32.4 % (32.4-45.2); HEMOGLOBIN 10.8 GM/dL (10.7-15.3); LYMPH % 7.4 % (8-40); MCHC 33.4 g/dl (32.0-36.0); MEAN CELL VOLUME 92.7 fl (80-96); MEAN PLT VOLUME 7.9 fl (7.5-11.1); MONO % 2.7 % (3.8-10.2); NEUT % 89.8 % (42.8-82.8); PLATELET COUNT 394 10^3/uL (134-434); RBC 3.49 M/mm3 (3.60-5.2); RDW 14.9 % (11.6-15.6); WHITE BLOOD COUNT 19.7 K/mm3 (4.0-10.0)
[2021-12-11 08:46] LABS: CALCIUM 9.5 mg/dL (8.5-10.1)
[2021-12-11 08:47] LABS: ALBUMIN 2.6 g/dl (3.4-5.0); BLOOD UREA NITROGEN 59.8 mg/dL (7-18)
[2021-12-11 08:50] LABS: CREATININE 1.4 mg/dL (0.55-1.3)
[2021-12-11 08:51] LABS: BILIRUBIN,TOTAL 0.4 mg/dL (0.2-1); TOT PROT 5.2 g/dl (6.4-8.2)
[2021-12-11] MEDS: CEFUROXIME AXETIL 250 MG TABLET PO SCH ×2 (09:34→21:18)
[2021-12-11] MEDS: CHOLECALCIFEROL (VIT D3) 1,000 UNIT (25 MCG) TABLET PO SCH (09:34)
[2021-12-11] MEDS: PANTOPRAZOLE 20 MG TABLET PO SCH (09:34)
[2021-12-11] MEDS: LOSARTAN POTASSIUM 50 MG TABLET PO SCH (09:35)
[2021-12-11] MEDS: TIOTROPIUM BROMIDE 2.5 MCG (SPIRIVA) RESPIMAT INHALER IH SCH (09:37)
[2021-12-11] MEDS: BUDESONIDE/FORMETEROL FUMARATE 160/4.5 mcg INHALER IH SCH ×2 (09:37→21:17)
[2021-12-11] MEDS: SODIUM ZIRCONIUM CYCLOSILICATE (LOKELMA) 5 GM PACKET PO SCH (10:52)
[2021-12-11] MEDS: RIVAROXABAN 15 MG TABLET PO SCH (17:36)
[2021-12-11] MEDS: MELATONIN 5 MG TABLETS PO PRN (21:18)
[2021-12-11] MEDS: SERTRALINE HCL 25 MG TABLET (FP) PO SCH (21:18)
[2021-12-11] MEDS: ALPRAZolam 0.25 MG TABLET PO PRN (21:18)
[2021-12-12] MEDS: methylPREDNISolone NA SUCC 40 MG/1 ML VIAL IVPUSH SCH (01:21)
[2021-12-12] MEDS: LEVOTHYROXINE NA 25 MCG TABLET (FP) PO SCH (06:45)
[2021-12-12] MEDS: LEVALBUTEROL HCL 0.31 MG/3 ML VIAL.NEB IH SCH ×4 (08:28→20:28)
[2021-12-12 09:00] LABS: HEMATOCRIT 30.9 % (32.4-45.2); HEMOGLOBIN 10.6 GM/dL (10.7-15.3); MCH 31.4 pg (25.7-33.7); MCHC 34.4 g/dl (32.0-36.0); MEAN CELL VOLUME 91.2 fl (80-96); MEAN PLT VOLUME 8.1 fl (7.5-11.1); PLATELET COUNT 346 10^3/uL (134-434); RBC 3.39 M/mm3 (3.60-5.2); RDW 14.7 % (11.6-15.6); WHITE BLOOD COUNT 20.9 K/mm3 (4.0-10.0)
[2021-12-12 09:15] LABS: ALBUMIN 2.2 g/dl (3.4-5.0); CALCIUM 8.7 mg/dL (8.5-10.1)
[2021-12-12 09:18] LABS: CREATININE 1.1 mg/dL (0.55-1.3)
[2021-12-12 09:20] LABS: BILIRUBIN,TOTAL 0.5 mg/dL (0.2-1); TOT PROT 4.8 g/dl (6.4-8.2)
[2021-12-12] MEDS: predniSONE 20 MG TABLET (UD) PO SCH ×2 (10:11→21:51)
[2021-12-12] MEDS: CEFUROXIME AXETIL 250 MG TABLET PO SCH (10:11)
[2021-12-12] MEDS: PANTOPRAZOLE 20 MG TABLET PO SCH (10:11)
[2021-12-12] MEDS: LOSARTAN POTASSIUM 50 MG TABLET PO SCH (10:11)
[2021-12-12] MEDS: CHOLECALCIFEROL (VIT D3) 1,000 UNIT (25 MCG) TABLET PO SCH (10:12)
[2021-12-12 10:13] LABS: ANISOCYTOSIS 2+; MACROCYTOSIS 0
[2021-12-12] MEDS: SODIUM ZIRCONIUM CYCLOSILICATE (LOKELMA) 5 GM PACKET PO SCH (10:14)
[2021-12-12] MEDS: BUDESONIDE/FORMETEROL FUMARATE 160/4.5 mcg INHALER IH SCH (10:22)
[2021-12-12] MEDS: TIOTROPIUM BROMIDE 2.5 MCG (SPIRIVA) RESPIMAT INHALER IH SCH (10:22)
[2021-12-12] MEDS: RIVAROXABAN 15 MG TABLET PO SCH (18:19)
[2021-12-12] MEDS: SERTRALINE HCL 25 MG TABLET (FP) PO SCH (21:46)
[2021-12-13] MEDS: ALPRAZolam 0.25 MG TABLET PO PRN ×2 (00:22→22:14)
[2021-12-13] MEDS: BUDESONIDE/FORMETEROL FUMARATE 160/4.5 mcg INHALER IH SCH ×3 (00:22→22:02)
[2021-12-13] MEDS: CEFUROXIME AXETIL 250 MG TABLET PO SCH ×3 (00:22→22:02)
[2021-12-13] MEDS: LEVOTHYROXINE NA 25 MCG TABLET (FP) PO SCH (06:13)
[2021-12-13] MEDS: LEVALBUTEROL HCL 0.31 MG/3 ML VIAL.NEB IH SCH ×4 (08:14→20:00)
[2021-12-13] MEDS: SODIUM ZIRCONIUM CYCLOSILICATE (LOKELMA) 5 GM PACKET PO SCH (09:18)
[2021-12-13] MEDS: CHOLECALCIFEROL (VIT D3) 1,000 UNIT (25 MCG) TABLET PO SCH (09:18)
[2021-12-13] MEDS: LOSARTAN POTASSIUM 50 MG TABLET PO SCH (09:19)
[2021-12-13] MEDS: PANTOPRAZOLE 20 MG TABLET PO SCH (09:19)
[2021-12-13] MEDS: predniSONE 20 MG TABLET (UD) PO SCH ×2 (09:19→22:02)
[2021-12-13 10:12] VITALS: RESP 17
[2021-12-13] MEDS: TIOTROPIUM BROMIDE 2.5 MCG (SPIRIVA) RESPIMAT INHALER IH SCH (10:26)
[2021-12-13] MEDS: RIVAROXABAN 15 MG TABLET PO SCH (17:15)
[2021-12-13] MEDS: SERTRALINE HCL 25 MG TABLET (FP) PO SCH (22:02)
[2021-12-13] MEDS: MELATONIN 5 MG TABLETS PO PRN (22:14)
[2021-12-14] MEDS: LEVOTHYROXINE NA 25 MCG TABLET (FP) PO SCH (06:44)
[2021-12-14] MEDS: LEVALBUTEROL HCL 0.31 MG/3 ML VIAL.NEB IH SCH ×4 (08:37→20:11)
[2021-12-14] MEDS: DOCUSATE SODIUM 100 MG CAPSULE (FP) PO PRN ×2 (09:40→21:57)
[2021-12-14] MEDS: CHOLECALCIFEROL (VIT D3) 1,000 UNIT (25 MCG) TABLET PO SCH (09:41)
[2021-12-14] MEDS: predniSONE 20 MG TABLET (UD) PO SCH (09:41)
[2021-12-14] MEDS: PANTOPRAZOLE 20 MG TABLET PO SCH (09:41)
[2021-12-14] MEDS: LOSARTAN POTASSIUM 50 MG TABLET PO SCH (09:41)
[2021-12-14] MEDS: TIOTROPIUM BROMIDE 2.5 MCG (SPIRIVA) RESPIMAT INHALER IH SCH (09:42)
[2021-12-14] MEDS: BUDESONIDE/FORMETEROL FUMARATE 160/4.5 mcg INHALER IH SCH ×2 (09:42→21:56)
[2021-12-14] MEDS: CEFUROXIME AXETIL 250 MG TABLET PO SCH ×2 (10:24→21:57)
[2021-12-14] MEDS: methylPREDNISolone NA SUCC 40 MG/1 ML VIAL IVPUSH SCH ×2 (10:43→17:20)
[2021-12-14] MEDS: ACETAMINOPHEN 325 MG TABLET (FP) PO PRN (14:54)
[2021-12-14] MEDS ORDERED: GLYCERIN 1 RECTAL SUPPOSITORY, ADULT RC ONE (16:50)
[2021-12-14] MEDS: POLYETHYLENE GLYCOL (HEALTHYLAX) 3350 17 GM PACKET PO SCH (17:20)
[2021-12-14] MEDS: RIVAROXABAN 15 MG TABLET PO SCH (17:41)
[2021-12-14] MEDS: MELATONIN 5 MG TABLETS PO PRN (21:57)
[2021-12-14] MEDS: SERTRALINE HCL 25 MG TABLET (FP) PO SCH (21:57)
[2021-12-14] MEDS: ALPRAZolam 0.25 MG TABLET PO PRN (21:57)
[2021-12-15] MEDS: methylPREDNISolone NA SUCC 40 MG/1 ML VIAL IVPUSH SCH ×2 (02:12→09:53)
[2021-12-15] MEDS: LEVOTHYROXINE NA 25 MCG TABLET (FP) PO SCH (06:45)
[2021-12-15] MEDS: LEVALBUTEROL HCL 0.31 MG/3 ML VIAL.NEB IH SCH ×3 (08:08→12:29)
[2021-12-15] MEDS: POLYETHYLENE GLYCOL (HEALTHYLAX) 3350 17 GM PACKET PO SCH (09:50)
[2021-12-15] MEDS: CEFUROXIME AXETIL 250 MG TABLET PO SCH (09:53)
[2021-12-15] MEDS: LOSARTAN POTASSIUM 50 MG TABLET PO SCH (09:53)
[2021-12-15] MEDS: PANTOPRAZOLE 20 MG TABLET PO SCH (09:53)
[2021-12-15] MEDS: CHOLECALCIFEROL (VIT D3) 1,000 UNIT (25 MCG) TABLET PO SCH (09:54)
[2021-12-15] MEDS: BUDESONIDE/FORMETEROL FUMARATE 160/4.5 mcg INHALER IH SCH (09:54)
[2021-12-15] MEDS: TIOTROPIUM BROMIDE 2.5 MCG (SPIRIVA) RESPIMAT INHALER IH SCH (09:55)
[2021-12-15] MEDS: ACETAMINOPHEN 325 MG TABLET (FP) PO PRN (10:10)
[2021-12-15 13:12] VITALS: BP 161/94; PULSE 88; TEMP 97.8
== END 2021-12-15 14:12 | disposition home health service (06) | DRG 191 ==
LOC: JER 17:12 → JERBED 20:31 → J4S 12-04 20:05 → J6S 12-12 15:26
PROVIDERS: ADMIT Internal Medicine; ATTEND Family Medicine
DX: J44.1 Chronic obstructive pulmonary disease with (acute) exacerbation (principal); J96.11 Chronic respiratory failure with hypoxia; N17.9 Acute kidney failure, unspecified; N39.0 Urinary tract infection, site not specified; J44.0 Chronic obstructive pulmonary disease with (acute) lower respiratory infection; I48.91 Unspecified atrial fibrillation; E03.9 Hypothyroidism, unspecified; F41.9 Anxiety disorder, unspecified; B96.1 Klebsiella pneumoniae [K. pneumoniae] as the cause of diseases classified elsewhere; I48.0 Paroxysmal atrial fibrillation; D64.9 Anemia, unspecified; I12.9 Hypertensive chronic kidney disease with stage 1 through stage 4 chronic kidney disease, or unspecified chronic kidney disease; N18.9 Chronic kidney disease, unspecified; J20.9 Acute bronchitis, unspecified; D72.829 Elevated white blood cell count, unspecified; N28.1 Cyst of kidney, acquired; N20.0 Calculus of kidney; F32.A Depression, unspecified; E87.5 Hyperkalemia
CPT/HCPCS: 0241U-QW; 36415; 71045-TC-FY; 80048; 80053; 81003; 82728; 82803; 82962; 83540; 83550; 83735; 83880; 84484; 85025; 85027; 87040; 87086; 87186; 93005; 93010; 93971-TC; 94640; 97116-GP; 97161-GP; 99285-25

== ENCOUNTER 2021-12-25 10:41 | Inpatient (IN) | payer OTHER ==
[2021-12-25] MEDS ORDERED: dilTIAZem HCL 125 MG/25 ML - 25 ML VIAL ONE ×3 (11:09→12:44)
[2021-12-25] MEDS ORDERED: ALBUTEROL SO4 2.5/IPRATROPIUM 0.5 INH SOL 3 ML VIAL.NEB. NEB ONE ×2 (11:15→12:05)
[2021-12-25] MEDS: ALBUTEROL SO4 2.5/IPRATROPIUM 0.5 INH SOL 3 ML VIAL.NEB. NEB SCH ×3 (11:42→12:29)
[2021-12-25 12:11] LABS: VENOUS BASE EXCESS 4.3 mmol/L (-2-2); VENOUS O2 SATURATION 26.9 % (70-80); VENOUS PCO2 56.6 mmHg (38-52); VENOUS PH 7.353 (7.310-7.410)
[2021-12-25 12:27] LABS: CHLORIDE 100 mmol/L (98-107); SODIUM 135 mmol/L (136-145)
[2021-12-25 12:28] LABS: HEMATOCRIT 28.6 % (32.4-45.2); HEMOGLOBIN 9.4 GM/dL (10.7-15.3); MCH 30.9 pg (25.7-33.7); MEAN CELL VOLUME 93.5 fl (80-96); MEAN PLT VOLUME 7.4 fl (7.5-11.1); PLATELET COUNT 190 10^3/uL (134-434); RBC 3.06 M/mm3 (3.60-5.2); RDW 14.9 % (11.6-15.6); WHITE BLOOD COUNT 18.7 K/mm3 (4.0-10.0)
[2021-12-25 12:29] LABS: CALCIUM 8.3 mg/dL (8.5-10.1)
[2021-12-25 12:30] LABS: ALBUMIN 2.2 g/dl (3.4-5.0); ANION GAP 6 MMOL/L (8-16); CO2 30 mmol/L (21-32); GLUCOSE,RANDOM 116 mg/dL (74-106)
[2021-12-25 12:33] LABS: CREATININE 0.9 mg/dL (0.55-1.3); SGOT/AST 16 U/L (15-37); SGPT/ALT 28 U/L (13-61)
[2021-12-25 12:35] LABS: BILIRUBIN,TOTAL 0.5 mg/dL (0.2-1)
[2021-12-25 12:36] LABS: INR 1.44 (0.83-1.09); PROTHROMBIN TIME (PATIENT) 16.6 SEC (9.7-13.0)
[2021-12-25] MEDS ORDERED: dilTIAZem HCL 50 MG/10 ML - 10 ML VIAL IVPUSH ONE ×2 (12:38→14:32)
[2021-12-25 12:39] LABS: ACTIVATED PTT 30.1 SECONDS (25.2-36.5)
[2021-12-25 12:47] LABS: ALK PHOS 111 U/L (45-117); BLOOD UREA NITROGEN 16.3 mg/dL (7-18)
[2021-12-25] MEDS ORDERED: dilTIAZem HCL 30 MG TABLET PO ONE (12:54)
[2021-12-25] MEDS ORDERED: dilTIAZem HCL 30 MG TABLET ONE (13:02)
[2021-12-25 13:47] LABS: MAGNESIUM 1.2 mg/dL (1.8-2.4)
[2021-12-25 13:51] LABS: PHOSPHOROUS 2.3 mg/dL (2.5-4.9)
[2021-12-25 13:55] LABS: N-TERMINAL BNP 4332.4 pg/ml (5-450)
[2021-12-25] MEDS ORDERED: MAGNESIUM SULF 50% (8.12 MEQ/2 ML-1 GM VIAL) IVPB ONE (14:09)
[2021-12-25 14:32] LABS: EPI CELLS >36 /uL (0-25.1); HYALINE CASTS 4 /uL (0-3.1); URINE APPEARANCE CLEAR; URINE BACTERIA 91 /uL (0-1359); URINE BILIRUBIN NEGATIVE (NEGATIVE); URINE COLOR YELLOW; URINE GLUCOSE (UA) NEGATIVE (NEGATIVE); URINE KETONE NEGATIVE (NEGATIVE); URINE LEUK ESTERASE TRACE (NEGATIVE); URINE NITRITE NEGATIVE (NEGATIVE); URINE PROTEIN 4+ (NEGATIVE); URINE RBC 23 /uL (0-23.9); URINE UROBILINOGEN 0.2 mg/dL (0.2-1.0); URINE WBC 20 /uL (0-25.8)
[2021-12-25 14:35] LABS: ANISOCYTOSIS 0; MACROCYTOSIS 0
[2021-12-25] MEDS ORDERED: LOSARTAN POTASSIUM 50 MG TABLET ONE (14:41)
[2021-12-25] MEDS ORDERED: NAPH,MB-DB/K PH,MBDB POWDER PACKET ONE (14:42)
[2021-12-25] MEDS ORDERED: MAGNESIUM 1GM/D5W - 1 GM/100 ML IVPB IVPB ONE ×2 (14:42→14:51)
[2021-12-25] MEDS: LOSARTAN POTASSIUM 50 MG TABLET PO SCH (14:50)
[2021-12-25] MEDS: NAPH,MB-DB/K PH,MBDB POWDER PACKET PO SCH ×2 (14:50→21:58)
[2021-12-25] MEDS ORDERED: ASPIRIN 81 MG CHEWABLE TABLETS PO ONE (15:08)
[2021-12-25] MEDS ORDERED: ASPIRIN 81 MG CHEWABLE TABLETS ONE (15:32)
[2021-12-25] MEDS ORDERED: FUROSEMIDE 40 MG/4 ML INJECTABLE VIAL IVPUSH ONE (18:21)
[2021-12-25] MEDS ORDERED: FUROSEMIDE 40 MG/4 ML INJECTABLE VIAL ONE (18:29)
[2021-12-25] MEDS ORDERED: PIPERACILLIN/TAZOB 3.375 GM 3.375 GM/50 ML BAG IVPB ONE (18:29)
[2021-12-25] MEDS: PIPERACILLIN/TAZOB 3.375 GM 3.375 GM in DEXTROSE 5%-WATER - 50 ML IVPB SCH (18:42)
[2021-12-25] MEDS ORDERED: LEVALBUTEROL HCL 0.31 MG/3 ML VIAL.NEB IH SCH (20:00)
[2021-12-25 20:48] VITALS: BMI 26.4
[2021-12-25] MEDS: LEVALBUTEROL HCL 0.31 MG/3 ML VIAL.NEB IH SCH (21:05)
[2021-12-25] MEDS: SERTRALINE HCL 25 MG TABLET (FP) PO SCH (21:58)
[2021-12-25] MEDS: BUDESONIDE/FORMETEROL FUMARATE 160/4.5 mcg INHALER IH SCH (22:32)
[2021-12-26] MEDS: PIPERACILLIN/TAZOB 3.375 GM 3.375 GM in DEXTROSE 5%-WATER - 50 ML IVPB SCH ×4 (01:32→19:23)
[2021-12-26] MEDS: LEVOTHYROXINE NA 25 MCG TABLET (FP) PO SCH (06:04)
[2021-12-26] MEDS: LEVALBUTEROL HCL 0.31 MG/3 ML VIAL.NEB IH SCH ×3 (07:40→20:41)
[2021-12-26 07:43] LABS: BASO % 0.6 % (0-2.0); EOS % 5.8 % (0-4.5); HEMATOCRIT 25.7 % (32.4-45.2); HEMOGLOBIN 8.6 GM/dL (10.7-15.3); MCH 31.2 pg (25.7-33.7); MCHC 33.7 g/dl (32.0-36.0); MEAN CELL VOLUME 92.7 fl (80-96); MEAN PLT VOLUME 7.3 fl (7.5-11.1); MONO % 3.6 % (3.8-10.2); PLATELET COUNT 181 10^3/uL (134-434); RBC 2.77 M/mm3 (3.60-5.2); RDW 14.5 % (11.6-15.6)
[2021-12-26] MEDS: ALPRAZolam 0.25 MG TABLET PO PRN ×2 (10:47→21:24)
[2021-12-26] MEDS: LOSARTAN POTASSIUM 50 MG TABLET PO SCH (10:47)
[2021-12-26] MEDS: PANTOPRAZOLE 40 MG TABLET PO SCH (10:47)
[2021-12-26] MEDS: TIOTROPIUM BROMIDE 2.5 MCG (SPIRIVA) RESPIMAT INHALER IH SCH (10:48)
[2021-12-26] MEDS: BUDESONIDE/FORMETEROL FUMARATE 160/4.5 mcg INHALER IH SCH ×2 (10:48→21:23)
[2021-12-26] MEDS: methylPREDNISolone NA SUCC 40 MG/1 ML VIAL IVPUSH SCH ×2 (12:11→23:31)
[2021-12-26] MEDS: FUROSEMIDE 40 MG/4 ML INJECTABLE VIAL IVPUSH SCH (14:52)
[2021-12-26] MEDS: RIVAROXABAN 15 MG TABLET PO SCH (17:27)
[2021-12-26] MEDS ORDERED: RIVAROXABAN 15 MG TABLET PO SCH (18:00)
[2021-12-26] MEDS: SERTRALINE HCL 25 MG TABLET (FP) PO SCH (21:25)
[2021-12-27] MEDS: FUROSEMIDE 40 MG/4 ML INJECTABLE VIAL IVPUSH SCH ×2 (06:17→15:05)
[2021-12-27] MEDS: LEVOTHYROXINE NA 25 MCG TABLET (FP) PO SCH (06:17)
[2021-12-27] MEDS: LEVALBUTEROL HCL 0.31 MG/3 ML VIAL.NEB IH SCH ×3 (07:27→19:36)
[2021-12-27 08:41] LABS: BASO % 0.1 % (0-2.0); HEMATOCRIT 24.8 % (32.4-45.2); HEMOGLOBIN 8.9 GM/dL (10.7-15.3); LYMPH % 10.6 % (8-40); MCH 32.8 pg (25.7-33.7); MCHC 35.9 g/dl (32.0-36.0); MEAN CELL VOLUME 91.5 fl (80-96); MEAN PLT VOLUME 7.1 fl (7.5-11.1); MONO % 1.3 % (3.8-10.2); PLATELET COUNT 207 10^3/uL (134-434); RBC 2.71 M/mm3 (3.60-5.2); RDW 14.6 % (11.6-15.6)
[2021-12-27] MEDS: PANTOPRAZOLE 40 MG TABLET PO SCH (09:15)
[2021-12-27] MEDS: LOSARTAN POTASSIUM 50 MG TABLET PO SCH (09:15)
[2021-12-27] MEDS: FLUTICASONE/UMECLIDIN/VILANTER(200-62.5-25 TRELEGY ELLIPTA) INAHLER IH SCH ×2 (09:16→12:02)
[2021-12-27] MEDS: TIOTROPIUM BROMIDE 2.5 MCG (SPIRIVA) RESPIMAT INHALER IH SCH (09:16)
[2021-12-27] MEDS: POLYETHYLENE GLYCOL (HEALTHYLAX) 3350 17 GM PACKET PO SCH ×2 (10:04→21:42)
[2021-12-27 12:02] LABS: ALBUMIN 1.9 g/dl (3.4-5.0); BILIRUBIN,TOTAL 0.3 mg/dL (0.2-1); BLOOD UREA NITROGEN 25.8 mg/dL (7-18); CALCIUM 7.8 mg/dL (8.5-10.1); CREATININE 1.2 mg/dL (0.55-1.3); MAGNESIUM 1.7 mg/dL (1.8-2.4); PHOSPHOROUS 3.8 mg/dL (2.5-4.9); TOT PROT 4.9 g/dl (6.4-8.2)
[2021-12-27] MEDS: methylPREDNISolone NA SUCC 40 MG/1 ML VIAL IVPUSH SCH ×2 (12:03→22:47)
[2021-12-27] MEDS: RIVAROXABAN 15 MG TABLET PO SCH (17:48)
[2021-12-27] MEDS: SERTRALINE HCL 25 MG TABLET (FP) PO SCH (21:42)
[2021-12-27] MEDS: ALPRAZolam 0.25 MG TABLET PO PRN (21:42)
[2021-12-28] MEDS: LEVOTHYROXINE NA 25 MCG TABLET (FP) PO SCH (06:10)
[2021-12-28] MEDS: FUROSEMIDE 40 MG/4 ML INJECTABLE VIAL IVPUSH SCH (06:10)
[2021-12-28] MEDS: LEVALBUTEROL HCL 0.31 MG/3 ML VIAL.NEB IH SCH ×3 (07:30→20:10)
[2021-12-28 08:27] LABS: BASO % 0.3 % (0-2.0); HEMATOCRIT 24.3 % (32.4-45.2); HEMOGLOBIN 8.4 GM/dL (10.7-15.3); LYMPH % 7.1 % (8-40); MCH 31.7 pg (25.7-33.7); MCHC 34.6 g/dl (32.0-36.0); MEAN CELL VOLUME 91.5 fl (80-96); MONO % 1.9 % (3.8-10.2); NEUT % 90.7 % (42.8-82.8); PLATELET COUNT 261 10^3/uL (134-434); RBC 2.66 M/mm3 (3.60-5.2); RDW 14.3 % (11.6-15.6); WHITE BLOOD COUNT 13.6 K/mm3 (4.0-10.0)
[2021-12-28 08:48] LABS: ALBUMIN 2.1 g/dl (3.4-5.0)
[2021-12-28 08:51] LABS: CREATININE 1.3 mg/dL (0.55-1.3)
[2021-12-28 08:53] LABS: BILIRUBIN,TOTAL 0.2 mg/dL (0.2-1)
[2021-12-28] MEDS: PANTOPRAZOLE 40 MG TABLET PO SCH (09:19)
[2021-12-28] MEDS: POLYETHYLENE GLYCOL (HEALTHYLAX) 3350 17 GM PACKET PO SCH ×2 (09:19→21:28)
[2021-12-28] MEDS: LOSARTAN POTASSIUM 50 MG TABLET PO SCH (09:19)
[2021-12-28] MEDS ORDERED: DIGOXIN 0.125 MG TABLET PO SCH (10:00)
[2021-12-28] MEDS: predniSONE 10 MG TABLET (UD) PO SCH (10:28)
[2021-12-28] MEDS: FLUTICASONE/UMECLIDIN/VILANTER(200-62.5-25 TRELEGY ELLIPTA) INAHLER IH SCH (10:29)
[2021-12-28] MEDS: TORSEMIDE 20 MG TABLET (FP) PO SCH (10:29)
[2021-12-28] MEDS ORDERED: POTASSIUM CHLORIDE TABS 20 MEQ TABLET.ER (FP) PO ONE (11:10)
[2021-12-28] MEDS: RIVAROXABAN 15 MG TABLET PO SCH (18:03)
[2021-12-28] MEDS: SERTRALINE HCL 25 MG TABLET (FP) PO SCH (21:28)
[2021-12-28] MEDS: AMIODARONE HCL 200 MG TABLET PO SCH (21:28)
[2021-12-28] MEDS: ALPRAZolam 0.25 MG TABLET PO PRN (22:34)
[2021-12-29] MEDS: LEVOTHYROXINE NA 25 MCG TABLET (FP) PO SCH (06:13)
[2021-12-29] MEDS: LEVALBUTEROL HCL 0.31 MG/3 ML VIAL.NEB IH SCH ×4 (08:01→20:18)
[2021-12-29 08:30] LABS: BASO % 0.4 % (0-2.0); HEMATOCRIT 25.3 % (32.4-45.2); HEMOGLOBIN 8.9 GM/dL (10.7-15.3); LYMPH % 15.6 % (8-40); MCHC 35.2 g/dl (32.0-36.0); MEAN PLT VOLUME 6.9 fl (7.5-11.1); MONO % 8.7 % (3.8-10.2); NEUT % 75.3 % (42.8-82.8); PLATELET COUNT 340 10^3/uL (134-434); RBC 2.78 M/mm3 (3.60-5.2); RDW 14.5 % (11.6-15.6); WHITE BLOOD COUNT 12.6 K/mm3 (4.0-10.0)
[2021-12-29] MEDS ORDERED: IRON SUCROSE INJECTION 200 MG in SODIUM CHLORIDE 90 ML IVPB ONE (08:30)
[2021-12-29 08:52] LABS: BLOOD UREA NITROGEN 38.5 mg/dL (7-18); CALCIUM 7.7 mg/dL (8.5-10.1); MAGNESIUM 1.4 mg/dL (1.8-2.4)
[2021-12-29 08:56] LABS: CREATININE 1.4 mg/dL (0.55-1.3)
[2021-12-29] MEDS: POTASSIUM CHLORIDE TABS 20 MEQ TABLET.ER (FP) PO SCH (09:06)
[2021-12-29] MEDS: TORSEMIDE 20 MG TABLET (FP) PO SCH (09:07)
[2021-12-29] MEDS: PANTOPRAZOLE 40 MG TABLET PO SCH (09:07)
[2021-12-29] MEDS: LOSARTAN POTASSIUM 50 MG TABLET PO SCH (09:07)
[2021-12-29] MEDS: AMIODARONE HCL 200 MG TABLET PO SCH ×2 (09:07→21:19)
[2021-12-29] MEDS: predniSONE 10 MG TABLET (UD) PO SCH (09:07)
[2021-12-29] MEDS: POLYETHYLENE GLYCOL (HEALTHYLAX) 3350 17 GM PACKET PO SCH ×2 (09:08→22:00)
[2021-12-29] MEDS: FLUTICASONE/UMECLIDIN/VILANTER(200-62.5-25 TRELEGY ELLIPTA) INAHLER IH SCH (09:08)
[2021-12-29] MEDS ORDERED: POTASSIUM CHLORIDE TABS 20 MEQ TABLET.ER (FP) PO ONE ×2 (09:29→15:00)
[2021-12-29] MEDS ORDERED: MAGNESIUM SULF 50% (8.12 MEQ/2 ML-1 GM VIAL) IVPB ONE (10:00)
[2021-12-29] MEDS: RIVAROXABAN 15 MG TABLET PO SCH (17:17)
[2021-12-29] MEDS: SERTRALINE HCL 25 MG TABLET (FP) PO SCH (21:19)
[2021-12-29] MEDS: ALPRAZolam 0.25 MG TABLET PO PRN (21:19)
[2021-12-30] MEDS: LEVOTHYROXINE NA 25 MCG TABLET (FP) PO SCH (06:31)
[2021-12-30] MEDS: LEVALBUTEROL HCL 0.31 MG/3 ML VIAL.NEB IH SCH ×3 (07:58→19:56)
[2021-12-30] MEDS: POLYETHYLENE GLYCOL (HEALTHYLAX) 3350 17 GM PACKET PO SCH ×2 (09:26→21:35)
[2021-12-30] MEDS: LOSARTAN POTASSIUM 50 MG TABLET PO SCH (09:27)
[2021-12-30] MEDS: PANTOPRAZOLE 40 MG TABLET PO SCH (09:27)
[2021-12-30] MEDS: predniSONE 10 MG TABLET (UD) PO SCH (09:27)
[2021-12-30] MEDS: FLUTICASONE/UMECLIDIN/VILANTER(200-62.5-25 TRELEGY ELLIPTA) INAHLER IH SCH (09:27)
[2021-12-30] MEDS: POTASSIUM CHLORIDE TABS 20 MEQ TABLET.ER (FP) PO SCH (09:27)
[2021-12-30] MEDS: TORSEMIDE 20 MG TABLET (FP) PO SCH (09:27)
[2021-12-30] MEDS: AMIODARONE HCL 200 MG TABLET PO SCH ×2 (09:27→21:35)
[2021-12-30] MEDS: RIVAROXABAN 15 MG TABLET PO SCH (17:22)
[2021-12-30] MEDS: SERTRALINE HCL 25 MG TABLET (FP) PO SCH (21:35)
[2021-12-30] MEDS: ALPRAZolam 0.25 MG TABLET PO PRN (21:35)
[2021-12-31] MEDS: LEVOTHYROXINE NA 25 MCG TABLET (FP) PO SCH (06:02)
[2021-12-31] MEDS: LEVALBUTEROL HCL 0.31 MG/3 ML VIAL.NEB IH SCH (08:22)
[2021-12-31] MEDS: predniSONE 10 MG TABLET (UD) PO SCH (10:16)
[2021-12-31] MEDS: AMIODARONE HCL 200 MG TABLET PO SCH ×2 (10:17→21:15)
[2021-12-31] MEDS: TORSEMIDE 20 MG TABLET (FP) PO SCH (10:17)
[2021-12-31] MEDS: LOSARTAN POTASSIUM 50 MG TABLET PO SCH (10:17)
[2021-12-31] MEDS: POTASSIUM CHLORIDE TABS 20 MEQ TABLET.ER (FP) PO SCH (10:18)
[2021-12-31] MEDS: FLUTICASONE/UMECLIDIN/VILANTER(200-62.5-25 TRELEGY ELLIPTA) INAHLER IH SCH (10:18)
[2021-12-31] MEDS: POLYETHYLENE GLYCOL (HEALTHYLAX) 3350 17 GM PACKET PO SCH ×2 (10:18→21:15)
[2021-12-31] MEDS: PANTOPRAZOLE 40 MG TABLET PO SCH (10:18)
[2021-12-31 14:03] LABS: HEMATOCRIT 26.1 % (32.4-45.2); HEMOGLOBIN 9.1 GM/dL (10.7-15.3); MCHC 34.9 g/dl (32.0-36.0); MEAN CELL VOLUME 91.8 fl (80-96); MEAN PLT VOLUME 6.9 fl (7.5-11.1); PLATELET COUNT 543 10^3/uL (134-434); RBC 2.84 M/mm3 (3.60-5.2); RDW 14.4 % (11.6-15.6); WHITE BLOOD COUNT 11.6 K/mm3 (4.0-10.0)
[2021-12-31 15:03] LABS: BLOOD UREA NITROGEN 38.7 mg/dL (7-18); CALCIUM 8.2 mg/dL (8.5-10.1); CREATININE 1.9 mg/dL (0.55-1.3); MAGNESIUM 1.5 mg/dL (1.8-2.4)
[2021-12-31] MEDS ORDERED: MAGNESIUM SULF 50% (8.12 MEQ/2 ML-1 GM VIAL) IVPB ONE (15:27)
[2021-12-31] MEDS: RIVAROXABAN 15 MG TABLET PO SCH (17:24)
[2021-12-31] MEDS: SERTRALINE HCL 25 MG TABLET (FP) PO SCH (21:15)
[2021-12-31] MEDS: ALPRAZolam 0.25 MG TABLET PO PRN (21:15)
[2022-01-01] MEDS: LEVOTHYROXINE NA 25 MCG TABLET (FP) PO SCH (06:16)
[2022-01-01] MEDS: PANTOPRAZOLE 40 MG TABLET PO SCH (09:49)
[2022-01-01] MEDS: POTASSIUM CHLORIDE TABS 20 MEQ TABLET.ER (FP) PO SCH (09:49)
[2022-01-01] MEDS: LOSARTAN POTASSIUM 50 MG TABLET PO SCH (09:50)
[2022-01-01] MEDS: AMIODARONE HCL 200 MG TABLET PO SCH (09:50)
[2022-01-01] MEDS: predniSONE 10 MG TABLET (UD) PO SCH (09:51)
[2022-01-01] MEDS: FLUTICASONE/UMECLIDIN/VILANTER(200-62.5-25 TRELEGY ELLIPTA) INAHLER IH SCH (09:51)
[2022-01-01] MEDS: POLYETHYLENE GLYCOL (HEALTHYLAX) 3350 17 GM PACKET PO SCH ×3 (09:51→21:22)
[2022-01-01] MEDS: TORSEMIDE 20 MG TABLET (FP) PO SCH (09:51)
[2022-01-01 10:02] LABS: CALCIUM 8.9 mg/dL (8.5-10.1)
[2022-01-01 10:03] LABS: BLOOD UREA NITROGEN 38.7 mg/dL (7-18); MAGNESIUM 1.8 mg/dL (1.8-2.4)
[2022-01-01 10:06] LABS: CREATININE 1.4 mg/dL (0.55-1.3)
[2022-01-01] MEDS: RIVAROXABAN 15 MG TABLET PO SCH (17:24)
[2022-01-01] MEDS: SERTRALINE HCL 25 MG TABLET (FP) PO SCH (21:24)
[2022-01-01] MEDS: ALPRAZolam 0.25 MG TABLET PO PRN (21:24)
[2022-01-02] MEDS ORDERED: ACETAMINOPHEN 325 MG TABLET (FP) ONE (01:58)
[2022-01-02] MEDS ORDERED: ACETAMINOPHEN 325 MG TABLET (FP) PO ONE (02:07)
[2022-01-02] MEDS: LEVOTHYROXINE NA 25 MCG TABLET (FP) PO SCH (06:11)
[2022-01-02] MEDS: PANTOPRAZOLE 40 MG TABLET PO SCH (09:37)
[2022-01-02] MEDS: POLYETHYLENE GLYCOL (HEALTHYLAX) 3350 17 GM PACKET PO SCH ×2 (09:37→21:18)
[2022-01-02] MEDS: POTASSIUM CHLORIDE TABS 20 MEQ TABLET.ER (FP) PO SCH (09:37)
[2022-01-02] MEDS: TORSEMIDE 20 MG TABLET (FP) PO SCH (09:37)
[2022-01-02] MEDS: predniSONE 10 MG TABLET (UD) PO SCH (09:37)
[2022-01-02] MEDS: LOSARTAN POTASSIUM 50 MG TABLET PO SCH (09:37)
[2022-01-02] MEDS: AMIODARONE HCL 200 MG TABLET PO SCH (09:37)
[2022-01-02] MEDS: FLUTICASONE/UMECLIDIN/VILANTER(200-62.5-25 TRELEGY ELLIPTA) INAHLER IH SCH (09:38)
[2022-01-02] MEDS: RIVAROXABAN 15 MG TABLET PO SCH (17:19)
[2022-01-02 19:49] LABS: BASO % 0.2 % (0-2.0); HEMATOCRIT 28.1 % (32.4-45.2); HEMOGLOBIN 9.9 GM/dL (10.7-15.3); MCH 32.6 pg (25.7-33.7); MCHC 35.3 g/dl (32.0-36.0); MEAN CELL VOLUME 92.4 fl (80-96); MEAN PLT VOLUME 6.8 fl (7.5-11.1); MONO % 4.3 % (3.8-10.2); NEUT % 85.5 % (42.8-82.8); PLATELET COUNT 647 10^3/uL (134-434); RBC 3.05 M/mm3 (3.60-5.2); RDW 14.5 % (11.6-15.6); WHITE BLOOD COUNT 10.4 K/mm3 (4.0-10.0)
[2022-01-02] MEDS: SERTRALINE HCL 25 MG TABLET (FP) PO SCH (21:18)
[2022-01-02] MEDS: ALPRAZolam 0.25 MG TABLET PO PRN (21:18)
[2022-01-03] MEDS: LEVOTHYROXINE NA 25 MCG TABLET (FP) PO SCH (06:10)
[2022-01-03] MEDS: WITCH HAZEL 50% (TUCKS) 40 PAD/JAR PAD TP PRN (06:45)
[2022-01-03 06:50] LABS: HEMATOCRIT 27.1 % (32.4-45.2); HEMOGLOBIN 9.3 GM/dL (10.7-15.3); MCH 31.1 pg (25.7-33.7); MCHC 34.4 g/dl (32.0-36.0); MEAN CELL VOLUME 90.5 fl (80-96); PLATELET COUNT 660 10^3/uL (134-434); RBC 2.99 M/mm3 (3.60-5.2); RDW 14.1 % (11.6-15.6); WHITE BLOOD COUNT 12.6 K/mm3 (4.0-10.0)
[2022-01-03 08:52] LABS: ANISOCYTOSIS 0; HELMET CELLS 0; HOWELL-JOLLY BODIES 0; MACROCYTOSIS 0; OVALOCYTE 0; ROULEAU 0; SICKELED CELLS 0; TARGET CELLS 0; TEAR DROP CELLS 0; TOXIC GRANULATION 0
[2022-01-03] MEDS: POLYETHYLENE GLYCOL (HEALTHYLAX) 3350 17 GM PACKET PO SCH ×2 (09:40→21:11)
[2022-01-03] MEDS: AMIODARONE HCL 200 MG TABLET PO SCH (09:41)
[2022-01-03] MEDS: predniSONE 10 MG TABLET (UD) PO SCH (09:41)
[2022-01-03] MEDS: TORSEMIDE 20 MG TABLET (FP) PO SCH (09:41)
[2022-01-03] MEDS: LOSARTAN POTASSIUM 50 MG TABLET PO SCH (09:41)
[2022-01-03] MEDS: POTASSIUM CHLORIDE TABS 20 MEQ TABLET.ER (FP) PO SCH (09:41)
[2022-01-03] MEDS: PANTOPRAZOLE 40 MG TABLET PO SCH (09:41)
[2022-01-03] MEDS: FLUTICASONE/UMECLIDIN/VILANTER(200-62.5-25 TRELEGY ELLIPTA) INAHLER IH SCH (10:03)
[2022-01-03] MEDS: RIVAROXABAN 15 MG TABLET PO SCH (17:30)
[2022-01-03] MEDS: SERTRALINE HCL 25 MG TABLET (FP) PO SCH (21:07)
[2022-01-04] MEDS: LEVOTHYROXINE NA 25 MCG TABLET (FP) PO SCH (06:31)
[2022-01-04] MEDS: LOSARTAN POTASSIUM 50 MG TABLET PO SCH (09:29)
[2022-01-04] MEDS: POTASSIUM CHLORIDE TABS 20 MEQ TABLET.ER (FP) PO SCH (09:29)
[2022-01-04] MEDS: TORSEMIDE 20 MG TABLET (FP) PO SCH (09:30)
[2022-01-04] MEDS: AMIODARONE HCL 200 MG TABLET PO SCH (09:30)
[2022-01-04] MEDS: POLYETHYLENE GLYCOL (HEALTHYLAX) 3350 17 GM PACKET PO SCH ×2 (09:30→21:15)
[2022-01-04] MEDS: predniSONE 20 MG TABLET (UD) PO SCH (09:30)
[2022-01-04] MEDS: PANTOPRAZOLE 40 MG TABLET PO SCH (09:30)
[2022-01-04] MEDS: FLUTICASONE/UMECLIDIN/VILANTER(200-62.5-25 TRELEGY ELLIPTA) INAHLER IH SCH (09:33)
[2022-01-04] MEDS: ALPRAZolam 0.25 MG TABLET PO PRN ×2 (14:14→21:15)
[2022-01-04 17:05] LABS: BASO % 0.1 % (0-2.0); EOS % 0.1 % (0-4.5); HEMOGLOBIN 8.8 GM/dL (10.7-15.3); LYMPH % 7.9 % (8-40); MCH 31.3 pg (25.7-33.7); MCHC 33.8 g/dl (32.0-36.0); MEAN CELL VOLUME 92.6 fl (80-96); MEAN PLT VOLUME 6.9 fl (7.5-11.1); MONO % 3.3 % (3.8-10.2); NEUT % 88.6 % (42.8-82.8); PLATELET COUNT 635 10^3/uL (134-434); RBC 2.81 M/mm3 (3.60-5.2); RDW 14.1 % (11.6-15.6); WHITE BLOOD COUNT 13.5 K/mm3 (4.0-10.0)
[2022-01-04] MEDS: RIVAROXABAN 15 MG TABLET PO SCH (17:13)
[2022-01-04 17:46] LABS: ANISOCYTOSIS 1+; MACROCYTOSIS 0; OVALOCYTE 1+; TARGET CELLS 1+
[2022-01-04] MEDS: SERTRALINE HCL 25 MG TABLET (FP) PO SCH (21:15)
[2022-01-05] MEDS: LEVOTHYROXINE NA 25 MCG TABLET (FP) PO SCH (06:21)
[2022-01-05 06:42] LABS: HEMATOCRIT 24.6 % (32.4-45.2); HEMOGLOBIN 8.5 GM/dL (10.7-15.3); MCH 31.2 pg (25.7-33.7); MCHC 34.3 g/dl (32.0-36.0); MEAN CELL VOLUME 90.9 fl (80-96); MEAN PLT VOLUME 6.7 fl (7.5-11.1); PLATELET COUNT 572 10^3/uL (134-434); RBC 2.71 M/mm3 (3.60-5.2); RDW 14.1 % (11.6-15.6); WHITE BLOOD COUNT 14.9 K/mm3 (4.0-10.0)
[2022-01-05] MEDS ORDERED: IRON SUCROSE INJECTION 200 MG in SODIUM CHLORIDE 90 ML IVPB ONE (09:00)
[2022-01-05 09:09] LABS: ANISOCYTOSIS 0; HELMET CELLS 0; HOWELL-JOLLY BODIES 0; MACROCYTOSIS 0; OVALOCYTE 0; ROULEAU 0; SICKELED CELLS 0; TARGET CELLS 0; TEAR DROP CELLS 0; TOXIC GRANULATION 0
[2022-01-05] MEDS: PANTOPRAZOLE 40 MG TABLET PO SCH (09:50)
[2022-01-05] MEDS: LOSARTAN POTASSIUM 50 MG TABLET PO SCH (09:50)
[2022-01-05] MEDS: TORSEMIDE 20 MG TABLET (FP) PO SCH (09:50)
[2022-01-05] MEDS: POLYETHYLENE GLYCOL (HEALTHYLAX) 3350 17 GM PACKET PO SCH ×2 (09:50→22:14)
[2022-01-05] MEDS: POTASSIUM CHLORIDE TABS 20 MEQ TABLET.ER (FP) PO SCH (09:50)
[2022-01-05] MEDS: AMIODARONE HCL 200 MG TABLET PO SCH (09:50)
[2022-01-05] MEDS: predniSONE 20 MG TABLET (UD) PO SCH (09:51)
[2022-01-05] MEDS: CLOTRIMAZOLE/BETAMET DIPROP 15 GM TUBE TP SCH ×2 (09:51→22:14)
[2022-01-05] MEDS: FLUTICASONE/UMECLIDIN/VILANTER(200-62.5-25 TRELEGY ELLIPTA) INAHLER IH SCH (09:51)
[2022-01-05] MEDS: RIVAROXABAN 15 MG TABLET PO SCH (17:05)
[2022-01-05] MEDS: ACETAMINOPHEN 325 MG TABLET (FP) PO PRN (17:53)
[2022-01-05] MEDS: ALPRAZolam 0.25 MG TABLET PO PRN ×2 (17:55→22:14)
[2022-01-05] MEDS: SERTRALINE HCL 25 MG TABLET (FP) PO SCH (22:14)
[2022-01-06] MEDS: LEVOTHYROXINE NA 25 MCG TABLET (FP) PO SCH (06:20)
[2022-01-06 07:01] LABS: HEMATOCRIT 24.4 % (32.4-45.2); HEMOGLOBIN 8.3 GM/dL (10.7-15.3); MCH 30.8 pg (25.7-33.7); MCHC 33.9 g/dl (32.0-36.0); MEAN PLT VOLUME 7.2 fl (7.5-11.1); PLATELET COUNT 513 10^3/uL (134-434); RBC 2.68 M/mm3 (3.60-5.2); RDW 14.6 % (11.6-15.6); WHITE BLOOD COUNT 15.9 K/mm3 (4.0-10.0)
[2022-01-06 07:18] LABS: CALCIUM 8.1 mg/dL (8.5-10.1)
[2022-01-06 07:21] LABS: CREATININE 1.4 mg/dL (0.55-1.3)
[2022-01-06 07:23] LABS: BILIRUBIN,TOTAL 0.2 mg/dL (0.2-1); TOT PROT 4.4 g/dl (6.4-8.2)
[2022-01-06] MEDS: AMIODARONE HCL 200 MG TABLET PO SCH (10:09)
[2022-01-06] MEDS: LOSARTAN POTASSIUM 50 MG TABLET PO SCH (10:09)
[2022-01-06] MEDS: TORSEMIDE 20 MG TABLET (FP) PO SCH (10:09)
[2022-01-06] MEDS: predniSONE 20 MG TABLET (UD) PO SCH (10:09)
[2022-01-06] MEDS: POLYETHYLENE GLYCOL (HEALTHYLAX) 3350 17 GM PACKET PO SCH ×2 (10:09→22:00)
[2022-01-06] MEDS: POTASSIUM CHLORIDE TABS 20 MEQ TABLET.ER (FP) PO SCH (10:10)
[2022-01-06] MEDS: FLUTICASONE/UMECLIDIN/VILANTER(200-62.5-25 TRELEGY ELLIPTA) INAHLER IH SCH (10:11)
[2022-01-06] MEDS: PANTOPRAZOLE 40 MG TABLET PO SCH (10:11)
[2022-01-06 10:30] LABS: ANISOCYTOSIS 3+; MACROCYTOSIS 0
[2022-01-06] MEDS: CLOTRIMAZOLE/BETAMET DIPROP 15 GM TUBE TP SCH ×2 (10:50→23:00)
[2022-01-06] MEDS: RIVAROXABAN 15 MG TABLET PO SCH (17:37)
[2022-01-06] MEDS: ALPRAZolam 0.25 MG TABLET PO PRN (21:07)
[2022-01-06] MEDS: SERTRALINE HCL 25 MG TABLET (FP) PO SCH (21:07)
[2022-01-07] MEDS: LEVOTHYROXINE NA 25 MCG TABLET (FP) PO SCH (06:13)
[2022-01-07 08:30] LABS: HEMATOCRIT 24.5 % (32.4-45.2); HEMOGLOBIN 8.3 GM/dL (10.7-15.3); MCH 31.5 pg (25.7-33.7); MEAN CELL VOLUME 92.4 fl (80-96); PLATELET COUNT 445 10^3/uL (134-434); RBC 2.65 M/mm3 (3.60-5.2); RDW 14.8 % (11.6-15.6); WHITE BLOOD COUNT 19.9 K/mm3 (4.0-10.0)
[2022-01-07 08:51] LABS: CALCIUM 8.4 mg/dL (8.5-10.1)
[2022-01-07 08:53] LABS: BLOOD UREA NITROGEN 39.6 mg/dL (7-18)
[2022-01-07 08:55] LABS: CREATININE 1.5 mg/dL (0.55-1.3)
[2022-01-07] MEDS: POTASSIUM CHLORIDE TABS 20 MEQ TABLET.ER (FP) PO SCH (09:40)
[2022-01-07] MEDS: PANTOPRAZOLE 40 MG TABLET PO SCH (09:40)
[2022-01-07] MEDS: AMIODARONE HCL 200 MG TABLET PO SCH (09:40)
[2022-01-07] MEDS: predniSONE 20 MG TABLET (UD) PO SCH (09:40)
[2022-01-07] MEDS: POLYETHYLENE GLYCOL (HEALTHYLAX) 3350 17 GM PACKET PO SCH ×2 (09:40→21:46)
[2022-01-07] MEDS: ALPRAZolam 0.25 MG TABLET PO PRN ×2 (09:40→21:45)
[2022-01-07] MEDS: TORSEMIDE 20 MG TABLET (FP) PO SCH (09:40)
[2022-01-07] MEDS: LOSARTAN POTASSIUM 50 MG TABLET PO SCH (09:40)
[2022-01-07] MEDS: CLOTRIMAZOLE/BETAMET DIPROP 15 GM TUBE TP SCH ×2 (09:41→21:45)
[2022-01-07] MEDS: FLUTICASONE/UMECLIDIN/VILANTER(200-62.5-25 TRELEGY ELLIPTA) INAHLER IH SCH (09:41)
[2022-01-07 10:00] LABS: ANISOCYTOSIS 3+; MACROCYTOSIS 0
[2022-01-07] MEDS: RIVAROXABAN 15 MG TABLET PO SCH (17:18)
[2022-01-07] MEDS: WITCH HAZEL 50% (TUCKS) 40 PAD/JAR PAD TP PRN (21:45)
[2022-01-07] MEDS: SERTRALINE HCL 25 MG TABLET (FP) PO SCH (21:45)
[2022-01-08] MEDS: LEVOTHYROXINE NA 25 MCG TABLET (FP) PO SCH (06:27)
[2022-01-08 08:43] LABS: HEMATOCRIT 25.4 % (32.4-45.2); HEMOGLOBIN 8.4 GM/dL (10.7-15.3); MCH 30.8 pg (25.7-33.7); MEAN CELL VOLUME 93.2 fl (80-96); MEAN PLT VOLUME 7.1 fl (7.5-11.1); PLATELET COUNT 426 10^3/uL (134-434); RBC 2.73 M/mm3 (3.60-5.2); RDW 14.6 % (11.6-15.6); WHITE BLOOD COUNT 21.5 K/mm3 (4.0-10.0)
[2022-01-08 09:18] LABS: BLOOD UREA NITROGEN 42.9 mg/dL (7-18); CALCIUM 8.3 mg/dL (8.5-10.1)
[2022-01-08 09:22] LABS: CREATININE 1.6 mg/dL (0.55-1.3)
[2022-01-08] MEDS: predniSONE 10 MG TABLET (UD) PO SCH (10:32)
[2022-01-08] MEDS: AMIODARONE HCL 200 MG TABLET PO SCH (10:32)
[2022-01-08] MEDS: POTASSIUM CHLORIDE TABS 20 MEQ TABLET.ER (FP) PO SCH (10:32)
[2022-01-08] MEDS: ACETAMINOPHEN 325 MG TABLET (FP) PO PRN ×2 (10:32→21:00)
[2022-01-08] MEDS: LOSARTAN POTASSIUM 50 MG TABLET PO SCH (10:32)
[2022-01-08] MEDS: PANTOPRAZOLE 40 MG TABLET PO SCH (10:32)
[2022-01-08] MEDS: TORSEMIDE 20 MG TABLET (FP) PO SCH (10:32)
[2022-01-08] MEDS: CLOTRIMAZOLE/BETAMET DIPROP 15 GM TUBE TP SCH ×2 (10:33→20:59)
[2022-01-08] MEDS: POLYETHYLENE GLYCOL (HEALTHYLAX) 3350 17 GM PACKET PO SCH ×2 (10:33→20:59)
[2022-01-08] MEDS: FLUTICASONE/UMECLIDIN/VILANTER(200-62.5-25 TRELEGY ELLIPTA) INAHLER IH SCH (10:34)
[2022-01-08 10:56] LABS: ANISOCYTOSIS 0; MACROCYTOSIS 0
[2022-01-08] MEDS: ALBUTEROL SO4 2.5/IPRATROPIUM 0.5 INH SOL 3 ML VIAL.NEB. NEB SCH ×3 (11:54→20:55)
[2022-01-08] MEDS: RIVAROXABAN 15 MG TABLET PO SCH (18:01)
[2022-01-08] MEDS: ALPRAZolam 0.25 MG TABLET PO PRN (21:00)
[2022-01-08] MEDS: SERTRALINE HCL 25 MG TABLET (FP) PO SCH (21:00)
[2022-01-09] MEDS: LEVOTHYROXINE NA 25 MCG TABLET (FP) PO SCH (06:17)
[2022-01-09 07:49] LABS: HEMATOCRIT 22.8 % (32.4-45.2); HEMOGLOBIN 7.7 GM/dL (10.7-15.3); MCH 30.9 pg (25.7-33.7); MCHC 33.7 g/dl (32.0-36.0); MEAN CELL VOLUME 91.8 fl (80-96); MEAN PLT VOLUME 7.1 fl (7.5-11.1); PLATELET COUNT 336 10^3/uL (134-434); RBC 2.48 M/mm3 (3.60-5.2); RDW 14.5 % (11.6-15.6); WHITE BLOOD COUNT 18.8 K/mm3 (4.0-10.0)
[2022-01-09 08:13] LABS: CALCIUM 7.9 mg/dL (8.5-10.1)
[2022-01-09 08:14] LABS: BLOOD UREA NITROGEN 44.4 mg/dL (7-18)
[2022-01-09 08:17] LABS: CREATININE 1.4 mg/dL (0.55-1.3)
[2022-01-09 08:20] LABS: BILIRUBIN,TOTAL 0.2 mg/dL (0.2-1); TOT PROT 4.4 g/dl (6.4-8.2)
[2022-01-09] MEDS ORDERED: FUROSEMIDE 40 MG/4 ML INJECTABLE VIAL IVPUSH ONE (08:34)
[2022-01-09] MEDS: ALBUTEROL SO4 2.5/IPRATROPIUM 0.5 INH SOL 3 ML VIAL.NEB. NEB SCH ×5 (09:18→20:57)
[2022-01-09 09:28] LABS: ANISOCYTOSIS 3+; MACROCYTOSIS 0
[2022-01-09] MEDS: TORSEMIDE 20 MG TABLET (FP) PO SCH (10:18)
[2022-01-09] MEDS: predniSONE 10 MG TABLET (UD) PO SCH (10:18)
[2022-01-09] MEDS: LOSARTAN POTASSIUM 50 MG TABLET PO SCH (10:18)
[2022-01-09] MEDS: AMIODARONE HCL 200 MG TABLET PO SCH (10:18)
[2022-01-09] MEDS: PANTOPRAZOLE 40 MG TABLET PO SCH ×2 (10:18→23:49)
[2022-01-09] MEDS: POTASSIUM CHLORIDE TABS 20 MEQ TABLET.ER (FP) PO SCH (10:19)
[2022-01-09] MEDS: POLYETHYLENE GLYCOL (HEALTHYLAX) 3350 17 GM PACKET PO SCH ×2 (10:19→23:48)
[2022-01-09] MEDS: CLOTRIMAZOLE/BETAMET DIPROP 15 GM TUBE TP SCH ×2 (10:20→23:50)
[2022-01-09] MEDS: FLUTICASONE/UMECLIDIN/VILANTER(200-62.5-25 TRELEGY ELLIPTA) INAHLER IH SCH (10:20)
[2022-01-09] MEDS ORDERED: POTASSIUM CHLORIDE TABS 20 MEQ TABLET.ER (FP) PO ONE (10:44)
[2022-01-09] MEDS: ALPRAZolam 0.25 MG TABLET PO PRN (18:07)
[2022-01-09] MEDS ORDERED: WITCH HAZEL 50% (TUCKS) 40 PAD/JAR PAD TP PRN (22:53)
[2022-01-09] MEDS ORDERED: ACETAMINOPHEN 325 MG TABLET (FP) PO PRN (22:53)
[2022-01-09] MEDS ORDERED: SERTRALINE HCL 25 MG TABLET (FP) PO SCH (23:30)
[2022-01-09] MEDS ORDERED: PANTOPRAZOLE 40 MG TABLET PO ONE (23:35)
[2022-01-09] MEDS: SERTRALINE HCL 25 MG TABLET (FP) PO SCH (23:50)
[2022-01-10] MEDS ORDERED: LEVOTHYROXINE NA 25 MCG TABLET (FP) PO SCH (07:00)
[2022-01-10] MEDS: ALBUTEROL SO4 2.5/IPRATROPIUM 0.5 INH SOL 3 ML VIAL.NEB. NEB SCH ×3 (07:45→16:00)
[2022-01-10] MEDS: POLYETHYLENE GLYCOL (HEALTHYLAX) 3350 17 GM PACKET PO SCH ×2 (09:59→10:25)
[2022-01-10] MEDS ORDERED: IRON SUCROSE INJECTION 200 MG in SODIUM CHLORIDE 90 ML IVPB ONE (10:00)
[2022-01-10] MEDS ORDERED: LOSARTAN POTASSIUM 50 MG TABLET PO SCH (10:00)
[2022-01-10] MEDS ORDERED: FLUTICASONE/UMECLIDIN/VILANTER(200-62.5-25 TRELEGY ELLIPTA) INAHLER IH SCH (10:00)
[2022-01-10] MEDS ORDERED: predniSONE 10 MG TABLET (UD) PO SCH (10:00)
[2022-01-10] MEDS ORDERED: POTASSIUM CHLORIDE TABS 20 MEQ TABLET.ER (FP) PO SCH (10:00)
[2022-01-10] MEDS ORDERED: TORSEMIDE 20 MG TABLET (FP) PO SCH (10:00)
[2022-01-10] MEDS ORDERED: PANTOPRAZOLE 40 MG TABLET PO SCH (10:00)
[2022-01-10] MEDS ORDERED: CLOTRIMAZOLE/BETAMET DIPROP 15 GM TUBE TP SCH (10:00)
[2022-01-10] MEDS ORDERED: AMIODARONE HCL 200 MG TABLET PO SCH (10:00)
[2022-01-10 10:14] LABS: HEMOGLOBIN 10.2 GM/dL (10.7-15.3); MEAN CELL VOLUME 88.4 fl (80-96); MEAN PLT VOLUME 7.2 fl (7.5-11.1); PLATELET COUNT 306 10^3/uL (134-434); RBC 3.39 M/mm3 (3.60-5.2); RDW 18.6 % (11.6-15.6)
[2022-01-10 10:42] LABS: CALCIUM 7.9 mg/dL (8.5-10.1)
[2022-01-10 10:45] LABS: CREATININE 1.4 mg/dL (0.55-1.3)
[2022-01-10 10:48] LABS: BILIRUBIN,TOTAL 0.3 mg/dL (0.2-1); TOT PROT 4.7 g/dl (6.4-8.2)
[2022-01-10 11:05] LABS: ANISOCYTOSIS 2+; MACROCYTOSIS 0; OVALOCYTE 1+
[2022-01-10 14:25] VITALS: BP 144/66; PULSE 80; RESP 20; TEMP 98.6
[2022-01-10] MEDS: ALPRAZolam 0.25 MG TABLET PO PRN (17:25)
[2022-01-10] MEDS ORDERED: MULTIVITAMINS (DAILY MVI) TABLET (FP) PO SCH (17:30)
[2022-01-10] MEDS ORDERED: ASCORBIC ACID 250 MG TABLET (FP) PO SCH (17:30)
[2022-01-10] MEDS ORDERED: RIVAROXABAN 15 MG TABLET PO SCH (18:00)
[2022-01-10] MEDS ORDERED: MINERAL OIL/PET HY-PHL TOPICAL OINTMENT 454 GM JAR TP SCH (22:00)
[2022-01-10] MEDS ORDERED: CLOTRIMAZOLE/BETAMET DIPROP 15 GM TUBE TP ONE (23:36)
== END 2022-01-10 19:50 | DRG 308 ==
LOC: JER 10:41 → JERBED 12:57 → J4S 19:29 → J8W 01-09 21:39
PROVIDERS: ADMIT Family Medicine; ATTEND Family Medicine
PROC: 30233N1 Transfusion of Nonautologous Red Blood Cells into Peripheral Vein, Percutaneous Approach (ICD-10-PCS; principal; 2022-01-09)
DX: I48.91 Unspecified atrial fibrillation (principal); I50.33 Acute on chronic diastolic (congestive) heart failure; J96.22 Acute and chronic respiratory failure with hypercapnia; I24.8 Other forms of acute ischemic heart disease; J44.1 Chronic obstructive pulmonary disease with (acute) exacerbation; N17.9 Acute kidney failure, unspecified; J96.11 Chronic respiratory failure with hypoxia; I13.0 Hypertensive heart and chronic kidney disease with heart failure and stage 1 through stage 4 chronic kidney disease, or unspecified chronic kidney disease; K62.5 Hemorrhage of anus and rectum; I10 Essential (primary) hypertension; K64.9 Unspecified hemorrhoids; N28.1 Cyst of kidney, acquired; E83.42 Hypomagnesemia; N20.0 Calculus of kidney; F41.8 Other specified anxiety disorders; K59.00 Constipation, unspecified; D72.829 Elevated white blood cell count, unspecified; I07.1 Rheumatic tricuspid insufficiency; N18.9 Chronic kidney disease, unspecified; Z99.81 Dependence on supplemental oxygen; D63.8 Anemia in other chronic diseases classified elsewhere
CPT/HCPCS: 0241U-QW; 36415; 36430; 71045-TC-FY; 80048; 80053; 81003; 82272; 82607; 82728; 82746; 82784; 82803; 82962; 83540; 83550; 83605; 83615; 83735; 83880; 84100; 84155; 84165; 84443; 84484; 85025; 85027; 85045; 85610; 85730; 86334; 86850; 86900; 86901; 86922; 87040; 87086; 93005; 93010; 94640; 97116-GP; 97161-GP; 99291; C9803-CS; J1756; P9058; U0003; U0005

== ENCOUNTER 2022-08-08 02:06 | Inpatient (IN) | payer OTHER ==
[2022-08-08 02:27] VITALS: BMI 24.0
[2022-08-08] MEDS ORDERED: ACETAMINOPHEN 500 MG TABLET (FP) PO ONE (02:39)
[2022-08-08 06:36] LABS: BASO % 0.6 % (0-2.0); EOS % 0.8 % (0-4.5); HEMATOCRIT 30.2 % (32.4-45.2); HEMOGLOBIN 10.3 GM/dL (10.7-15.3); LYMPH % 18.9 % (8-40); MCH 29.7 pg (25.7-33.7); MCHC 34.2 g/dl (32.0-36.0); MEAN CELL VOLUME 86.7 fl (80-96); MEAN PLT VOLUME 8.7 fl (7.5-11.1); MONO % 7.2 % (3.8-10.2); NEUT % 72.5 % (42.8-82.8); PLATELET COUNT 216 10^3/uL (134-434); RBC 3.49 M/mm3 (3.60-5.2); WHITE BLOOD COUNT 11.8 K/mm3 (4.0-10.0)
[2022-08-08 06:38] LABS: INR 2.4 (0.83-1.09); PROTHROMBIN TIME (PATIENT) 27.6 SEC (9.7-13.0)
[2022-08-08 06:41] LABS: ACTIVATED PTT 47.9 SECONDS (25.2-36.5)
[2022-08-08] MEDS ORDERED: ACETAMINOPHEN 325 MG TABLET (FP) PO PRN (06:43)
[2022-08-08] MEDS ORDERED: ACETAMINOPHEN 1000 MG/100 ML BAG IVPB PRN (06:48)
[2022-08-08 06:56] LABS: POTASSIUM 3.7 mmol/L (3.5-5.1)
[2022-08-08 06:57] LABS: ALBUMIN 3.3 g/dl (3.4-5.0); CALCIUM 9.1 mg/dL (8.5-10.1); MAGNESIUM 1.6 mg/dL (1.8-2.4)
[2022-08-08 07:01] LABS: CREATININE 1.7 mg/dL (0.55-1.3)
[2022-08-08 07:03] LABS: BILIRUBIN,TOTAL 0.4 mg/dL (0.2-1); TOT PROT 6.7 g/dl (6.4-8.2)
[2022-08-08] MEDS ORDERED: ACETAMINOPHEN INJECTION 100 ML IVPB ONE (11:02)
[2022-08-08] MEDS ORDERED: ALBUTEROL SO4 2.5/IPRATROPIUM 0.5 INH SOL 3 ML VIAL.NEB. NEB ONE ×2 (20:53→20:54)
[2022-08-09] MEDS ORDERED: FUROSEMIDE 40 MG/4 ML INJECTABLE VIAL IVPUSH ONE (01:24)
[2022-08-09] MEDS ORDERED: ACETAMINOPHEN INJECTION 100 ML IVPB ONE (01:27)
[2022-08-09] MEDS ORDERED: ONDANSETRON 4 MG/2 ML VIAL ONE (01:27)
[2022-08-09] MEDS ORDERED: ONDANSETRON 4 MG/2 ML VIAL IVPUSH PRN (01:27)
[2022-08-09] MEDS ORDERED: FUROSEMIDE 40 MG/4 ML INJECTABLE VIAL ONE (01:27)
[2022-08-09] MEDS ORDERED: ACETAMINOPHEN 1000 MG/100 ML BAG IVPB PRN (01:36)
[2022-08-09 01:46] LABS: BASO % 0.4 % (0-2.0); EOS % 0.1 % (0-4.5); HEMOGLOBIN 8.7 GM/dL (10.7-15.3); LYMPH % 6.9 % (8-40); MCH 29.1 pg (25.7-33.7); MCHC 33.3 g/dl (32.0-36.0); MEAN CELL VOLUME 87.4 fl (80-96); MEAN PLT VOLUME 7.8 fl (7.5-11.1); MONO % 6.1 % (3.8-10.2); NEUT % 86.5 % (42.8-82.8); PLATELET COUNT 179 10^3/uL (134-434); RBC 2.98 M/mm3 (3.60-5.2); RDW 15.6 % (11.6-15.6)
[2022-08-09 02:15] LABS: EPI CELLS 1 /uL (0-25.1); HYALINE CASTS 0 /uL (0-3.1); URINE APPEARANCE CLOUDY; URINE BACTERIA 0 /uL (0-1359); URINE BILIRUBIN NEGATIVE (NEGATIVE); URINE COLOR YELLOW; URINE GLUCOSE (UA) NEGATIVE (NEGATIVE); URINE KETONE NEGATIVE (NEGATIVE); URINE LEUK ESTERASE 3+ (NEGATIVE); URINE NITRITE NEGATIVE (NEGATIVE); URINE PROTEIN 3+ (NEGATIVE); URINE RBC 24 /uL (0-23.9); URINE UROBILINOGEN 0.2 mg/dL (0.2-1.0); URINE WBC 2 /uL (0-25.8)
[2022-08-09 02:29] LABS: POTASSIUM 3.4 mmol/L (3.5-5.1)
[2022-08-09 02:30] LABS: CALCIUM 8.9 mg/dL (8.5-10.1)
[2022-08-09 02:32] LABS: BLOOD UREA NITROGEN 28.7 mg/dL (7-18)
[2022-08-09 02:35] LABS: CREATININE 1.4 mg/dL (0.55-1.3)
[2022-08-09] MEDS ORDERED: POLYETHYLENE GLYCOL (HEALTHYLAX) 3350 17 GM PACKET PO PRN (03:33)
[2022-08-09 03:53] LABS: MAGNESIUM 1.6 mg/dL (1.8-2.4)
[2022-08-09 04:00] LABS: N-TERMINAL BNP 8869.3 pg/ml (5-450)
[2022-08-09] MEDS ORDERED: KCL 10 MEQ IVPB 10 MEQ/100 ML INFUS.BAG IVPB SCH (04:00)
[2022-08-09] MEDS: CEFTRIAXONE 1 GM in DEXTROSE 5%-WATER - 50 ML IVPB SCH ×2 (04:26→10:59)
[2022-08-09] MEDS ORDERED: MAGNESIUM SULFATE IN WATER 2 GM/50 ML IVPB IVPB ONE (05:00)
[2022-08-09] MEDS ORDERED: ACETAMINOPHEN 325 MG TABLET (FP) PO PRN (06:43)
[2022-08-09] MEDS: LEVOTHYROXINE NA 25 MCG TABLET (FP) PO SCH (06:53)
[2022-08-09] MEDS: SUCRALFATE 1 GM/10 ML UNIT DOSE CUPS PO SCH ×3 (06:54→17:23)
[2022-08-09] MEDS: ALBUTEROL SO4 2.5/IPRATROPIUM 0.5 INH SOL 3 ML VIAL.NEB. NEB SCH ×4 (07:24→21:19)
[2022-08-09] MEDS ORDERED: LEVALBUTEROL HCL 0.31 MG/3 ML VIAL.NEB IH SCH (08:00)
[2022-08-09] MEDS: amLODIPine BESYLATE 10 MG TABLET (FP) PO SCH (10:58)
[2022-08-09] MEDS: LOSARTAN POTASSIUM 50 MG TABLET PO SCH (10:58)
[2022-08-09] MEDS: SERTRALINE HCL 50 MG TABLET (FP) PO SCH (10:58)
[2022-08-09] MEDS: FUROSEMIDE 20 MG TABLET (FP) PO SCH (10:58)
[2022-08-09] MEDS: AMIODARONE HCL 200 MG TABLET PO SCH (11:41)
[2022-08-09] MEDS: BUDESONIDE/FORMETEROL FUMARATE 160/4.5 mcg INHALER IH SCH ×2 (13:26→21:44)
[2022-08-09] MEDS: methylPREDNISolone NA SUCC 40 MG/1 ML VIAL IVPUSH SCH ×2 (13:26→17:24)
[2022-08-09] MEDS: RIVAROXABAN 20 MG TABLET PO SCH (17:23)
[2022-08-10] MEDS: methylPREDNISolone NA SUCC 40 MG/1 ML VIAL IVPUSH SCH ×3 (01:56→17:21)
[2022-08-10] MEDS ORDERED: POTASSIUM CHLORIDE TABS 10 MEQ TABLET.ER (FP) PO ONE (05:30)
[2022-08-10] MEDS ORDERED: MAGNESIUM SULF 50% (8.12 MEQ/2 ML-1 GM VIAL) IVPB ONE (05:30)
[2022-08-10] MEDS: LEVOTHYROXINE NA 25 MCG TABLET (FP) PO SCH (06:02)
[2022-08-10] MEDS: SUCRALFATE 1 GM/10 ML UNIT DOSE CUPS PO SCH ×3 (06:02→17:21)
[2022-08-10] MEDS: ALBUTEROL SO4 2.5/IPRATROPIUM 0.5 INH SOL 3 ML VIAL.NEB. NEB SCH ×4 (07:26→20:05)
[2022-08-10 08:23] LABS: CALCIUM 9.1 mg/dL (8.5-10.1); POTASSIUM 3.8 mmol/L (3.5-5.1)
[2022-08-10 08:28] LABS: CREATININE 1.8 mg/dL (0.55-1.3)
[2022-08-10 08:30] LABS: BLOOD UREA NITROGEN 34.9 mg/dL (7-18)
[2022-08-10 08:44] LABS: HEMATOCRIT 24.8 % (32.4-45.2); LYMPH % 10.1 % (8-40); MCH 31.2 pg (25.7-33.7); MCHC 36.3 g/dl (32.0-36.0); MEAN CELL VOLUME 86.1 fl (80-96); MEAN PLT VOLUME 8.5 fl (7.5-11.1); MONO % 2.6 % (3.8-10.2); NEUT % 87.3 % (42.8-82.8); PLATELET COUNT 179 10^3/uL (134-434); RBC 2.88 M/mm3 (3.60-5.2); RDW 14.9 % (11.6-15.6); WHITE BLOOD COUNT 6.2 K/mm3 (4.0-10.0)
[2022-08-10] MEDS: SERTRALINE HCL 50 MG TABLET (FP) PO SCH (09:06)
[2022-08-10] MEDS: ALPRAZolam 0.25 MG TABLET PO PRN ×2 (09:06→21:36)
[2022-08-10] MEDS: LOSARTAN POTASSIUM 50 MG TABLET PO SCH (09:06)
[2022-08-10] MEDS: FUROSEMIDE 20 MG TABLET (FP) PO SCH (09:06)
[2022-08-10] MEDS: CEFTRIAXONE 1 GM in DEXTROSE 5%-WATER - 50 ML IVPB SCH (09:06)
[2022-08-10] MEDS: amLODIPine BESYLATE 10 MG TABLET (FP) PO SCH (09:06)
[2022-08-10] MEDS: BUDESONIDE/FORMETEROL FUMARATE 160/4.5 mcg INHALER IH SCH ×2 (09:11→21:37)
[2022-08-10] MEDS: AMIODARONE HCL 200 MG TABLET PO SCH (10:13)
[2022-08-10] MEDS ORDERED: IRON SUCROSE INJECTION 200 MG in SODIUM CHLORIDE 90 ML IVPB ONE (11:02)
[2022-08-10] MEDS: RIVAROXABAN 20 MG TABLET PO SCH (17:21)
[2022-08-11] MEDS: methylPREDNISolone NA SUCC 40 MG/1 ML VIAL IVPUSH SCH ×2 (02:00→12:03)
[2022-08-11] MEDS: LEVOTHYROXINE NA 25 MCG TABLET (FP) PO SCH (06:12)
[2022-08-11] MEDS: SUCRALFATE 1 GM/10 ML UNIT DOSE CUPS PO SCH ×3 (06:12→17:37)
[2022-08-11] MEDS: ALBUTEROL SO4 2.5/IPRATROPIUM 0.5 INH SOL 3 ML VIAL.NEB. NEB SCH ×4 (07:30→21:16)
[2022-08-11] MEDS: CEFTRIAXONE 1 GM in DEXTROSE 5%-WATER - 50 ML IVPB SCH (09:34)
[2022-08-11] MEDS: amLODIPine BESYLATE 10 MG TABLET (FP) PO SCH (09:34)
[2022-08-11] MEDS: FUROSEMIDE 20 MG TABLET (FP) PO SCH (09:34)
[2022-08-11] MEDS: SERTRALINE HCL 50 MG TABLET (FP) PO SCH (09:34)
[2022-08-11] MEDS: LOSARTAN POTASSIUM 50 MG TABLET PO SCH (09:34)
[2022-08-11] MEDS: AMIODARONE HCL 200 MG TABLET PO SCH (09:34)
[2022-08-11] MEDS: ALPRAZolam 0.25 MG TABLET PO PRN ×2 (09:43→21:09)
[2022-08-11] MEDS: BUDESONIDE/FORMETEROL FUMARATE 160/4.5 mcg INHALER IH SCH ×3 (10:01→21:20)
[2022-08-11] MEDS: RIVAROXABAN 20 MG TABLET PO SCH (17:37)
[2022-08-12] MEDS: SUCRALFATE 1 GM/10 ML UNIT DOSE CUPS PO SCH ×3 (06:01→17:09)
[2022-08-12] MEDS: LEVOTHYROXINE NA 25 MCG TABLET (FP) PO SCH (06:01)
[2022-08-12] MEDS: ALBUTEROL SO4 2.5/IPRATROPIUM 0.5 INH SOL 3 ML VIAL.NEB. NEB SCH ×4 (07:15→20:26)
[2022-08-12] MEDS: FUROSEMIDE 20 MG TABLET (FP) PO SCH (09:38)
[2022-08-12] MEDS: SERTRALINE HCL 50 MG TABLET (FP) PO SCH (09:38)
[2022-08-12] MEDS: methylPREDNISolone NA SUCC 40 MG/1 ML VIAL IVPUSH SCH (09:38)
[2022-08-12] MEDS: amLODIPine BESYLATE 10 MG TABLET (FP) PO SCH (09:38)
[2022-08-12] MEDS: AMIODARONE HCL 200 MG TABLET PO SCH (09:38)
[2022-08-12] MEDS: LOSARTAN POTASSIUM 50 MG TABLET PO SCH (09:38)
[2022-08-12] MEDS: CEFTRIAXONE 1 GM in DEXTROSE 5%-WATER - 50 ML IVPB SCH (09:38)
[2022-08-12] MEDS: BUDESONIDE/FORMETEROL FUMARATE 160/4.5 mcg INHALER IH SCH ×2 (09:44→21:24)
[2022-08-12] MEDS ORDERED: DOCUSATE SODIUM 100 MG CAPSULE (FP) PO PRN (16:51)
[2022-08-12] MEDS: RIVAROXABAN 20 MG TABLET PO SCH (17:09)
[2022-08-13] MEDS: ALPRAZolam 0.25 MG TABLET PO PRN ×2 (01:28→09:29)
[2022-08-13] MEDS: LEVOTHYROXINE NA 25 MCG TABLET (FP) PO SCH (06:00)
[2022-08-13] MEDS: SUCRALFATE 1 GM/10 ML UNIT DOSE CUPS PO SCH ×2 (06:00→11:24)
[2022-08-13] MEDS: ALBUTEROL SO4 2.5/IPRATROPIUM 0.5 INH SOL 3 ML VIAL.NEB. NEB SCH ×2 (08:38→12:43)
[2022-08-13] MEDS: amLODIPine BESYLATE 10 MG TABLET (FP) PO SCH (09:29)
[2022-08-13] MEDS: AMIODARONE HCL 200 MG TABLET PO SCH (09:29)
[2022-08-13] MEDS: LOSARTAN POTASSIUM 50 MG TABLET PO SCH (09:29)
[2022-08-13] MEDS: FUROSEMIDE 20 MG TABLET (FP) PO SCH (09:29)
[2022-08-13] MEDS: BUDESONIDE/FORMETEROL FUMARATE 160/4.5 mcg INHALER IH SCH (09:30)
[2022-08-13] MEDS: SERTRALINE HCL 50 MG TABLET (FP) PO SCH (09:30)
[2022-08-13] MEDS: CEFTRIAXONE 1 GM in DEXTROSE 5%-WATER - 50 ML IVPB SCH (09:30)
[2022-08-13] MEDS: methylPREDNISolone NA SUCC 40 MG/1 ML VIAL IVPUSH SCH (09:30)
[2022-08-13 09:39] VITALS: BP 129/70; PULSE 67; RESP 20; TEMP 98
== END 2022-08-13 14:51 | DRG 562 ==
LOC: JER 02:06 → JERBED 05:41 → J6S 08-09 02:18 → OBSVTOIN 08-09 12:23
PROVIDERS: ADMIT Family Medicine; ATTEND Family Medicine
DX: S82.142A Displaced bicondylar fracture of left tibia, initial encounter for closed fracture (principal); J18.9 Pneumonia, unspecified organism; N39.0 Urinary tract infection, site not specified; J44.1 Chronic obstructive pulmonary disease with (acute) exacerbation; I13.0 Hypertensive heart and chronic kidney disease with heart failure and stage 1 through stage 4 chronic kidney disease, or unspecified chronic kidney disease; J44.0 Chronic obstructive pulmonary disease with (acute) lower respiratory infection; J96.11 Chronic respiratory failure with hypoxia; E03.9 Hypothyroidism, unspecified; N18.9 Chronic kidney disease, unspecified; I48.91 Unspecified atrial fibrillation; I50.9 Heart failure, unspecified; W19.XXXA Unspecified fall, initial encounter; Y93.9 Activity, unspecified; Y92.89 Other specified places as the place of occurrence of the external cause; Y99.9 Unspecified external cause status
CPT/HCPCS: 0241U-QW; 36415; 71045-TC-FY; 73700-TC-RT; 80048; 80053; 81003; 83540; 83550; 83605; 83735; 83880; 85025; 85610; 85730; 86850; 86900; 86901; 87040; 87086; 87186; 93005; 93010; 94640; 99285-25; C9803-CS; G0378; J1756; U0003; U0005